=== PATIENT | female | born 1955 | race Asian ===

== ENCOUNTER 2016-11-03 22:23 | Emergency (ER) | payer MEDICARE, OTHER ==
[~2016-11-03] VITALS: Ht 152.4 cm; Wt 68.0 kg
[~2016-11-03 22:23] MED LIST: ALLOPURINOL300 MG PO; ATIVAN1 MG PO; BENADRYL25 MG PO; CEPHALEXIN500 MG PO; CLINDAMYCIN HC300 MG PO; CLONAZEPAM1 MG PO; COZAAR50 MG PO; DEPAKOTE ER500 MG PO; DICYCLOMINE HCL20 MG PO; DIVALPROEX SOD250 M1 PO; DIVALPROEX SOD500 M1 PO; INVEGA SUS234 MG/1.5 IM; LATUDA40 MG PO; LEVAQUIN500 MG PO; LEVOTHROID137 MCG PO; MELATONIN3 M1 PO; MELOXICAM15 MG PO; METFORMIN HCL500 M1 PO; METFORMIN HCL500 MG PO; NAPROSYN500 MG PO; NAPROXEN SODIU550 MG PO; NAPROXEN500 MG PO; NEURONTIN300 MG PO; PHENERGAN25 MG/1 M1 PO; PRILOSEC20 MG PO; SAPHRIS10 MG SL; TEGRETOL200 MG PO; TORSEMIDE20 MG PO; VENTOLIN HFA18 GM INH; VITAMIN C500 M2 PO; VITAMIN D350000 UNIT PO; ZOFRAN ODT4 MG SL; ZOFRAN ODT8 MG PO; ZOFRAN ODT8 MG SL
[2016-11-03] MEDS ORDERED: AMBIEN5 MG PO (22:38)
[2016-11-03] MEDS ORDERED: SEROQUEL50 MG PO (22:39)
[2016-11-03] MEDS ORDERED: ASPIR 8181 MG PO (22:43)
--- NOTE | 2016-11-04 20:57 | EKG ---
[facility] [address] [facility] [place] [address] Signed Normal sinus rhythm Normal ECG No previous ECGs available Confirmed by DARLEEN REED MD ([id number]) on 11/04/2016 8:57:03 PM Electronically Signed By: DARLEEN REED MD 11/04/167 PATIENT NAME: SHAMEKA POSEY Electrocardiogram DATE OF : 55 PHYSICIAN: DARLEEN REED MD REPORT #: [id number] REPORT IS CONFIDENTIAL AND NOT TO BE RELEASED WITHOUT AUTHORIZATION
[2016-12-21] MEDS ORDERED: ZOLOFT50 MG PO (18:54)
[2016-12-21] MEDS ORDERED: PERCOCET 5-3251 EACH PO (21:02)
[2017-01-04] MEDS ORDERED: AMBIEN5 MG PO (20:55)
== END 2016-11-04 00:25 | disposition home or self-care (01) ==
LOC: ED 22:23
DX: R07.89 Other chest pain (principal); E11.9 Type 2 diabetes mellitus without complications; Q24.9 Congenital malformation of heart, unspecified; F31.9 Bipolar disorder, unspecified; E03.9 Hypothyroidism, unspecified; G40.909 Epilepsy, unspecified, not intractable, without status epilepticus; Z90.710 Acquired absence of both cervix and uterus; Z88.0 Allergy status to penicillin; Z88.1 Allergy status to other antibiotic agents; Z88.5 Allergy status to narcotic agent; Z88.6 Allergy status to analgesic agent; Z88.8 Allergy status to other drugs, medicaments and biological substances; Z79.82 Long term (current) use of aspirin; Z79.84 Long term (current) use of oral hypoglycemic drugs
CPT/HCPCS: 71020; 80053; 84484; 85025; 93005; 93010; 96374; 99284; J1885

== ENCOUNTER 2016-12-13 01:58 | Emergency (ER) | payer MEDICARE, OTHER ==
[~2016-12-13] VITALS: Ht 152.4 cm; Wt 74.8 kg
[~2016-12-13 01:58] MED LIST changes: +AMBIEN5 MG PO; +ASPIR 8181 MG PO; +SEROQUEL50 MG PO
[2016-12-13] MEDS ORDERED: CEPHALEXIN500 MG PO (02:33)
[2016-12-13] MEDS ORDERED: MELOXICAM15 MG PO (02:33)
[2016-12-21] MEDS ORDERED: ZOLOFT50 MG PO (18:54)
[2016-12-21] MEDS ORDERED: PERCOCET 5-3251 EACH PO (21:02)
[2017-01-04] MEDS ORDERED: AMBIEN5 MG PO (20:55)
== END 2016-12-13 02:51 | disposition home or self-care (01) ==
LOC: ED 01:58
DX: M17.11 Unilateral primary osteoarthritis, right knee (principal); H66.91 Otitis media, unspecified, right ear; E11.9 Type 2 diabetes mellitus without complications; F31.9 Bipolar disorder, unspecified; E03.9 Hypothyroidism, unspecified; K21.9 Gastro-esophageal reflux disease without esophagitis; F90.9 Attention-deficit hyperactivity disorder, unspecified type; Q24.9 Congenital malformation of heart, unspecified; Z90.710 Acquired absence of both cervix and uterus; Z88.1 Allergy status to other antibiotic agents; Z88.5 Allergy status to narcotic agent; Z88.0 Allergy status to penicillin; Z88.8 Allergy status to other drugs, medicaments and biological substances; Z79.82 Long term (current) use of aspirin; Z79.899 Other long term (current) drug therapy
CPT/HCPCS: 99283

== ENCOUNTER 2016-12-16 23:32 | Emergency (ER) | payer MEDICARE, OTHER ==
[~2016-12-16] VITALS: Ht 152.4 cm; Wt 74.8 kg
[2016-12-21] MEDS ORDERED: ZOLOFT50 MG PO (18:54)
[2016-12-21] MEDS ORDERED: PERCOCET 5-3251 EACH PO (21:02)
[2017-01-04] MEDS ORDERED: AMBIEN5 MG PO (20:55)
== END 2016-12-17 00:14 | disposition home or self-care (01) ==
LOC: ED 23:32
DX: S60.021A Contusion of right index finger without damage to nail, initial encounter (principal); E11.9 Type 2 diabetes mellitus without complications; F31.9 Bipolar disorder, unspecified; E03.9 Hypothyroidism, unspecified; G40.909 Epilepsy, unspecified, not intractable, without status epilepticus; Z98.890 Other specified postprocedural states; Z88.1 Allergy status to other antibiotic agents; Z90.710 Acquired absence of both cervix and uterus; Z88.0 Allergy status to penicillin; Z88.5 Allergy status to narcotic agent; Z88.6 Allergy status to analgesic agent; Z79.899 Other long term (current) drug therapy; Z79.84 Long term (current) use of oral hypoglycemic drugs; Z79.82 Long term (current) use of aspirin; W23.1XXA Caught, crushed, jammed, or pinched between stationary objects, initial encounter
CPT/HCPCS: 99282

== ENCOUNTER → 2016-12-21 | Emergency (ER) | payer MEDICARE, OTHER ==
[~2016-12-21] VITALS: Ht 152.4 cm; Wt 75.8 kg
[~2016-12-21] MED LIST changes: +LEVOTHYROXINE88 MCG PO; +PERCOCET 5-3251 EACH PO; +ZOLOFT50 MG PO
--- NOTE | 2016-12-22 13:05 | EKG ---
[facility] [address] [facility] [place], [place] [address] Signed Normal sinus rhythm Normal ECG Confirmed by DARLEEN REED MD ([id number]) on 12/22/2016 1:05:22 PM Electronically Signed By: DARLEEN REED MD 12/22/16 1305 PATIENT NAME: SHAMEKA POSEY Electrocardiogram DATE OF : 55 PHYSICIAN: DARLEEN REED MD REPORT #: [id number] REPORT IS CONFIDENTIAL AND NOT TO BE RELEASED WITHOUT AUTHORIZATION
== END ==
LOC: ED 18:38
DX: M94.0 Chondrocostal junction syndrome [Tietze] (principal); E11.9 Type 2 diabetes mellitus without complications; F31.9 Bipolar disorder, unspecified; E03.9 Hypothyroidism, unspecified; K21.9 Gastro-esophageal reflux disease without esophagitis; F90.9 Attention-deficit hyperactivity disorder, unspecified type; G40.909 Epilepsy, unspecified, not intractable, without status epilepticus; Z90.710 Acquired absence of both cervix and uterus; Z88.5 Allergy status to narcotic agent; Z88.8 Allergy status to other drugs, medicaments and biological substances; Z88.0 Allergy status to penicillin; Z88.1 Allergy status to other antibiotic agents; Z79.899 Other long term (current) drug therapy
CPT/HCPCS: 71020; 80053; 84484; 85025; 93005; 93010; 99284

== ENCOUNTER 2016-12-23 20:21 | Emergency (ER) | payer MEDICARE, OTHER ==
[~2016-12-23] VITALS: Ht 152.4 cm; Wt 75.8 kg
[~2016-12-23 20:21] MED LIST changes: -LEVOTHYROXINE88 MCG PO
--- NOTE | 2016-12-24 17:03 | EKG ---
[facility] [address] [facility] [place], [place] [address] Signed Normal sinus rhythm Low voltage QRS Borderline ECG No previous ECGs available Confirmed by DARLEEN REED MD ([id number]) on 12/24/2016 5:02:58 PM Electronically Signed By: DARLEEN REED MD 12/24/16 1703 PATIENT NAME: SHAMEKA POSEY Electrocardiogram DATE OF : 55 PHYSICIAN: DARLEEN REED MD REPORT #: [id number] REPORT IS CONFIDENTIAL AND NOT TO BE RELEASED WITHOUT AUTHORIZATION
[2017-01-04] MEDS ORDERED: AMBIEN5 MG PO (20:55)
== END 2016-12-24 00:57 | disposition home or self-care (01) ==
LOC: ED 20:21
DX: M25.512 Pain in left shoulder (principal); E11.9 Type 2 diabetes mellitus without complications; F31.9 Bipolar disorder, unspecified; E03.9 Hypothyroidism, unspecified; G40.909 Epilepsy, unspecified, not intractable, without status epilepticus; K21.9 Gastro-esophageal reflux disease without esophagitis; F90.9 Attention-deficit hyperactivity disorder, unspecified type; Z90.89 Acquired absence of other organs; Z90.710 Acquired absence of both cervix and uterus; Z88.1 Allergy status to other antibiotic agents; Z88.0 Allergy status to penicillin; Z88.5 Allergy status to narcotic agent; Z88.8 Allergy status to other drugs, medicaments and biological substances; Z79.899 Other long term (current) drug therapy; Z79.82 Long term (current) use of aspirin
CPT/HCPCS: 71010; 80053; 84484; 85025; 99284

== ENCOUNTER 2016-12-26 18:59 | Emergency (ER) | payer MEDICARE, OTHER ==
[~2016-12-26] VITALS: Ht 152.4 cm; Wt 75.8 kg
--- NOTE | 2016-12-27 15:05 | EKG ---
[facility] [address] [facility] [place] [address] Signed Sinus rhythm with occasional premature ventricular complexes Otherwise normal ECG When compared with ECG of 23-DEC-2016 22:15, premature ventricular complexes are now present Confirmed by RENATA TOBAR MD ([id number]) on 12/27/2016 3:05:06 PM Electronically Signed By: RENATA TOBAR MD 12/27/16 1505 PATIENT NAME: SHAMEKA POSEY KEITH Electrocardiogram DATE OF : 55 PHYSICIAN: RENATA TOBAR MD REPORT #: [id number] REPORT IS CONFIDENTIAL AND NOT TO BE RELEASED WITHOUT AUTHORIZATION
[2017-01-04] MEDS ORDERED: AMBIEN5 MG PO (20:55)
== END 2016-12-26 20:58 | disposition home or self-care (01) ==
LOC: ED 18:59
DX: R07.89 Other chest pain (principal); E11.9 Type 2 diabetes mellitus without complications; F31.9 Bipolar disorder, unspecified; E03.9 Hypothyroidism, unspecified; F90.9 Attention-deficit hyperactivity disorder, unspecified type; G40.909 Epilepsy, unspecified, not intractable, without status epilepticus; K21.9 Gastro-esophageal reflux disease without esophagitis; Z90.710 Acquired absence of both cervix and uterus; Z88.5 Allergy status to narcotic agent; Z88.1 Allergy status to other antibiotic agents; Z88.0 Allergy status to penicillin; Z88.8 Allergy status to other drugs, medicaments and biological substances; Z79.891 Long term (current) use of opiate analgesic; Z79.899 Other long term (current) drug therapy
CPT/HCPCS: 71010; 80053; 84484; 85025; 93005; 93010; 99284

== ENCOUNTER → 2017-01-04 | Emergency (ER) | payer MEDICARE, OTHER ==
[~2017-01-04] VITALS: Ht 152.4 cm; Wt 75.8 kg
[~2017-01-04] MED LIST changes: +LEVOTHYROXINE88 MCG PO
--- NOTE | 2017-01-05 21:01 | EKG ---
[facility] [address] [facility] [place], [place] [address] Signed Normal sinus rhythm Normal ECG No previous ECGs available Confirmed by DARLEEN REED MD ([id number]) on 01/05/2017 9:01:03 PM Electronically Signed By: DARLEEN REED MD 01/05/172100 PATIENT NAME: SHAMEKA POSEY Electrocardiogram DATE OF : 55 PHYSICIAN: DARLEEN REED MD REPORT #: [id number] REPORT IS CONFIDENTIAL AND NOT TO BE RELEASED WITHOUT AUTHORIZATION
== END ==
LOC: ED 20:23
DX: T67.5XXA Heat exhaustion, unspecified, initial encounter (principal); E11.9 Type 2 diabetes mellitus without complications; F31.9 Bipolar disorder, unspecified; E03.9 Hypothyroidism, unspecified; K21.9 Gastro-esophageal reflux disease without esophagitis; G40.909 Epilepsy, unspecified, not intractable, without status epilepticus; F90.9 Attention-deficit hyperactivity disorder, unspecified type; Z90.710 Acquired absence of both cervix and uterus; Z90.89 Acquired absence of other organs; Z88.1 Allergy status to other antibiotic agents; Z88.5 Allergy status to narcotic agent; Z88.0 Allergy status to penicillin; Z88.8 Allergy status to other drugs, medicaments and biological substances; Z79.899 Other long term (current) drug therapy; X30.XXXA Exposure to excessive natural heat, initial encounter
CPT/HCPCS: 71020; 80053; 84484; 85025; 93005; 93010; 96361; 96374; 96375; 99284; J1885; J2550; J7030

== ENCOUNTER 2017-01-09 18:55 | Emergency (ER) | payer MEDICARE, OTHER ==
[~2017-01-09] VITALS: Ht 152.4 cm; Wt 77.1 kg
[~2017-01-09 18:55] MED LIST changes: -LEVOTHYROXINE88 MCG PO
== END 2017-01-09 19:58 | disposition home or self-care (01) ==
LOC: ED 18:55
DX: S50.02XA Contusion of left elbow, initial encounter (principal); E11.9 Type 2 diabetes mellitus without complications; F31.9 Bipolar disorder, unspecified; E03.9 Hypothyroidism, unspecified; F90.9 Attention-deficit hyperactivity disorder, unspecified type; W18.09XA Striking against other object with subsequent fall, initial encounter; Z90.710 Acquired absence of both cervix and uterus; Z88.5 Allergy status to narcotic agent; Z88.8 Allergy status to other drugs, medicaments and biological substances; Z88.0 Allergy status to penicillin; Z79.891 Long term (current) use of opiate analgesic; Z79.899 Other long term (current) drug therapy; Z79.82 Long term (current) use of aspirin
CPT/HCPCS: 73080; 99283

== ENCOUNTER 2017-03-26 10:35 | Emergency (ER) | payer MEDICARE, OTHER ==
[~2017-03-26] VITALS: Ht 152.4 cm; Wt 77.1 kg
[2017-03-26] MEDS ORDERED: LEVOTHYROXINE88 MCG PO (11:00)
== END 2017-03-26 11:29 | disposition home or self-care (01) ==
LOC: ED 10:35
DX: Z76.0 Encounter for issue of repeat prescription (principal)

== ENCOUNTER 2017-05-26 21:16 | Emergency (ER) | payer MEDICARE, OTHER ==
[~2017-05-26] VITALS: Ht 152.4 cm; Wt 77.1 kg
[~2017-05-26 21:16] MED LIST changes: +LEVOTHYROXINE88 MCG PO
[2017-05-26] MEDS ORDERED: TESSALON PERLE100 MG PO (22:10)
[2017-05-26] MEDS ORDERED: DOXYCYCLINE HY100 MG PO (22:10)
--- NOTE | 2017-05-28 15:28 | EKG ---
[facility] [address] [facility] [place] [address] Signed Normal sinus rhythm Low voltage QRS Borderline ECG When compared with ECG of 04-JAN-2017 20:36, No significant change was found Confirmed by DARLEEN REED MD ([id number]) on 05/28/2017 3:27:57 PM Electronically Signed By: DARLEEN REED MD 05/28/17 1528 PATIENT NAME: SHAMEKA POSEY Electrocardiogram DATE OF : 55 PHYSICIAN: DARLEEN REED MD REPORT #: [id number] REPORT IS CONFIDENTIAL AND NOT TO BE RELEASED WITHOUT AUTHORIZATION
== END 2017-05-26 22:23 | disposition home or self-care (01) ==
LOC: ED 21:16
DX: J40 Bronchitis, not specified as acute or chronic (principal); E11.9 Type 2 diabetes mellitus without complications; F31.9 Bipolar disorder, unspecified; E03.9 Hypothyroidism, unspecified; K21.9 Gastro-esophageal reflux disease without esophagitis; G40.909 Epilepsy, unspecified, not intractable, without status epilepticus; F90.9 Attention-deficit hyperactivity disorder, unspecified type; Z90.710 Acquired absence of both cervix and uterus; Z98.890 Other specified postprocedural states; Z88.1 Allergy status to other antibiotic agents; Z88.5 Allergy status to narcotic agent; Z88.0 Allergy status to penicillin; Z88.8 Allergy status to other drugs, medicaments and biological substances; Z79.82 Long term (current) use of aspirin; Z79.899 Other long term (current) drug therapy
CPT/HCPCS: 71045; 93005; 93010; 99284

== ENCOUNTER 2017-05-28 23:58 | Emergency (ER) | payer MEDICARE, OTHER ==
[~2017-05-28] VITALS: Ht 147.3 cm; Wt 80.3 kg
[~2017-05-28 23:58] MED LIST changes: +DOXYCYCLINE HY100 MG PO; +TESSALON PERLE100 MG PO
[2017-05-29] MEDS ORDERED: DICLOFENAC SODI75 MG PO (01:39)
== END 2017-05-29 02:02 | disposition home or self-care (01) ==
LOC: ED 23:58
DX: M25.561 Pain in right knee (principal); E11.9 Type 2 diabetes mellitus without complications; E03.9 Hypothyroidism, unspecified; K21.9 Gastro-esophageal reflux disease without esophagitis; Z90.89 Acquired absence of other organs; Z98.890 Other specified postprocedural states; Z90.710 Acquired absence of both cervix and uterus; Z88.1 Allergy status to other antibiotic agents; Z88.5 Allergy status to narcotic agent; Z88.8 Allergy status to other drugs, medicaments and biological substances; Z79.899 Other long term (current) drug therapy
CPT/HCPCS: 99283

== ENCOUNTER 2017-06-13 21:55 | Emergency (ER) | payer MEDICARE, OTHER ==
[~2017-06-13] VITALS: Ht 147.3 cm; Wt 80.3 kg
[~2017-06-13 21:55] MED LIST changes: +DICLOFENAC SODI75 MG PO
--- NOTE | 2017-06-14 17:58 | EKG ---
[facility] [address] [facility] [place], [place] [address] Signed Normal sinus rhythm Normal ECG When compared with ECG of 26-MAY-2017 21:21, No significant change was found Confirmed by DARLEEN REED MD ([id number]) on 06/14/2017 5:58:14 PM Electronically Signed By: DARLEEN REED MD 06/14/17 1758 PATIENT NAME: SHAMEKA POSEY Electrocardiogram DATE OF : 55 PHYSICIAN: DARLEEN REED MD REPORT #: [id number] REPORT IS CONFIDENTIAL AND NOT TO BE RELEASED WITHOUT AUTHORIZATION
== END 2017-06-13 23:57 | disposition home or self-care (01) ==
LOC: ED 21:55
DX: R07.89 Other chest pain (principal); E11.9 Type 2 diabetes mellitus without complications; E03.9 Hypothyroidism, unspecified; F31.9 Bipolar disorder, unspecified; K21.9 Gastro-esophageal reflux disease without esophagitis; Z88.1 Allergy status to other antibiotic agents; Z88.5 Allergy status to narcotic agent; Z88.0 Allergy status to penicillin; Z88.8 Allergy status to other drugs, medicaments and biological substances; Z79.899 Other long term (current) drug therapy
CPT/HCPCS: 71046; 80053; 84484; 85025; 93005; 93010; 99284

== ENCOUNTER 2017-06-27 18:32 | Emergency (ER) | payer MEDICARE, OTHER ==
[~2017-06-27] VITALS: Ht 147.3 cm; Wt 80.3 kg
--- NOTE | 2017-06-29 14:05 | EKG ---
[facility] [address] [facility] [place] [address] Signed Sinus rhythm with premature atrial complexes Otherwise normal ECG When compared with ECG of 13-JUN-2017 22:03, premature atrial complexes are now present Confirmed by DARLEEN REED MD ([id number]) on 06/29/2017 2:05:00 PM Electronically Signed By: DARLEEN REED MD 06/29/17 1405 PATIENT NAME: SHAMEKA POSEY Electrocardiogram DATE OF : 55 PHYSICIAN: DARLEEN REED MD REPORT #: [id number] REPORT IS CONFIDENTIAL AND NOT TO BE RELEASED WITHOUT AUTHORIZATION
== END 2017-06-27 21:20 | disposition home or self-care (01) ==
LOC: ED 18:32
DX: J06.9 Acute upper respiratory infection, unspecified (principal); E11.9 Type 2 diabetes mellitus without complications; F31.9 Bipolar disorder, unspecified; E03.9 Hypothyroidism, unspecified; Z88.1 Allergy status to other antibiotic agents; Z88.5 Allergy status to narcotic agent; Z88.0 Allergy status to penicillin; Z88.8 Allergy status to other drugs, medicaments and biological substances; Z79.84 Long term (current) use of oral hypoglycemic drugs; Z79.82 Long term (current) use of aspirin; Z79.899 Other long term (current) drug therapy
CPT/HCPCS: 71046; 93005; 93010; 99284

== ENCOUNTER 2017-07-01 10:16 | Emergency (ER) | payer MEDICARE, OTHER ==
[~2017-07-01] VITALS: Ht 147.3 cm; Wt 77.6 kg
[2017-07-01] MEDS ORDERED: CIPRO250 MG PO (11:51)
== END 2017-07-01 12:05 | disposition home or self-care (01) ==
LOC: ED 10:16
DX: N39.0 Urinary tract infection, site not specified (principal); F31.9 Bipolar disorder, unspecified; E03.9 Hypothyroidism, unspecified; E11.9 Type 2 diabetes mellitus without complications; Z88.1 Allergy status to other antibiotic agents; Z88.5 Allergy status to narcotic agent; Z88.0 Allergy status to penicillin; Z88.8 Allergy status to other drugs, medicaments and biological substances; Z79.899 Other long term (current) drug therapy; Z79.84 Long term (current) use of oral hypoglycemic drugs; Z79.82 Long term (current) use of aspirin
CPT/HCPCS: 80048; 81001; 85025; 99283

== ENCOUNTER 2017-08-03 22:32 | Emergency (ER) | payer MEDICARE, OTHER ==
[~2017-08-03] VITALS: Ht 147.3 cm; Wt 77.6 kg
[~2017-08-03 22:32] MED LIST changes: +CIPRO250 MG PO
== END 2017-08-04 02:25 | disposition home or self-care (01) ==
LOC: ED 22:32
DX: S46.912A Strain of unspecified muscle, fascia and tendon at shoulder and upper arm level, left arm, initial encounter (principal); W01.0XXA Fall on same level from slipping, tripping and stumbling without subsequent striking against object, initial encounter; E11.9 Type 2 diabetes mellitus without complications; F31.9 Bipolar disorder, unspecified; E03.9 Hypothyroidism, unspecified; G40.909 Epilepsy, unspecified, not intractable, without status epilepticus; F90.9 Attention-deficit hyperactivity disorder, unspecified type; Z88.8 Allergy status to other drugs, medicaments and biological substances; Z88.5 Allergy status to narcotic agent; Z88.0 Allergy status to penicillin; Z88.1 Allergy status to other antibiotic agents; Z79.2 Long term (current) use of antibiotics; Z79.899 Other long term (current) drug therapy; Z79.84 Long term (current) use of oral hypoglycemic drugs; Z79.82 Long term (current) use of aspirin
CPT/HCPCS: 73030; 73080; 99283

== ENCOUNTER 2017-08-08 20:34 | Emergency (ER) | payer MEDICARE, OTHER ==
[~2017-08-08] VITALS: Ht 147.3 cm; Wt 77.6 kg
[2017-08-08] MEDS ORDERED: ATIVAN0.5 MG PO (20:44)
--- NOTE | 2017-08-09 11:39 | EKG ---
[facility] [address] [facility] [place] [address] Signed Normal sinus rhythm Normal ECG When compared with ECG of 27-JUN-2017 18:40, premature atrial complexes are no longer present Confirmed by DARLEEN REED MD ([id number]) on 08/09/2017 11:39:03 AM Electronically Signed By: DARLEEN REED MD 08/09/17 1139 PATIENT NAME: SHAMEKA POSEY Electrocardiogram DATE OF : 55 PHYSICIAN: DARLEEN REED MD REPORT #: [id number] REPORT IS CONFIDENTIAL AND NOT TO BE RELEASED WITHOUT AUTHORIZATION
== END 2017-08-08 23:24 | disposition home or self-care (01) ==
LOC: ED 20:34
DX: R07.9 Chest pain, unspecified (principal); E11.9 Type 2 diabetes mellitus without complications; F31.9 Bipolar disorder, unspecified; E03.9 Hypothyroidism, unspecified; I50.9 Heart failure, unspecified; K21.9 Gastro-esophageal reflux disease without esophagitis; G40.909 Epilepsy, unspecified, not intractable, without status epilepticus; Z88.1 Allergy status to other antibiotic agents; Z88.5 Allergy status to narcotic agent; Z88.0 Allergy status to penicillin; Z88.8 Allergy status to other drugs, medicaments and biological substances; Z91.09 Other allergy status, other than to drugs and biological substances; Z79.899 Other long term (current) drug therapy; Z79.82 Long term (current) use of aspirin; Z79.84 Long term (current) use of oral hypoglycemic drugs
CPT/HCPCS: 71045; 80053; 84484; 85025; 93005; 93010; 99283

== ENCOUNTER 2018-01-16 18:25 | Emergency (ER) | payer MEDICARE, OTHER ==
[~2018-01-16] VITALS: Ht 147.3 cm; Wt 73.0 kg
[~2018-01-16 18:25] MED LIST changes: +ATIVAN0.5 MG PO
--- OUTSIDE RECORDS SUMMARY | 2018-01-16 18:28 | XMS ---
PreManage Notification: SHAMEKA POSEY Security Time Study Statistician Events No recent Security Events currently on file CRITERIA MET - Group Notification - [facility] CARE PROVIDERS Omar Vasquez Mental Health Provider Current PHONE: [phone] DR JOSE LO Primary Care Current PHONE: [phone] JANKI SANCHES DO Primary Care Current PHONE: [phone] Tawanda Craft Primary Care Current PHONE: Unknown DR MELISSA SIMENTAL Primary Care 01/22/2017-01/22/2017 PHONE: [phone] YOAN MCFARLAND Case or Lamp Mechanic 12/27/2016-Current PHONE: [phone] [facility] Other Current Orthopedic Surgery \T\ Fracture Clinic PHONE: Unknown Other Current PHONE: Unknown Guidelines Source: [facility] Guidelines Date: 10/29/2017 Care Recommendation: Currently Enrolled in Assertive Community Treatment with [employer], chris Johnson [phone]. \T\nbsp;History of reporting injuries based off delusions.\T\nbsp; Asking for details, reality based questions to see if this is a current concern.\T\nbsp;Prescription medications go through [employer] [phone]. Care History Medical/Surgical 09/08/2017 [facility] - Patient is currently receiving services through [employer] and is apart of the ACT team now. Which means patient is more involved with [employer] services and frequent visits from [employer]. 08/04/2017 [facility] Care Recommendation: This patient has had 5 or more Emergency Department visits in the last 12 months. Patient requires education on the scope and purpose of the ED as an acute care provider not a Primary Care Provider and should not be utilized for chronic conditions. If patient returns to ED please contact Community Health WorkerChar at [phone]. These are guidelines and the provider should exercise clinical judgment when providing care. E.D. VISIT COUNT (12 MO.) 9 [facility]. TOTAL 9 NOTE: Visits indicate total known visits. 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 DRUGS - Chest pain, unspecified - skilled nursing (current) use of oral hypoglycemic drugs - Allergy status to other antibiotic agents status - Other allergy status, other than to drugs and biological substances - Other fci (current) drug therapy - skilled nursing (current) use of aspirin - Type 2 diabetes mellitus without complications 08/03/2017 22:32 [facility] TYPE: Emergency COMPLAINT: - FALL DIAGNOSES: - Attention-deficit hyperactivity disorder, unspecified type - Hypothyroidism, unspecified - Allergy status to narcotic agent status - Other fci (current) drug therapy - Allergy status to other drugs, medicaments and biological substances status - Strain of unspecified muscle, fascia and tendon at shoulder and upper arm level, left arm, initial encounter - Allergy status to penicillin - Allergy status to other antibiotic agents status - intermediate project manager (current) use of oral hypoglycemic drugs - Bipolar disorder, unspecified - Epilepsy, unspecified, not intractable, without status epilepticus - Fall on same level from slipping, tripping and stumbling without subsequent striking against object, initial encounter - Type 2 diabetes mellitus without complications - skilled nursing (current) use of antibiotics - skilled nursing (current) use of aspirin - 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 (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 07/01/2017 10:17 [facility] TYPE: Emergency COMPLAINT: - RECTAL BLEEDING DIAGNOSES: - skilled nursing (current) use of oral hypoglycemic drugs - Hypothyroidism, unspecified - Urinary tract infection, site not specified - Allergy status to other drugs, medicaments and biological substances status - Other fci (current) drug therapy - Allergy status to penicillin - intermediate project manager (current) use of aspirin - Allergy status to other antibiotic agents status - Bipolar disorder, unspecified - Allergy status to narcotic agent status - Type 2 diabetes mellitus without complications - 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 (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 DRUGS - Hemorrhage of anus and rectum 06/27/2017 18:32 [facility] TYPE: Emergency COMPLAINT: - CHEST PAIN DIAGNOSES: - Allergy status to penicillin - Other buttermaker helper (current) drug therapy - Allergy status to other antibiotic agents status - Acute upper respiratory infection, unspecified - Hypothyroidism, unspecified - Chest pain, unspecified - skilled nursing (current) use of oral hypoglycemic drugs - Allergy status to narcotic agent status - Allergy status to other drugs, medicaments and biological substances status - Bipolar disorder, unspecified - intermediate project manager (current) use of aspirin - 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 (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 DRUGS - Type 2 diabetes mellitus without complications 06/13/2017 21:55 [facility] TYPE: Emergency COMPLAINT: - CHEST PAIN DIAGNOSES: - Gastro-esophageal reflux disease without esophagitis - Other buttermaker helper (current) drug therapy - Other chest pain - Allergy status to penicillin - Bipolar disorder, unspecified - Allergy status to other antibiotic agents status - Allergy status to other drugs, medicaments and biological substances status - Type 2 diabetes mellitus without complications - Hypothyroidism, unspecified - Allergy status to narcotic agent status 05/28/2017 23:58 [facility] TYPE: Emergency COMPLAINT: - RT LEG PAIN,NON INJURY DIAGNOSES: - Acquired absence of both cervix and uterus - Allergy status to other antibiotic agents status - Hypothyroidism, unspecified - Other specified postprocedural states - Other fci (current) drug therapy - Pain in right leg - Acquired absence of other organs - Allergy status to other drugs, medicaments and biological substances status - OTHER SPECIFIED POSTPROCEDURAL STATES - Gastro-esophageal reflux disease without esophagitis - Pain in right knee - Type 2 diabetes mellitus without complications - Allergy status to narcotic agent status 05/26/2017 21:16 [facility] TYPE: Emergency COMPLAINT: - CHEST PAIN DIAGNOSES: - Hypothyroidism, unspecified - skilled nursing (current) use of aspirin - Epilepsy, unspecified, not intractable, without status epilepticus - Allergy status to narcotic agent status - Other fci (current) drug therapy - Allergy status to other antibiotic agents status - Cough - Attention-deficit hyperactivity disorder, unspecified type - OTHER SPECIFIED POSTPROCEDURAL STATES - Bronchitis, not specified as acute or chronic - Allergy status to other drugs, medicaments and biological substances status - Gastro-esophageal reflux disease without esophagitis - Acquired absence of both cervix and uterus - Other specified postprocedural states - Bipolar disorder, unspecified - Allergy status to penicillin - Type 2 diabetes mellitus without complications 03/26/2017 10:36 [facility] TYPE: Emergency COMPLAINT: - MEDICINE REFILL/MSE DIAGNOSES: - Encounter for issue of repeat prescription - Encounter for other general examination INPATIENT VISIT TRACKING (12 MO.) No inpatient visits to display in this time frame [email or web address]
== END 2018-01-16 20:09 | disposition home or self-care (01) ==
LOC: ED 18:25
DX: S60.221A Contusion of right hand, initial encounter (principal); E11.9 Type 2 diabetes mellitus without complications; E03.9 Hypothyroidism, unspecified; F31.9 Bipolar disorder, unspecified; Z88.1 Allergy status to other antibiotic agents; Z88.5 Allergy status to narcotic agent; Z88.8 Allergy status to other drugs, medicaments and biological substances; Z88.0 Allergy status to penicillin; Z88.6 Allergy status to analgesic agent; Z79.899 Other long term (current) drug therapy; Z79.84 Long term (current) use of oral hypoglycemic drugs; Z79.82 Long term (current) use of aspirin; W23.0XXA Caught, crushed, jammed, or pinched between moving objects, initial encounter
CPT/HCPCS: 73130; 99283

== ENCOUNTER 2018-06-26 19:11 | Emergency (ER) | payer MEDICARE, OTHER ==
[~2018-06-26] VITALS: Ht 147.3 cm; Wt 71.2 kg
[~2018-06-26 19:11] MED LIST changes: +ZOFRAN4 MG PO
--- OUTSIDE RECORDS SUMMARY | 2018-06-26 19:14 | XMS ---
PreManage Notification: SHAMEKA POSEY Security Business Applications Developer Events No recent Security Events currently on file CRITERIA MET - Group Notification - [facility] Guidelines - [facility] CARE PROVIDERS MELISSA SIMENTAL Hospitalist 01/20/2018-Current PHONE: Unknown Omar Vasquez Mental Health Provider Current PHONE: [phone] DR JOSE LO Primary Care Current PHONE: [phone] JANKI SANCHES DO Primary Care Current PHONE: [phone] Tawanda Craft Primary Care Current PHONE: Unknown DR MELISSA SIMENTAL Primary Care 01/22/2017-01/22/2017 PHONE: [phone] YOAN MCFARLAND Case or Physical Science Technician 12/27/2016-Current PHONE: [phone] [facility] [place] [facility] Current Orthopedic Surgery \T\ Fracture Clinic PHONE: Unknown Other Current PHONE: Unknown Guidelines [facility] Guidelines Date: 02/05/2018 Care Recommendation: Currently Enrolled in Assertive Community Treatment with [employer], contact Jennifer Monroy [phone]. \T\nbsp;History of reporting injuries based off delusions. \T\nbsp; Asking for details, reality based questions to see if this is a current concern.\T\nbsp;Prescription medications go through [employer] [phone]. Care History Medical/Surgical 01/20/2018 [facility] - Patient is currently established with [facility]. If patient is seen in the ED during business hours. Please contact [facility] at [facility]. Care Recommendation: This patient has had 5 or more Emergency Department visits in the last 12 months.\T\nbsp; Patient requires education on the scope and purpose of the ED as an acute care provider not a Primary Care Provider and should not be utilized for chronic conditions.\T\nbsp; These are guidelines and the provider should exercise clinical judgment when providing care. 09/08/2017 [facility] - Patient is currently receiving services through [employer] and is apart of the ACT team now. Which means patient is more involved with [employer] services and frequent visits from [employer]. 08/04/2017 [facility] Care Recommendation: This patient has had 5 or more Emergency Department visits in the last 12 months. Patient requires education on the scope and purpose of the ED as an acute care provider not a Primary Care Provider and should not be utilized for chronic conditions. If patient returns to ED please contact Community Health WorkerChar at [phone]. These are guidelines and the provider should exercise clinical judgment when providing care. E.D. VISIT COUNT (12 MO.) [address] [facility] TOTAL 9 NOTE: Visits indicate total known visits. ED/UCC VISIT TRACKING (12 MO.) 06/26/2018 19:12 [facility] TYPE: Emergency COMPLAINT: - CONSTIPATION,RECTAL BLEEDING 04/18/2018 18:25 [facility] TYPE: Emergency COMPLAINT: - VOMITING DIAGNOSES: - Dizziness and giddiness - longterm (current) use of oral hypoglycemic drugs - Noninfective gastroenteritis and colitis, unspecified - Allergy status to narcotic agent status - Hypothyroidism, unspecified - Type 2 diabetes mellitus without complications - Other chcf (current) drug therapy - Allergy status to penicillin - longterm (current) use of aspirin - Epilepsy, unspecified, not intractable, without status epilepticus - Attention-deficit hyperactivity disorder, unspecified type - Major depressive disorder, single episode, unspecified - Allergy status to other antibiotic agents status 04/18/2018 03:32 [facility] TYPE: Emergency COMPLAINT: - FALL DIAGNOSES: - Attention-deficit hyperactivity disorder, unspecified type - Chest pain, unspecified - Epilepsy, unspecified, not intractable, without status epilepticus - Bipolar disorder, unspecified - Hypothyroidism, unspecified - keno terminal operator (current) use of aspirin - Other chcf (current) drug therapy - Allergy status to penicillin - longterm (current) use of oral hypoglycemic drugs - Allergy status to narcotic agent status - Dizziness and giddiness - Type 2 diabetes mellitus without complications - Gastro-esophageal reflux disease without esophagitis - Allergy status to other drugs, medicaments and biological substances status 03/13/2018 12:01 [facility] TYPE: Emergency COMPLAINT: - LEFT LEG PAIN NON INJURY 01/16/2018 18:25 [facility] TYPE: Emergency COMPLAINT: - R HAND INJURY DIAGNOSES: - Allergy status to other antibiotic agents status - Allergy status to other drugs, medicaments and biological substances status - Allergy status to analgesic agent status - Other roasterman (current) drug therapy - Bipolar disorder, unspecified - Hypothyroidism, unspecified - longterm (current) use of aspirin - Unspecified injury of right wrist, hand and finger(s), initial encounter - Allergy status to narcotic agent status - Allergy status to penicillin - longterm (current) use of oral hypoglycemic drugs - Caught, crushed, jammed, or pinched between moving objects, initial encounter - Type 2 diabetes mellitus without complications - Contusion of right hand, initial encounter 08/08/2017 20:35 [facility] TYPE: Emergency COMPLAINT: - CHEST PAIN DIAGNOSES: - Allergy status to other drugs, medicaments and biological substances status - Allergy status to narcotic agent status - Allergy status to penicillin - Gastro-esophageal reflux disease without esophagitis - Epilepsy, unspecified, not intractable, without status epilepticus - Hypothyroidism, unspecified - Bipolar disorder, unspecified - Heart failure, unspecified - SENIOR CARE (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 DRUGS - Chest pain, unspecified - longterm (current) use of oral hypoglycemic drugs - Allergy status to other antibiotic agents status - Other allergy status, other than to drugs and biological substances - Other chcf (current) drug therapy - keno terminal operator (current) use of aspirin - Type 2 diabetes mellitus without complications 08/03/2017 22:32 [facility] TYPE: Emergency COMPLAINT: - FALL DIAGNOSES: - Attention-deficit hyperactivity disorder, unspecified type - Hypothyroidism, unspecified - Allergy status to narcotic agent status - Other roasterman (current) drug therapy - Allergy status to other drugs, medicaments and biological substances status - Strain of unspecified muscle, fascia and tendon at shoulder and upper arm level, left arm, initial encounter - Allergy status to penicillin - Allergy status to other antibiotic agents status - longterm (current) use of oral hypoglycemic drugs - Bipolar disorder, unspecified - Epilepsy, unspecified, not intractable, without status epilepticus - Fall on same level from slipping, tripping and stumbling without subsequent striking against object, initial encounter - Type 2 diabetes mellitus without complications - keno terminal operator (current) use of antibiotics - keno terminal operator (current) use of aspirin - ADVISORY INTERN (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 DRUGS 07/01/2017 10:17 [facility] TYPE: Emergency COMPLAINT: - RECTAL BLEEDING DIAGNOSES: - keno terminal operator (current) use of oral hypoglycemic drugs - Hypothyroidism, unspecified - Urinary tract infection, site not specified - Allergy status to other drugs, medicaments and biological substances status - Other chcf (current) drug therapy - Allergy status to penicillin - longterm (current) use of aspirin - Allergy status to other antibiotic agents status - Bipolar disorder, unspecified - Allergy status to narcotic agent status - Type 2 diabetes mellitus without complications - ADVISORY INTERN (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 DRUGS - Hemorrhage of anus and rectum 06/27/2017 18:32 [facility] TYPE: Emergency COMPLAINT: - CHEST PAIN DIAGNOSES: - Allergy status to penicillin - Other chcf (current) drug therapy - Allergy status to other antibiotic agents status - Acute upper respiratory infection, unspecified - Hypothyroidism, unspecified - Chest pain, unspecified - longterm (current) use of oral hypoglycemic drugs - Allergy status to narcotic agent status - Allergy status to other drugs, medicaments and biological substances status - Bipolar disorder, unspecified - keno terminal operator (current) use of aspirin - ADVISORY INTERN (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 DRUGS - Type 2 diabetes mellitus without complications INPATIENT VISIT TRACKING (12 MO.) 03/13/2018 12:02 [facility] TYPE: Medical Surgical COMPLAINT: - L KNEE ARTHRITIS INABILITY TO WALK DIAGNOSES: - Hypothyroidism, unspecified - Epilepsy, unspecified, not intractable, without status epilepticus - Angina pectoris, unspecified - Effusion, left knee - Pain in left lower leg - Difficulty in walking, not elsewhere classified - Type 2 diabetes mellitus without complications - Attention-deficit hyperactivity disorder, unspecified type - Bipolar disorder, unspecified - Pain in left knee - Allergy status to narcotic agent status - Allergy status to penicillin - longterm (current) use of aspirin - Chronic pain syndrome - Gout, unspecified - Allergy status to other drugs, medicaments and biological substances status - longterm (current) use of antibiotics - longterm (current) use of non-steroidal anti-inflammatories (NSAID) - Essential (primary) hypertension - Allergy status to analgesic agent status - keno terminal operator (current) use of oral hypoglycemic drugs - Unilateral primary osteoarthritis, left knee - Gastro-esophageal reflux disease without esophagitis - Congenital malformation of heart, unspecified - Other chcf (current) drug therapy - Patient's other noncompliance with medication regimen - History of falling - Allergy status to other anti-infective agents status - Dorsalgia, unspecified [email or web address]
[2018-06-26] MEDS ORDERED: FAMOTIDINE40 MG PO (19:47)
== END 2018-06-26 20:10 | disposition home or self-care (01) ==
LOC: ED 19:11
DX: K58.1 Irritable bowel syndrome with constipation (principal); E11.9 Type 2 diabetes mellitus without complications; F31.9 Bipolar disorder, unspecified; E03.9 Hypothyroidism, unspecified; K21.9 Gastro-esophageal reflux disease without esophagitis; G40.909 Epilepsy, unspecified, not intractable, without status epilepticus; F90.9 Attention-deficit hyperactivity disorder, unspecified type; Z90.710 Acquired absence of both cervix and uterus; Z88.1 Allergy status to other antibiotic agents; Z88.5 Allergy status to narcotic agent; Z88.0 Allergy status to penicillin; Z88.8 Allergy status to other drugs, medicaments and biological substances; Z88.6 Allergy status to analgesic agent; Z79.899 Other long term (current) drug therapy; Z79.82 Long term (current) use of aspirin; Z79.84 Long term (current) use of oral hypoglycemic drugs
CPT/HCPCS: 99283

== ENCOUNTER 2018-06-29 18:52 | Emergency (ER) | payer MEDICARE, OTHER ==
[~2018-06-29] VITALS: Ht 147.3 cm; Wt 71.2 kg
[~2018-06-29 18:52] MED LIST changes: +FAMOTIDINE40 MG PO
--- OUTSIDE RECORDS SUMMARY | 2018-06-29 18:56 | XMS ---
PreManage Notification: SHAMEKA POSEY Security Digital Marketer Events No recent Security Events currently on file CRITERIA MET - Group Notification - 6 ED Visits in 6 Months - [facility] - Has Care Guidelines - PDMP - [facility] - 2 Visits in 30 Days CARE PROVIDERS MELISSA SIMENTAL 01/20/2018-Current PHONE: Unknown Omar Vasquez Mental Health Provider Current PHONE: [phone] DR JOSE LO Primary Care Current PHONE: [phone] JANKI SANCHES DO Primary Care Current PHONE: [phone] Tawanda Craft Primary Care Current PHONE: Unknown DR MELISSA SIMENTAL Primary Care 01/22/2017-01/22/2017 PHONE: [phone] YOAN Garcia or Rough Rice Grader 12/27/2016-Current PHONE: [phone] Lin Maine Kit Current Orthopedic Surgery \T\ Fracture Clinic PHONE: Unknown Other Current PHONE: Unknown Guidelines Source: [employer] [facility] [place] Guidelines Date: 02/05/2018 Care Recommendation: Currently Enrolled in Assertive Community Treatment with [employer], contact Jennifer Monroy [phone]. \T\nbsp;History of reporting injuries based off delusions. \T\nbsp; Asking for details, reality based questions to see if this is a current concern.\T\nbsp;Prescription medications go through [employer] [phone]. Care History Medical/Surgical 01/20/2018 [facility] - Patient is currently established with [facility]. If patient is seen in the ED during business hours. Please contact CHWs at [facility]. Care Recommendation: This patient has had 5 or more Emergency Department visits in the last 12 months.\T\nbsp; Patient requires education on the scope and purpose of the ED as an acute care provider not a Primary Care Provider and should not be utilized for chronic conditions.\T\nbsp; These are guidelines and the provider should exercise clinical judgment when providing care. 09/08/2017 [facility] - Patient is currently receiving services through [employer] and is apart of the ACT team now. Which means patient is more involved with [employer] services and frequent visits from [facility]. 08/04/2017 [facility] Care Recommendation: This patient has had 5 or more Emergency Department visits in the last 12 months. Patient requires education on the scope and purpose of the ED as an acute care provider not a Primary Care Provider and should not be utilized for chronic conditions. If patient returns to ED please contact Community Health WorkerChar at [phone]. These are guidelines and the provider should exercise clinical judgment when providing care. E.D. VISIT COUNT (12 MO.) [address] [facility] TOTAL 9 NOTE: Visits indicate total known visits. ED/UCC VISIT TRACKING (12 MO.) 06/29/2018 18:53 [facility] [place] TYPE: Emergency COMPLAINT: - L WRIST PAIN/INJURY 06/26/2018 19:12 [facility] [place] TYPE: Emergency COMPLAINT: - CONSTIPATION,RECTAL BLEEDING 04/18/2018 18:25 [facility] [place] TYPE: Emergency COMPLAINT: - VOMITING DIAGNOSES: - Dizziness and giddiness - tank terminal gauger (current) use of oral hypoglycemic drugs - Noninfective gastroenteritis and colitis, unspecified - Allergy status to narcotic agent status - Hypothyroidism, unspecified - Type 2 diabetes mellitus without complications - Other senior living (current) drug therapy - Allergy status to penicillin - halfway (current) use of aspirin - Epilepsy, unspecified, [...] Bipolar disorder, unspecified - Hypothyroidism, unspecified - halfway (current) use of aspirin - Other senior living (current) drug therapy - Allergy status to penicillin - halfway (current) use of oral hypoglycemic drugs - [...] status to analgesic agent status - Other computer terminal operator (current) drug therapy - Bipolar disorder, unspecified - Hypothyroidism, unspecified - tank terminal gauger (current) use of aspirin - Unspecified injury of right wrist, hand and finger(s), initial encounter - Allergy status to narcotic agent status - Allergy status to penicillin - tank terminal gauger (current) use of oral hypoglycemic drugs - [...] disorder, unspecified - Heart failure, unspecified - [facility] (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 DRUGS - Chest pain, unspecified - tank terminal gauger (current) use of oral hypoglycemic drugs - Allergy status to other antibiotic agents status - Other allergy status, other than to drugs and biological substances - Other senior living (current) drug therapy - halfway (current) use of aspirin - Type 2 diabetes mellitus without complications 08/03/2017 22:32 [facility] [place] TYPE: Emergency COMPLAINT: - FALL DIAGNOSES: - Attention-deficit hyperactivity disorder, unspecified type - Hypothyroidism, unspecified - Allergy status to narcotic agent status - Other computer terminal operator (current) drug therapy - Allergy status to other drugs, medicaments and biological substances status - Strain of unspecified muscle, fascia and tendon at shoulder and upper arm level, left arm, initial encounter - Allergy status to penicillin - Allergy status to other antibiotic agents status - halfway (current) use of oral hypoglycemic drugs - Bipolar disorder, unspecified - Epilepsy, unspecified, not intractable, without status epilepticus - Fall on same level from slipping, tripping and stumbling without subsequent striking against object, initial encounter - Type 2 diabetes mellitus without complications - tank terminal gauger (current) use of antibiotics - tank terminal gauger (current) use of aspirin - [facility] (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 DRUGS 07/01/2017 10:17 [facility] [place] TYPE: Emergency COMPLAINT: - RECTAL BLEEDING DIAGNOSES: - halfway (current) use of oral hypoglycemic drugs - Hypothyroidism, unspecified - Urinary tract infection, site not specified - Allergy status to other drugs, medicaments and biological substances status - Other computer terminal operator (current) drug therapy - Allergy status to penicillin - tank terminal gauger (current) use of aspirin - Allergy status to other antibiotic agents status - Bipolar disorder, unspecified - Allergy status to narcotic agent status - Type 2 diabetes mellitus without complications - [facility] (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 DRUGS - Hemorrhage of anus and rectum INPATIENT VISIT TRACKING (12 MO.) 03/13/2018 12:02 [...] status - Allergy status to penicillin - halfway (current) use of aspirin - Chronic pain syndrome - Gout, unspecified - Allergy status to other drugs, medicaments and biological substances status - tank terminal gauger (current) use of antibiotics - tank terminal gauger (current) use of non-steroidal anti-inflammatories (NSAID) - Essential (primary) hypertension - Allergy status to analgesic agent status - tank terminal gauger (current) use of oral hypoglycemic drugs - Unilateral primary osteoarthritis, left knee - Gastro-esophageal reflux disease without esophagitis - Congenital malformation of heart, unspecified - Other computer terminal operator (current) drug therapy - Patient's other noncompliance with medication regimen - History of falling - Allergy status to other anti-infective agents status - Dorsalgia, unspecified [email or web address]
== END 2018-06-29 20:39 | disposition home or self-care (01) ==
LOC: ED 18:52
PROC: 2W3DX1Z Immobilization of Left Lower Arm using Splint (ICD-10-PCS; principal; 2018-06-29)
DX: S63.502A Unspecified sprain of left wrist, initial encounter (principal); S80.01XA Contusion of right knee, initial encounter; W10.9XXA Fall (on) (from) unspecified stairs and steps, initial encounter; E11.9 Type 2 diabetes mellitus without complications; E03.9 Hypothyroidism, unspecified; F31.9 Bipolar disorder, unspecified; K21.9 Gastro-esophageal reflux disease without esophagitis; G40.909 Epilepsy, unspecified, not intractable, without status epilepticus; Z88.5 Allergy status to narcotic agent; Z88.1 Allergy status to other antibiotic agents; Z88.8 Allergy status to other drugs, medicaments and biological substances; Z79.899 Other long term (current) drug therapy; Z79.84 Long term (current) use of oral hypoglycemic drugs; Z79.82 Long term (current) use of aspirin
CPT/HCPCS: 29125; 73110; 73560; 99284-25

== ENCOUNTER 2018-08-18 23:57 | Emergency (ER) | payer MEDICARE, OTHER ==
[~2018-08-18] VITALS: Ht 147.3 cm; Wt 71.0 kg
--- OUTSIDE RECORDS SUMMARY | ~2018-08-18 | XMS | Clinical Summary ---
Demographics + + + | Address | [address] | | | [place] [address] | + + + | Home Phone | | + + + | Preferred Language | Unknown | + + + | Marital Status | | + + + | Orthodoxy Affiliation | Unknown | + + + | Race | | + + + | Ethnic Group | Not or | + + + Author + + + | Author | [facility] | + + + | Organization | [facility] | + + + | Address | Unknown | + + + | Phone | Unavailable | + + + Support +------+ +---------+ + | Name | Relationship | Address | Phone | +------+ +---------+ + | NONE | ECON | Unknown | Unavailable | +------+ +---------+ + Care Team Providers + +------+ + | Care Corporate Travel Consultant Name | Role | Phone | + +------+ + | Josiah Soliz MD | PP | | + +------+ + Source Comments SHIRA is fully live on both [facility] Ambulatory and [facility] InPatient.[facility] Allergies Not on File Current Medications Not [...] 2019 | Visit | | MD Krissy [address] | | | | | | [place], [place] | | | | | | [address] | | | | | | [phone] | | | | | | | [...] | re | [address] | [place] [address] | | | B | | | | | + +--------+ +--------+ + + | CONFERENCE SERVICES DIRECTOR MEDICAID | CONFERENCE SERVICES DIRECTOR | xxxxxxxx | Medica | | | [...] | [place] | | | 1848 | [phone] | + +--------+ +--------+ + +"
--- OUTSIDE RECORDS SUMMARY | ~2018-08-18 | XMS | Encounter Summary ---
Demographics + + + | Address | [address] | | | [place] [address] | + + + | Home Phone | | + + + | Preferred Language | Unknown | + + + | Marital Status | | + + + | Orthodox Affiliation | Unknown | + + + | Race | | + + + | Ethnic Group | Not or | + + + Author + + + | Author | [facility] | + + + | Organization | [facility] | + + + | Address | Unknown | + + + | Phone | Unavailable | + + + Support +------+ +---------+ + | Name | Relationship | Address | Phone | +------+ +---------+ + | NONE | ECON | Unknown | Unavailable | +------+ +---------+ + Care Team Providers + +------+ + | Care Cotton Weigher Name | Role | Phone | + [...] Referral (bilat | | 2019 | | [facility] [address] | Clinic | knees ) | | | | April Mailcode: CH12A | | | | | | [facility] | | | | | | and , | | | | | | Floor [place], [place] | | | | | | [address] | | | | | | [phone] | | | +--------+ + + + [...] L&I as they do not pay at [place] rates. Other out of state claims will only be accepted if they agree to pay at [place] rates docume nted in writing from adjustor. Can you confirm the insurance we will be billing for this visit? Medicare A & B Note: If OHP, please note which type. E.g. [place], [place], Trilliu m, etc.) Reminder: Please create referrals for pts with: HMO, OHP, [place], Self-Pay, W/C, TPL an d ED Post- [...] | | | | | | [place] | | | | | | [address] | | | | | | [phone] | | | | | | | | +--------+---------+ + + + as of this encounter Visit Diagnoses Not on filein this encounter"
--- OUTSIDE RECORDS SUMMARY | ~2018-08-18 | XMS | Encounter Summary ---
Demographics + + + | Address | [address] | | | [place] [address] | + + + | Home Phone | | + + + | Preferred Language | Unknown | + + + | Marital Status | | + + + | Nondenominational Affiliation | Unknown | + + + | Race | | + + + | Ethnic Group | Not or | + + + Author + + + | Author | [facility] | + + + | Organization | [facility] | + + + | Address | Unknown | + + + | Phone | Unavailable | + + + Support +------+ +---------+ + | Name | Relationship | Address | Phone | +------+ +---------+ + | NONE | ECON | Unknown | Unavailable | +------+ +---------+ + Care Team Providers + +------+ + | Care Coin Dealer Name | Role | Phone | + [...] Referral (bilat | | 2019 | | [facility] [address] | Clinic | knees ) | | | | April Mailcode: CH12A | | | | | | [facility] | | | | | | and , | | | | | | Floor [place], [place] | | | | | | [address] | | | | | | [phone] | | | +--------+ + + + [...] L&I as they do not pay at [place] rates. Other out of state claims will only be accepted if they agree to pay at [place] rates docume nted in writing from adjustor. Can you confirm the insurance we will be billing for this visit? Medicare A & B Note: If OHP, please note which type. E.g. [place], [place], [place] m, etc.) Reminder: Please create referrals for pts with: HMO, OHP, [place], Self-Pay, W/C, TPL an d ED Post- [...] | | | | | | April [place] | | | | | | [address] | | | | | | [phone] | | | | | | | | +--------+---------+ + + + as of this encounter Visit Diagnoses Not on filein this encounter"
--- OUTSIDE RECORDS SUMMARY | ~2018-08-18 | XMS | Encounter Summary ---
Demographics + + + | Address | [address] | | | [place] [address] | + + + | Home Phone | | + + + | Preferred Language | Unknown | + + + | Marital Status | | + + + | Catholic Affiliation | Unknown | + + + | Race | | + + + | Ethnic Group | Not or | + + + Author + + + | Author | [facility] | + + + | Organization | [facility] | + + + | Address | Unknown | + + + | Phone | Unavailable | + + + Support +------+ +---------+ + | Name | Relationship | Address | Phone | +------+ +---------+ + | NONE | ECON | Unknown | Unavailable | +------+ +---------+ + Care Team Providers + +------+ + | Care Senior Engineering Manager Name | Role | Phone | [...] [address] | | | | | | [place], [place] | | | | | | [address] | | | +--------+ + + + [...] 2018 | Visit | | MD Krissy [address] | | | | | | April [facility] [place] | | | | | | [address] | | | | | | [phone] | | | | | | | | +--------+---------+ + + + as of this encounter Visit Diagnoses Not on filein this encounter"
--- OUTSIDE RECORDS SUMMARY | ~2018-08-18 | XMS | Encounter Summary ---
Demographics + + + | Address | [address] | | | [place] [address] | + + + | Home Phone | | + + + | Preferred Language | Unknown | + + + | Marital Status | | + + + | Restoration Affiliation | Unknown | + + + | Race | | + + + | Ethnic Group | Not or | + + + Author + + + | Author | [facility] | + + + | Organization | [facility] | + + + | Address | Unknown | + + + | Phone | Unavailable | + + + Support +------+ +---------+ + | Name | Relationship | Address | Phone | +------+ +---------+ + | NONE | ECON | Unknown | Unavailable | +------+ +---------+ + Care Team Providers + +------+ + | Care Psychiatric Nursing Assistant Name | Role | Phone | [...] [address] | | | | | | [place], [place] | | | | | | [address] | | | +--------+ + + + [...] 2018 | Visit | | MD Krissy [address] | | | | | | April [facility] [place] | | | | | | [address] | | | | | | [phone] | | | | | | | | +--------+---------+ + + + as of this encounter Visit Diagnoses Not on filein this encounter"
--- OUTSIDE RECORDS SUMMARY | ~2018-08-18 | XMS | Clinical Summary ---
Demographics + + + | Address | [address] | | | [place] [address] | + + + | Home Phone | | + + + | Preferred Language | Unknown | + + + | Marital Status | | + + + | Restorationist Affiliation | Unknown | + + + | Race | | + + + | Ethnic Group | Not or | + + + Author + + + | Author | [facility] | + + + | Organization | [facility] | + + + | Address | Unknown | + + + | Phone | Unavailable | + + + Support +------+ +---------+ + | Name | Relationship | Address | Phone | +------+ +---------+ + | NONE | ECON | Unknown | Unavailable | +------+ +---------+ + Care Team Providers + +------+ + | Care Payroll And Benefits Analyst Name | Role | Phone | + +------+ + | Josiah Soliz MD | PP | | + +------+ + Source Comments SHIRA is fully live on both [facility] Ambulatory and [facility] InPatient.[facility] Allergies Not on File Current Medications [...] 2019 | Visit | | MD Krissy [address] | | | | | | [place], [place] | | | | | | [address] | | | | | | [phone] | | | | | | | [...] | re | [address] | [place] [address] | | | B | | | | | + +--------+ +--------+ + + | INDUSTRIAL SERVICER MEDICAID | INDUSTRIAL SERVICER | xxxxxxxx | Medica | | | [...] | [place] | | | [phone] | [phone] | + +--------+ +--------+ + +"
--- OUTSIDE RECORDS SUMMARY | 2018-08-19 | XMS ---
PreManage Notification: SHAMEKA POSEY Security Bowling Teacher Events No recent Security Events currently on file CRITERIA MET - Group Notification - 6 ED Visits in 6 Months - [facility] Guidelines - PDMP CARE PROVIDERS MELISSA SIMENTAL Hospitalist 01/20/2018-Current PHONE: Unknown Omar Vasquez Mental Health Provider Current PHONE: [phone] DR JOSE LO Primary Care Current PHONE: [phone] JANKI SANCHES DO Primary Care Current PHONE: [phone] Tawanda Craft Primary Care Current PHONE: Unknown DR MELISSA SIMENTAL Primary Care 01/22/2017-01/22/2017 PHONE: [phone] YOAN MCFARLAND Case or Radio Maintainer 12/27/2016-Current PHONE: [phone] Lin Pantoja Current Orthopedic Surgery \T\ Fracture Clinic PHONE: Unknown Other Current PHONE: Unknown Guidelines Source: [employer] [facility] [place] Guidelines Date: 02/05/2018 Care Recommendation: Currently Enrolled in Assertive Community Treatment with [email or web address], contact Jennifer Monroy [phone]. \T\nbsp;History of reporting injuries based off delusions. \T\nbsp; Asking for details, reality based questions to see if this is a current concern.\T\nbsp;Prescription medications go through [employer] [phone]. Care History Medical/Surgical 01/20/2018 [facility] - Patient is currently established with [facility]. If patient is seen in the ED during business hours. Please contact CHWs at [facility]. Care Recommendation: This patient has had 5 or more Emergency Department visits in the last 12 months.\T\nbsp; Patient requires education on the scope and purpose of the ED as an acute care provider not a Primary Care Provider and should not be utilized for chronic conditions.\T\nbsp; These are guidelines and the provider should exercise clinical judgment when providing care. 09/08/2017 [facility] - Patient is currently receiving services through [email or web address] and is apart of the ACT team now. Which means patient is more involved with [email or web address] services and frequent visits from [email or web address]. 08/04/2017 [facility] Care Recommendation: This patient has had 5 or more Emergency Department visits in the last 12 months. Patient requires education on the scope and purpose of the ED as an acute care provider not a Primary Care Provider and should not be utilized for chronic conditions. If patient returns to ED please contact Community Health WorkerChar at [phone]. These are guidelines and the provider should exercise clinical judgment when providing care. E.D. VISIT COUNT (12 MO.) [address] [facility] TOTAL 7 NOTE: Visits indicate total known visits. ED/UCC VISIT TRACKING (12 MO.) 08/18/2018 23:57 [facility] [place] TYPE: Emergency COMPLAINT: - R WRIST PAIN/INJURY 06/29/2018 18:53 [facility] [place] TYPE: Emergency COMPLAINT: - L WRIST PAIN/INJURY DIAGNOSES: - Pain in left wrist - Unspecified sprain of left wrist, initial encounter - Hypothyroidism, unspecified - Gastro-esophageal reflux disease without esophagitis - half-way (current) use of aspirin - Other prison (current) drug therapy - Bipolar disorder, unspecified - Type 2 diabetes mellitus without complications - Contusion of right knee, initial encounter - ferry terminal supervisor (current) use of oral hypoglycemic drugs - Allergy status to other drugs, medicaments and biological substances status - Allergy status to other antibiotic agents status - Allergy status to narcotic agent status - Epilepsy, unspecified, not intractable, without status epilepticus - Fall (on) (from) unspecified stairs and steps, initial encounter 06/26/2018 19:12 [facility] [place] TYPE: Emergency COMPLAINT: - CONSTIPATION,RECTAL BLEEDING DIAGNOSES: - Allergy status to narcotic agent status - Type 2 diabetes mellitus without complications - Allergy status to penicillin - Acquired absence of both cervix and uterus - Hypothyroidism, unspecified - half-way (current) use of oral hypoglycemic drugs - Irritable bowel syndrome with constipation - half-way (current) use of aspirin - Constipation, unspecified - Allergy status to other drugs, medicaments and biological substances status - Attention-deficit hyperactivity disorder, unspecified type - Epilepsy, unspecified, not intractable, without status epilepticus - Gastro-esophageal reflux disease without esophagitis - Allergy status to other antibiotic agents status - Allergy status to analgesic agent status - Bipolar disorder, unspecified - Other prison (current) drug therapy 04/18/2018 18:25 [facility] [place] TYPE: Emergency COMPLAINT: - VOMITING DIAGNOSES: - Dizziness and giddiness - ferry terminal supervisor (current) use of oral hypoglycemic drugs - Noninfective gastroenteritis and colitis, unspecified - Allergy status to narcotic agent status - Hypothyroidism, unspecified - Type 2 diabetes mellitus without complications - Other ferry terminal supervisor (current) drug therapy - Allergy status to penicillin - ferry terminal supervisor (current) use of aspirin - Epilepsy, unspecified, [...] Bipolar disorder, unspecified - Hypothyroidism, unspecified - ferry terminal supervisor (current) use of aspirin - Other ferry terminal supervisor (current) drug therapy - Allergy status to penicillin - ferry terminal supervisor (current) use of oral hypoglycemic drugs - [...] status to analgesic agent status - Other ferry terminal supervisor (current) drug therapy - Bipolar disorder, unspecified - Hypothyroidism, unspecified - half-way (current) use of aspirin - Unspecified injury of right wrist, hand and finger(s), initial encounter - Allergy status to narcotic agent status - Allergy status to penicillin - ferry terminal supervisor (current) use of oral hypoglycemic drugs - Caught, crushed, jammed, or pinched between moving objects, initial encounter - Type 2 diabetes mellitus without complications - Contusion of right hand, initial encounter INPATIENT VISIT TRACKING (12 MO.) 03/13/2018 12:02 [facility] [place] TYPE: Observation COMPLAINT: - L KNEE ARTHRITIS INABILITY TO [...] status - Allergy status to penicillin - half-way (current) use of aspirin - Chronic pain syndrome - Gout, unspecified - Allergy status to other drugs, medicaments and biological substances status - Encounter for other specified special examinations - half-way (current) use of antibiotics - half-way (current) use of non-steroidal anti-inflammatories (NSAID) - Essential (primary) hypertension - Allergy status to analgesic agent status - ferry terminal supervisor (current) use of oral hypoglycemic drugs - Unilateral primary osteoarthritis, left knee - Gastro-esophageal reflux disease without esophagitis - Congenital malformation of heart, unspecified - Other prison (current) drug therapy - Patient's other noncompliance with medication regimen - History of falling - Allergy status to other anti-infective agents status - Dorsalgia, unspecified [email or web address]
== END 2018-08-19 00:52 | disposition home or self-care (01) ==
LOC: ED 23:57
DX: S60.211A Contusion of right wrist, initial encounter (principal); W22.8XXA Striking against or struck by other objects, initial encounter; E11.9 Type 2 diabetes mellitus without complications; F31.9 Bipolar disorder, unspecified; E03.9 Hypothyroidism, unspecified; F90.9 Attention-deficit hyperactivity disorder, unspecified type; G40.909 Epilepsy, unspecified, not intractable, without status epilepticus; K21.9 Gastro-esophageal reflux disease without esophagitis; Z88.5 Allergy status to narcotic agent; Z88.8 Allergy status to other drugs, medicaments and biological substances; Z88.1 Allergy status to other antibiotic agents; Z79.899 Other long term (current) drug therapy; Z79.84 Long term (current) use of oral hypoglycemic drugs; Z79.82 Long term (current) use of aspirin
CPT/HCPCS: 73110; 99283-25

== ENCOUNTER 2018-09-05 07:22 | Emergency (ER) | payer MEDICARE, OTHER ==
[~2018-09-05] VITALS: Ht 147.3 cm; Wt 71.0 kg
--- OUTSIDE RECORDS SUMMARY | ~2018-09-05 | XMS | Encounter Summary ---
Demographics + + + | Address | [address] | | | [place] [address] | + + + | Home Phone | | + + + | Preferred Language | Unknown | + + + | Marital Status | | + + + | Congregational Affiliation | Unknown | + + + | Race | | + + + | Ethnic Group | Not or | + + + Author + + + | Author | [facility] | + + + | Organization | [facility] | + + + | Address | Unknown | + + + | Phone | Unavailable | + + + Support +------+ +---------+ + | Name | Relationship | Address | Phone | +------+ +---------+ + | NONE | ECON | Unknown | Unavailable | +------+ +---------+ + Care Team Providers + +------+ + | Care Coater Slate Name | Role | Phone | + +------+ + | Josiah Soliz MD | PCP | | + +------+ + Reason for Visit + + + | Reason | Comments | + + + | Referral | bilat knees | + + + Encounter Details +--------+ + + + + | Date | Type | Department | Care Team | Description | +--------+ + + + + | 08/12/ | Abstract | Orthopaedics at | Note, Orthopedics | Referral (bilat | | 2019 | | [facility] [address] | Clinic | knees ) | | | | [place] Mailcode: CH12A | | | | | | [facility] | | | | | | and , | | | | | | Floor [place], [place] | | | | | | [address] | | | | | | [phone] | | | +--------+ + + + + Social History + +-------+ +--------+------+ | Tobacco Use | Types | Packs/Day | Years | Date | | | | | Used | | + +-------+ +--------+------+ | Never Assessed | | | | | + +-------+ +--------+------+ + + + | Sex Assigned at | Date Recorded | | | | + + + | Not on file | | + + + as of this encounter Progress Notes Chey Avilez - 08/12/2018 8:36 AM PDTFormatting of this note may be different from the original. Orthopaedics New Patient Record Check List Please ask the following questions: Comments Date requested Records/Imaging received? If so, what format? Where? What would you like to be seen for (body part and laterality)? Bilat knees Rt > Lt DOI, if applicable? N/a Prior Surgery (for this body part)? No Have you seen anyone for this yet? Yes, when: 08/04/18 ; where: [facility] Uploaded Do you have a referring provider? yes who: [facility] X-Ray Yes, but pt unsure of details / location MRI No Other Imaging (CT, Ultrasound, etc.) No Is this a W/C injury? no If YES, create referral and complete: .ORTWCNEWPATIENT inside referral Note: We do not accept WC under [place] L&I as they do not pay at [place] rates. Other out of state claims will only be accepted if they agree to pay at [place] rates docume nted in writing from adjustor. Can you confirm the insurance we will be billing for this visit? Medicare A & B Note: If OHP, please note which type. E.g. [place], [place], [place]illi[place] m, etc.) Reminder: Please create referrals for pts with: HMO, OHP, [place], Self-Pay, W/C, TPL an d ED Post- Ops Can you verify your Primary Care Provider? yes who: Josiah Soliz Note: Please update Primary Care Provider in Epic. Are you a current smoker or tobacco user? no If YES, please let patient know that they must be 4 weeks smoke/tobacco-free, tested and do cumented by PCP before having a surgical consult. Height & Weight, if unable to locate in notes or chart. Last recorded patient height: No data found for Ht No data found for this vital: BMI Patient reported height: n/a Patient reported weight: n/a Note: If over provider BMI preference, for REVIEW. Are you diabetic? yes No results found for: A1C Patient reported A1C: 6.0, it was a year ago. She will have a new reading done at PCP offic e on 08/17. Note: If over provider A1C preference, for REVIEW. Medical Review needed? No If yes, create referral Reminders: ? Ask patient if they d like to sign up for MyChart ? Don t forget to pull in CareEveryWhere Additional Comments: in this encounter Plan of Treatment +--------+---------+ + + + | Date | Type | Specialty | Care Team | Description | +--------+---------+ + + + | 10/01/ | Office | Orthopedics | Char Khanna | | | 2019 | Visit | | MD Krissy [address] | | | | | | [place] | | | | | | [address] | | | | | | [phone] | | | | | | | | +--------+---------+ + + + as of this encounter Visit Diagnoses Not on filein this encounter"
--- OUTSIDE RECORDS SUMMARY | ~2018-09-05 | XMS | Clinical Summary ---
Demographics + + + | Address | [address] | | | [place] [address] | + + + | Home Phone | | + + + | Preferred Language | Unknown | + + + | Marital Status | | + + + | Yarsanism Affiliation | Unknown | + + + | Race | | + + + | Ethnic Group | Not or | + + + Author + + + | Author | [facility] | + + + | Organization | [facility] | + + + | Address | Unknown | + + + | Phone | Unavailable | + + + Support +------+ +---------+ + | Name | Relationship | Address | Phone | +------+ +---------+ + | NONE | ECON | Unknown | Unavailable | +------+ +---------+ + Care Team Providers + +------+ + | Care Solutions Development Analyst Name | Role | Phone | + +------+ + | Josiah Soliz MD | PP | | + +------+ + Source Comments SHIRA is fully live on both [facility] and [facility] Allergies Not on File Current Medications Not on file Active Problems Not on file Encounters +--------+ + + + + | Date | Type | Specialty | Care Team | Description | +--------+ + + + + | 08/12/ | Hospital | | | | | 2018 | Encounter | | | | +--------+ + + + + | 08/12/ | Abstract | | Note, Orthopedics | Referral (bilat | | 2018 | | | Clinic | knees ) | +--------+ + + + + from Last 3 Months Social History + +-------+ +--------+------+ | Tobacco [...] on file | | + + + Plan of Treatment +--------+---------+ + + + | Date | Type | Specialty | Care Team | Description | +--------+---------+ + + + | 10/01/ | Office | | Char Khanna | | | 2019 | Visit | | MD Krissy [address] | | | | | | [place], [place] | | | | | | [address] | | | | | | [phone] | | | | | | | | +--------+---------+ + + + + + + + + | Health Maintenance | Due Date | Last Done | Comments | + + + + + | Influenza (Flu) | | | | | vaccination (#1) | 8 | | | + + + + + Results Not on filefrom Last 3 Months Insurance + +--------+ +--------+ + + | Payer | Benefi | Subscriber | Type | Phone | Address | | | t Plan | ID | | | | | | / | | | | | | | Group | | | | | + +--------+ +--------+ + + | MEDICARE | MEDICA | xxxxxxxxxxx | Medica | [phone] [address] | | | RE A & | | re | [phone] | [place] [address] | | | B | | | | | + +--------+ +--------+ + + | EMERGENCY MEDICAL DISPATCHER MEDICAID | EMERGENCY MEDICAL DISPATCHER | xxxxxxxx | Medica | | | | | [place] | | id | | | | | [place] | | | | | + +--------+ +--------+ + + + +--------+ +--------+ + + | Guarantor Name | Accoun | Relation to | Date | Phone | Billing Address | | | t Type | Patient | of | | | | | | | | | | + +--------+ +--------+ + + | CELESTE POSEY | Person | Self [birth year] | Home: | [address] | | | al/[place] | | [phone] [address] [place] | | | [place] | | | [phone] | [phone] | + +--------+ +--------+ + +"
--- OUTSIDE RECORDS SUMMARY | ~2018-09-05 | XMS | Encounter Summary ---
Demographics + + + | Address | [address] | | | [place] [address] | + + + | Home Phone | | + + + | Preferred Language | Unknown | + + + | Marital Status | | + + + | Methodist Affiliation | Unknown | + + + | Race | | + + + | Ethnic Group | Not or | + + + Author + + + | Author | [facility] | + + + | Organization | [facility] | + + + | Address | Unknown | + + + | Phone | Unavailable | + + + Support +------+ +---------+ + | Name | Relationship | Address | Phone | +------+ +---------+ + | NONE | ECON | Unknown | Unavailable | +------+ +---------+ + Care Team Providers + +------+ + | Care Acute Care Assistant Name | Role | Phone | + +------+ + | Josiah Soliz MD | PCP | | + +------+ + Encounter Details +--------+ + + + + | Date | Type | Department | Care Team | Description | +--------+ + + + + | 08/12/ | Hospital | Registration [facility] | | | | 2019 | Encounter | [address] | | | | | | [place] | | | | | | [place], [place] | | | | | | [address] | | | +--------+ + + + [...] + + + as of this encounter Plan of Treatment +--------+---------+ + + + | Date | Type | Specialty | Care Team | Description | +--------+---------+ + + + | 10/01/ | Office | Orthopedics | Char Khanna | | | 2018 | Visit | | MD Krissy [address] | | | | | | [place] [facility] [place] | | | | | | [address] | | | | | | [phone] | | | | | | | | +--------+---------+ + + + as of this encounter Visit Diagnoses Not on filein this encounter"
--- OUTSIDE RECORDS SUMMARY | ~2018-09-05 | XMS | Encounter Summary ---
Demographics + + + | Address | [address] | | | [place] [address] | + + + | Home Phone | | + + + | Preferred Language | Unknown | + + + | Marital Status | | + + + | Nondenominational Affiliation | Unknown | + + + | Race | | + + + | Ethnic Group | Not or | + + + Author + + + | Author | [facility] | + + + | Organization | [facility] | + + + | Address | Unknown | + + + | Phone | Unavailable | + + + Support +------+ +---------+ + | Name | Relationship | Address | Phone | +------+ +---------+ + | NONE | ECON | Unknown | Unavailable | +------+ +---------+ + Care Team Providers + +------+ + | Care Owner Name | Role | Phone | + [...] Referral (bilat | | 2019 | | [facility] [address] | Clinic | knees ) | | | | [place] Mailcode: CH12A | | | | | | [facility] | | | | | | and , | | | | | | Floor [place], [place] | | | | | | [address] | | | | | | [phone] | | | +--------+ + + + [...] L&I as they do not pay at [place] rates. Other out of state claims will only be accepted if they agree to pay at [place] rates docume nted in writing from adjustor. Can you confirm the insurance we will be billing for this visit? Medicare A & B Note: If OHP, please note which type. E.g. [place], [place], Trilli[place] m, etc.) Reminder: Please create referrals for pts with: HMO, OHP, [place], Self-Pay, W/C, TPL an d ED Post- [...] | | | | | | [place] | | | | | | [address] | | | | | | [phone] | | | | | | | | +--------+---------+ + + + as of this encounter Visit Diagnoses Not on filein this encounter"
--- OUTSIDE RECORDS SUMMARY | ~2018-09-05 | XMS | Clinical Summary ---
Demographics + + + | Address | [address] | | | [place] [address] | + + + | Home Phone | | + + + | Preferred Language | Unknown | + + + | Marital Status | | + + + | Evangelical Affiliation | Unknown | + + + | Race | | + + + | Ethnic Group | Not or | + + + Author + + + | Author | [facility] | + + + | Organization | [facility] | + + + | Address | Unknown | + + + | Phone | Unavailable | + + + Support +------+ +---------+ + | Name | Relationship | Address | Phone | +------+ +---------+ + | NONE | ECON | Unknown | Unavailable | +------+ +---------+ + Care Team Providers + +------+ + | Care Blue Line Trimmer Name | Role | Phone | + +------+ + | Josiah Soilz MD | PP | | + +------+ + Source Comments SHIRA is fully live on both [facility] and [facility] In[facility] Allergies Not on File Current Medications Not [...] 2019 | Visit | | MD Krissy [address] | | | | | | [place], [place] | | | | | | [address] | | | | | | [phone] | | | | | | | [...] | re | [address] | [place] [address] | | | B | | | | | + +--------+ +--------+ + + | WATER RESTORATION TECHNICIAN MEDICAID | WATER RESTORATION TECHNICIAN | xxxxxxxx | Medica | | | [...] | [place] | | | 1848 | [address] | + +--------+ +--------+ + +"
--- OUTSIDE RECORDS SUMMARY | ~2018-09-05 | XMS | Encounter Summary ---
Demographics + + + | Address | [address] | | | [place] [address] | + + + | Home Phone | | + + + | Preferred Language | Unknown | + + + | Marital Status | | + + + | Rastafari Affiliation | Unknown | + + + | Race | | + + + | Ethnic Group | Not or | + + + Author + + + | Author | [facility] | + + + | Organization | [facility] | + + + | Address | Unknown | + + + | Phone | Unavailable | + + + Support +------+ +---------+ + | Name | Relationship | Address | Phone | +------+ +---------+ + | NONE | ECON | Unknown | Unavailable | +------+ +---------+ + Care Team Providers + +------+ + | Care Braille Coder Name | Role | Phone | + [...] [address] | | | | | | [place], [place] | | | | | | [address] | | | +--------+ + + + [...] 2018 | Visit | | MD Krissy [address] | | | | | | [place] [facility] [place] | | | | | | [address] | | | | | | [phone] | | | | | | | | +--------+---------+ + + + as of this encounter Visit Diagnoses Not on filein this encounter"
--- OUTSIDE RECORDS SUMMARY | 2018-09-05 07:26 | XMS ---
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 Events No recent Security Events currently on file CRITERIA MET - Group Notification - 6 ED Visits in 6 Months - [facility] - Has Care Guidelines - PDMP - [facility] - 2 Visits in 30 Days CARE PROVIDERS MELISSA SIMENTAL 01/20/2018-Current PHONE: Unknown Omar Vasquez Mental Health Provider Current PHONE: [phone] DR JOSE LO Primary Care Current PHONE: [phone] JANKI SANCHES DO Primary Care Current PHONE: [phone] Tawnada Craft Primary Care Current PHONE: Unknown DR MELISSA SIMENTAL Primary Care 01/22/2017-01/22/2017 PHONE: [phone] YOAN Garcia or Cvor Nurse 12/27/2016-Current PHONE: [phone] [place] Kit Current Orthopedic Surgery \T\ Fracture Clinic PHONE: Unknown Other Current PHONE: Unknown Guidelines Source: [facility] [place] Guidelines Date: 02/05/2018 Care Recommendation: Currently Enrolled in Assertive Community Treatment with [employer], contact Jennifer Monroy [phone]. \T\nbsp;History of reporting injuries based off delusions. \T\nbsp; Asking for details, reality based questions to see if this is a current concern.\T\nbsp;Prescription medications go through [employer] [phone]. Care History Medical/Surgical 01/20/2018 [facility] - Patient is currently established with [facility]. If patient is seen in the ED during business hours. Please contact CHWs at [facility]. Care Recommendation: This patient has had 5 or more Emergency Department visits in the last 12 months.\T\nbsp; Patient requires education on the scope and purpose of the ED as an acute care provider not a Primary Care Provider and should not be utilized for chronic conditions.\T\nbsp; These are guidelines and the provider should exercise clinical judgment when providing care. 09/08/2017 [facility] - Patient is currently receiving services through [facility] and is apart of the ACT team now. Which means patient is more involved with [facility] services and frequent visits from [facility]. 08/04/2017 [facility] Care Recommendation: This patient has had 5 or more Emergency Department visits in the last 12 months. Patient requires education on the scope and purpose of the ED as an acute care provider not a Primary Care Provider and should not be utilized for chronic conditions. If patient returns to ED please contact Community Health WorkerChar at [phone]. These are guidelines and the provider should exercise clinical judgment when providing care. E.D. VISIT COUNT (12 MO.) 8 ZARINA Garzon TOTAL 8 NOTE: Visits indicate total known visits. ED/UCC VISIT TRACKING (12 MO.) 09/05/2018 07:23 [facility] [place] TYPE: Emergency COMPLAINT: - VOMITING 08/18/2018 23:57 [facility] [place] TYPE: Emergency COMPLAINT: - R WRIST PAIN/INJURY DIAGNOSES: - Gastro-esophageal reflux disease without esophagitis - Type 2 diabetes mellitus without complications - Epilepsy, unspecified, not intractable, without status epilepticus - Hypothyroidism, unspecified - Bipolar disorder, unspecified - Contusion of right wrist, initial encounter - Striking against or struck by other objects, initial encounter - terminal system operator (current) use of oral hypoglycemic drugs - Attention-deficit hyperactivity disorder, unspecified type - Allergy status to narcotic agent status - Allergy status to other antibiotic agents status - 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 - assisted (current) use of aspirin - Allergy status to other drugs, medicaments and biological substances status 06/29/2018 18:53 [facility] [place] TYPE: Emergency COMPLAINT: - L WRIST PAIN/INJURY DIAGNOSES: - Pain in left wrist - Unspecified sprain of left wrist, initial encounter - Hypothyroidism, unspecified - Gastro-esophageal reflux disease without esophagitis - terminal system operator (current) use of aspirin - Other correction (current) drug therapy - Bipolar disorder, unspecified - Type 2 diabetes mellitus without complications - Contusion of right knee, initial encounter - terminal system operator (current) use of oral hypoglycemic drugs [...] cervix and uterus - Hypothyroidism, unspecified - assisted (current) use of oral hypoglycemic drugs - Irritable bowel syndrome with constipation - terminal system operator (current) use of aspirin - Constipation, unspecified - Allergy status to other drugs, medicaments and biological substances status - Attention-deficit hyperactivity disorder, unspecified type - Epilepsy, unspecified, not intractable, without status epilepticus - Gastro-esophageal reflux disease without esophagitis - Allergy status to other antibiotic agents status - Allergy status to analgesic agent status - Bipolar disorder, unspecified - Other correction (current) drug therapy 04/18/2018 18:25 [facility] [place] TYPE: Emergency COMPLAINT: - VOMITING DIAGNOSES: - Dizziness and giddiness - assisted (current) use of oral hypoglycemic drugs - Noninfective gastroenteritis and colitis, unspecified - Allergy status to narcotic agent status - Hypothyroidism, unspecified - Type 2 diabetes mellitus without complications - Other correction (current) drug therapy - Allergy status to penicillin - assisted (current) use of aspirin - Epilepsy, unspecified, [...] Bipolar disorder, unspecified - Hypothyroidism, unspecified - terminal system operator (current) use of aspirin - 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 - Allergy status to penicillin - terminal system operator (current) use of oral hypoglycemic drugs [...] status to analgesic agent status - 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 - Bipolar disorder, unspecified - Hypothyroidism, unspecified - assisted (current) use of aspirin - Unspecified injury of right wrist, hand and finger(s), initial encounter - Allergy status to narcotic agent status - Allergy status to penicillin - assisted (current) use of oral hypoglycemic drugs - [...] status - Allergy status to penicillin - terminal system operator (current) use of aspirin - Chronic pain syndrome - Gout, unspecified - Allergy status to other drugs, medicaments and biological substances status - Encounter for other specified special examinations - assisted (current) use of antibiotics - assisted (current) use of non-steroidal anti-inflammatories (NSAID) - Essential (primary) hypertension - Allergy status to analgesic agent status - assisted (current) use of oral hypoglycemic drugs - Unilateral primary osteoarthritis, left knee - Gastro-esophageal reflux disease without esophagitis - Congenital malformation of heart, unspecified - 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
[2018-09-05] MEDS ORDERED: ZOFRAN4 MG PO (07:49)
== END 2018-09-05 10:20 | disposition home or self-care (01) ==
LOC: ED 07:22
DX: R11.2 Nausea with vomiting, unspecified (principal); R10.9 Unspecified abdominal pain; E11.9 Type 2 diabetes mellitus without complications; F31.9 Bipolar disorder, unspecified; E03.9 Hypothyroidism, unspecified; K21.9 Gastro-esophageal reflux disease without esophagitis; G40.909 Epilepsy, unspecified, not intractable, without status epilepticus; F90.9 Attention-deficit hyperactivity disorder, unspecified type; Z90.710 Acquired absence of both cervix and uterus; Z88.1 Allergy status to other antibiotic agents; Z88.5 Allergy status to narcotic agent; Z88.0 Allergy status to penicillin; Z91.048 Other nonmedicinal substance allergy status; Z88.6 Allergy status to analgesic agent; Z79.84 Long term (current) use of oral hypoglycemic drugs; Z79.82 Long term (current) use of aspirin; Z79.899 Other long term (current) drug therapy
CPT/HCPCS: 80053; 81001; 83690; 85025; 96361; 96374; 96375; 99284-25; C9113; J2405; J7030

== ENCOUNTER 2019-02-16 16:49 | Emergency (ER) | payer OTHER, MEDICARE ==
[~2019-02-16] VITALS: Ht 147.3 cm; Wt 69.6 kg
--- OUTSIDE RECORDS SUMMARY | ~2019-02-16 | XMS | Encounter Summary ---
Demographics + + + | Address | [address] | | | [place] [address] | + + + | Home Phone | | + + + | Preferred Language | Unknown | + + + | Marital Status | | + + + | Buddhism Affiliation | Unknown | + + + | Race | | + + + | Ethnic Group | Not or | + + + Author + + + | Author | [facility] | + + + | Organization | [facility] | + + + | Address | Unknown | + + + | Phone | Unavailable | + + + Support +------+ +---------+ + | Name | Relationship | Address | Phone | +------+ +---------+ + | None | ECON | Unknown | Unavailable | +------+ +---------+ + Care Team Providers + +------+ + | Care Mobility Specialist Name | Role | Phone | + [...] | | | | artery | [address] | | | | | | disease | [address] | | | | | | involving | [place], | | | | | | [place] | [place] | | | | | | coronary | [address] | | | | | | artery of | Phone: | | | | | | [place] heart | [phone] | | | | | | without | Fax: | | | | | | angina | [phone] | | | | | | pectoris [...] | | | | | | [address] | | | | | | [address] | | | | | | Mailcode: [id number] [address] | | | | | | [address] | | | | | | [place], | | | | | | [place] [address] | | | | | | [phone] | | | +--------+ + + + [...] | +--------+ + + + + | 03/09/ | Office | Physical Therapy | Shiv Day, | | | 2018 | Visit | | PT [address] | | | | | | [address] | | | | | | [place], [place] | | | | | | [address] | | +--------+ + + + + | 03/09/ | Office | Orthopedics | Naeem Briones, | | | 2018 | Visit | | MD [address] | | | | | | [address] | | | | | | [place], [place] | | | | | | [address] | | | | | | [phone] | | | | | | | | +--------+ + + + + | 03/09/ | Clinical | Orthopedics | Addi Danielle RN | | | 2019 | Support | | [address] | | | | Staff | | [place], | | | | | | [place] [address] | | | | | | [phone] | | +--------+ + + + + | 03/09/ | Office | Pre-operative | Rayna Bernard Md [address] | | | 2019 | Visit | Medicine | [address] | | | | | | [place] [address] | | +--------+ + + + + | 03/19/ | Procedure | Surgery | | | | 2019 | Pass | | | | +--------+ + + + + | 03/19/ | Hospital | Adult Acute Care | Naeem Briones, | | | 2019 | Encounter | | [address] | | | | | | [address] | | | | | | [place], [place] | | | | | | [address] | | | | | | [phone] | | | | | | | | +--------+ + + + + | 03/19/ | Surgery | Surgery | Naeem Briones, | RIGHT TOTAL KNEE | | 2018 | | | [address] | ARTHROPLASTY | | | | | [address] | | | | | | [place], [place] | | | | | | [address] | | | | | | [phone] | | | | | | | | +--------+ + + + + | 03/19/ | Erroneous | Orthopedics | Naeem Briones, | | | 2018 | Enc-IP | | [address] | | | | | | [address] | | | | | | [place], [place] | | | | | | [address] | | | | | | [phone] | | | | | | | | +--------+ + + + + | 03/30/ | Office | Orthopedics | Naeem Briones, | | | 2018 | Visit | | [address] | | | | | | [address] | | | | | | [facility] [place] | | | | | | [address] | | | | | | [phone] | | | | | | | | +--------+ + + + + | 05/06/ | Office | Orthopedics | Naeem Briones, | | | 2019 | Visit | | [address] | | | | | | [address] | | | | | | [place], [place] | | | | | | [address] | | | | | | [phone] | | | | | | | [...] | | ADULT | | PDT | [place] coronary | results section. | | | | | artery of [place] | | | | | | heart [...] Performed At | + + + | [facility] | [facility] | | [facility] Adult Echocardiography [facility] [address] CARDIOLOGY | | [address] [place], [place] [address] Ph: | | | Pt Name: CELESTE POSEY | | | Study Date/Time 01/22/2019 / 4:07:13 PMMRN: [id number] | | | Most recent prior: -Acc #: [id number] | | | No. previous echos: 0DOB: 1955 63 years Heart Rate: | | | 86 bpmHeight: 58.0 in Blood Pressure: | | | 128/74 mm/HgWeight: 165.0 lb Gender: | | | FBSA: 1.68 m | | | Order ID: [id number] Study | | | Location: OPSonographer: Stephany Constantino BS, RDCSSonographer 2: Dylan | | | Sharon:Referring Provider: Anita Velasquez | | | Performed: [...] Report electronically signed by: | | | [id number] Rk Martinez MD (01/22/2019, 5:26:52 PM) Final [...] | | | |Report electronically signed by: [id number] Rk Martinez MD (01/22/2019, 5:26:52 | | |PM) | | | | | | | | | | | | Final | | + + + + + | Procedure Note | + + | Interface, Cardiology Results - 01/22/2019 5:26 PM [facility] | | [facility] Echocardiography Laboratory [address] [place] [address] | | [place], [place] [address] Pt Name: CELESTE Yeboah | | SEEN Study Date/Time 01/22/2019 / 4:07:13 PMMRN: [id number] Most | | recent prior: -Acc #: [id number] No. previous echos: 0DOB: 1955 63 | | years Heart Rate: 86 bpmHeight: 58.0 in Blood Pressure: 128/74 | | mm/HgWeight: 165.0 lb Gender: FBSA: 1.68 m | | Order ID: [id number] Study Location: OPSonographer: Stephany Constantino | | OTILIO, RDCSSonographer 2: Dylan Herrera:Referring Provider: Anita Keen [...] and indexed values Report electronically signed by: [id number] Rk | | Michelle JAMA (01/22/2019, 5:26:52 [...] | | | |Report electronically signed by: [id number] Rk Martinez MD (01/22/2019, 5:26:52 | |PM) | | | | | | | | Final | + + + + + + + | Performing | Address | City/State/Zipcode | Phone Number | | Organization | | | | + + + + + | [facility] | [address] | [place], [place] | | | CARDIOLOGY | [address] | [address] | | + + + + + documented in this encounter Visit Diagnoses + + | Diagnosis | + + | Coronary artery disease involving [place] coronary artery of [place] heart without | | angina pectoris | + + documented in this encounter
--- OUTSIDE RECORDS SUMMARY | ~2019-02-16 | XMS | Encounter Summary ---
Demographics + + + | Address | [address] | | | [place] [address] | + + + | Home Phone | | + + + | Preferred Language | Unknown | + + + | Marital Status | | + + + | Bahai Affiliation | Unknown | + + + | Race | | + + + | Ethnic Group | Not or | + + + Author + + + | Author | [facility] | + + + | Organization | [facility] | + + + | Address | Unknown | + + + | Phone | Unavailable | + + + Support +------+ +---------+ + | Name | Relationship | Address | Phone | +------+ +---------+ + | None | ECON | Unknown | Unavailable | +------+ +---------+ + Care Team Providers + +------+ + | Care Inside Horticultural Specialty Grower Name | Role | Phone | + +------+ + | Josiah Soliz MD | PCP | | + +------+ + Encounter Details +--------+ + + + + | Date | Type | Department | Care Team | Description | +--------+ + + + + | 12/17/ | Hospital | Radiology at | Naeem Briones, | | | 2019 | Encounter | [address] | [address] [facility] | | | | | [facility] [address] | [facility] | | | | | [place], [place] | [place], [place] | | | | | [address] | [address] | | | | | [phone] | [phone] | | | | | | | [...] + + documented as of this encounter Plan of Treatment +--------+ + [...] Rd | | | | | | [place] | | | | | | [address] | | +--------+ + + + + | 03/09/ | Office | Orthopedics | Naeem Briones, | | | 2018 | Visit | | MD [address] | | | | | | [address] | | | | | | [place] | | | | | | [address] | | | | | | [phone] | | | | | | | | +--------+ + + + + | 03/09/ | Clinical | Orthopedics | Addi Danielle RN | | | 2019 | Support | | [address] | | | | Staff | | [place], | | | | | | [place] [address] | | | | | | [phone] | | +--------+ + + + + | 03/09/ | Office | Pre-operative | [facility] [facility] | | | 2019 | Visit | Medicine | [address] | | | | | | [place] [address] | | +--------+ + + + + | 03/19/ | Procedure | Surgery | | | | 2018 | Pass | | | | +--------+ + + + + | 03/19/ | Hospital | Adult Acute Care | Naeem Briones, | | | 2018 | Encounter | | [address] | | | | | | [address] | | | | | | [place], [place] | | | | | | [address] | | | | | | [phone] | | | | | | | | +--------+ + + + + | 03/19/ | Surgery | Surgery | Naeem Briones, | RIGHT TOTAL KNEE | | 2018 | | | [address] | ARTHROPLASTY | | | | | [address] | | | | | | [place], [place] | | | | | | [address] | | | | | | [phone] | | | | | | | | +--------+ + + + + | 03/19/ | Erroneous | Orthopedics | Naeem Briones, | | | 2018 | Enc-IP | | [address] | | | | | | [address] | | | | | | [place], [place] | | | | | | [address] | | | | | | [phone] | | | | | | | | +--------+ + + + + | 03/30/ | Office | Orthopedics | Naeem Briones, | | | 2018 | Visit | | [address] | | | | | | [address] | | | | | | [place], [place] | | | | | | [address] | | | | | | [phone] | | | | | | | | +--------+ + + + + | 05/06/ | Office | Orthopedics | Naeem Briones P, | | | 2020 | Visit | | [address] [facility] | | | | | | [address] | | | | | | [place], [place] | | | | | | [address] | | | | | | [phone] | | | | | | | | +--------+ + + + + documented as of this encounter Procedures + +--------+ + + + | Procedure Name | Priori | Date/Time | Associated Diagnosis | Comments | | | ty | | | | + +--------+ + + + | X-RAY KNEE 4 VIEWS | Routin | 12/17/2018 | Pain in both | Results for this | | BILATERAL | e | 11:08 AM | knees, unspecified | procedure are in the | | | | PDT | chronicity | results section. | + +--------+ + + + documented in this encounter Results X-RAY KNEE 4 VIEWS BILATERAL (12/17/2018 11:08 AM PDT) + + | Specimen | + + | | + + + + + | Narrative | Performed At | + + + | EXAM: RAD BONE LENGTH SERIES JOINT SURVEY/LEG LENGTH 1VW-HIP TO | [facility] | | ANKLE, KNEE 4 VIEWS BILATERAL HISTORY: eval COMPARISON: None | RADIOLOGY VOICE | | available at the time of dictation. FINDINGS: Leg lengths as | RECOGNITION 2 | | measured from the tops of the femoral heads to the tibial plafonds are | | | 76.5 cm on the right and 77.2 cm on the left. The mechanical axes | | | of the lower extremities pass medial to the intercondylar notch on | | | the right and medial to the intercondylar notch on the left. There | | | is no fracture or osseous destruction. There is severe right knee | | | medial and patellofemoral compartment joint space narrowing with | | | tricompartmental hypertrophic spurring. There is severe left knee | | | patellofemoral compartment narrowing and tricompartmental spurring. | | | There is heterotopic ossification and intra-articular bodies in both | | | knees. The soft tissues are unremarkable. IMPRESSION: | | | Bilateral knee tricompartment osteoarthrosis. Leg length | | | measurements, as described. I have personally reviewed the images | | | and, if necessary, edited the report. I agree with the report as now | | | presented. Final signature: Rogerio Bettencourt MD 12/17/2018 11:42 | | | AM Preliminary: Donald Luque MD Dictation initiated: Donald Johnson | Elizabeth Luque MD 12/17/2018 11:17 AM | | + + + + + | Procedure Note | + + | Service Account, Radiant Res In Interface - 12/17/2018 11:43 AM PDT EXAM: RAD BONE | | LENGTH SERIES JOINT SURVEY/LEG LENGTH 1VW-HIP TO ANKLE, KNEE 4 VIEWS BILATERAL HISTORY: | | eval COMPARISON: None available at the time of dictation. FINDINGS: Leg lengths as | | measured from the tops of the femoral heads to the tibial plafonds are 76.5 cm on the | | right and 77.2 cm on the left. The mechanical axes of the lower extremities pass medial | | to the intercondylar notch on the right and medial to the intercondylar notch on the | | left. There is no fracture or osseous destruction. There is severe right knee medial and | | patellofemoral compartment joint space narrowing with tricompartmental hypertrophic | | spurring. There is severe left knee patellofemoral compartment narrowing and | | tricompartmental spurring. There is heterotopic ossification and intra-articular bodies | | in both knees. The soft tissues are unremarkable. IMPRESSION: Bilateral knee | | tricompartment osteoarthrosis. Leg length measurements, as described. I have personally | | reviewed the images and, if necessary, edited the report. I agree with the report as | | now presented. Final signature: Rogerio Bettencourt MD 12/17/2018 11:42 AM Preliminary: Donald | | MD Ene Dictation initiated: Donald Luque MD 12/17/2018 11:17 AM | |IMPRESSION: | | | |Bilateral knee tricompartment osteoarthrosis. | | | |Leg length measurements, as described. | | | |I have personally reviewed the images and, if necessary, edited the report. I agree with th e report as now presented. | | | |Final signature: Rogerio Bettencourt MD 12/17/2018 11:42 AM | |Preliminary: Donald Luque MD | |Dictation initiated: Donald Luque MD 12/17/2018 11:17 AM | + + + +---------+ + + | Performing | Address | City/State/Zipcode | Phone Number | | Organization | | | | + +---------+ + + | [facility] | | | | | VOICE RECOGNITION 2 | | | | + +---------+ + + documented in this encounter Visit Diagnoses + + | Diagnosis | + + | Pain in both knees, unspecified chronicity | + + documented in this encounter"
--- OUTSIDE RECORDS SUMMARY | ~2019-02-16 | XMS | Encounter Summary ---
Demographics + + + | Address | [address] | | | [place] [address] | + + + | Home Phone | | + + + | Preferred Language | Unknown | + + + | Marital Status | | + + + | Orthodox Affiliation | Unknown | + + + | Race | | + + + | Ethnic Group | Not or | + + + Author + + + | Author | [facility] | + + + | Organization | [facility] | + + + | Address | Unknown | + + + | Phone | Unavailable | + + + Support +------+ +---------+ + | Name | Relationship | Address | Phone | +------+ +---------+ + | None | ECON | Unknown | Unavailable | +------+ +---------+ + Care Team Providers + +------+ + | Care Internal Control Consultant Name | Role | Phone | + +------+ + | Josiah Soliz MD | PCP | | + +------+ + Reason for Visit + + + | Reason | Comments | + + + | Medical Records | | | Review | | + + + Encounter Details +--------+ + + + + | Date | Type | Department | Care Team | Description | +--------+ + + + + | 01/25/ | Telephone | Cardiology General | Anita Cota | Medical Records | | 2018 | | at [facility] [address] | [address]REY Keen [address] | Review | | | | Keaton Chen Mailcode: | Keaton Chen [place], | | | | | [address] | [place] [address] | | | | | Health and He[facility], | [phone] | | | | | [facility] | | | | | | Floor [place], [place] | | | | | | [address] | | | | | | [phone] | | | +--------+ + + + [...] Rd | | | | | | [place] | | | | | | [address] | | +--------+ + + + + | 03/09/ | Office | Orthopedics | Naeem Briones, | | | 2018 | Visit | | MD [address] | | | | | | [address] | | | | | | [facility] [place] | | | | | | [address] | | | | | | [phone] | | | | | | | | +--------+ + + + + | 03/09/ | Clinical | Orthopedics | Addi Danielle RN | | | 2019 | Support | | [address] | | | | Staff | | [place], | | | | | | [place] [address] | | | | | | [phone] | | +--------+ + + + + | 03/09/ | Office | Pre-operative | 2, [facility] [place] [place] [address] | | | 2019 | Visit | Medicine | [address] | | | | | | [place] [address] | | +--------+ + + + + | 03/19/ | Procedure | Surgery | | | | 2019 | Pass | | | | +--------+ + + + + | 03/19/ | Hospital | Adult Acute Care | Naeem Briones, | | | 2019 | Encounter | | [address] | | | | | | [address] | | | | | | [place], [place] | | | | | | [address] | | | | | | [phone] | | | | | | | | +--------+ + + + + | 03/19/ | Surgery | Surgery | Naeem Briones, | RIGHT TOTAL KNEE | | 2018 | | | [address] | ARTHROPLASTY | | | | | [address] | | | | | | [place] | | | | | | [address] | | | | | | [phone] | | | | | | | | +--------+ + + + + | 03/19/ | Erroneous | Orthopedics | Naeem Briones, | | | 2018 | Enc-IP | | [address] | | | | | | [address] | | | | | | [place] | | | | | | [address] | | | | | | [phone] | | | | | | | | +--------+ + + + + | 03/30/ | Office | Orthopedics | Naeem Briones, | | | 2018 | Visit | | [address] | | | | | | [address] | | | | | | [place], [place] | | | | | | [address] | | | | | | [phone] | | | | | | | | +--------+ + + + + | 05/06/ | Office | Orthopedics | Naeem Briones, | | | 2020 | Visit | | [address] | | | | | | [address] | | | | | | [place], [place] | | | | | | [address] | | | | | | [phone] | | | | | | | | +--------+ + + + + documented as of this encounter Visit Diagnoses Not on filedocumented in this encounter"
--- OUTSIDE RECORDS SUMMARY | ~2019-02-16 | XMS | Clinical Summary ---
Demographics + + + | Address | [address] | | | [place] [address] | + + + | Home Phone | | + + + | Preferred Language | Unknown | + + + | Marital Status | | + + + | Moravian Affiliation | Unknown | + + + | Race | | + + + | Ethnic Group | Not or | + + + Author + + + | Author | [facility] | + + + | Organization | [facility] | + + + | Address | Unknown | + + + | Phone | Unavailable | + + + Support +------+ +---------+ + | Name | Relationship | Address | Phone | +------+ +---------+ + | None | ECON | Unknown | Unavailable | +------+ +---------+ + Care Team Providers + +------+ + | Care Builder Beam Name | Role | Phone | + +------+ + | Josiah Soliz MD | PCP | | + +------+ + Source Comments SHIRA is fully live on both [facility] Ambulatory and [facility] InPatient.[facility] Allergies + + + + + + | Active Allergy | Reactions | Severity | Noted | Comments | | | | | Date | | + + + + + + | Acetaminophen | Unknown | | 12/15/19 | | | | | | 15 | | + + + + + + | Bacitracin | Unknown | | 12/15/19 | | | | | | 15 | | + + + + + + | Codeine | Unknown | | 08//20 | | | | | | 19 | | + + + + + + | Hydrocodone | Nausea | | //20 | | | | | | 19 | | + + + + + + | Iodine | Rash | | 08/12/20 | | | | | | 15 | | + + + + + + | Lamotrigine | Mental Status Change | | //20 | | | | | | 19 | | + + + + + + | Neomycin | Unknown | | 08/12/20 | | | | | | 15 | | + + + + + + | Paroxetine | Unknown | | 08/12/20 | | | | | | 15 | | + + + + + + | Penicillins | Rash | | 08/15/20 | | | | | | 19 | | + + + + + + | Polymyxin B | Unknown | | 08/12/20 | | | | | | 15 | | + + + + + + | Tramadol | Nausea | | 08/15/20 | | | | | | 19 | | + + + + + + | Hydrocodone-Acetamin | Dyspnea | | 01/23/20 | Hyperventilate | | ophen | | | 19 | | + + + + + + Medications + + + +---------+------+------+-------+ | Medication | Sig | Dispensed | Refills | Star | End | Statu | | | | | | t | Date | s | | | | | | Date | | | + + + +---------+------+------+-------+ | lurasidone | 80mg once daily | | 0 | | | Activ | | (LATUDA) 120 mg oral | | | | | | e | | tablet | | | | | | | + + + +---------+------+------+-------+ | LORazepam 0.5 mg | lorazepam 0.5 mg | | 0 | | | Activ | | oral tablet | tablet at bedtime | | | | | e | + + + +---------+------+------+-------+ | sertraline 50 mg | sertraline 50 mg | | 0 | | | Activ | | oral tablet | tablet once daily | | | | | e | + + + +---------+------+------+-------+ | metFORMIN 500 mg | 1000 mg once daily | | 0 | | | Activ | | oral tablet | | | | | | e | + + + +---------+------+------+-------+ | allopurinol 300 mg | allopurinol 300 mg | | 0 | | | Activ | | oral tablet | tablet once daily | | | | | e | + + + +---------+------+------+-------+ | torsemide 20 mg | torsemide 20 mg | | 0 | | | Activ | | oral tablet | tablet once daily | | | | | e | + + + +---------+------+------+-------+ | gabapentin 300 mg | 900mg at bedtime | | 0 | | | Activ | | oral capsule | | | | | | e | + + + +---------+------+------+-------+ | ergocalciferol | Vitamin D2 50,000 | | 0 | | | Activ | | 50,000 unit oral | unit capsule TAKE | | | | | e | | capsule | ONE CAPSULE BY MOUTH | | | | | | | | ONCE A WEEK | | | | | | + + + +---------+------+------+-------+ | ondansetron ODT 4 | ondansetron 4 mg | | 0 | | | Activ | | mg oral | disintegrating | | | | | e | | tablet,disintegratin | tablet | | | | | | | g | | | | | | | + + + +---------+------+------+-------+ | albuterol | 18 g. | | 0 | | | Activ | | (VENTOLIN HFA) 90 | | | | | | e | | mcg/actuation | | | | | | | | inhalation HFA | | | | | | | | aerosol inhaler | | | | | | | + + + +---------+------+------+-------+ | famotidine 20 mg | Take 20 mg by mouth | | 0 | | | Activ | | oral tablet | once daily. | | | | | e | + + + +---------+------+------+-------+ | psyllium husk | Take by mouth. | | 0 | | | Activ | | (METAMUCIL ORAL) | | | | | | e | + + + +---------+------+------+-------+ | aspirin EC 81 mg | Take 81 mg by mouth | | 0 | | | Activ | | oral tablet,delayed | once daily. | | | | | e | | release (DR/EC) | | | | | | | + + + +---------+------+------+-------+ | levothyroxine 100 | Take 100 mcg by | | 1 | 07/2 | | Activ | | mcg oral tablet | mouth once daily. | | | 07/22 | | e | | | | | | 19 | | | + + + +---------+------+------+-------+ | promethazine 25 mg | Take 25 mg by mouth | | 0 | | | Activ | | oral tablet | as needed for | | | | | e | | | nausea/vomiting. | | | | | | + + + +---------+------+------+-------+ Active Problems Not on file Encounters +--------+ + + + + | Date | Type | Specialty | Care Team | Description | +--------+ + + + + | 01/25/ | Abstract | Cardiology | Anita Cota | | | 2018 | | | [address] | | +--------+ + + + + | 01/25/ | Documentati | Orthopedics | Addi Danielle RN | | | 2018 | on | | | | +--------+ + + + + | 01/25/ | PreAdmit | Orthopedics | Naeem Briones, | Pre-Admission | | 2018 | Orders | | MD | | +--------+ + + + + | 01/25/ | Telephone | Cardiology | Anita Cota | Lab findings, | | 2018 | | | [address]en | teaching, guidance, | | | | | | and counseling | +--------+ + + + + | 01/25/ | Telephone | Cardiology | Anita Cota | Medical Records | | 2018 | | | [address] | Review | +--------+ + + + + | 01/22/ | Hospital | Cardiology | | | | 2018 | Encounter | | | | +--------+ + + + + | 01/22/ | Office | Cardiology | Anita Cota | Coronary artery | | 2018 | Visit | | [place] Keen | disease involving | | | | | | stockbridge coronary | | | | | | artery of stockbridge | | | | | | heart without angina | | | | | | pectoris (Primary | | | | | | Dx); Obesity (BMI | | | | | | 30.0-34.9); | | | | | | Essential | | | | | | hypertension; | | | | | | Pre-operative | | | | | | cardiovascular | | | | | | examination | +--------+ + + + + | 01/22/ | Abstract | Cardiology | Anita Cota | | | 2018 | | | [address] | | +--------+ + + + + | 01/22/ | Travel | | | | | 2018 | | | | | +--------+ + + + + | 01/22/ | Object Oriented Developer | Cardiology | Anita Cota | Palpitations | | 2018 | | | [place] Keen | (Primary Dx) | +--------+ + + + + | 01/05/ | Abstract | Cardiology | Unknown | Medical Records | | 2018 | | | | Review (General | | | | | | Record Review) | +--------+ + + + + | 12/17/ | Office | Orthopedics | Naeem Briones, | Pain in both knees, | | 2018 | Visit | | MD | unspecified | | | | | | chronicity (Primary | | | | | | Dx) | +--------+ + + + + | 12/17/ | Hospital | Radiology | Naeem Briones, | | | 2018 | Encounter | | MD | | +--------+ + + + + | 12/17/ | Hospital | Radiology | Naeem Briones, | | | 2018 | Encounter | | MD | | +--------+ + + + + | 12/17/ | Travel | | | | | 2018 | | | | | +--------+ + + + + from Last 3 Months Family History + + +------+ + | Medical History | Relation | Name | Comments | + + +------+ + | Diabetes type II | Sister | | | + + +------+ + + +------+ + + | Relation | Name | Status | Comments | + +------+ + + | Father | | | | + +------+ + + | Mother | | | | + +------+ + + | Sister | | Alive | | + +------+ + + Social History + +-------+ +--------+------+ [...] recent travel history available. | + + Last Filed Vital Signs + + + + + | Vital Sign | Reading | Time Taken | Comments | + + + + + | Blood Pressure | 146/73 | 01/22/2019 11:12 AM | | | | | PDT | | + + + + + | Pulse | 95 | 01/22/2019 11:12 AM | | | | | PDT | | + + + + + | Temperature | 36.8 C (98.3 F) | 01/22/2019 11:12 AM | | | | | PDT | | + + + + + | Respiratory Rate | - | - | | + + + + + | Oxygen Saturation | 99% | 01/22/2019 11:12 AM | | | | | PDT | | + + + + + | Inhaled Oxygen | - | - | | | Concentration | | | | + + + + + | Weight | 75.1 kg (165 lb 9.6 | 01/22/2019 11:12 AM | | | | oz) | PDT | | + + + + + | Height | 147.3 cm (4' 10") | 01/22/2019 11:12 AM | | | | | PDT | | + + + + + | Body Mass Index | 34.61 | 01/22/2019 11:12 AM | | | | | PDT | | + + + + + Plan of Treatment +--------+ + + + + | Date | Type | Specialty | Care Team | Description | +--------+ + + + + | 03/09/ | Office | Physical Therapy | Shiv Day, | | | 2018 | Visit | | PT [address] [facility] | | | | | | [address] | | | | | | [place], [place] | | | | | | [address] | | +--------+ + + + + | 03/09/ | Office | Orthopedics | Naeem Briones, | | | 2018 | Visit | | MD [address] | | | | | | [address] | | | | | | [place], [place] | | | | | | [address] | | | | | | [phone] | | | | | | | | +--------+ + + + + | 03/09/ | Clinical | Orthopedics | Addi Danielle RN | | | 2018 | Support | | [address] | | | | Staff | | [place], | | | | | | [place] [address] | | | | | | [phone] | | +--------+ + + + + | 03/09/ | Office | Pre-operative | 2, [facility] [address] | | | 2018 | Visit | Medicine | [address] | | | | | | [place] [address] | | +--------+ + + + + [...] Rd | | | | | | [place] | | | | | | [address] | | | | | | [phone] | | | | | | | | +--------+ + + + + | 03/19/ | Surgery | Surgery | Naeem Briones, | RIGHT TOTAL KNEE | | 2018 | | | [address] | ARTHROPLASTY | | | | | [address] | | | | | | [place] | | | | | | [address] | | | | | | [phone] | | | | | | | | +--------+ + + + + | 03/19/ | Erroneous | Orthopedics | Naeem Briones, | | | 2018 | Enc-IP | | MD [address] | | | | | | [address] | | | | | | [place], [place] | | | | | | [address] | | | | | | [phone] | | | | | | | | +--------+ + + + + | 03/30/ | Office | Orthopedics | Naeem Briones, | | | 2018 | Visit | | [address] | | | | | | [address] | | | | | | [facility] [place] | | | | | | [address] | | | | | | [phone] | | | | | | | | +--------+ + + + + | 05/06/ | Office | Orthopedics | aNeem Briones, | | | 2019 | Visit | | MD [address] | | | | | | [address] | | | | | | [place], [place] | | | | | | [address] | | | | | | [phone] | | | | | | | | +--------+ + + + + + + + + + | Health Maintenance | Due Date | Last Done | Comments | + + + + + | Influenza (Flu) | | 01/22/2018, 12/21/2015, | | | vaccination (#1) | 9 | 02/16/2015, Additional history | | | | | exists | | + + + + + | Pneumococcal | Completed | 05/18/2018, 10/31/2015, | | | vaccination | | 01/18/2011 | | + + + + + Procedures + +--------+ + + + | [...] | | ADULT | | PDT | stockbridge coronary | results section. | | | | | artery of stockbridge | | | | | | heart without angina | | | | | | pectoris | | + +--------+ + + + | 12 LEAD ECG | Routin | 01/22/2019 | Palpitations | Results for this | | | e | 11:28 AM | | procedure are in the | | | | PDT | | results section. | + +--------+ + + + | X-RAY KNEE 4 VIEWS | Routin | 12/17/2018 | Pain in both | Results for this | | BILATERAL | e | 11:08 AM | knees, unspecified | procedure are in the | | | | PDT | chronicity | results section. | + +--------+ + + + | X-RAY BONE LENGTH | Routin | 12/17/2018 | Pain in both | Results for this | | SERIES (JOINT | e | 11:08 AM | knees, unspecified | procedure are in the | | SURVEY/LEG LENGTH 1 | | PDT | chronicity | results section. | | VW) | | | | | + +--------+ + + + from Last 3 Months Results TRANSTHORACIC ECHOCARDIOGRAM, ADULT (01/22/2019 4:07 PM [...] Performed At | + + + | [facility] | [facility] | | [facility] Adult Echocardiography [facility] [address] | CARDIOLOGY | | [place], [place] [address] Ph: | | | Pt Name: CELESTE Yeboah SEEN | | | Study Date/Time 01/22/2019 / 4:07:13 PMMRN: [id number] | | | Most recent prior: -[facility] #: [id number] | | | No. previous echos: 0DOB: 1955 63 years Heart Rate: | | | 86 bpmHeight: 58.0 in Blood Pressure: | | | 128/74 mm/HgWeight: 165.0 lb Gender: | | | FBSA: 1.68 m | | | Order ID: [id number] Study | | | Location: OPSonographer: Stephany YAÑEZ, RDCSSonographer 2: Dylan | | | Sharon:Referring [...] Report electronically signed by: | | | [id number] Rk Martinez MD (01/22/2019, 5:26:52 PM) Final [...] | | | |Report electronically signed by: [id number] Rk Martinez MD (01/22/2019, 5:26:52 | | |PM) | | | | | | | | | | | | Final | | + + + + + | Procedure Note | + + | Interface, Cardiology Results - 01/22/2019 5:26 PM [facility] | | [facility] Echocardiography Laboratory [address] [place] [address] | | [place], [place] [address] Pt Name: CELESTE Yeboah | | SEEN Study Date/Time 01/22/2019 / 4:07:13 PMMRN: [id number] Most | | recent prior: -Acc #: [id number] No. previous echos: 0DOB: 1955 63 | | years Heart Rate: 86 bpmHeight: 58.0 in Blood Pressure: 128/74 | | mm/HgWeight: 165.0 lb Gender: FBSA: 1.68 m | | Order ID: [id number] Study Location: OPSonographer: Stephany Constantino | | , RDCSSonographer 2: Dylan EvansTerryow:Referring Provider: Anita Keen | | BischofModalities Performed: [...] and indexed values Report electronically signed by: [id number] Rk | | Michelle JAMA (01/22/2019, 5:26:52 [...] | | | |Report electronically signed by: [id number] Rk Martinez MD (01/22/2019, 5:26:52 | |PM) | | | | | | | | Final | + + + + + + + | Performing | Address | City/State/Zipcode | Phone Number | | Organization | | | | + + + + + | [facility] | [address] | [place], [place] | | | CARDIOLOGY | [address] | [address] | | + + + + + 12 LEAD ECG (01/22/2019 11:28 AM PDT) + + + + + + | Component | Value | Ref Range | Performed | Pathologist | | | | | At | Signature | + + + + + + | VENTRICULAR | 92 | bpm | [facility] | | | RATE | | | OF | | | | | | CARDIOLOGY | | + + + + + + | ATRIAL RATE | 92 | ms | [facility] | | | | | | OF | | | | | | CARDIOLOGY | | + + + + + + | P-R | 141 | ms | [facility] | | | INTERVAL | | | OF | | | | | | CARDIOLOGY | | + + + + + + | P AXIS | 74 | deg | [facility] | | | | | | OF | | | | | | CARDIOLOGY | | + + + + + + | QRS | 75 | ms | [facility] | | | DURATION | | | OF | | | | | | CARDIOLOGY | | + + + + + + | QT | 362 | ms | [facility] | | | | | | OF | | | | | | CARDIOLOGY | | + + + + + + | QTCB | 447 | ms | [facility] | | | | | | OF | | | | | | CARDIOLOGY | | + + + + + + | R AXIS | -18 | deg | [facility] | | | | | | OF | | | | | | CARDIOLOGY | | + + + + + + | T AXIS | 29 | deg | [facility] | | | | | | OF | | | | | | CARDIOLOGY | | + + + + + + | ECG | Sinus rhythm | | [facility] | | | IMPRESSION | | | OF | | | | | | CARDIOLOGY | | + + + + + + | ECG | Atrial premature complex | | [facility] | | | IMPRESSION | | | OF | | | | | | CARDIOLOGY | | + + + + + + | ECG | Probable left atrial | | [facility] | | | IMPRESSION | enlargement- BORDERLINE | | OF | | | | ECG - | | CARDIOLOGY | | + + + + + + | ECG | Electronically signed | | [facility] | | | IMPRESSION | by: ELIZABETH SY | | OF | | | | 01-22-2019 13:09:48 | | CARDIOLOGY | | + + + + + + + + | Specimen | + + | | + + + + + | Narrative | Performed At | + + + | | | + + + + + + + + | Performing | Address | City/State/Zipcode | Phone Number | | Organization | | | | + + + + + | [facility] | [address] | [place], [place] | | | CARDIOLOGY | [address] | [address] | | + + + + + X-RAY KNEE 4 VIEWS BILATERAL (12/17/2018 11:08 [...] Preliminary: Donald Luque MD Dictation initiated: Donald | | | MD Ene 12/17/2018 11:17 AM | | + + [...] necessary, edited the report. I agree with e report as now presented. | | [...] | | | + +---------+ + + X-RAY BONE LENGTH SERIES (JOINT SURVEY/LEG LENGTH 1 VW) (12/17/2018 11:08 AM PDT) + + | [...] Preliminary: Donald Luque MD Dictation initiated: Donald | | | MD Ene 12/17/2018 11:17 AM | | + + [...] | | | + +---------+ + + from Last 3 Months Insurance + +--------+ +--------+ + +--------+ | Payer | Benefi | Subscriber | Effect | Phone | Address | Type | | | t Plan | ID | lala | | | | | | / | | Dates | | | | | | Group | | | | | | + +--------+ +--------+ + +--------+ | MEDICARE | MEDICA | xxxxxxxxxxx | 10/03/18 | [phone] | [address] | Medica | | | RE A & | | [address] | [address] | [address] | | | [address] | | sent | | [place] | | | | | | | | [address] | | + +--------+ +--------+ + +--------+ | [employer]TER MEDICAID | [employer]TER | xxxxxxxx | | | | Medica | | | EASTER | | 018-Pr | | | id | | | [place] | | esent | | | | + +--------+ +--------+ + +--------+ + +--------+ +--------+ + + | Guarantor Name | Accoun | Relation to | Date | Phone | Billing Address | | | t Type | Patient | of | | | | | | | | | | + +--------+ +--------+ + + | Celeste Hyde | Person | Self | [birth year] | [address] | | | al/Fam | | [phone] | [phone] | [address] [place] | | | [place] | | | [address] (Home) | [address] | + +--------+ +--------+ + +
--- OUTSIDE RECORDS SUMMARY | ~2019-02-16 | XMS | Encounter Summary ---
Demographics + + + | Address | [address] | | | [place] [address] | + + + | Home Phone | | + + + | Preferred Language | Unknown | + + + | Marital Status | | + + + | Buddhism Affiliation | Unknown | + + + | Race | | + + + | Ethnic Group | Not or | + + + Author + + + | Author | [facility] | + + + | Organization | [facility] | + + + | Address | Unknown | + + + | Phone | Unavailable | + + + Support +------+ +---------+ + | Name | Relationship | Address | Phone | +------+ +---------+ + | None | ECON | Unknown | Unavailable | +------+ +---------+ + Care Team Providers + +------+ + | Care Desktop Support Engineer Name | Role | Phone | + +------+ + | Josiah Soliz MD | PCP | | + +------+ + Encounter Details +--------+ + + + + | Date | Type | Department | Care Team | Description | +--------+ + + + + | 01/22/ | Abstract | Cardiology General | Anita Cota | | | 2019 | | at [facility] [address] | [address]RE[address] Keen [address] | | | | | Keaton Chen Mailcode: | Keaton Chen [place], | | | | | [facility] | [place] [address] | | | | | [facility], | [phone] | | | | | | | | | | | [place], [place] | | | | | | [address] | | | | | | [phone] | | | +--------+ + + + [...] Rd | | | | | | [place], [place] | | | | | | [address] | | +--------+ + + + + | 03/09/ | Office | Orthopedics | Naeem Briones, | | | 2018 | Visit | | MD [address] | | | | | | [address] | | | | | | [place], [place] | | | | | | [address] | | | | | | [phone] | | | | | | | | +--------+ + + + + | 03/09/ | Clinical | Orthopedics | Addi Danielle RN | | | 2019 | Support | | [address] | | | | Staff | | [place], | | | | | | [place] [address] | | | | | | [phone] | | +--------+ + + + + | 03/09/ | Office | Pre-operative | [facility], [facility] [address] | | | 2019 | Visit | Medicine | [address] | | | | | | [place] [address] | | +--------+ + + + + | 03/19/ | Procedure | Surgery | | | | 2018 | Pass | | | | +--------+ + + + + | 03/19/ | Hospital | Adult Acute Care | Naeem Briones, | | | 2018 | Encounter | | [address] | | | | | | [address] | | | | | | [place], [place] | | | | | | [address] | | | | | | [phone] | | | | | | | | +--------+ + + + + | 03/19/ | Surgery | Surgery | Naeem Briones, | RIGHT TOTAL KNEE | | 2019 | | | MD [address] | ARTHROPLASTY | | | | | [address] | | | | | | [place], [place] | | | | | | [address] | | | | | | [phone] | | | | | | | | +--------+ + + + + | 03/19/ | Erroneous | Orthopedics | Naeem Briones, | | | 2018 | Enc-IP | | MD [address] | | | | | | [address] | | | | | | [place], [place] | | | | | | [address] | | | | | | [phone] | | | | | | | | +--------+ + + + + | 03/30/ | Office | Orthopedics | Naeem Briones, | | | 2019 | Visit | | MD [address] | | | | | | [address] | | | | | | [place], [place] | | | | | | [address] | | | | | | [phone] | | | | | | | | +--------+ + + + + | 05/06/ | Office | Orthopedics | Naeem Briones, | | | 2019 | Visit | | [address] | | | | | | [address] | | | | | | [place] | | | | | | [address] | | | | | | [phone] | | | | | | | | +--------+ + + + + documented as of this encounter Visit Diagnoses Not on filedocumented in this encounter"
--- OUTSIDE RECORDS SUMMARY | ~2019-02-16 | XMS | Encounter Summary ---
Demographics + + + | Address | [address] | | | [place] [address] | + + + | Home Phone | | + + + | Preferred Language | Unknown | + + + | Marital Status | | + + + | Episcopalian Affiliation | Unknown | + + + | Race | | + + + | Ethnic Group | Not or | + + + Author + + + | Author | [facility] | + + + | Organization | [facility] | + + + | Address | Unknown | + + + | Phone | Unavailable | + + + Support +------+ +---------+ + | Name | Relationship | Address | Phone | +------+ +---------+ + | None | ECON | Unknown | Unavailable | +------+ +---------+ + Care Team Providers + +------+ + | Care Composite Worker Name | Role | Phone | + [...] Referral (bilat | | 2019 | | [facility] [address] | Clinic | knees ) | | | | [place] Mailcode: CH12A | | | | | | [facility] | | | | | | and Healing, | | | | | | | | | | | | Floor [place], [place] | | | | | | [address] | | | | | | [phone] | | | +--------+ + + + [...] + documented as of this encounter Progress Notes Chey Avilez - 08/12/2018 8:36 AM PDTFormatting of this note might be different from rowdy grimm. Orthopaedics New Patient Record Check List Please [...] L&I as they do not pay at [place] rates. Other out of state claims will only be accepted if they agree to pay at [place] rates khushboo nted in writing from adjustor. Can you confirm the insurance we will be billing for this visit? Medicare A & B Note: If OHP, please note which type. E.g. [place], [place], Trilli[place] m, etc.) Reminder: Please create referrals for pts with: HMO, OHP, [place], Self-Pay, W/C, TPL an d ED Post- Ops Can you verify your Primary Care Provider? yes who: Josiha Soliz Note: Please update Primary Care Provider in [employer]. Are you a current smoker or tobacco [...] they d like to sign up for iSironahart ? Don t forget to pull in CareEveryWhere Additional Comments: documented in this encoun ter Plan of Treatment +--------+ + + + + | Date | Type | Specialty | Care Team | Description | +--------+ + + + + | 03/09/ | Office | Physical Therapy | Shiv Day, | | | 2018 | Visit | | PT [address] | | | | | | [address] | | | | | | [place], [place] | | | | | | [address] | | +--------+ + + + + | 03/09/ | Office | Orthopedics | Naeem Briones, | | | 2018 | Visit | | MD [address] | | | | | | [address] | | | | | | [place], [place] | | | | | | [address] | | | | | | [phone] | | | | | | | | +--------+ + + + + | 03/09/ | Clinical | Orthopedics | Addi Danielle RN | | | 2019 | Support | | [address] | | | | Staff | | [address] [place], | | | | | | [place] [address] | | | | | | [phone] | | +--------+ + + + + | 03/09/ | Office | Pre-operative | 2, [facility] [address] | | | 2019 | Visit | Medicine | [address] | | | | | | [place] [address] | | +--------+ + + + + [...] Rd | | | | | | [place], [place] | | | | | | [address] | | | | | | [phone] | | | | | | | | +--------+ + + + + | 03/19/ | Surgery | Surgery | Naeem Briones, | RIGHT TOTAL KNEE | | 2018 | | | [address] | ARTHROPLASTY | | | | | [address] | | | | | | [place], [place] | | | | | | [address] | | | | | | [phone] | | | | | | | | +--------+ + + + + | 03/19/ | Erroneous | Orthopedics | Naeem Briones, | | | 2018 | Enc-IP | | [address] | | | | | | [address] | | | | | | [place], [place] | | | | | | [address] | | | | | | [phone] | | | | | | | | +--------+ + + + + | 03/30/ | Office | Orthopedics | Naeem Briones, | | | 2018 | Visit | | [address] | | | | | | [address] | | | | | | [place], [place] | | | | | | [address] | | | | | | [phone] | | | | | | | | +--------+ + + + + | 05/06/ | Office | Orthopedics | Naeem Briones, | | | 2019 | Visit | | [address] | | | | | | [address] | | | | | | [place], [place] | | | | | | [address] | | | | | | [phone] | | | | | | | | +--------+ + + + + documented as of this encounter Visit Diagnoses Not on filedocumented in this encounter"
--- OUTSIDE RECORDS SUMMARY | ~2019-02-16 | XMS | Encounter Summary ---
Demographics + + + | Address | [address] | | | [place] [address] | + + + | Home Phone | | + + + | Preferred Language | Unknown | + + + | Marital Status | | + + + | Temple Affiliation | Unknown | + + + | Race | | + + + | Ethnic Group | Not or | + + + Author + + + | Author | [facility] | + + + | Organization | [facility] | + + + | Address | Unknown | + + + | Phone | Unavailable | + + + Support +------+ +---------+ + | Name | Relationship | Address | Phone | +------+ +---------+ + | None | ECON | Unknown | Unavailable | +------+ +---------+ + Care Team Providers + +------+ + | Care Epic Radiant Analyst Name | Role | Phone | [...] Records | | 2019 | | at [facility] [address] | | Review (General | | | | Keaton Chen Mailcode: | | Record Review) | | | | [address] | | | | | | Health and Healing, | | | | | | Building | | | | | | Floor [place], [place] | | | | | | [address] | | | | | | [phone] | | | +--------+ + + + [...] documented as of this encounter Progress Notes Oksana Guzmán - 01/05/2019 1:05 PM PDTFormatting of this note might be different from the o riginal. General Cardiology New Patient Record Check List Procedure Where/Date Date requested Report received? Y/N, Where? Imaging received? CD/ IMPAX/Not Available Comments Referring Provider notes N/A Referral Last EKG (REPORT ONLY) Note: Tracings needed if being seen for abnormal ECG Years ago ? [facility] n N/A Last Echo images and report December [facility] Last Stress Test images and report no Last Cardiac Catheterization images and report no Last Holter or Event monitor report only no N/A Labs (BMP, Lipids, TSH, Hemoglobin A1C in last 6 months) [facility] in [facility] N/A Last Device Check (schedule device check if due) n N/A Last Cardiac MRI report and images if available n Cardiac CTA report and images if available ? [facility] Patient Preferred Lab ? N/A N/A N/A Additional Comments: document ed in this encounter Plan of Treatment +--------+ + + + + | Date | Type | Specialty | Care Team | Description | +--------+ + + + + | 03/09/ | Office | Physical Therapy | Shiv Day, | | | 2019 | Visit | | PT [address] [facility] | | | | | | [address] | | | | | | [place], [place] | | | | | | [address] | | +--------+ + + + + | 03/09/ | Office | Orthopedics | Naeem Briones, | | | 2018 | Visit | | [address] | | | | | | [address] | | | | | | [place], [place] | | | | | | [address] | | | | | | [phone] | | | | | | | | +--------+ + + + + | 03/09/ | Clinical | Orthopedics | Addi Danielle RN | | | 2018 | Support | | [address] | | | | Staff | | [place], | | | | | | [place] [address] | | | | | | [phone] | | +--------+ + + + + | 03/09/ | Office | Pre-operative | 2, [facility] [address] | | | 2018 | Visit | Medicine | [address] | | | | | | [place] [address] | | +--------+ + + + + [...] [place] | | | | | | [address] | | | | | | [phone] | | | | | | | | +--------+ + + + + | 03/19/ | Surgery | Surgery | Naeem Briones, | RIGHT TOTAL KNEE | | 2018 | | | MD [address] | ARTHROPLASTY | | | | | [address] | | | | | | [place] | | | | | | [address] | | | | | | [phone] | | | | | | | | +--------+ + + + + | 03/19/ | Erroneous | Orthopedics | Naeem Briones, | | | 2018 | Enc-IP | | [address] | | | | | | [address] | | | | | | [place], [place] | | | | | | [address] | | | | | | [phone] | | | | | | | | +--------+ + + + + | 03/30/ | Office | Orthopedics | Naeem Briones, | | | 2018 | Visit | | [address] | | | | | | [address] | | | | | | [place], [place] | | | | | | [address] | | | | | | [phone] | | | | | | | | +--------+ + + + + | 05/06/ | Office | Orthopedics | Naeem Briones, | | | 2019 | Visit | | MD [address] | | | | | | [address] | | | | | | [place], [place] | | | | | | [address] | | | | | | [phone] | | | | | | | | +--------+ + + + + documented as of this encounter Visit Diagnoses Not on filedocumented in this encounter"
--- OUTSIDE RECORDS SUMMARY | ~2019-02-16 | XMS | Encounter Summary ---
Demographics + + + | Address | [address] | | | [place] [address] | + + + | Home Phone | | + + + | Preferred Language | Unknown | + + + | Marital Status | | + + + | Buddhist Affiliation | Unknown | + + + [...] Team Providers + +------+ + | Care Pillowcase Folder Name | Role | Phone | + [...] | both knees, | [address] | [address] | | | | | unspecified | [address] | [address] | | | | | chronicity | [address] | [place], [place] | | | | | Procedures | [facility] [place] | [address] | | | | | CONSULT TO | [address] | Phone: | | | | | CARDIOLOGY | Phone: | [phone] | | | | | | [phone] | Fax: | | | | | | Fax: | [phone] | | | | | | [phone] | | + +--------+ + + + + Reason for Visit + + + | Reason | Comments | + + + | New patient | | | consultation | | + + + Encounter Details +--------+---------+ + + + | Date | Type | Department | Care Team | Description | +--------+---------+ + + + | 12/17/ | Office | [facility] | Naeem Briones, | Pain in both knees, | | 2019 | Visit | & Rehabilitation | [address] | unspecified | | | | [address] | [address] | chronicity (Primary | | | | [address] [place], [place] | [place], [place] | Dx) | | | | [address] | [address] | | | | | [phone] | | | | | | | [...] might be different fro m the original. [facility] DEPARTMENT OF ORTHOPAEDICS & REHABILITATION Adult Reconstruction / Joint Replacement Surgery New Patient History & Physical Exam Chief Complaint, Reason for Consultation: Bilateral knee eval Referring Provider: Josiah Soliz MD [facility] [address] [facility] [place] [address] History of Present Illness: Ms. Hyde is [...] injection was about a week ago in [place]) ? Braces, orthotics and/or assistive devices: Symptoms are progressing in spite of ORTHODEV ICE: cane use Additional details include: - Gait aids used: Cane - Walking Distance Without Pain: <1 blocks (one block is 200 meters/yards) - Support available at home for post-op care: No, likely she will require a fpc facility placement Other details: She has been followed by Dr. Tawanda Craft in [place] and he told her due to her complex medical history that she needed to come to [facility] for total knee arthroplasty. Due to knee [...] file Gets together: Not on file Attends tenriism service: Not on file Active member of [...] / CAD - She doesn't have a mds coordinator and is unsure what cardiac work up she has had. Plan: We had a long discussion of non-surgical and surgical options. I think that she would manohar lly benefit from a total knee arthroplasty but before we proceed with this procedure I am ju st really worried about her cardiac status, she says she doesn't have a mds coordinator and isn 't sure what cardiac work [...] [place] | | | | | | [address] | | +--------+ + + + + | 03/09/ | Office | Orthopedics | Naeem Briones, | | | 2018 | Visit | | MD [address] | | | | | | [address] | | | | | | [place], [place] | | | | | | [address] | | | | | | [phone] | | | | | | | | +--------+ + + + + | 03/09/ | Clinical | Orthopedics | Addi Danielle RN | | | 2019 | Support | | [address] | | | | Staff | | [place], | | | | | | [place] [address] | | | | | | [phone] | | +--------+ + + + + | 03/09/ | Office | Pre-operative | 2, [facility] [address] | | | 2019 | Visit | Medicine | [address] | | | | | | [place] [address] | | +--------+ + + + + [...] Rd | | | | | | [place], [place] | | | | | | [address] | | | | | | [phone] | | | | | | | | +--------+ + + + + | 03/19/ | Surgery | Surgery | Naeem Briones, | RIGHT TOTAL KNEE | | 2018 | | | MD [address] | ARTHROPLASTY | | | | | [address] | | | | | | [facility], [place] | | | | | | [address] | | | | | | [phone] | | | | | | | | +--------+ + + + + | 03/19/ | Erroneous | Orthopedics | Naeem Briones, | | | 2018 | Enc-IP | | [address] | | | | | | [address] | | | | | | [place], [place] | | | | | | [address] | | | | | | [phone] | | | | | | | | +--------+ + + + + | 03/30/ | Office | Orthopedics | Naeem Briones, | | | 2018 | Visit | | [address] | | | | | | [address] | | | | | | [place], [place] | | | | | | [address] | | | | | | [phone] | | | | | | | | +--------+ + + + + | 05/06/ | Office | Orthopedics | Anselmo Naeem Mortensen, | | | 2019 | Visit | | [address] | | | | | | [address] | | | | | | [place], [place] | | | | | | [address] | | | | | | [phone] | | | | | | | [...]
--- OUTSIDE RECORDS SUMMARY | ~2019-02-16 | XMS | Encounter Summary ---
Demographics + + + | Address | [address] | | | [place] [address] | + + + | Home Phone | | + + + | Preferred Language | Unknown | + + + | Marital Status | | + + + | Cheondoism Affiliation | Unknown | + + + | Race | | + + + | Ethnic Group | Not or | + + + Author + + + | Author | [facility] | + + + | Organization | [facility] | + + + | Address | Unknown | + + + | Phone | Unavailable | + + + Support +------+ +---------+ + | Name | Relationship | Address | Phone | +------+ +---------+ + | None | ECON | Unknown | Unavailable | +------+ +---------+ + Care Team Providers + +------+ + | Care Tax Technician Name | Role | Phone | + +------+ + | Josiah Soliz MD | PCP | | + +------+ + Encounter Details +--------+ + + + + | Date | Type | Department | Care Team | Description | +--------+ + + + + | 12/17/ | Hospital | Radiology at | Naeem Briones, | | | 2019 | Encounter | [address] | [address] [facility] | | | | | [facility] [address] | [facility] | | | | | [place], [place] | [place], [place] | | | | | [address] | [address] | | | | | [phone] | [phone] | | | | | | | [...] [place] | | | | | | [address] | | +--------+ + + + + | 03/09/ | Office | Orthopedics | Naeem Briones, | | | 2018 | Visit | | MD [address] | | | | | | [address] | | | | | | [place] | | | | | | [address] | | | | | | [phone] | | | | | | | | +--------+ + + + + | 03/09/ | Clinical | Orthopedics | Addi Danielle RN | | | 2019 | Support | | [address] | | | | Staff | | [place], | | | | | | [place] [address] | | | | | | [phone] | | +--------+ + + + + | 03/09/ | Office | Pre-operative | [facility], [facility] | | | 2019 | Visit | Medicine | [address] | | | | | | [place] [address] | | +--------+ + + + + [...] Rd | | | | | | [place], [place] | | | | | | [address] | | | | | | [phone] | | | | | | | | +--------+ + + + + | 03/19/ | Surgery | Surgery | Naeem Briones, | RIGHT TOTAL KNEE | | 2018 | | | [address] | ARTHROPLASTY | | | | | [address] | | | | | | [place], [place] | | | | | | [address] | | | | | | [phone] | | | | | | | | +--------+ + + + + | 03/19/ | Erroneous | Orthopedics | Naeem Briones, | | | 2018 | Enc-IP | | [address] | | | | | | [address] | | | | | | [place], [place] | | | | | | [address] | | | | | | [phone] | | | | | | | | +--------+ + + + + | 03/30/ | Office | Orthopedics | Naeem Briones, | | | 2018 | Visit | | [address] | | | | | | [address] | | | | | | [place], [place] | | | | | | [address] | | | | | | [phone] | | | | | | | | +--------+ + + + + | 05/06/ | Office | Orthopedics | Naeem Briones P, | | | 2020 | Visit | | [address] [facility] | | | | | | [address] | | | | | | [place], [place] | | | | | | [address] | | | | | | [phone] | | | | | | | [...]
--- OUTSIDE RECORDS SUMMARY | ~2019-02-16 | XMS | Encounter Summary ---
Demographics + + + | Address | [address] | | | [place] [address] | + + + | Home Phone | | + + + | Preferred Language | Unknown | + + + | Marital Status | | + + + | Methodist Affiliation | Unknown | + + + | Race | | + + + | Ethnic Group | Not or | + + + Author + + + | Author | [facility] | + + + | Organization | [facility] | + + + | Address | Unknown | + + + | Phone | Unavailable | + + + Support +------+ +---------+ + | Name | Relationship | Address | Phone | +------+ +---------+ + | None | ECON | Unknown | Unavailable | +------+ +---------+ + Care Team Providers + +------+ + | Care Director Advertising Name | Role | Phone | + +------+ + | Josiah Soliz MD | PCP | | + +------+ + Encounter Details +--------+ + + + + | Date | Type | Department | Care Team | Description | +--------+ + + + + | 01/25/ | Documentati | Orthopaedics at | Addi Danielle RN | | | 2019 | on | [facility] [address] | [address] | | | | | April Mailcode: CH12A | [facility] | | | | | [facility] | [place] [address] | | | | | and Healing, | [phone] | | | | | [facility] | | | | | | [place], [place] | | | | | | [address] | | | | | | [phone] | | | +--------+ + + + [...] [place] | | | | | | [address] | | +--------+ + + + + | 03/09/ | Office | Orthopedics | Naeem Briones, | | | 2018 | Visit | | MD [address] | | | | | | [address] | | | | | | [place], [place] | | | | | | [address] | | | | | | [phone] | | | | | | | | +--------+ + + + + | 03/09/ | Clinical | Orthopedics | Addi Danielle RN | | | 2019 | Support | | [address] | | | | Staff | | [place], | | | | | | [place] [address] | | | | | | [phone] | | +--------+ + + + + | 03/09/ | Office | Pre-operative | [address], [facility] [address] | | | 2018 | Visit | Medicine | [address] | | | | | | [place] [address] | | +--------+ + + + + [...] Rd | | | | | | [place], [place] | | | | | | [address] | | | | | | [phone] | | | | | | | | +--------+ + + + + | 03/19/ | Surgery | Surgery | Naeem Briones, | RIGHT TOTAL KNEE | | 2019 | | | MD [address] | ARTHROPLASTY | | | | | [address] | | | | | | [place], [place] | | | | | | [address] | | | | | | [phone] | | | | | | | | +--------+ + + + + | 03/19/ | Erroneous | Orthopedics | Naeem Briones, | | | 2018 | Enc-IP | | MD [address] | | | | | | [address] | | | | | | [place], [place] | | | | | | [address] | | | | | | [phone] | | | | | | | | +--------+ + + + + | 03/30/ | Office | Orthopedics | Naeem Briones, | | | 2019 | Visit | | MD [address] | | | | | | [address] | | | | | | [place], [place] | | | | | | [address] | | | | | | [phone] | | | | | | | | +--------+ + + + + | 05/06/ | Office | Orthopedics | Naeem Briones, | | | 2019 | Visit | | [address] | | | | | | [address] | | | | | | [place] | | | | | | [address] | | | | | | [phone] | | | | | | | | +--------+ + + + + documented as of this encounter Visit Diagnoses Not on filedocumented in this encounter"
--- OUTSIDE RECORDS SUMMARY | ~2019-02-16 | XMS | Encounter Summary ---
Demographics + + + | Address | [address] | | | [place] [address] | + + + | Home Phone | | + + + | Preferred Language | Unknown | + + + | Marital Status | | + + + | Gnosticist Affiliation | Unknown | + + + [...] Team Providers + +------+ + | Care Paramedic Name | Role | Phone | + +------+ + | Josiah Soliz MD | PCP | | + +------+ + Encounter Details +--------+--------+ + + + | Date | Type | Department | Care Team | Description | +--------+--------+ + + + | 01/22/ | Travel [...] Rd | | | | | | [facility] [place] | | | | | | [address] | | +--------+ + + + + | 03/09/ | Office | Orthopedics | Naeem Briones, | | | 2018 | Visit | | MD [address] | | | | | | [address] | | | | | | [place], [place] | | | | | | [address] | | | | | | [phone] | | | | | | | | +--------+ + + + + | 03/09/ | Clinical | Orthopedics | Addi Danielle RN | | | 2019 | Support | | [address] | | | | Staff | | [address] [place], | | | | | | [place] [address] | | | | | | [phone] | | +--------+ + + + + | 03/09/ | Office | Pre-operative | 2, [facility] [address] | | | 2019 | Visit | Medicine | [address] | | | | | | [place] [address] | | +--------+ + + + + | 03/19/ | Procedure | Surgery | | | | 2019 | Pass | | | | +--------+ + + + + | 03/19/ | Hospital | Adult Acute Care | Naeem Briones, | | | 2019 | Encounter | | MD [address] | | | | | | [address] | | | | | | [facility], [place] | | | | | | [address] | | | | | | [phone] | | | | | | | | +--------+ + + + + | 03/19/ | Surgery | Surgery | Naeem Briones, | RIGHT TOTAL KNEE | | 2018 | | | MD [address] | ARTHROPLASTY | | | | | [address] | | | | | | [facility], [place] | | | | | | [address] | | | | | | [phone] | | | | | | | | +--------+ + + + + | 03/19/ | Erroneous | Orthopedics | Naeem Briones, | | | 2018 | Enc-IP | | MD [address] | | | | | | [address] | | | | | | [place], [place] | | | | | | [address] | | | | | | [phone] | | | | | | | | +--------+ + + + + | 03/30/ | Office | Orthopedics | Naeem Briones, | | | 2018 | Visit | | [address] | | | | | | [address] | | | | | | [place], [place] | | | | | | [address] | | | | | | [phone] | | | | | | | | +--------+ + + + + | 05/06/ | Office | Orthopedics | Naeem Briones, | | | 2019 | Visit | | [address] | | | | | | [address] | | | | | | [facility] [place] | | | | | | [address] | | | | | | [phone] | | | | | | | | +--------+ + + + + documented as of this encounter Visit Diagnoses Not on filedocumented in this encounter"
--- OUTSIDE RECORDS SUMMARY | ~2019-02-16 | XMS | Encounter Summary ---
Demographics + + + | Address | [address] | | | [place] [address] | + + + | Home Phone [...] Team Providers + +------+ + | Care Bag Machine Tender Name | Role | Phone | + +------+ + | Josiah Soliz MD | PCP | | + +------+ + Encounter Details +--------+--------+ + + + | Date | Type | Department | Care Team | Description | +--------+--------+ + + + | 12/17/ | Travel [...] [place] | | | | | | [address] | | | | | | [facility] [place] | | | | | | [address] | | +--------+ + + + + | 03/09/ | Office | Orthopedics | Naeem Briones, | | | 2018 | Visit | | MD [address] | | | | | | [address] | | | | | | [place], [place] | | | | | | [address] | | | | | | [phone] | | | | | | | | +--------+ + + + + | 03/09/ | Clinical | Orthopedics | Addi Danielle RN | | | 2019 | Support | | [address] | | | | Staff | | [place], | | | | | | [place] [address] | | | | | | [phone] | | +--------+ + + + + | 03/09/ | Office | Pre-operative | 2, [facility] | | | 2019 | Visit | Medicine | [address] | | | | | | [place] [address] | | +--------+ + + + + [...] Rd | | | | | | [facility] [place] | | | | | | [address] | | | | | | [phone] | | | | | | | | +--------+ + + + + | 03/19/ | Surgery | Surgery | Naeem Briones, | RIGHT TOTAL KNEE | | 2018 | | | MD [address] | ARTHROPLASTY | | | | | [address] | | | | | | [facility] [place] | | | | | | [address] | | | | | | [phone] | | | | | | | | +--------+ + + + + | 03/19/ | Erroneous | Orthopedics | Naeem Briones, | | | 2018 | Enc-IP | | MD [address] | | | | | | [address] | | | | | | [place], [place] | | | | | | [address] | | | | | | [phone] | | | | | | | | +--------+ + + + + | 03/30/ | Office | Orthopedics | Naeem Briones, | | | 2018 | Visit | | MD [address] [place] | | | | | | [address] | | | | | | [place], [place] | | | | | | [address] | | | | | | [phone] | | | | | | | | +--------+ + + + + | 05/06/ | Office | Orthopedics | Naeem Briones, | | | 2019 | Visit | | MD [address] [place] | | | | | | [address] | | | | | | [facility] [place] | | | | | | [address] | | | | | | [phone] | | | | | | | | +--------+ + + + + documented as of this encounter Visit Diagnoses Not on filedocumented in this encounter"
--- OUTSIDE RECORDS SUMMARY | ~2019-02-16 | XMS | Encounter Summary ---
Demographics + + + | Address | [address] | | | [place] [address] | + + + | Home Phone | | + + + | Preferred Language | Unknown | + + + | Marital Status | | + + + | Sabianist Affiliation | Unknown | + + + | Race | | + + + | Ethnic Group | Not or | + + + Author + + + | Author | [facility] | + + + | Organization | [facility] | + + + | Address | Unknown | + + + | Phone | Unavailable | + + + Support +------+ +---------+ + | Name | Relationship | Address | Phone | +------+ +---------+ + | None | ECON | Unknown | Unavailable | +------+ +---------+ + Care Team Providers + +------+ + | Care Ios Developer Name | Role | Phone | + +------+ + | Josiah Soliz MD | PCP | | + +------+ + Encounter Details +--------+ + + + + | Date | Type | Department | Care Team | Description | +--------+ + + + + | 08/12/ | Hospital | Registration HOV | | | | 2019 | Encounter | [address] | | | | | | [place], | | | | | | [place] [address] | | | +--------+ + + + [...] Rd | | | | | | [facility] [place] | | | | | | [address] | | +--------+ + + + + | 03/09/ | Office | Orthopedics | Naeem Briones, | | | 2018 | Visit | | MD [address] | | | | | | [address] | | | | | | [place], [place] | | | | | | [address] | | | | | | [phone] | | | | | | | | +--------+ + + + + | 03/09/ | Clinical | Orthopedics | Addi Danielle RN | | | 2019 | Support | | [address] | | | | Staff | | [place], | | | | | | [place] [address] | | | | | | [phone] | | +--------+ + + + + | 03/09/ | Office | Pre-operative | 2, [facility] | | | 2019 | Visit | Medicine | [address] | | | | | | [place] [address] | | +--------+ + + + + | 03/19/ | Procedure | Surgery | | | | 2019 | Pass | | | | +--------+ + + + + | 03/19/ | Hospital | Adult Acute Care | Naeem Briones P, | | | 2019 | Encounter | | MD [place] | | | | | | [address] | | | | | | [place], [place] | | | | | | [address] | | | | | | [phone] | | | | | | | | +--------+ + + + + | 03/19/ | Surgery | Surgery | Naeem Briones, | RIGHT TOTAL KNEE | | 2018 | | | [address] | ARTHROPLASTY | | | | | [address] | | | | | | [place], [place] | | | | | | [address] | | | | | | [phone] | | | | | | | | +--------+ + + + + | 03/19/ | Erroneous | Orthopedics | Naeem Briones, | | | 2018 | Enc-IP | | [address] | | | | | | [address] | | | | | | [place], [place] | | | | | | [address] | | | | | | [phone] | | | | | | | | +--------+ + + + + | 03/30/ | Office | Orthopedics | Naeem Briones, | | | 2018 | Visit | | [address] | | | | | | [address] | | | | | | [place] | | | | | | [address] | | | | | | [phone] | | | | | | | | +--------+ + + + + | 05/06/ | Office | Orthopedics | Naeem Briones, | | | 2019 | Visit | | [address] | | | | | | [address] | | | | | | [place] | | | | | | [address] | | | | | | [phone] | | | | | | | | +--------+ + + + + documented as of this encounter Visit Diagnoses Not on filedocumented in this encounter"
--- OUTSIDE RECORDS SUMMARY | ~2019-02-16 | XMS | Encounter Summary ---
Demographics + + + | Address | [address] | | | [place] [address] | + + + | Home Phone | | + + + | Preferred Language | Unknown | + + + | Marital Status | | + + + | Taoist Affiliation | Unknown | + + + | Race | | + + + | Ethnic Group | Not or | + + + Author + + + | Author | [facility] | + + + | Organization | [facility] | + + + | Address | Unknown | + + + | Phone | Unavailable | + + + Support +------+ +---------+ + | Name | Relationship | Address | Phone | +------+ +---------+ + | None | ECON | Unknown | Unavailable | +------+ +---------+ + Care Team Providers + +------+ + | Care Kettle Loader Name | Role | Phone | + [...] | | | | artery | [address] | | | | | | disease | [address] | | | | | | involving | [place], | | | | | | [place] | [place] | | | | | | coronary | [address] | | | | | | artery of | Phone: | | | | | | cocopah heart | [phone] | | | | | | without | Fax: | | | | | | angina | [phone] | | | | | | pectoris [...] | | | | | | [place], | | | | | | [place] [address] | | | | | | [phone] | | | +--------+ + + + [...] Rd | | | | | | [place], [place] | | | | | | [address] | | +--------+ + + + + | 03/09/ | Office | Orthopedics | Naeem Briones, | | | 2018 | Visit | | MD [address] | | | | | | [address] | | | | | | [place], [place] | | | | | | [address] | | | | | | [phone] | | | | | | | | +--------+ + + + + | 03/09/ | Clinical | Orthopedics | Addi Danielle RN | | | 2019 | Support | | [address] | | | | Staff | | [place], | | | | | | [place] [address] | | | | | | [phone] | | +--------+ + + + + | 03/09/ | Office | Pre-operative | Rayna Bernard Md [address] | | | 2019 | Visit | Medicine | [address] | | | | | | [place] [address] | | +--------+ + + + + [...] Rd | | | | | | [place], [place] | | | | | | [address] | | | | | | [phone] | | | | | | | | +--------+ + + + + | 03/19/ | Surgery | Surgery | Naeem Briones, | RIGHT TOTAL KNEE | | 2018 | | | [address] | ARTHROPLASTY | | | | | [address] | | | | | | [place], [place] | | | | | | [address] | | | | | | [phone] | | | | | | | | +--------+ + + + + | 03/19/ | Erroneous | Orthopedics | Naeem Briones, | | | 2018 | Enc-IP | | [address] | | | | | | [address] | | | | | | [place], [place] | | | | | | [address] | | | | | | [phone] | | | | | | | | +--------+ + + + + | 03/30/ | Office | Orthopedics | Naeem Briones, | | | 2018 | Visit | | [address] | | | | | | [address] | | | | | | [facility] [place] | | | | | | [address] | | | | | | [phone] | | | | | | | | +--------+ + + + + | 05/06/ | Office | Orthopedics | Naeem Briones, | | | 2019 | Visit | | [address] | | | | | [address] | | | | | | [place], [place] | | | | | | [address] | | | | | | [phone] | | | | | | | [...] | | ADULT | | PDT | cocopah coronary | results section. | | | | | artery of cocopah | | | | | | heart [...] Performed At | + + + | [facility] | [facility] DEPT OF | | [facility]3] Adult Echocardiography Laboratory [address] CARDIOLOGY | [address] [place], [place] [address] Ph: | | | Pt Name: CELESTE POSEY | | | Study Date/Time 01/22/2019 / 4:07:13 PMMRN: [id number] | | | Most recent prior: -Acc #: [id number] | | | No. previous echos: 0DOB: 1955 63 years Heart Rate: | | | 86 bpmHeight: 58.0 in Blood Pressure: | | | 128/74 mm/HgWeight: 165.0 lb Gender: | | | FBSA: 1.68 m | | | Order ID: [id number] Study | | | Location: OPSonographer: Stephany [...] Report electronically signed by: | | | [id number] Rk Martinez MD (01/22/2019, 5:26:52 PM) Final [...] | | | |Report electronically signed by: [id number] Rk Martinez MD (01/22/2019, 5:26:52 | | |PM) | | | | | | | | | | | | Final | | + + + + + | Procedure Note | + + | Interface, Cardiology Results - 01/22/2019 5:[address] [facility] | | [facility] Echocardiography Laboratory [address] [place] [address] | | [place], [place] [address] Pt Name: CELESTE Yeboah | | SEEN Study Date/Time 01/22/2019 / 4:07:13 PMMRN: [id number] Most | | recent prior: -Acc #: [id number] No. previous echos: 0DOB: 1955 63 | | years Heart Rate: 86 bpmHeight: 58.0 in Blood Pressure: 128/74 | | mm/HgWeight: 165.0 lb Gender: FBSA: 1.68 m | | Order ID: [id number] Study Location: OPSonographer: Stephany Constantino | | [...] and indexed values Report electronically signed by: [id number] Rk | | Michelle JAMA (01/22/2019, 5:26:52 [...] | | | |Report electronically signed by: [id number] Rk Martinez MD (01/22/2019, 5:26:52 | |PM) | | | | | | | | Final | + + + + + + + | Performing | Address | City/State/Zipcode | Phone Number | | Organization | | | | + + + + + | [facility] | [address] | [place], [place] | | | CARDIOLOGY | [address] | [address] | | + + + + + documented in this encounter Visit Diagnoses + + | Diagnosis | + + | Coronary artery disease involving cocopah coronary artery of cocopah heart without | | angina pectoris | + + documented in this encounter
--- OUTSIDE RECORDS SUMMARY | ~2019-02-16 | XMS | Encounter Summary ---
Demographics + + + | Address | [address] | | | [place] [address] | + + + | Home Phone | | + + + | Preferred Language | Unknown | + + + | Marital Status | | + + + | Druze Affiliation | Unknown | + + + | Race | | + + + | Ethnic Group | Not or | + + + Author + + + | Author | [facility] | + + + | Organization | [facility] | + + + | Address | Unknown | + + + | Phone | Unavailable | + + + Support +------+ +---------+ + | Name | Relationship | Address | Phone | +------+ +---------+ + | None | ECON | Unknown | Unavailable | +------+ +---------+ + Care Team Providers + +------+ + | Care Restoration Technician Name | Role | Phone | + +------+ + | Josiah Soliz MD | PCP | | + +------+ + Reason for Visit + + + | Reason | Comments | + + + | Lab findings, | | | teaching, guidance, | | | and counseling | | + + + Encounter Details +--------+ + + + + | Date | Type | Department | Care Team | Description | +--------+ + + + + | 01/25/ | Telephone | Cardiology General | Anita Cota | Lab findings, | | 2019 | | at [facility] [address] | [address] | teaching, guidance, | | | | [address] Mailcode: | [address] [place], | and counseling | | | | [facility] | [place] [address] | | | | | Health and Healing, | [phone] | | | | | [facility] | | | | | | Floor [place], [place] | | | | | | [address] | | | | | | [phone] | | | +--------+ + + + [...] Rd | | | | | | [place], [place] | | | | | | [address] | | +--------+ + + + + | 03/09/ | Office | Orthopedics | Naeem Briones, | | | 2018 | Visit | | MD [address] | | | | | | [address] | | | | | | [place], [place] | | | | | | [address] | | | | | | [phone] | | | | | | | | +--------+ + + + + | 03/09/ | Clinical | Orthopedics | Addi Danielle RN | | | 2019 | Support | | [address] | | | | Staff | | [place], | | | | | | [place] [address] | | | | | | [phone] | | +--------+ + + + + | 03/09/ | Office | Pre-operative | Rayna Bernard Md [address] | | | 2019 | Visit | Medicine | [address] | | | | | | [place] [address] | | +--------+ + + + + [...] Rd | | | | | | [place], [place] | | | | | | [address] | | | | | | [phone] | | | | | | | | +--------+ + + + + | 03/19/ | Surgery | Surgery | Naeem Briones, | RIGHT TOTAL KNEE | | 2018 | | | [address] | ARTHROPLASTY | | | | | [address] | | | | | | [place], [place] | | | | | | [address] | | | | | | [phone] | | | | | | | | +--------+ + + + + | 03/19/ | Erroneous | Orthopedics | Naeem Briones, | | | 2019 | Enc-IP | | [address] | | | | | | [address] | | | | | | [place], [place] | | | | | | [address] | | | | | | [phone] | | | | | | | | +--------+ + + + + | 03/30/ | Office | Orthopedics | Naeem Briones, | | | 2018 | Visit | | [address] | | | | | | [address] | | | | | | [facility] [place] | | | | | | [address] | | | | | | [phone] | | | | | | | | +--------+ + + + + | 05/06/ | Office | Orthopedics | Naeem Briones, | | | 2019 | Visit | | [address] | | | | | | [address] | | | | | | [facility] [place] | | | | | | [address] | | | | | | [phone] | | | | | | | | +--------+ + + + + documented as of this encounter Visit Diagnoses Not on filedocumented in this encounter"
--- OUTSIDE RECORDS SUMMARY | ~2019-02-16 | XMS | Encounter Summary ---
Demographics + + + | Address | [address] | | | [place] [address] | + + + | Home Phone | | + + + | Preferred Language | Unknown | + + + | Marital Status | | + + + | Cheondoism Affiliation | Unknown | + + + | Race | | + + + | Ethnic Group | Not or | + + + Author + + + | Author | [facility] | + + + | Organization | [facility] | + + + | Address | Unknown | + + + | Phone | Unavailable | + + + Support +------+ +---------+ + | Name | Relationship | Address | Phone | +------+ +---------+ + | None | ECON | Unknown | Unavailable | +------+ +---------+ + Care Team Providers + +------+ + | Care Powder Room Attendant Name | Role | Phone | + [...] | | chronicity | [address] | [place], [place] | | | | | Procedures | [facility] [place] | [address] | | | | | CONSULT TO | [address] | Phone: | | | | | CARDIOLOGY | Phone: | [phone] | | | | | | [phone] | Fax: | | | | | | Fax: | [phone] | | | | | | [phone] | | + +--------+ + + + + Reason for Visit + + + | Reason | Comments | + + + | New patient | | | consultation | | + + + Encounter Details +--------+---------+ + + + | Date | Type | Department | Care Team | Description | +--------+---------+ + + + | 12/17/ | Office | [facility] Orthopaedics | Naeem Briones, | Pain in both knees, | | 2019 | Visit | & Rehabilitation | [address] | unspecified | | | | [address] | [address] | chronicity (Primary | | | | [address] [place], [place] | [place], [place] | Dx) | | | | [address] | [address] | | | | | [phone] | [phone] | | | | | | | [...] might be different fro m the original. [facility] DEPARTMENT OF ORTHOPAEDICS & REHABILITATION Adult Reconstruction / Joint Replacement Surgery New Patient History & Physical Exam Chief Complaint, Reason for Consultation: Bilateral knee eval Referring Provider: Josiah Soliz MD [facility] [address] [place] [address] History of Present Illness: Ms. Hyde is [...] injection was about a week ago in [place]) ? Braces, orthotics and/or assistive devices: Symptoms are progressing in spite of ORTHODEV ICE: cane use Additional details include: - Gait aids used: Cane - Walking Distance Without Pain: <1 blocks (one block is 200 meters/yards) - Support available at home for post-op care: No, likely she will require a assisted facility placement Other details: She has been followed by Dr. Tawanda Craft in [place] and he told her due to her complex medical history that she needed to come to [facility] for total knee arthroplasty. Due to knee [...] file Gets together: Not on file Attends pentecostal service: Not on file Active member of [...] / CAD - She doesn't have a communication spec and is unsure what cardiac work up she has had. Plan: We had a long discussion of non-surgical and surgical options. I think that she would manohar lly benefit from a total knee arthroplasty but before we proceed with this procedure I am ju st really worried about her cardiac status, she says she doesn't have a communication spec and isn 't sure what cardiac work [...] [place] | | | | | | [address] | | +--------+ + + + + | 03/09/ | Office | Orthopedics | Naeem Briones, | | | 2018 | Visit | | MD [address] | | | | | | [address] | | | | | | [place], [place] | | | | | | [address] | | | | | | [phone] | | | | | | | | +--------+ + + + + | 03/09/ | Clinical | Orthopedics | Addi Danielle RN | | | 2019 | Support | | [address] | | | | Staff | | [place], | | | | | | [place] [address] | | | | | | [phone] | | +--------+ + + + + | 03/09/ | Office | Pre-operative | 2, [facility] [address] | | | 2019 | Visit | Medicine | [address] | | | | | | [place] [address] | | +--------+ + + + + [...] Rd | | | | | | [place], [place] | | | | | | [address] | | | | | | [phone] | | | | | | | | +--------+ + + + + | 03/19/ | Surgery | Surgery | Naeem Briones, | RIGHT TOTAL KNEE | | 2018 | | | MD [address] | ARTHROPLASTY | | | | | [address] | | | | | | [facility], [place] | | | | | | [address] | | | | | | [phone] | | | | | | | | +--------+ + + + + | 03/19/ | Erroneous | Orthopedics | Naeem Briones, | | | 2018 | Enc-IP | | [address] | | | | | | [address] | | | | | | [place], [place] | | | | | | [address] | | | | | | [phone] | | | | | | | | +--------+ + + + + | 03/30/ | Office | Orthopedics | Naeem Briones, | | | 2018 | Visit | | [address] | | | | | | [address] | | | | | | [place], [place] | | | | | | [address] | | | | | | [phone] | | | | | | | | +--------+ + + + + | 05/06/ | Office | Orthopedics | Anselmo Naeem Mortensen, | | | 2019 | Visit | | [address] | | | | | | [address] | | | | | | [place], [place] | | | | | | [address] | | | | | | [phone] | | | | | | | [...]
--- OUTSIDE RECORDS SUMMARY | ~2019-02-16 | XMS | Encounter Summary ---
Demographics + + + | Address | [address] | | | [place] [address] | + + + | Home Phone | | + + + | Preferred Language | Unknown | + + + | Marital Status | | + + + | Caodaism Affiliation | Unknown | + + + | Race | | + + + | Ethnic Group | Not or | + + + Author + + + | Author | [facility] | + + + | Organization | [facility] | + + + | Address | Unknown | + + + | Phone | Unavailable | + + + Support +------+ +---------+ + | Name | Relationship | Address | Phone | +------+ +---------+ + | None | ECON | Unknown | Unavailable | +------+ +---------+ + Care Team Providers + +------+ + | Care Highway Administrative Engineer Name | Role | Phone | [...] | | | | artery | [address] | | | | | | disease | [address] | | | | | | involving | [place], | | | | | | [place] | [place] | | | | | | coronary | [address] | | | | | | artery of | Phone: | | | | | | [place] heart | [phone] | | | | | | without | Fax: | | | | | | angina | [phone] | | | | | | pectoris [...] both knees, | [address] | PA-C [address] | | | | | unspecified | [address] | [address] | | | | | chronicity | [place] | [place], [place] | | | | | Procedures | [place] | [address] | | | | | CONSULT TO | [address] | Phone: | | | | | CARDIOLOGY | Phone: | [phone] | | | | | | [phone] | Fax: | | | | | | Fax: | [phone] | | | | | | [phone] | | + +--------+ + + + + Encounter Details +--------+---------+ + + + | Date | Type | Department | Care Team | Description | +--------+---------+ + + + | 01/22/ | Office | Cardiology General | Anita Lincoln | Coronary artery | | 2019 | Visit | at [facility] [address] | [address] | disease involving | | | | [address] Mailcode: | [address] [place], | [place] coronary | | | | [address] | [place] [address] | artery of [place] | | | | Health and Healing, | [phone] | heart without angina | | | | | | pectoris (Primary | | | | Floor [place], [place] | | Dx); Obesity (BMI | | | | [address] | | 30.0-34.9); | | | | [phone] | | Essential | | | | [...] - 01/22/2019 11:10 AM PDTADDENDUM 01/25/19: Ms. Hyde had an echo cardiogram on Friday which was normal with normal LV size and function and normal cardiac va lves. Her last clinical note from her primary care provider was received and there is no ev idence of coronary artery disease, IVC filter placement or removal. Ms. Hyde is a confabula tory historian due to her mental health issues. She can proceed with elective surgery withou t further cardiac testing indicated. ANITA LINCOLN PA-C CARDIOLOGY GENERAL AT [facility] [address] [facility] April Mailcode: [address] [address] ischLinda patel PA-C - 01/22/2019 11:10 AM PDTFormatting of this note might be different from the or iginal. CARDIOLOGY ENCOUNTER NOTE Reason for Visit: This is a scheduled visit for cardiac evaluation and risk assessment. She is alone today an d is a fair historian. History: Per chart review: Celeste M Seen is a 63 y.o. / female with history of D IABETES MELLITUS, CAD, IVC filter, COPD, eplilepsy, hypothyroidism, chronic anemia, bipolar disorder who is referred by Josiah Soliz MD for cardiac evaluation and risk assessment for total knee arthroplasty with Naeem Briones MD, TBA. Today, patient reports history of coronary artery disease; reports history of myocardial in [facility] in [place]. Patient reports history of congestive heart failure. denies history of DVT /PE Patient reports bypass surgery in 1988 in [place] but has no midline sternal incision scar. [...] 9.6 oz) | SpO2 99% | B FL 34.61 kg/m | BSA 1.75 m Body [...] care - yes Assessment/Plan:: Preoperative Evaluation: Celeste Hyde is a 63 y.o. / female with [...] Briones MD. CARDIOLOGY - PREVENTIVE [address] [place] Mailcode: [facility] [place] [address] [phone] signed by Anita Lincoln PA-C at 01/22/2019 3:00 PM PDTdo cumented in this encounter Plan of Treatment +--------+ + + + + | Date | Type | Specialty | Care Team | Description | +--------+ + + + + | 03/09/ | Office | Physical Therapy | Shiv Day, | | | 2018 | Visit | | PT [address] [facility] | | | | | | [address] | | | | | | [place], [place] | | | | | | [address] | | +--------+ + + + + | 03/09/ | Office | Orthopedics | Naeem Briones P, | | | 2018 | Visit | | MD [address] | | | | | | [address] | | | | | | [place], [place] | | | | | | [address] | | | | | | [phone] | | | | | | | | +--------+ + + + + | 03/09/ | Clinical | Orthopedics | Addi Danielle RN | | | 2018 | Support | | [address] | | | | Staff | | [place], | | | | | | [place] [address] | | | | | | [phone] | | +--------+ + + + + | 03/09/ | Office | Pre-operative | 2, [facility] | | | 2018 | Visit | Medicine | [address] | | | | | | [place] [address] | | +--------+ + + + + [...] Rd | | | | | | [place], [place] | | | | | | [address] | | | | | | [phone] | | | | | | | | +--------+ + + + + | 03/19/ | Surgery | Surgery | Naeem Briones, | RIGHT TOTAL KNEE | | 2018 | | | [address] | ARTHROPLASTY | | | | | [address] | | | | | | [facility] [place] | | | | | | [address] | | | | | | [phone] | | | | | | | | +--------+ + + + + | 03/19/ | Erroneous | Orthopedics | Naeem Briones, | | | 2018 | Enc-IP | | [address] | | | | | | [address] | | | | | | [place], [place] | | | | | | [address] | | | | | | [phone] | | | | | | | | +--------+ + + + + | 03/30/ | Office | Orthopedics | Naeem Briones, | | | 2018 | Visit | | [address] | | | | | | [address] | | | | | | [place], [place] | | | | | | [address] | | | | | | [phone] | | | | | | | | +--------+ + + + + | 05/06/ | Office | Orthopedics | Naeem Briones, | | | 2019 | Visit | | [address] | | | | | | [address] | | | | | | [place], [place] | | | | | | [address] | | | | | | [phone] | | | | | | | [...] | | ADULT | | PDT | [place] coronary | results section. | | | | | artery of [place] | | | | | | heart [...] Performed At | + + + | [facility] | [facility] | | [facility] [place] [facility]ch[facility] [address] | CARDIOLOGY | | [place], [place] [address] Ph: | | | Pt Name: CELESTE Yeboah SEEN | | | Study Date/Time 01/22/2019 / 4:07:13 PMMRN: [id number] | | | Most recent prior: -Acc #: [id number] | | | No. previous echos: 0DOB: 1955 63 years Heart Rate: | | | 86 bpmHeight: 58.0 in Blood Pressure: | | | 128/74 mm/HgWeight: 165.0 lb Gender: | | | FBSA: 1.68 m | | | Order ID: [id number] Study | | | Location: OPSonographer: Stephany [...] Report electronically signed by: | | | [id number] Rk Martinez MD (01/22/2019, 5:26:52 PM) Final [...] | | | |Report electronically signed by: [id number] Rk Martinez MD (01/22/2019, 5:26:52 | | |PM) | | | | | | | | | | | | Final | | + + + + + | Procedure Note | + + | Interface, Cardiology Results - 01/22/2019 5:26 PM [facility] [employer] [facility] | | [facility] | | [place], [place] [address] Pt Name: CELESTE HYDE Study Date/Time 01/22/2019 / 4:07:13 PMN: [id number] Most | | recent prior: -[facility] #: [id number] No. previous echos: 0DOB: 1955 63 | | years Heart Rate: 86 bpmHeight: 58.0 in Blood Pressure: 128/74 | | mm/HgWeight: 165.0 lb Gender: FBSA: 1.68 m | | Order ID: [id number] Study Location: OPSonographer: Stephany Constantino | | [...] and indexed values Report electronically signed by: [id number] Rk | | Michelle JAMA (01/22/2019, 5:26:52 [...] | | | |Report electronically signed by: [id number] Rk Martinez MD (01/22/2019, 5:26:52 | |PM) | | | | | | | | Final | + + + + + + + | Performing | Address | City/State/Zipcode | Phone Number | | Organization | | | | + + + + + | [facility] | [address] | [place], [place] | | | CARDIOLOGY | [address] | [address] | | + + + + + documented in this encounter Visit Diagnoses + + | Diagnosis | + + | Coronary artery disease involving [place] artery of [place] heart without | | angina pectoris - Primary | + + | Obesity (BMI 30.0-34.9) Obesity, unspecified | + + | Essential hypertension | + + | Pre-operative cardiovascular examination | + + documented in this encounter
--- OUTSIDE RECORDS SUMMARY | ~2019-02-16 | XMS | Encounter Summary ---
Demographics + + + | Address | [address] | | | [place] [address] | + + + | Home Phone | | + + + | Preferred Language | Unknown | + + + | Marital Status | | + + + | Baptist Affiliation | Unknown | + + + | Race | | + + + | Ethnic Group | Not or | + + + Author + + + | Author | [facility] | + + + | Organization | [facility] | + + + | Address | Unknown | + + + | Phone | Unavailable | + + + Support +------+ +---------+ + | Name | Relationship | Address | Phone | +------+ +---------+ + | None | ECON | Unknown | Unavailable | +------+ +---------+ + Care Team Providers + +------+ + | Care Primary Health Organisation Manager Name | Role | Phone | + +------+ + | Josiah Soliz MD | PCP | | + +------+ + Encounter Details +--------+ + + + + | Date | Type | Department | Care Team | Description | +--------+ + + + + | 01/22/ | Bonbon Dipper | Cardiology General | Anita Cota | Palpitations | | 2019 | | at [facility] [address] | [address] | (Primary Dx) | | | | [address] Mailcode: | [address] [place], | | | | | [facility] | [place] [address] | | | | | Health and Healing, | [phone] | | | | | | | | | | | Floor [place], [place] | | | | | | [address] | | | | | | [phone] | | | +--------+ + + + [...] [address] | | | | | | [place] | | | | | | [address] | | +--------+ + + + + | 03/09/ | Office | Orthopedics | Naeem Briones, | | | 2018 | Visit | | MD [address] | | | | | | [address] | | | | | | [place] | | | | | | [address] | | | | | | [phone] | | | | | | | | +--------+ + + + + | 03/09/ | Clinical | Orthopedics | Addi Danielle RN | | | 2019 | Support | | [address] | | | | Staff | | [place], | | | | | | [place] [address] | | | | | | [phone] | | +--------+ + + + + | 03/09/ | Office | Pre-operative | 2, [facility] | | | 2018 | Visit | Medicine | [address] | | | | | | [place] [address] | | +--------+ + + + + [...] Rd | | | | | | [place], [place] | | | | | | [address] | | | | | | [phone] | | | | | | | | +--------+ + + + + | 03/19/ | Surgery | Surgery | Naeem Briones, | RIGHT TOTAL KNEE | | 2018 | | | [address] | ARTHROPLASTY | | | | | [address] | | | | | | [place], [place] | | | | | | [address] | | | | | | [phone] | | | | | | | | +--------+ + + + + | 03/19/ | Erroneous | Orthopedics | Naeem Briones, | | | 2018 | Enc-IP | | [address] | | | | | | [address] | | | | | | [place], [place] | | | | | | [address] | | | | | | [phone] | | | | | | | | +--------+ + + + + | 03/30/ | Office | Orthopedics | Naeem Briones, | | | 2018 | Visit | | [address] | | | | | | [address] | | | | | | [place], [place] | | | | | | [address] | | | | | | [phone] | | | | | | | | +--------+ + + + + | 05/06/ | Office | Orthopedics | Naeem Briones, | | | 2019 | Visit | | [address] | | | | | | [address] | | | | | | [place], [place] | | | | | | [address] | | | | | | [phone] | | | | | | | [...] + + + + + | SHIRA [facility]ANT[facility] OF | [address] | [place], [place] | | | CARDIOLOGY | [address] | [address] | | + + + + + documented in this encounter Visit Diagnoses + + | Diagnosis | + + | Palpitations - Primary | + + documented in this encounter"
--- OUTSIDE RECORDS SUMMARY | ~2019-02-16 | XMS | Encounter Summary ---
Demographics + + + | Address | [address] | | | [place] [address] | + + + | Home Phone | | + + + | Preferred Language | Unknown | + + + | Marital Status | | + + + | Zoroastrian Affiliation | Unknown | + + + [...] Team Providers + +------+ + | Care Waste Water Worker Name | Role | Phone | [...] [address] | | | | | | [facility] [place] | | | | | | [address] | | +--------+ + + + + | 03/09/ | Office | Orthopedics | Naeem Briones, | | | 2018 | Visit | | MD [address] | | | | | | [address] | | | | | | [place], [place] | | | | | | [address] | | | | | | [phone] | | | | | | | | +--------+ + + + + | 03/09/ | Clinical | Orthopedics | Addi Danielle RN | | | 2019 | Support | | [address] | | | | Staff | | [place], | | | | | | [place] [address] | | | | | | [phone] | | +--------+ + + + + | 03/09/ | Office | Pre-operative | 2, [facility] [address] | | | 2019 | Visit | Medicine | [address] | | | | | | [place] [address] | | +--------+ + + + + [...] Rd | | | | | | [facility] [place] [place] | | | | | | [address] | | | | | | [phone] | | | | | | | | +--------+ + + + + | 03/19/ | Surgery | Surgery | Neaem Briones, | RIGHT TOTAL KNEE | | 2018 | | | MD [address] | ARTHROPLASTY | | | | | [address] | | | | | | [facility] [place] [place] | | | | | | [address] | | | | | | [phone] | | | | | | | | +--------+ + + + + | 03/19/ | Erroneous | Orthopedics | Naeem Briones, | | | 2018 | Enc-IP | | MD [address] | | | | | | [address] | | | | | | [place], [place] | | | | | | [address] | | | | | | [phone] | | | | | | | | +--------+ + + + + | 03/30/ | Office | Orthopedics | Naeem Briones, | | | 2018 | Visit | | [address] | | | | | | [address] | | | | | | [place], [place] | | | | | | [address] | | | | | | [phone] | | | | | | | | +--------+ + + + + | 05/06/ | Office | Orthopedics | Naeem Briones, | | | 2019 | Visit | | MD [address] | | | | | | [address] | | | | | | [facility] [place] | | | | | | [address] | | | | | | [phone] | | | | | | | | +--------+ + + + + documented as of this encounter Visit Diagnoses Not on filedocumented in this encounter"
--- OUTSIDE RECORDS SUMMARY | ~2019-02-16 | XMS | Encounter Summary ---
Demographics + + + | Address | [address] | | | [place] [address] | + + + | Home Phone | | + + + | Preferred Language | Unknown | + + + | Marital Status | | + + + | Tenriism Affiliation | Unknown | + + + | Race | | + + + | Ethnic Group | Not or | + + + Author + + + | Author | [facility] | + + + | Organization | [facility] | + + + | Address | Unknown | + + + | Phone | Unavailable | + + + Support +------+ +---------+ + | Name | Relationship | Address | Phone | +------+ +---------+ + | None | ECON | Unknown | Unavailable | +------+ +---------+ + Care Team Providers + +------+ + | Care Drum Reel Cutter Name | Role | Phone | + +------+ + | Josiah Soliz MD | PCP | | + +------+ + Encounter Details +--------+ + + + + | Date | Type | Department | Care Team | Description | +--------+ + + + + | 01/22/ | Supervisor [employer] | Cardiology General | Anita Cota | Palpitations | | 2019 | | at [facility] [address] | [address] | (Primary Dx) | | | | [address] Mailcode: | Keaton Chen [place], | | | | | [facility] | [place] [address] | | | | | Health and Healing, | [phone] | | | | | | | | | | | Floor [place], [place] | | | | | | [address] | | | | | | [phone] | | | +--------+ + + + [...] Rd | | | | | | [place] | | | | | | [address] | | +--------+ + + + + | 03/09/ | Office | Orthopedics | Naeem Briones, | | | 2018 | Visit | | MD [address] | | | | | | [address] | | | | | | [place] | | | | | | [address] | | | | | | [phone] | | | | | | | | +--------+ + + + + | 03/09/ | Clinical | Orthopedics | Addi Danielle RN | | | 2019 | Support | | [address] | | | | Staff | | [place], | | | | | | [place] [address] | | | | | | [phone] | | +--------+ + + + + | 03/09/ | Office | Pre-operative | 2, [facility] | | | 2018 | Visit | Medicine | [address] | | | | | | [place] [address] | | +--------+ + + + + [...] Rd | | | | | | [place], [place] | | | | | | [address] | | | | | | [phone] | | | | | | | | +--------+ + + + + | 03/19/ | Surgery | Surgery | Naeem Briones, | RIGHT TOTAL KNEE | | 2018 | | | [address] | ARTHROPLASTY | | | | | [address] | | | | | | [place], [place] | | | | | | [address] | | | | | | [phone] | | | | | | | | +--------+ + + + + | 03/19/ | Erroneous | Orthopedics | Naeem Briones, | | | 2018 | Enc-IP | | [address] | | | | | | [address] | | | | | | [place], [place] | | | | | | [address] | | | | | | [phone] | | | | | | | | +--------+ + + + + | 03/30/ | Office | Orthopedics | Naeem Briones, | | | 2018 | Visit | | [address] | | | | | | [address] | | | | | | [place], [place] | | | | | | [address] | | | | | | [phone] | | | | | | | | +--------+ + + + + | 05/06/ | Office | Orthopedics | Naeem Briones, | | | 2019 | Visit | | [address] | | | | | | [address] | | | | | | [place], [place] | | | | | | [address] | | | | | | [phone] | | | | | | | [...] SANTIAGO OF | [address] | [place], [place] | | | CARDIOLOGY | [address] | [address] | | + + + + + documented in this encounter Visit Diagnoses + + | Diagnosis | + + | Palpitations - Primary | + + documented in this encounter"
--- OUTSIDE RECORDS SUMMARY | ~2019-02-16 | XMS | Encounter Summary ---
Demographics + + + | Address | [address] | | | [place] [address] | + + + | Home Phone | | + + + | Preferred Language | Unknown | + + + | Marital Status | | + + + | Confucianism Affiliation | Unknown | + + + [...] Team Providers + +------+ + | Care Sandwich Board Carrier Name | Role | Phone | + +------+ + | Josiah Soliz MD | PCP | | + +------+ + Encounter Details +--------+ + + + + | Date | Type | Department | Care Team | Description | +--------+ + + + + | 01/22/ | Abstract | Cardiology General | Anita Cota | | | 2019 | | at [facility] [address] | [address] | | | | | [address] Mailcode: | [address] [place], | | | | | [facility] | [place] [address] | | | | | Health and Healing, | [phone] | | | | | | | | | | | [place], [place] | | | | | | [address] | | | | | | [phone] | | | +--------+ + + + [...] Rd | | | | | | [place], [place] | | | | | | [address] | | +--------+ + + + + | 03/09/ | Office | Orthopedics | Naeem Briones, | | | 2018 | Visit | | MD [address] | | | | | | [address] | | | | | | [place], [place] | | | | | | [address] | | | | | | [phone] | | | | | | | | +--------+ + + + + | 03/09/ | Clinical | Orthopedics | Addi Danielle RN | | | 2019 | Support | | [address] | | | | Staff | | [place], | | | | | | [place] [address] | | | | | | [phone] | | +--------+ + + + + | 03/09/ | Office | Pre-operative | 2, [facility] [address] | | | 2019 | Visit | Medicine | [address] | | | | | | [place] [address] | | +--------+ + + + + [...] Rd | | | | | | [place], [place] | | | | | | [address] | | | | | | [phone] | | | | | | | | +--------+ + + + + | 03/19/ | Surgery | Surgery | Naeem Briones, | RIGHT TOTAL KNEE | | 2019 | | | MD [address] | ARTHROPLASTY | | | | | [address] | | | | | | [place], [place] | | | | | | [address] | | | | | | [phone] | | | | | | | | +--------+ + + + + | 03/19/ | Erroneous | Orthopedics | Naeem Briones, | | | 2018 | Enc-IP | | MD [address] | | | | | | [address] | | | | | | [place], [place] | | | | | | [address] | | | | | | [phone] | | | | | | | | +--------+ + + + + | 03/30/ | Office | Orthopedics | Naeem Briones, | | | 2019 | Visit | | MD [address] | | | | | | [address] | | | | | | [place], [place] | | | | | | [address] | | | | | | [phone] | | | | | | | | +--------+ + + + + | 05/06/ | Office | Orthopedics | Naeem Briones, | | | 2019 | Visit | | [address] | | | | | | [address] | | | | | | [place] | | | | | | [address] | | | | | | [phone] | | | | | | | | +--------+ + + + + documented as of this encounter Visit Diagnoses Not on filedocumented in this encounter"
--- OUTSIDE RECORDS SUMMARY | ~2019-02-16 | XMS | Encounter Summary ---
Demographics + + + | Address | [address] | | | [place] [address] | + + + | Home Phone | | + + + | Preferred Language | Unknown | + + + | Marital Status | | + + + | Jain Affiliation | Unknown | + + + [...] Team Providers + +------+ + | Care Hearing Specialist Name | Role | Phone | + +------+ + | Josiah Soliz MD | PCP | | + +------+ + Reason for Referral PROC - Inpatient Surgery (Routine) + +--------+ + + + + | Status | Reason | Specialty | Diagnoses / | Referred By | Referred To | | | | | Procedures | Contact | Contact | + +--------+ + + + + | Pending | | Orthopedics | Diagnoses | Anselmo, | Anselmo, | | Review | | | Primary | Naeem Mortensen MD | Naeem Mortensen MD | | | | | osteoarthrit | [address] | [address] | | | | | is of right | [address] | [address] | | | | | knee | [place] | [place], | | | | | Procedures | [place], [place] | [place] | | | | | REQUEST TO | [address] | [address] | | | | | SURGERY | Phone: | Phone: | | | | | AIRCRAFT ENGINE MECHANIC | [phone] | [phone] | | | | | ND TOTAL | Fax: | Fax: | | | | | KNEE | [phone] | [phone] | | | | | ARTHROPLASTY | | | + +--------+ + + + + Reason for Visit + + + | Reason | Comments | + + + | Pre-Admission | | + + + Encounter Details +--------+ + + + + | Date | Type | Department | Care Team | Description | +--------+ + + + + | 01/25/ | PreAdmit | Orthopaedics at | Naeem Briones, | Pre-Admission | | 2019 | Orders | [facility] [address] | [address] | | | | | April Mailcode: CH12A | [address] | | | | | [place] [facility] | [facility] [place] | | | | | and Healing, | [address] | | | | | | [phone] | | | | | Floor [place], [place] | | | | | | [address] | | | | | | [phone] | | | +--------+ + + + [...] [place] | | | | | | [address] | | +--------+ + + + + | 03/09/ | Office | Orthopedics | Naeem Briones, | | | 2018 | Visit | | MD [address] | | | | | | [address] | | | | | | [place] | | | | | | [address] | | | | | | [phone] | | | | | | | | +--------+ + + + + | 03/09/ | Clinical | Orthopedics | Addi Danielle RN | | | 2019 | Support | | [address] | | | | Staff | | [place], | | | | | | [place] [address] | | | | | | [phone] | | +--------+ + + + + | 03/09/ | Office | Pre-operative | 2, Rayna Camarena [address] | | | 2018 | Visit | Medicine | [address] | | | | | | [place] [address] | | +--------+ + + + + | 03/19/ | Procedure | Surgery | | | | 2018 | Pass | | | | +--------+ + + + + | 03/19/ | Hospital | Adult Acute Care | Naeem Briones, | | | 2018 | Encounter | | [address] | | | | | | [address] | | | | | | [place], [place] | | | | | | [address] | | | | | | [phone] | | | | | | | | +--------+ + + + + | 03/19/ | Surgery | Surgery | Naeem Briones, | RIGHT TOTAL KNEE | | 2018 | | | [address] | ARTHROPLASTY | | | | | [address] | | | | | | [place], [place] | | | | | | [address] | | | | | | [phone] | | | | | | | | +--------+ + + + + | 03/19/ | Erroneous | Orthopedics | Naeem Briones, | | | 2018 | Enc-IP | | [address] | | | | | | [address] | | | | | | [place], [place] | | | | | | [address] | | | | | | [phone] | | | | | | | | +--------+ + + + + | 03/30/ | Office | Orthopedics | Naeem Briones, | | | 2019 | Visit | | MD [address] | | | | | | [address] | | | | | | [place], [place] | | | | | | [address] | | | | | | [phone] | | | | | | | | +--------+ + + + + | 05/06/ | Office | Orthopedics | Naeem Briones, | | | 2019 | Visit | | [address] [facility] | | | | | | [address] | | | | | | [place], [place] | | | | | | [address] | | | | | | [phone] | | | | | | | | +--------+ + + + + documented as of this encounter Visit Diagnoses + + | Diagnosis | + + | Primary osteoarthritis of right knee - Primary Primary localized osteoarthrosis, | | lower leg | + + documented in this encounter"
--- OUTSIDE RECORDS SUMMARY | ~2019-02-16 | XMS | Encounter Summary ---
Demographics + + + | Address | [address] | | | [place] [address] | + + + | Home Phone | | + + + | Preferred Language | Unknown | + + + | Marital Status | | + + + | Catholic Affiliation | Unknown | + + + | Race | | + + + | Ethnic Group | Not or | + + + Author + + + | Author | [facility] | + + + | Organization | [facility] | + + + | Address | Unknown | + + + | Phone | Unavailable | + + + Support +------+ +---------+ + | Name | Relationship | Address | Phone | +------+ +---------+ + | None | ECON | Unknown | Unavailable | +------+ +---------+ + Care Team Providers + +------+ + | Care Wine Sales Representative Name | Role | Phone | + +------+ + | Josiah Soliz MD | PCP | | + +------+ + Encounter Details +--------+ + + + + | Date | Type | Department | Care Team | Description | +--------+ + + + + | 12/17/ | Hospital | Radiology at | Naeem Briones, | | | 2019 | Encounter | [address] | [address] [facility] | | | | | [facility] [address] | [facility] | | | | | [place], [place] | [place], [place] | | | | | [address] | [address] | | | | | [phone] | [phone] | | | | | | | [...] [place] | | | | | | [address] | | +--------+ + + + + | 03/09/ | Office | Orthopedics | Naeem Briones, | | | 2018 | Visit | | MD [address] | | | | | | [address] | | | | | | [place] | | | | | | [address] | | | | | | [phone] | | | | | | | | +--------+ + + + + | 03/09/ | Clinical | Orthopedics | Addi Danielle RN | | | 2019 | Support | | [address] | | | | Staff | | [place], | | | | | | [place] [address] | | | | | | [phone] | | +--------+ + + + + | 03/09/ | Office | Pre-operative | 2, [facility] | | | 2019 | Visit | Medicine | [address] | | | | | | [place] [address] | | +--------+ + + + + [...] Rd | | | | | | [place], [place] | | | | | | [address] | | | | | | [phone] | | | | | | | | +--------+ + + + + | 03/19/ | Surgery | Surgery | Naeem Briones, | RIGHT TOTAL KNEE | | 2018 | | | [address] | ARTHROPLASTY | | | | | [address] | | | | | | [place], [place] | | | | | | [address] | | | | | | [phone] | | | | | | | | +--------+ + + + + | 03/19/ | Erroneous | Orthopedics | Naeem Briones, | | | 2018 | Enc-IP | | [address] | | | | | | [address] | | | | | | [place], [place] | | | | | | [address] | | | | | | [phone] | | | | | | | | +--------+ + + + + | 03/30/ | Office | Orthopedics | Naeem Briones, | | | 2018 | Visit | | [address] | | | | | | [address] | | | | | | [place], [place] | | | | | | [address] | | | | | | [phone] | | | | | | | | +--------+ + + + + | 05/06/ | Office | Orthopedics | Naeem Briones P, | | | 2020 | Visit | | [address] | | | | | | [address] | | | | | | [place], [place] | | | | | | [address] | | | | | | [phone] | | | | | | | [...]
--- OUTSIDE RECORDS SUMMARY | ~2019-02-16 | XMS | Encounter Summary ---
Demographics + + + | Address | [address] | | | [place] [address] | + + + | Home Phone | | + + + | Preferred Language | Unknown | + + + | Marital Status | | + + + | Restoration Affiliation | Unknown | + + + | Race | | + + + | Ethnic Group | Not or | + + + Author + + + | Author | [facility] | + + + | Organization | [facility] | + + + | Address | Unknown | + + + | Phone | Unavailable | + + + Support +------+ +---------+ + | Name | Relationship | Address | Phone | +------+ +---------+ + | None | ECON | Unknown | Unavailable | +------+ +---------+ + Care Team Providers + +------+ + | Care Military Police Officer Name | Role | Phone | + [...] | | | | | [place], | | | | | | [place] [address] | | | +--------+ + + + [...] | | | | | | [facility] [place] | | | | | | [address] | | +--------+ + + + + | 03/09/ | Office | Orthopedics | Naeem Briones, | | | 2018 | Visit | | MD [address] | | | | | | [address] | | | | | | [place], [place] | | | | | | [address] | | | | | | [phone] | | | | | | | | +--------+ + + + + | 03/09/ | Clinical | Orthopedics | Addi Danielle RN | | | 2019 | Support | | [address] | | | | Staff | | [place], | | | | | | [place] [address] | | | | | | [phone] | | +--------+ + + + + | 03/09/ | Office | Pre-operative | 2, [facility] | | | 2019 | Visit | Medicine | [address] | | | | | | [place] [address] | | +--------+ + + + + [...] Rd | | | | | | [place], [place] | | | | | | [address] | | | | | | [phone] | | | | | | | | +--------+ + + + + | 03/19/ | Surgery | Surgery | Naeem Briones, | RIGHT TOTAL KNEE | | 2018 | | | [address] | ARTHROPLASTY | | | | | [address] | | | | | | [place], [place] | | | | | | [address] | | | | | | [phone] | | | | | | | | +--------+ + + + + | 03/19/ | Erroneous | Orthopedics | Naeem Briones, | | | 2018 | Enc-IP | | [address] | | | | | | [address] | | | | | | [place], [place] | | | | | | [address] | | | | | | [phone] | | | | | | | | +--------+ + + + + | 03/30/ | Office | Orthopedics | Naeem Briones, | | | 2018 | Visit | | [address] | | | | | | [address] | | | | | | [place] | | | | | | [address] | | | | | | [phone] | | | | | | | | +--------+ + + + + | 05/06/ | Office | Orthopedics | Naeem Briones, | | | 2019 | Visit | | [address] | | | | | | [address] | | | | | | [place] | | | | | | [address] | | | | | | [phone] | | | | | | | | +--------+ + + + + documented as of this encounter Visit Diagnoses Not on filedocumented in this encounter"
--- OUTSIDE RECORDS SUMMARY | ~2019-02-16 | XMS | Encounter Summary ---
Demographics + + + | Address | [address] | | | [place] [address] | + + + | Home Phone [...] Team Providers + +------+ + | Care Miller Wood Flour Name | Role | Phone | + +------+ + | Josiah Soliz MD | PCP | | + +------+ + Encounter Details +--------+ + + + + | Date | Type | Department | Care Team | Description | +--------+ + + + + | 12/17/ | Hospital | Radiology at | Naeem Briones, | | | 2019 | Encounter | [address] | [address] [facility] | | | | | [facility] [address] | [facility] | | | | | [place], [place] | [place], [place] | | | | | [address] | [address] | | | | | [phone] | [phone] | | | | | | | [...] [place] | | | | | | [address] | | +--------+ + + + + | 03/09/ | Office | Orthopedics | Naeem Briones, | | | 2018 | Visit | | MD [address] | | | | | | [address] | | | | | | [place] | | | | | | [address] | | | | | | [phone] | | | | | | | | +--------+ + + + + | 03/09/ | Clinical | Orthopedics | Addi Danielle RN | | | 2019 | Support | | [address] | | | | Staff | | [place], | | | | | | [place] [address] | | | | | | [phone] | | +--------+ + + + + | 03/09/ | Office | Pre-operative | 2, [facility] | | | 2019 | Visit | Medicine | [address] | | | | | | [place] [address] | | +--------+ + + + + [...] Rd | | | | | | [place], [place] | | | | | | [address] | | | | | | [phone] | | | | | | | | +--------+ + + + + | 03/19/ | Surgery | Surgery | Naeem Briones, | RIGHT TOTAL KNEE | | 2018 | | | [address] | ARTHROPLASTY | | | | | [address] | | | | | | [place], [place] | | | | | | [address] | | | | | | [phone] | | | | | | | | +--------+ + + + + | 03/19/ | Erroneous | Orthopedics | Naeem Briones, | | | 2018 | Enc-IP | | [address] | | | | | | [address] | | | | | | [place], [place] | | | | | | [address] | | | | | | [phone] | | | | | | | | +--------+ + + + + | 03/30/ | Office | Orthopedics | Naeem Briones, | | | 2018 | Visit | | [address] | | | | | | [address] | | | | | | [place], [place] | | | | | | [address] | | | | | | [phone] | | | | | | | | +--------+ + + + + | 05/06/ | Office | Orthopedics | Naeem Briones P, | | | 2020 | Visit | | [address] | | | | | | [address] | | | | | | [place], [place] | | | | | | [address] | | | | | | [phone] | | | | | | | [...]
--- OUTSIDE RECORDS SUMMARY | ~2019-02-16 | XMS | Encounter Summary ---
Demographics + + + | Address | [address] | | | [place] [address] | + + + | Home Phone [...] Team Providers + +------+ + | Care Customer Services Manager Name | Role | Phone | [...] Records | | 2019 | | at [facility] [address] | | Review (General | | | | [address] Mailcode: | | Record Review) | | | | [address] | | | | | | Health and Healing, | | | | | | Building | | | | | | Floor [place], [place] | | | | | | [address] | | | | | | [phone] | | | +--------+ + + + [...] for abnormal ECG Years ago ? [facility] n N/A Last Echo images and report December [facility] Last Stress Test images and report no Last Cardiac Catheterization images and report no Last Holter or Event monitor report only no N/A Labs (BMP, Lipids, TSH, Hemoglobin A1C in last 6 months) [facility] N/A Last Device Check (schedule device check if due) n N/A Last Cardiac MRI report and images if available n Cardiac CTA report and images if available ? [facility] Patient Preferred Lab ? N/A N/A N/A Additional Comments: document ed in this encounter Plan of Treatment +--------+ + + + + | Date | Type | Specialty | Care Team | Description | +--------+ + + + + | 03/09/ | Office | Physical Therapy | Shiv Day, | | | 2019 | Visit | | PT [address] [facility] | | | | | | [address] | | | | | | [place], [place] | | | | | | [address] | | +--------+ + + + + | 03/09/ | Office | Orthopedics | Naeem Briones, | | | 2018 | Visit | | [address] | | | | | | [address] | | | | | | [place], [place] | | | | | | [address] | | | | | | [phone] | | | | | | | | +--------+ + + + + | 03/09/ | Clinical | Orthopedics | Addi Danielle RN | | | 2018 | Support | | [address] | | | | Staff | | [place], | | | | | | [place] [address] | | | | | | [phone] | | +--------+ + + + + | 03/09/ | Office | Pre-operative | 2, [facility] [address] | | | 2018 | Visit | Medicine | [address] | | | | | | [place] [address] | | +--------+ + + + + [...] [place] | | | | | | [address] | | | | | | [phone] | | | | | | | | +--------+ + + + + | 03/19/ | Surgery | Surgery | Naeem Briones, | RIGHT TOTAL KNEE | | 2018 | | | MD [address] | ARTHROPLASTY | | | | | [address] | | | | | | [place] | | | | | | [address] | | | | | | [phone] | | | | | | | | +--------+ + + + + | 03/19/ | Erroneous | Orthopedics | Naeem Briones, | | | 2018 | Enc-IP | | [address] | | | | | | [address] | | | | | | [place], [place] | | | | | | [address] | | | | | | [phone] | | | | | | | | +--------+ + + + + | 03/30/ | Office | Orthopedics | Naeem Briones, | | | 2018 | Visit | | [address] | | | | | | [address] | | | | | | [place], [place] | | | | | | [address] | | | | | | [phone] | | | | | | | | +--------+ + + + + | 05/06/ | Office | Orthopedics | Naeem Briones, | | | 2019 | Visit | | MD [address] | | | | | | [address] | | | | | | [place], [place] | | | | | | [address] | | | | | | [phone] | | | | | | | | +--------+ + + + + documented as of this encounter Visit Diagnoses Not on filedocumented in this encounter"
--- OUTSIDE RECORDS SUMMARY | ~2019-02-16 | XMS | Encounter Summary ---
Demographics + + + | Address | [address] | | | [place] [address] | + + + | Home Phone | | + + + | Preferred Language | Unknown | + + + | Marital Status | | + + + | Gnosticism Affiliation | Unknown | + + + | Race | | + + + | Ethnic Group | Not or | + + + Author + + + | Author | [facility] | + + + | Organization | [facility] | + + + | Address | Unknown | + + + | Phone | Unavailable | + + + Support +------+ +---------+ + | Name | Relationship | Address | Phone | +------+ +---------+ + | None | ECON | Unknown | Unavailable | +------+ +---------+ + Care Team Providers + +------+ + | Care Aromatherapist Name | Role | Phone | + +------+ + | Josiah Soliz MD | PCP | | + +------+ + Encounter Details +--------+ + + + + | Date | Type | Department | Care Team | Description | +--------+ + + + + | 01/25/ | Abstract | Cardiology General | Anita Cota | | | 2019 | | at [facility] [address] | [address] | | | | | Keaton Chen Mailcode: | [address] [place], | | | | | [facility] | [place] [address] | | | | | Health and Healing, | [phone] | | | | | | | | | | | [place], [place] | | | | | | [address] | | | | | | [phone] | | | +--------+ + + + [...] Rd | | | | | | [place], [place] | | | | | | [address] | | +--------+ + + + + | 03/09/ | Office | Orthopedics | Naeem Briones, | | | 2018 | Visit | | MD [address] | | | | | | [address] | | | | | | [place], [place] | | | | | | [address] | | | | | | [phone] | | | | | | | | +--------+ + + + + | 03/09/ | Clinical | Orthopedics | Addi Danielle RN | | | 2019 | Support | | [address] | | | | Staff | | [place], | | | | | | [place] [address] | | | | | | [phone] | | +--------+ + + + + | 03/09/ | Office | Pre-operative | 2, [facility] [address] | | | 2019 | Visit | Medicine | [address] | | | | | | [place] [address] | | +--------+ + + + + [...] Rd | | | | | | [place], [place] | | | | | | [address] | | | | | | [phone] | | | | | | | | +--------+ + + + + | 03/19/ | Surgery | Surgery | Naeem Briones, | RIGHT TOTAL KNEE | | 2019 | | | MD [address] | ARTHROPLASTY | | | | | [address] | | | | | | [place], [place] | | | | | | [address] | | | | | | [phone] | | | | | | | | +--------+ + + + + | 03/19/ | Erroneous | Orthopedics | Naeem Briones, | | | 2018 | Enc-IP | | MD [address] | | | | | | [address] | | | | | | [place], [place] | | | | | | [address] | | | | | | [phone] | | | | | | | | +--------+ + + + + | 03/30/ | Office | Orthopedics | Naeem Briones, | | | 2019 | Visit | | MD [address] | | | | | | [address] | | | | | | [place], [place] | | | | | | [address] | | | | | | [phone] | | | | | | | | +--------+ + + + + | 05/06/ | Office | Orthopedics | Naeem Briones, | | | 2019 | Visit | | [address] | | | | | | [address] | | | | | | [place] | | | | | | [address] | | | | | | [phone] | | | | | | | | +--------+ + + + + documented as of this encounter Visit Diagnoses Not on filedocumented in this encounter"
--- OUTSIDE RECORDS SUMMARY | ~2019-02-16 | XMS | Encounter Summary ---
Demographics + + + | Address | [address] | | | [place] [address] | + + + | Home Phone | | + + + | Preferred Language | Unknown | + + + | Marital Status | | + + + | Pentecostal Affiliation | Unknown | + + + | Race | | + + + | Ethnic Group | Not or | + + + Author + + + | Author | [facility] | + + + | Organization | [facility] | + + + | Address | Unknown | + + + | Phone | Unavailable | + + + Support +------+ +---------+ + | Name | Relationship | Address | Phone | +------+ +---------+ + | None | ECON | Unknown | Unavailable | +------+ +---------+ + Care Team Providers + +------+ + | Care Take Away Man Name | Role | Phone | [...] Records | | 2018 | | at [facility] [address] | [address] | Review | | | | Keaton Chen Mailcode: | Keaton Chen [place], | | | | | [address] | [place] [address] | | | | | Health and Healing, | [phone] | | | | | [facility] | | | | | | Floor [place], [place] | | | | | | [address] | | | | | | [phone] | | | +--------+ + + + [...] | | | | | | [place] | | | | | | [address] | | +--------+ + + + + | 03/09/ | Office | Orthopedics | Naeem Briones, | | | 2018 | Visit | | MD [address] | | | | | | [address] | | | | | | [facility] | | | | | | [address] | | | | | | [phone] | | | | | | | | +--------+ + + + + | 03/09/ | Clinical | Orthopedics | Addi Danielle RN | | | 2019 | Support | | [address] | | | | Staff | | [place], | | | | | | [place] [address] | | | | | | [phone] | | +--------+ + + + + | 03/09/ | Office | Pre-operative | 2, [facility] [address] | | | 2019 | Visit | Medicine | [address] | | | | | | [place] [address] | | +--------+ + + + + [...] | | | | | | [place], [place] | | | | | | [address] | | | | | | [phone] | | | | | | | | +--------+ + + + + | 03/19/ | Surgery | Surgery | Naeem Briones, | RIGHT TOTAL KNEE | | 2018 | | | [address] | ARTHROPLASTY | | | | | [address] | | | | | | [place] | | | | | | [address] | | | | | | [phone] | | | | | | | | +--------+ + + + + | 03/19/ | Erroneous | Orthopedics | Naeem Briones, | | | 2018 | Enc-IP | | [address] | | | | | | [address] | | | | | | [place] | | | | | | [address] | | | | | | [phone] | | | | | | | | +--------+ + + + + | 03/30/ | Office | Orthopedics | Naeem Briones, | | | 2018 | Visit | | [address] | | | | | | [address] | | | | | | [place], [place] | | | | | | [address] | | | | | | [phone] | | | | | | | | +--------+ + + + + | 05/06/ | Office | Orthopedics | Naeem Briones, | | | 2020 | Visit | | [address] | | | | | | [address] | | | | | | [place], [place] | | | | | | [address] | | | | | | [phone] | | | | | | | | +--------+ + + + + documented as of this encounter Visit Diagnoses Not on filedocumented in this encounter"
--- OUTSIDE RECORDS SUMMARY | ~2019-02-16 | XMS | Encounter Summary ---
Demographics + + + | Address | [address] | | | [place] [address] | + + + | Home Phone [...] Team Providers + +------+ + | Care Directional Bore Operator Name | Role | Phone | [...] Referral (bilat | | 2019 | | [facility] [address] | Clinic | knees ) | | | | [place] Mailcode: CH12A | | | | | | [facility] | | | | | | and Healing, | | | | | | | | | | | | Floor [place], [place] | | | | | | [address] | | | | | | [phone] | | | +--------+ + + + [...] L&I as they do not pay at [place] rates. Other out of state claims will only be accepted if they agree to pay at [place] rates khushboo nted in writing from adjustor. Can you confirm the insurance we will be billing for this visit? Medicare A & B Note: If OHP, please note which type. E.g. [place], [place], Trilli[place] m, etc.) Reminder: Please create referrals for pts with: HMO, OHP, [place], Self-Pay, W/C, TPL an d ED Post- Ops Can you verify your Primary Care Provider? yes who: Josiah Soliz Note: Please update Primary Care Provider in [employer]. Are you a current smoker or tobacco [...] they d like to sign up for [email or web address] ? Don t forget to pull in [...] Rd | | | | | | [place], [place] | | | | | | [address] | | +--------+ + + + + | 03/09/ | Office | Orthopedics | Naeem Briones, | | | 2018 | Visit | | MD [address] | | | | | | [address] | | | | | | [place], [place] | | | | | | [address] | | | | | | [phone] | | | | | | | | +--------+ + + + + | 03/09/ | Clinical | Orthopedics | Addi Danielle RN | | | 2019 | Support | | [address] | | | | Staff | | [place], | | | | | | [place] [address] | | | | | | [phone] | | +--------+ + + + + | 03/09/ | Office | Pre-operative | 2, [facility] [address] | | | 2019 | Visit | Medicine | [address] | | | | | | [place] [address] | | +--------+ + + + + [...] Rd | | | | | | [place], [place] | | | | | | [address] | | | | | | [phone] | | | | | | | | +--------+ + + + + | 03/19/ | Surgery | Surgery | Naeem Briones, | RIGHT TOTAL KNEE | | 2018 | | | [address] | ARTHROPLASTY | | | | | [address] | | | | | | [place], [place] | | | | | | [address] | | | | | | [phone] | | | | | | | | +--------+ + + + + | 03/19/ | Erroneous | Orthopedics | Naeem Briones, | | | 2018 | Enc-IP | | [address] | | | | | | [address] | | | | | | [place], [place] | | | | | | [address] | | | | | | [phone] | | | | | | | | +--------+ + + + + | 03/30/ | Office | Orthopedics | Naeem Briones, | | | 2018 | Visit | | [address] | | | | | | [address] | | | | | | [place], [place] | | | | | | [address] | | | | | | [phone] | | | | | | | | +--------+ + + + + | 05/06/ | Office | Orthopedics | Naeem Briones, | | | 2019 | Visit | | [address] | | | | | | [address] | | | | | | [place], [place] | | | | | | [address] | | | | | | [phone] | | | | | | | | +--------+ + + + + documented as of this encounter Visit Diagnoses Not on filedocumented in this encounter"
--- OUTSIDE RECORDS SUMMARY | ~2019-02-16 | XMS | Encounter Summary ---
Demographics + + + | Address | [address] | | | [place] [address] | + + + | Home Phone | | + + + | Preferred Language | Unknown | + + + | Marital Status | | + + + | Rastafarian Affiliation | Unknown | + + + | Race | | + + + | Ethnic Group | Not or | + + + Author + + + | Author | [facility] | + + + | Organization | [facility] | + + + | Address | Unknown | + + + | Phone | Unavailable | + + + Support +------+ +---------+ + | Name | Relationship | Address | Phone | +------+ +---------+ + | None | ECON | Unknown | Unavailable | +------+ +---------+ + Care Team Providers + +------+ + | Care Sales Development Coordinator Name | Role | Phone | + [...] | | | | artery | [address] | | | | | | disease | [address] | | | | | | involving | [place], | | | | | | [place] | [place] | | | | | | coronary | [address] | | | | | | artery of | Phone: | | | | | | [place] heart | [phone] | | | | | | without | Fax: | | | | | | angina | [phone] | | | | | | pectoris [...] both knees, | [address] | PA-C [address] | | | | | unspecified | [address] | [address] | | | | | chronicity | [place] | [place], [place] | | | | | Procedures | [place], [place] | [address] | | | | | CONSULT TO | [address] | Phone: | | | | | CARDIOLOGY | Phone: | [phone] | | | | | | [phone] | Fax: | | | | | | Fax: | [phone] | | | | | | [phone] | | + +--------+ + + + + Encounter Details +--------+---------+ + + + | Date | Type | Department | Care Team | Description | +--------+---------+ + + + | 01/22/ | Office | Cardiology General | Anita Lincoln | Coronary artery | | 2019 | Visit | at [facility] [address] | [address] | disease involving | | | | [address] Mailcode: | [address] [place], | [place] coronary | | | | [address] | [place] [address] | artery of [place] | | | | Health and Healing, | [phone] | heart without angina | | | | | | pectoris (Primary | | | | Floor [place], [place] | | Dx); Obesity (BMI | | | | [address] | | 30.0-34.9); | | | | [phone] | | Essential | | | | [...] indicated. ANITA LINCOLN PA-C CARDIOLOGY GENERAL AT [facility] [address] [facility] April Mailcode: [address] [address] ischLinda patel PA-C - 01/22/2019 [...] artery disease; reports history of myocardial in [facility] in 1988. Patient reports history of congestive heart failure. denies history of DVT /PE Patient reports bypass surgery in 1988 in [place] but has no midline sternal incision scar. [...] 9.6 oz) | SpO2 99% | B W[place] 34.61 kg/m | BSA 1.75 m Body [...] [address] [place] Mailcode: [facility] [place] [address] [phone] signed by Anita Lincoln PA-C at 01/22/2019 3:00 PM PDTdo cumented in this encounter Plan of Treatment +--------+ + + + + | Date | Type | Specialty | Care Team | Description | +--------+ + + + + | 03/09/ | Office | Physical Therapy | Shiv Day, | | | 2018 | Visit | | PT [address] [facility] | | | | | | [address] | | | | | | [place], [place] | | | | | | [address] | | +--------+ + + + + | 03/09/ | Office | Orthopedics | Naeem Briones P, | | | 2018 | Visit | | [address] | | | | | | [address] | | | | | | [place], [place] | | | | | | [address] | | | | | | [phone] | | | | | | | | +--------+ + + + + | 03/09/ | Clinical | Orthopedics | Addi Danielle RN | | | 2018 | Support | | [address] | | | | Staff | | [place], | | | | | | [place] [address] | | | | | | [phone] | | +--------+ + + + + | 03/09/ | Office | Pre-operative | 2, [facility] [address] | | | 2018 | Visit | Medicine | [address] | | | | | | [place] [address] | | +--------+ + + + + [...] Rd | | | | | | [place], [place] | | | | | | [address] | | | | | | [phone] | | | | | | | | +--------+ + + + + | 03/19/ | Surgery | Surgery | Naeem Briones, | RIGHT TOTAL KNEE | | 2018 | | | [address] | ARTHROPLASTY | | | | | [address] | | | | | | [facility] [place] | | | | | | [address] | | | | | | [phone] | | | | | | | | +--------+ + + + + | 03/19/ | Erroneous | Orthopedics | Naeem Briones, | | | 2018 | Enc-IP | | [address] | | | | | | [address] | | | | | | [place], [place] | | | | | | [address] | | | | | | [phone] | | | | | | | | +--------+ + + + + | 03/30/ | Office | Orthopedics | Naeem rBiones, | | | 2018 | Visit | | [address] | | | | | | [address] | | | | | | [place], [place] | | | | | | [address] | | | | | | [phone] | | | | | | | | +--------+ + + + + | 05/06/ | Office | Orthopedics | Naeem Briones, | | | 2019 | Visit | | [address] | | | | | | [address] | | | | | | [place], [place] | | | | | | [address] | | | | | | [phone] | | | | | | | [...] | | ADULT | | PDT | [place] coronary | results section. | | | | | artery of [place] | | | | | | heart [...] | + + + | [facility] | [facility] | | [facility] Adult Echocardiography Laboratory [address] | CARDIOLOGY | | [place], [place] [address] Ph: | | | Pt Name: CELESTE Yeboah SEEN | | | Study Date/Time 01/22/2019 / 4:07:13 PMMRN: [id number] | | | Most recent prior: -Acc #: [id number] | | | No. previous echos: 0DOB: 1955 63 years Heart Rate: | | | 86 bpmHeight: 58.0 in Blood Pressure: | | | 128/74 mm/HgWeight: 165.0 lb Gender: | | | FBSA: 1.68 m | | | Order ID: [id number] Study | | | Location: OPSonographer: Stephany [...] Report electronically signed by: | | | [id number] Rk Martinez MD (01/22/2019, 5:26:52 PM) Final [...] | | | |Report electronically signed by: [id number] Rk Martinez MD (01/22/2019, 5:26:52 | | |PM) | | | | | | | | | | | | Final | | + + + + + | Procedure Note | + + | Interface, Cardiology Results - 01/22/2019 5:26 PM [facility] | | [facility] Echocardiography Laboratory [facility] | | [place], [place] [address] Pt Name: CELESTE HYDE Study Date/Time 01/22/2019 / 4:07:13 PMN: [id number] Most | | recent prior: -[facility] #: [id number] No. previous echos: 0DOB: 1955 63 | | years Heart Rate: 86 bpmHeight: 58.0 in Blood Pressure: 128/74 | | mm/HgWeight: 165.0 lb Gender: FBSA: 1.68 m | | Order ID: [id number] Study Location: OPSonographer: Stephany Constantino | | [...] and indexed values Report electronically signed by: [id number] Rk | | Michelle JAMA (01/22/2019, 5:26:52 [...] | | | |Report electronically signed by: [id number] Rk Martinez MD (01/22/2019, 5:26:52 | |PM) | | | | | | | | Final | + + + + + + + | Performing | Address | City/State/Zipcode | Phone Number | | Organization | | | | + + + + + | [facility] | [address] | [place], [place] | | | CARDIOLOGY | [address] | [address] | | + + + + + documented in this encounter Visit Diagnoses + + | Diagnosis | + + | Coronary artery disease involving [place] coronary artery of [place] heart without | | angina pectoris - Primary | + + | Obesity (BMI 30.0-34.9) Obesity, unspecified | + + | Essential hypertension | + + | Pre-operative cardiovascular examination | + + documented in this encounter
--- OUTSIDE RECORDS SUMMARY | ~2019-02-16 | XMS | Encounter Summary ---
Demographics + + + | Address | [address] | | | [place] [address] | + + + | Home Phone [...] Team Providers + +------+ + | Care Cilnical Scientist Name | Role | Phone | + [...] findings, | | 2019 | | at [facility] [address] | [address] | teaching, guidance, | | | | [address] Mailcode: | [address] [place], | and counseling | | | | [facility] | [place] [address] | | | | | Health and Healing, | [phone] | | | | | [facility] | | | | | | Floor [place], [place] | | | | | | [address] | | | | | | [phone] | | | +--------+ + + + [...] Rd | | | | | | [place], [place] | | | | | | [address] | | +--------+ + + + + | 03/09/ | Office | Orthopedics | Naeem Briones, | | | 2018 | Visit | | MD [address] | | | | | | [address] | | | | | | [place], [place] | | | | | | [address] | | | | | | [phone] | | | | | | | | +--------+ + + + + | 03/09/ | Clinical | Orthopedics | Addi Danielle RN | | | 2019 | Support | | [address] | | | | Staff | | [place], | | | | | | [place] [address] | | | | | | [phone] | | +--------+ + + + + | 03/09/ | Office | Pre-operative | Rayna Bernard Md [address] | | | 2019 | Visit | Medicine | [address] | | | | | | [place] [address] | | +--------+ + + + + [...] Rd | | | | | | [place], [place] | | | | | | [address] | | | | | | [phone] | | | | | | | | +--------+ + + + + | 03/19/ | Surgery | Surgery | Naeem Briones, | RIGHT TOTAL KNEE | | 2018 | | | [address] | ARTHROPLASTY | | | | | [address] | | | | | | [place], [place] | | | | | | [address] | | | | | | [phone] | | | | | | | | +--------+ + + + + | 03/19/ | Erroneous | Orthopedics | Naeem Briones, | | | 2019 | Enc-IP | | [address] | | | | | | [address] | | | | | | [place], [place] | | | | | | [address] | | | | | | [phone] | | | | | | | | +--------+ + + + + | 03/30/ | Office | Orthopedics | Naeem Briones, | | | 2018 | Visit | | [address] | | | | | | [address] | | | | | | [place], [place] | | | | | | [address] | | | | | | [phone] | | | | | | | | +--------+ + + + + | 05/06/ | Office | Orthopedics | Naeem Briones, | | | 2019 | Visit | | [address] | | | | | | [address] | | | | | | [place] | | | | | | [address] | | | | | | [phone] | | | | | | | | +--------+ + + + + documented as of this encounter Visit Diagnoses Not on filedocumented in this encounter"
--- OUTSIDE RECORDS SUMMARY | ~2019-02-16 | XMS | Encounter Summary ---
Demographics + + + | Address | [address] | | | [place] [address] | + + + | Home Phone [...] Team Providers + +------+ + | Care Regional Manager Name | Role | Phone | [...] | | | | | | [facility] [place] | | | | | | [address] | | +--------+ + + + + | 03/09/ | Office | Orthopedics | Naeem Briones, | | | 2018 | Visit | | MD [address] | | | | | | [address] | | | | | | [place], [place] | | | | | | [address] | | | | | | [phone] | | | | | | | | +--------+ + + + + | 03/09/ | Clinical | Orthopedics | Addi Danielle RN | | | 2019 | Support | | [address] | | | | Staff | | [place], | | | | | | [place] [address] | | | | | | [phone] | | +--------+ + + + + | 03/09/ | Office | Pre-operative | 2, [facility] [address] | | | 2019 | Visit | Medicine | [address] | | | | | | [place] [address] | | +--------+ + + + + [...] | | | | | | [facility] [place] | | | | | | [address] | | | | | | [phone] | | | | | | | | +--------+ + + + + | 03/19/ | Surgery | Surgery | Naeem Briones, | RIGHT TOTAL KNEE | | 2018 | | | MD [address] | ARTHROPLASTY | | | | | [address] | | | | | | [facility] [place] | | | | | | [address] | | | | | | [phone] | | | | | | | | +--------+ + + + + | 03/19/ | Erroneous | Orthopedics | Naeem Briones, | | | 2018 | Enc-IP | | MD [address] | | | | | | [address] | | | | | | [place], [place] | | | | | | [address] | | | | | | [phone] | | | | | | | | +--------+ + + + + | 03/30/ | Office | Orthopedics | Naeem Briones, | | | 2018 | Visit | | [address] | | | | | | [address] | | | | | | [place], [place] | | | | | | [address] | | | | | | [phone] | | | | | | | | +--------+ + + + + | 05/06/ | Office | Orthopedics | Naeem Briones, | | | 2019 | Visit | | [address] | | | | | | [address] | | | | | | [facility] [place] | | | | | | [address] | | | | | | [phone] | | | | | | | | +--------+ + + + + documented as of this encounter Visit Diagnoses Not on filedocumented in this encounter"
--- OUTSIDE RECORDS SUMMARY | ~2019-02-16 | XMS | Encounter Summary ---
Demographics + + + | Address | [address] | | | [place] [address] | + + + | Home Phone | | + + + | Preferred Language | Unknown | + + + | Marital Status | | + + + | Oriental Orthodox Affiliation | Unknown | + + [...] Team Providers + +------+ + | Care Aerial Gunner Name | Role | Phone | + +------+ + | Josiah Soliz MD | PCP | | + +------+ + Encounter Details +--------+ + + + + | Date | Type | Department | Care Team | Description | +--------+ + + + + | 01/25/ | Documentati | Orthopaedics at | Addi Danielle RN | | | 2019 | on | [facility] [address] | [address] | | | | | April Mailcode: CH12A | [facility] | | | | | [facility] | [place] [address] | | | | | and Healing, | [phone] | | | | | [facility] | | | | | | [place], [place] | | | | | | [address] | | | | | | [phone] | | | +--------+ + + + [...] [place] | | | | | | [address] | | +--------+ + + + + | 03/09/ | Office | Orthopedics | Naeem Briones, | | | 2018 | Visit | | MD [address] | | | | | | [address] | | | | | | [place], [place] | | | | | | [address] | | | | | | [phone] | | | | | | | | +--------+ + + + + | 03/09/ | Clinical | Orthopedics | Addi Danielle RN | | | 2019 | Support | | [address] | | | | Staff | | [place], | | | | | | [place] [address] | | | | | | [phone] | | +--------+ + + + + | 03/09/ | Office | Pre-operative | 2, [facility] [address] | | | 2018 | Visit | Medicine | [address] | | | | | | [place] [address] | | +--------+ + + + + [...] Rd | | | | | | [place], [place] | | | | | | [address] | | | | | | [phone] | | | | | | | | +--------+ + + + + | 03/19/ | Surgery | Surgery | Naeem Briones, | RIGHT TOTAL KNEE | | 2019 | | | MD [address] | ARTHROPLASTY | | | | | [address] | | | | | | [place], [place] | | | | | | [address] | | | | | | [phone] | | | | | | | | +--------+ + + + + | 03/19/ | Erroneous | Orthopedics | Naeem Briones, | | | 2018 | Enc-IP | | MD [address] | | | | | | [address] | | | | | | [place], [place] | | | | | | [address] | | | | | | [phone] | | | | | | | | +--------+ + + + + | 03/30/ | Office | Orthopedics | Naeem Briones, | | | 2019 | Visit | | MD [address] | | | | | | [address] | | | | | | [place], [place] | | | | | | [address] | | | | | | [phone] | | | | | | | | +--------+ + + + + | 05/06/ | Office | Orthopedics | Naeem Briones, | | | 2019 | Visit | | [address] | | | | | | [address] | | | | | | [place] | | | | | | [address] | | | | | | [phone] | | | | | | | | +--------+ + + + + documented as of this encounter Visit Diagnoses Not on filedocumented in this encounter"
--- OUTSIDE RECORDS SUMMARY | ~2019-02-16 | XMS | Encounter Summary ---
Demographics + + + | Address | [address] | | | [place] [address] | + + + | Home Phone [...] Providers + +------+ + | Care Internal Audit Manager Name | Role | Phone | [...] | knee | [place] | [place], | | | | | Procedures | [place], [place] | [place] | | | | | REQUEST TO | [address] | [address] | | | | | SURGERY | Phone: | Phone: | | | | | DENTAL SURGERY DOCTOR | [phone] | [phone] | | | | | [place] TOTAL | Fax: | Fax: | | | | | KNEE | [phone] | [phone] | | | | | ARTHROPLASTY | [...] Pre-Admission | | 2019 | Orders | [facility] [address] | [address] | | | | | April Mailcode: CH12A | [address] | | | | | [place] [facility] | [facility] [place] | | | | | and Healing, | [address] | | | | | | [phone] | | | | | Floor [place], [place] | | | | | | [address] | | | | | | [phone] | | | +--------+ + + + [...] [place] | | | | | | [address] | | +--------+ + + + + | 03/09/ | Office | Orthopedics | Naeem Briones, | | | 2018 | Visit | | MD [address] | | | | | | [address] | | | | | | [place] | | | | | | [address] | | | | | | [phone] | | | | | | | | +--------+ + + + + | 03/09/ | Clinical | Orthopedics | Addi Danielle RN | | | 2019 | Support | | [address] | | | | Staff | | [place], | | | | | | [place] [address] | | | | | | [phone] | | +--------+ + + + + | 03/09/ | Office | Pre-operative | 2, Rayna Camarena [address] | | | 2018 | Visit | Medicine | [address] | | | | | | [place] [address] | | +--------+ + + + + [...] [place] | | | | | | [address] | | | | | | [phone] | | | | | | | | +--------+ + + + + | 03/19/ | Surgery | Surgery | Naeem Briones, | RIGHT TOTAL KNEE | | 2018 | | | [address] | ARTHROPLASTY | | | | | [address] | | | | | | [place], [place] | | | | | | [address] | | | | | | [phone] | | | | | | | | +--------+ + + + + | 03/19/ | Erroneous | Orthopedics | Naeem Briones, | | | 2018 | Enc-IP | | [address] | | | | | | [address] | | | | | | [place], [place] | | | | | | [address] | | | | | | [phone] | | | | | | | | +--------+ + + + + | 03/30/ | Office | Orthopedics | Naeem Briones, | | | 2019 | Visit | | MD [address] | | | | | | [address] | | | | | | [place], [place] | | | | | | [address] | | | | | | [phone] | | | | | | | | +--------+ + + + + | 05/06/ | Office | Orthopedics | Naeem Briones, | | | 2019 | Visit | | [address] [facility] | | | | | | [address] | | | | | | [place], [place] | | | | | | [address] | | | | | | [phone] | | | | | | | | +--------+ + + + + documented as of this encounter Visit Diagnoses + + | Diagnosis | + + | Primary osteoarthritis of right knee - Primary Primary localized osteoarthrosis, | | lower leg | + + documented in this encounter"
--- OUTSIDE RECORDS SUMMARY | ~2019-02-16 | XMS | Clinical Summary ---
Demographics + + + | Address | [address] | | | [place] [address] | + + + | Home Phone [...] | + + + | Organization | [facility] | + + + | Address | Unknown | + + + | Phone | Unavailable | + + + Support +------+ +---------+ + | Name | Relationship | Address | Phone | +------+ +---------+ + | None | ECON | Unknown | Unavailable | +------+ +---------+ + Care Team Providers + +------+ + | Care Retail Warehouse Supervisor Name | Role | Phone | + +------+ + | Josiah Soliz MD | PCP | | + +------+ + Source Comments SHIRA is fully live on both [facility] and [facility] Allergies + + + + + [...] involving | | | | | | mary's igloo coronary | | | | | | artery of mary's igloo | | | | | | heart [...] + + + + | 01/22/ | Storage Manager | Cardiology | Anita Cota | Palpitations [...] 2018 | Visit | | PT [address] [facility] | | | | | | [address] | | | | | | [place], [place] | | | | | | [address] | | +--------+ + + + + | 03/09/ | Office | Orthopedics | Naeem Briones, | | | 2018 | Visit | | MD [address] | | | | | | [address] | | | | | | [place], [place] | | | | | | [address] | | | | | | [phone] | | | | | | | | +--------+ + + + + | 03/09/ | Clinical | Orthopedics | Addi Danielle RN | | | 2018 | Support | | [address] | | | | Staff | | [place], | | | | | | [place] [address] | | | | | | [phone] | | +--------+ + + + + | 03/09/ | Office | Pre-operative | 2, [facility] [address] | | | 2018 | Visit | Medicine | [address] | | | | | | [place] [address] | | +--------+ + + + + [...] Rd | | | | | | [place] | | | | | | [address] | | | | | | [phone] | | | | | | | | +--------+ + + + + | 03/19/ | Surgery | Surgery | Naeem Briones, | RIGHT TOTAL KNEE | | 2018 | | | [address] | ARTHROPLASTY | | | | | [address] | | | | | | [place] | | | | | | [address] | | | | | | [phone] | | | | | | | | +--------+ + + + + | 03/19/ | Erroneous | Orthopedics | Naeem Briones, | | | 2018 | Enc-IP | | MD [address] | | | | | | [address] | | | | | | [place], [place] | | | | | | [address] | | | | | | [phone] | | | | | | | | +--------+ + + + + | 03/30/ | Office | Orthopedics | Naeem Briones, | | | 2018 | Visit | | [address] | | | | | | [address] | | | | | | [place] [place] [place], [place] | | | | | | [address] | | | | | | [phone] | | | | | | | | +--------+ + + + + | 05/06/ | Office | Orthopedics | Naeem Briones, | | | 2019 | Visit | | MD [address] | | | | | | [address] | | | | | | [place], [place] | | | | | | [address] | | | | | | [phone] | | | | | | | [...] | | ADULT | | PDT | mary's igloo coronary | results section. | | | | | artery of mary's igloo | | | | | | heart [...] + + | [facility] | [facility] | | [facility] [address] | CARDIOLOGY | | [place], [place] [address] Ph: | | | Pt Name: CELESTE Yeboah SEEN | | | Study Date/Time 01/22/2019 / 4:07:13 PMMRN: [id number] | | | Most recent prior: -[facility] #: [id number] | | | No. previous echos: 0DOB: 1955 63 years Heart Rate: | | | 86 bpmHeight: 58.0 in Blood Pressure: | | | 128/74 mm/HgWeight: 165.0 lb Gender: | | | FBSA: 1.68 m | | | Order ID: [id number] Study | | | Location: OPSonographer: Stephany [...] Report electronically signed by: | | | [id number] Rk Martinez MD (01/22/2019, 5:26:52 PM) Final [...] | | | |Report electronically signed by: [id number] Rk Martinez MD (01/22/2019, 5:26:52 | | |PM) | | | | | | | | | | | | Final | | + + + + + | Procedure Note | + + | Interface, Cardiology Results - 01/22/2019 5:26 PM [facility] | | [facility] Echocardiography Laboratory [address] [place] [address] | | [place], [place] [address] Pt Name: CELESTE Yeboah | | SEEN Study Date/Time 01/22/2019 / 4:07:13 PMMRN: [id number] Most | | recent prior: -Acc #: [id number] No. previous echos: 0DOB: 1955 63 | | years Heart Rate: 86 bpmHeight: 58.0 in Blood Pressure: 128/74 | | mm/HgWeight: 165.0 lb Gender: FBSA: 1.68 m | | Order ID: [id number] Study Location: OPSonographer: Stephany Constantino | | [...] and indexed values Report electronically signed by: [id number] Rk | | Michelle JAMA (01/22/2019, 5:26:52 [...] | | | |Report electronically signed by: [id number] Rk Martinez MD (01/22/2019, 5:26:52 | |PM) | | | | | | | | Final | + + + + + + + | Performing | Address | City/State/Zipcode | Phone Number | | Organization | | | | + + + + + | [facility] | [address] | [place], [place] | | | CARDIOLOGY | [address] | [address] | | + + + + + [...] DEPT OF | [address] | [place], [place] | | | CARDIOLOGY | [address] | [address] | | + + + + + [...] | MEDICA | xxxxxxxxxxx | 10/03/18 | [phone] | [address] | Medica | | | RE A & | | [address] | [address] | [address] | | | [address] | | sent | | [place] | | | | | | | | [address] | | + +--------+ +--------+ + +--------+ | F[employer]ER C[employer] 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
--- OUTSIDE RECORDS SUMMARY | ~2019-02-16 | XMS | Encounter Summary ---
Demographics + + + | Address | [address] | | | [place] [address] | + + + | Home Phone [...] Team Providers + +------+ + | Care Freight Caller Name | Role | Phone | + +------+ + | Josiah Soliz MD | PCP | | + +------+ + Encounter Details +--------+ + + + + | Date | Type | Department | Care Team | Description | +--------+ + + + + | 01/25/ | Abstract | Cardiology General | Anita Cota | | | 2019 | | at [facility] [address] | [address] | | | | | [address] Mailcode: | [address] [place], | | | | | [facility] | [place] [address] | | | | | Health [facility] He[facility], | [phone] | | | | | | | | | | | [place], [place] | | | | | | [address] | | | | | | [phone] | | | +--------+ + + + [...] Rd | | | | | | [place], [place] | | | | | | [address] | | +--------+ + + + + | 03/09/ | Office | Orthopedics | Naeem Briones, | | | 2018 | Visit | | MD [address] | | | | | | [address] | | | | | | [place], [place] | | | | | | [address] | | | | | | [phone] | | | | | | | | +--------+ + + + + | 03/09/ | Clinical | Orthopedics | Addi Danielle RN | | | 2019 | Support | | [address] | | | | Staff | | [place], | | | | | | [place] [address] | | | | | | [phone] | | +--------+ + + + + | 03/09/ | Office | Pre-operative | 2, [facility] [address] | | | 2019 | Visit | Medicine | [address] | | | | | | [place] [address] | | +--------+ + + + + [...] Rd | | | | | | [place], [place] | | | | | | [address] | | | | | | [phone] | | | | | | | | +--------+ + + + + | 03/19/ | Surgery | Surgery | Naeem Briones, | RIGHT TOTAL KNEE | | 2019 | | | MD [address] | ARTHROPLASTY | | | | | [address] | | | | | | [place], [place] | | | | | | [address] | | | | | | [phone] | | | | | | | | +--------+ + + + + | 03/19/ | Erroneous | Orthopedics | Naeem Briones, | | | 2018 | Enc-IP | | MD [address] | | | | | | [address] | | | | | | [place], [place] | | | | | | [address] | | | | | | [phone] | | | | | | | | +--------+ + + + + | 03/30/ | Office | Orthopedics | Naeem Briones, | | | 2019 | Visit | | MD [address] | | | | | | [address] | | | | | | [place], [place] | | | | | | [address] | | | | | | [phone] | | | | | | | | +--------+ + + + + | 05/06/ | Office | Orthopedics | Naeem Briones, | | | 2019 | Visit | | [address] | | | | | | [address] | | | | | | [place] | | | | | | [address] | | | | | | [phone] | | | | | | | | +--------+ + + + + documented as of this encounter Visit Diagnoses Not on filedocumented in this encounter"
[~2019-02-16 16:49] MED LIST changes: +PROMETHAZINE HC25 M1 PO
--- OUTSIDE RECORDS SUMMARY | 2019-02-16 16:52 | XMS ---
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 No recent Security Events currently on file CRITERIA MET - Group Notification - [facility] Guidelines - [facility] CARE PROVIDERS MELISSA SIMENTAL Internal Medicine 01/20/2018-Current PHONE: Unknown Omar Vasquez Mental Health Provider Current PHONE: [phone] DR JOSE LO Primary Care Current PHONE: [phone] JANKI SANCHES DO Primary Care Current PHONE: [phone] Tawanda Craft Primary Care Current PHONE: Unknown DR MELISSA SIMENTAL Primary Care 01/22/2017-01/22/2017 PHONE: [phone] YOAN MCFARLAND Case or Leadership Recruiter 12/27/2016-Current PHONE: [phone] [place] [facility] Current Orthopedic Surgery \T\ Fracture [facility] PHONE: Unknown Other Current PHONE: Unknown Guidelines Source: [facility] - [facility] Guidelines Date: 11/18/2018 Care Recommendation: Currently Enrolled in Assertive Community Treatment (ACT) with [employer], contact [phone] for mental health concerns. \T\nbsp;History of reporting injuries based off delusions.\T\nbsp; Asking for details, reality based questions to see if this is a current concern.\T\nbsp;Prescription medications go through [employer] [phone]. Care History Medical/Surgical 01/20/2018 [facility] - Patient is currently established with [facility]. If patient is seen in the ED during business hours. Please contact CHWs at [facility]. Care Recommendation: This patient has had 5 or more Emergency Department visits in the last 12 months.\T\nbsp; Patient requires education on the scope and purpose of the ED as an acute care provider not a Primary Care Provider and should not be utilized for chronic conditions.\T\nbsp; These are guidelines and the provider should exercise clinical judgment when providing care. 09/08/2017 [facility] - Patient is currently receiving services through [employer] and is apart of the ACT team now. Which means patient is more involved with [employer] services and frequent visits from [facility]. 08/04/2017 [facility] Care Recommendation: This patient has had 5 or more Emergency Department visits in the last 12 months. Patient requires education on the scope and purpose of the ED as an acute care provider not a Primary Care Provider and should not be utilized for chronic conditions. If patient returns to ED please contact Community Health WorkerChar at [phone]. These are guidelines and the provider should exercise clinical judgment when providing care. E.D. VISIT COUNT (12 MO.) [address] [facility] TOTAL 9 NOTE: Visits indicate total known visits. ED/UCC VISIT TRACKING (12 MO.) 02/16/2019 16:49 [facility] [place] TYPE: Emergency COMPLAINT: - KNEE PAIN, INJ 11/17/2018 18:21 [facility] [place] TYPE: Emergency COMPLAINT: - FEVER DIAGNOSES: - Allergy status to oth drug/meds/biol subst status - Allergy status to analgesic agent status - Acquired absence of both cervix and uterus - 1 Type 2 diabetes mellitus without complications - Nausea with vomiting, unspecified - Attention-deficit hyperactivity disorder, unspecified type - Bipolar disorder, unspecified - Allergy status to other antibiotic agents status - 1 Type 2 diabetes mellitus with diabetic cataract - parts counterman (current) use of aspirin - Allergy status to penicillin - Allergy status to narcotic agent status - Other fci (current) drug therapy 09/05/2018 07:23 [facility] [place] TYPE: Emergency COMPLAINT: - VOMITING DIAGNOSES: - Epilepsy, unsp, not intractable, without status epilepticus - Other termite control representative (current) drug therapy - Allergy status to other antibiotic agents status - Allergy status to analgesic agent status - 1 Type 2 diabetes mellitus without complications - Attention-deficit hyperactivity disorder, unspecified type - Unspecified abdominal pain - parts counterman (current) use of aspirin - detention (current) use of oral hypoglycemic drugs - Acquired absence of both cervix and uterus - Allergy status to narcotic agent status - Bipolar disorder, unspecified - Gastro-esophageal reflux disease without esophagitis - Nausea with vomiting, unspecified - Other nonmedicinal substance allergy status - Hypothyroidism, unspecified - Allergy status to penicillin 08/18/2018 23:57 [facility] [place] TYPE: Emergency COMPLAINT: - R WRIST PAIN/INJURY DIAGNOSES: - Gastro-esophageal reflux disease without esophagitis - 1 Type 2 diabetes mellitus without complications - Epilepsy, unsp, not intractable, without status epilepticus - Hypothyroidism, unspecified - Bipolar disorder, unspecified - Contusion of right wrist, initial encounter - Striking against or struck by other objects, init encntr - detention (current) use of oral hypoglycemic drugs - Attention-deficit hyperactivity disorder, unspecified type - Allergy status to narcotic agent status - Allergy status to other antibiotic agents status - Other fci (current) drug therapy - detention (current) use of aspirin - Allergy status to oth drug/meds/biol subst status 06/29/2018 18:53 [facility] [place] TYPE: Emergency COMPLAINT: - L WRIST PAIN/INJURY DIAGNOSES: - Pain in left wrist - Unspecified sprain of left wrist, initial encounter - Hypothyroidism, unspecified - Gastro-esophageal reflux disease without esophagitis - detention (current) use of aspirin - Other termite control representative (current) drug therapy - Bipolar disorder, unspecified - 1 Type 2 diabetes mellitus without complications - Contusion of right knee, initial encounter - parts counterman (current) use of oral hypoglycemic drugs - Allergy status to oth drug/meds/biol subst status - Allergy status to other antibiotic agents status - Allergy status to narcotic agent status - Epilepsy, unsp, not intractable, without status epilepticus - Fall (on) (from) unspecified stairs and steps, init encntr 06/26/2018 19:12 [facility] [place] TYPE: Emergency COMPLAINT: - CONSTIPATION,RECTAL BLEEDING DIAGNOSES: - Allergy status to narcotic agent status - 1 Type 2 diabetes mellitus without complications - Allergy status to penicillin - Acquired absence of both cervix and uterus - Hypothyroidism, unspecified - parts counterman (current) use of oral hypoglycemic drugs - Irritable bowel syndrome with constipation - parts counterman (current) use of aspirin - Constipation, unspecified - Allergy status to oth drug/meds/biol subst status - Attention-deficit hyperactivity disorder, unspecified type - Epilepsy, unsp, not intractable, without status epilepticus - Gastro-esophageal reflux disease without esophagitis - Allergy status to other antibiotic agents status - Allergy status to analgesic agent status - Bipolar disorder, unspecified - Other fci (current) drug therapy 04/18/2018 18:25 [facility] [place] TYPE: Emergency COMPLAINT: - VOMITING DIAGNOSES: - Dizziness and giddiness - detention (current) use of oral hypoglycemic drugs - Noninfective gastroenteritis and colitis, unspecified - Allergy status to narcotic agent status - Hypothyroidism, unspecified - 1 Type 2 diabetes mellitus without complications - Other fci (current) drug therapy - Allergy status to penicillin - parts counterman (current) use of aspirin - Epilepsy, unsp, not intractable, without status epilepticus - Attention-deficit hyperactivity disorder, unspecified type - Major depressive disorder, single episode, unspecified - Allergy status to other antibiotic agents status 04/18/2018 03:32 [facility] [place] TYPE: Emergency COMPLAINT: - FALL DIAGNOSES: - Attention-deficit hyperactivity disorder, unspecified type - Chest pain, unspecified - Epilepsy, unsp, not intractable, without status epilepticus - Bipolar disorder, unspecified - Hypothyroidism, unspecified - detention (current) use of aspirin - Other fci (current) drug therapy - Allergy status to penicillin - detention (current) use of oral hypoglycemic drugs - Allergy status to narcotic agent status - Dizziness and giddiness - 1 Type 2 diabetes mellitus without complications - Gastro-esophageal reflux disease without esophagitis - Allergy status to oth drug/meds/biol subst status 03/13/2018 12:01 [facility] [place] TYPE: Emergency COMPLAINT: - LEFT LEG PAIN NON INJURY INPATIENT VISIT TRACKING (12 MO.) 03/13/2018 12:02 [facility] [place] TYPE: Observation COMPLAINT: - L KNEE ARTHRITIS INABILITY TO WALK DIAGNOSES: - Hypothyroidism, unspecified - Epilepsy, unsp, not intractable, without status epilepticus - Angina pectoris, unspecified - Effusion, left knee - Pain in left lower leg - Difficulty in walking, not elsewhere classified - 1 Type 2 diabetes mellitus without complications - Attention-deficit hyperactivity disorder, unspecified type - Bipolar disorder, unspecified - Pain in left knee - Allergy status to narcotic agent status - Allergy status to penicillin - parts counterman (current) use of aspirin - Chronic pain syndrome - Gout, unspecified - Allergy status to oth drug/meds/biol subst status - Encounter for other specified special examinations - parts counterman (current) use of antibiotics - parts counterman (current) use of non-steroidal non-inflam (NSAID) - Essential (primary) hypertension - Allergy status to analgesic agent status - detention (current) use of oral hypoglycemic drugs - Unilateral primary osteoarthritis, left knee - Gastro-esophageal reflux disease without esophagitis - Congenital malformation of heart, unspecified - Other termite control representative (current) drug therapy - Patient's other noncompliance with medication regimen - History of falling - Allergy status to other anti-infective agents status - Dorsalgia, unspecified [email or web address]
== END 2019-02-16 19:10 | disposition home or self-care (01) ==
LOC: ED 16:49
DX: S83.91XA Sprain of unspecified site of right knee, initial encounter (principal); E03.9 Hypothyroidism, unspecified; F90.9 Attention-deficit hyperactivity disorder, unspecified type; F31.9 Bipolar disorder, unspecified; E11.36 Type 2 diabetes mellitus with diabetic cataract; H26.9 Unspecified cataract; Z88.5 Allergy status to narcotic agent; Z88.1 Allergy status to other antibiotic agents; Z88.0 Allergy status to penicillin; Z88.8 Allergy status to other drugs, medicaments and biological substances; Z91.048 Other nonmedicinal substance allergy status; Z88.6 Allergy status to analgesic agent; Z79.82 Long term (current) use of aspirin; Z79.899 Other long term (current) drug therapy; W22.8XXA Striking against or struck by other objects, initial encounter
CPT/HCPCS: 73560; 99283-25

== ENCOUNTER 2019-03-27 18:04 | Emergency (ER) | payer MEDICARE, OTHER ==
[~2019-03-27] VITALS: Ht 147.3 cm; Wt 76.0 kg
--- OUTSIDE RECORDS SUMMARY | ~2019-03-27 | XMS | Encounter Summary ---
Demographics + + + | Address | [address] | | | [place] [address] | + + + | Home Phone | | + + + | Preferred Language | Unknown | + + + | Marital Status | | + + + | Pentecostalism Affiliation | Unknown | + + + | Race | | + + + | Ethnic Group | Not or | + + + Author + + + | Author | [facility] | + + + | Organization | [facility] | + + + | Address | Unknown | + + + | Phone | Unavailable | + + + Support + + +---------+ + | Name | Relationship | Address | Phone | + + +---------+ + | Shun Savage | ECON | Unknown | | + + +---------+ + Care Team Providers + +------+ + | Care Cash Management Clerk Name | Role | Phone | + +------+ + | Josiah Soliz MD | PCP | | + +------+ + Reason for Visit Diagnostic Testing (Routine) + +--------+ + + + + | Status | Reason | Specialty | Diagnoses / | Referred By | Referred To | | | | | Procedures | Contact | Contact | + +--------+ + + + + | New Request | | Cardiology | Diagnoses | Bisrosalinof, | | | | | | Coronary | Anita Keen, | | | | | | artery | [address] | | | | | | disease | [address] | | | | | | involving | [place], | | | | | | [place] | [place] | | | | | | coronary | [address] | | | | | | artery of | Phone: | | | | | | [place] heart | [phone] | | | | | | without | Fax: | | | | | | angina | [phone] | | | | | | pectoris | | | | | | | Procedures | | | | | | | TRANSTHORACI | | | | | | | C | | | | | | | ECHOCARDIOGR | | | | | | | AM, ADULT | | | + +--------+ + + + + Encounter Details +--------+ + + + + | Date | Type | Department | Care Team | Description | +--------+ + + + + | 01/22/ | Hospital | Cardiac | | | | 2019 | Encounter | Non-Invasive Testing | | | | | | at [facility] | | | | | | [address] | | | | | | [address] | | | | | | Mailcode: [id number] | | | | | | [address] | | | | | | [facility], | | | | | | [place] [address] | | | | | | [phone] | | | +--------+ + + + + Social History + +-------+ +--------+------+ | Tobacco Use | Types | Packs/Day | Years | Date | | | | | Used | | + +-------+ +--------+------+ | Never Smoker | | | | | + +-------+ +--------+------+ + +---+---+---+ | Smokeless Tobacco: | | | | | Never Used | | | | + +---+---+---+ + + +---------+ + | Alcohol Use | Drinks/Week | oz/Week | Comments | + + +---------+ + | Not Currently | | | | + + +---------+ + + + + + | Alcohol Habits | Answer | Date Recorded | + + + + | How often do you have a drink containing | Never | 12/17/2018 | | alcohol? | | | + + + + | How many drinks containing alcohol do you | Not asked | | | have on a typical day when you are | | | | drinking? | | | + + + + | How often do you have six or more drinks on | Not asked | | | one occasion? | | | + + + + + + + | Sex Assigned at | Date Recorded | | | | + + + | Not on file | | + + + + + + + | Job Start Date | Occupation | Industry | + + + + | Not on file | Not on file | Not on file | + + + + + + + + | Travel History | Travel Start | Travel End | + + + + + + | No recent travel history available. | + + documented as of this encounter Medications at Time of Discharge + + + +---------+ + + | Medication | Sig | Dispensed | Refills | Start | End Date | | | | | | Date | | + + + +---------+ + + | albuterol | 18 g. | | 0 | | | | (VENTOLIN HFA) 90 | | | | | | | mcg/actuation | | | | | | | inhalation HFA | | | | | | | aerosol inhaler | | | | | | + + + +---------+ + + | allopurinol 300 mg | allopurinol 300 mg | | 0 | | | | oral tablet | tablet once daily | | | | | + + + +---------+ + + | aspirin EC 81 mg | Take 81 mg by mouth | | 0 | | | | oral tablet,delayed | once daily. | | | | | | release (DR/EC) | | | | | | + + + +---------+ + + | ergocalciferol | Vitamin D2 50,000 | | 0 | | | | 50,000 unit oral | unit capsule TAKE | | | | | | capsule | ONE CAPSULE BY MOUTH | | | | | | | ONCE A WEEK | | | | | + + + +---------+ + + | famotidine 20 mg | Take 20 mg by mouth | | 0 | | | | oral tablet | once daily. | | | | | + + + +---------+ + + | gabapentin 300 mg | 900mg at bedtime | | 0 | | | | oral capsule | | | | | | + + + +---------+ + + | levothyroxine 100 | Take 100 mcg by | | 1 | 11/25/19 | | | mcg oral tablet | mouth once daily. | | | 19 | | + + + +---------+ + + | LORazepam 0.5 mg | lorazepam 0.5 mg | | 0 | | | | oral tablet | tablet at bedtime | | | | | + + + +---------+ + + | lurasidone | 80mg once daily | | 0 | | | | (LATUDA) 120 mg oral | | | | | | | tablet | | | | | | + + + +---------+ + + | metFORMIN 500 mg | 1000 mg once daily | | 0 | | | | oral tablet | | | | | | + + + +---------+ + + | ondansetron ODT 4 | ondansetron 4 mg | | 0 | | | | mg oral | disintegrating | | | | | | tablet,disintegratin | tablet | | | | | | g | | | | | | + + + +---------+ + + | promethazine 25 mg | Take 25 mg by mouth | | 0 | | | | oral tablet | as needed for | | | | | | | nausea/vomiting. | | | | | + + + +---------+ + + | psyllium husk | Take by mouth. | | 0 | | | | (METAMUCIL ORAL) | | | | | | + + + +---------+ + + | sertraline 50 mg | sertraline 50 mg | | 0 | | | | oral tablet | tablet once daily | | | | | + + + +---------+ + + | torsemide 20 mg | torsemide 20 mg | | 0 | | | | oral tablet | tablet once daily | | | | | + + + +---------+ + + documented as of this encounter Progress Stephany Paulson - 01/22/2019 5:04 PM PDTTransthoracic echocardiogram completed. Final report to follow. documented in this encounter Plan of Treatment +--------+ + + + + | Date | Type | Specialty | Care Team | Description | +--------+ + + + + | 03/19/ | Hospital | Adult Acute Care | Naeem Briones P, | | | 2020 | Encounter | | [address] | | | | | | [address] | | | | | | [place], [place] | | | | | | [address] | | | | | | [phone] | | | | | | | | +--------+ + + + + | 03/19/ | Procedure | Surgery | | | 2020 | Pass | | | | +--------+ + + + + documented as of this encounter Procedures + +--------+ + + + | Procedure Name | Priori | Date/Time | Associated Diagnosis | Comments | | | ty | | | | + +--------+ + + + | TRANSTHORACIC | Routin | 01/22/2019 | Coronary artery | Results for this | | ECHOCARDIOGRAM, | e | 4:07 PM | disease involving | procedure are in the | | ADULT | | PDT | [place] coronary | results section. | | | | | artery of [place] | | | | | | heart without angina | | | | | | pectoris | | + +--------+ + + + documented in this encounter Results TRANSTHORACIC ECHOCARDIOGRAM, ADULT (01/22/2019 4:07 PM PDT) + + + + + + | Component | Value | Ref Range | Performed | Pathologist | | | | | At | Signature | + + + + + + | AOV VMN | 4.3 | | [facility] | | | (AORTIC | | | OF | | | VALVE) | | | CARDIOLOGY | | + + + + + + | BIPLANE, EF | 74 | | [facility] | | | | | | OF | | | | | | CARDIOLOGY | | + + + + + + | EJECTION | 60 to 65 | | [facility] | | | FRACTION | | | OF | | | | | | CARDIOLOGY | | + + + + + + | LA | 3.8 | | [facility] | | | DIMENSION | | | OF | | | | | | CARDIOLOGY | | + + + + + + | LVIDD | 4.1 | | [facility] | | | | | | OF | | | | | | CARDIOLOGY | | + + + + + + | MV A VMAX | 1.0 | | [facility] | | | | | | OF | | | | | | CARDIOLOGY | | + + + + + + | MV E? | 0.1 | | [facility] | | | | | | OF | | | | | | CARDIOLOGY | | + + + + + + | MV E VMAX | 1.0 | | [facility] | | | | | | OF | | | | | | CARDIOLOGY | | + + + + + + | MV E/E' | 7.8 | | [facility] | | | (MITRAL | | | OF | | | VALVE) | | | CARDIOLOGY | | + + + + + + | MITRAL | 14.5 | | [facility] | | | ANNULUS | | | OF | | | MEDIAL E/E" | | | CARDIOLOGY | | | (TISSUE | | | | | | DOPPLER) | | | | | + + + + + + | RV TAPSE | 2.5 | | [facility] | | | | | | OF | | | | | | CARDIOLOGY | | + + + + + + | RV TDI S? | 12.0 | | [facility] | | | | | | OF | | | | | | CARDIOLOGY | | + + + + + + | EJECTION | 62.5 | % | [facility] | | | FRACTION | | | OF | | | RANGE MEAN | | | CARDIOLOGY | | | VALUE | | | | | + + + + + + + + | Specimen | + + | | + + + + + | Narrative | Performed At | + + + | [facility] | [facility] | | [facility] Adult Echocardi[facility] [address] CARDIOLOGY | | [place], [place] [address] Ph: | | | Pt Name: CELESTE POSEY | | | Study Date/Time 01/22/2019 / 4:07:13 PMMRN: [id number] | | | Most recent prior: -Acc #: [id number] | | | No. previous echos: 0DOB: 1955 63 years Heart Rate: | | | 86 bpmHeight: 58.0 in Blood Pressure: | | | 128/74 mm/HgWeight: 165.0 lb Gender: | | | FBSA: 1.68 m | | | Order ID: [id number] Study | | | Location: OPSonographer: Stephany YAÑEZ, RDCSSonographer 2: Dylan | | | [facility]:Referring Provider: Anita Velasquez | | | Performed: 2D, Color flow, Spectral Doppler.Study Quality: Good.Exam | | | Indication: DyspneaHistory: DM; CAD; IVC filter; COPD; hypothyroidism; | | | chronic anemia; who is referred by Josiah Soliz MD for cardiac | | | evaluation and risk assessment for total knee arthroplasty Patient | | | history has been obtained from the EHR Transthoracic Echocardiographic | | | Report | | | + + Final | | | Impressions: | | | | | | | | | 1. The left | | | ventricular size is normal. 2. The | | | LV function is normal. | | | 3. Right ventricular size, thickness and function are | | | normal. | | | 4. There are no prior exams available for | | | comparison. | | | | | | + + | | | Description of Findings: Cardiac Rhythm: Normal sinus rhythm.Left | | | Ventricle: The left ventricular size is normal. Visually estimated | | | left ventricular ejection fraction is 60 - 65%. There is no left | | | ventricular hypertrophy. The LV diastolic filling pattern is normal. | | | The ejection fraction is 74.0 % as measured by Flynn's biplane | | | method. The LV function is normal.Left Ventricular Wall Motion: Left | | | ventricular systolic thickening is normal in all segments.Atria: Left | | | atrial size is normal. Normal right atrium.Right Ventricle: Right | | | ventricular size, thickness and function are normal. TAPSE measures | | | 2.5cm. The RV TDI s' velocity is 12cm/sec. Unable to calculate RVSP | | | due to the nature of the TR Jet.Aortic Valve: The aortic valve is | | | trileaflet. No indication of aortic valve regurgitation. The peak & | | | mean transvalvular gradients are 8.7 mmHg and 4.3 mmHg respectively. | | | The DVI is 0.83. The calculated CY is 2.57 cm | | | using an LVOT diameter of 1.98 cm (continuity equation). The | | | indexed stroke volume is 45.2 ml/m | | | .Mitral Valve: The mitral valve is structurally normal. No evidence | | | of mitral valve stenosis. Trace mitral valve regurgitation.Tricuspid | | | Valve: The tricuspid valve is structurally normal. Trace tricuspid | | | regurgitation.Pulmonic Valve: The pulmonic valve is structurally | | | normal. Trace pulmonary valve regurgitation.Aorta: Visualized portions | | | of the ascending aorta and aortic root appear normal.Venous: Inferior | | | vena cava is normal with normal inspiratory collapse.Pericardium: No | | | pericardial effusion is seen. Additional Findings: There are no prior | | | exams.2D Measurements Doppler Measurements | | | 2D NL Values Aortic MitralLVID(d) | | | 4.09 (3.5-5.7cm) Max Milton 1.48 Peak E 1.01 | | | cm m/s | | | m/sLVID(s) 2.34 Mean grad 4.3 Peak A | | | 1.00 cm | | | mmHg m/sIVS(d) 0.98 (0.6-1.1cm) LVOT Milton | | | 1.13 E/A Ratio 1.02 cm | | | m/sLVPW(d) 0.97 (0.6-1.1cm) LVOT VTI 0.246 | | | TDI (E/e') 7.8 cm | | | mLA A/Ps 2D 3.84 (2.7-3.9cm) LVOT Diam 1.98 MV mn gd | | | cm cmLA vol A/L 31.5 | | | (16-34) LVOT SV 45.2 MR EROindex ml/m | | | indexed ml/m | | | LVEDV 32.41 Tricuspid | | | Pulmonicindex ml/m | | | RA Press 5 RVOT VTIBiplane EF 74.0 % | | | mmHg | | | Aorta: Index: | | | Ao Sinus 2.72 (2.1-3.5cm) | | | cm | | | Asc Ao 2.96 | | | (prox) cmEvaluation of chamber size and | | | geometry is accomplished through the incorporation of linear, | | | volumetric, and indexed values Report electronically signed by: | | | [id number] Rk Martinez MD (01/22/2019, 5:26:52 PM) Final | | | | | | cm cm | | |LA vol A/L 31.5 (16-34) LVOT SV 45.2 MR ERO | | |index ml/m indexed ml/m | | |LVEDV 32.41 Tricuspid Pulmonic | | |index ml/m RA Press 5 RVOT VTI | | |Biplane EF 74.0 % mmHg | | | | | | Aorta: Index: | | | Ao Sinus 2.72 (2.1-3.5cm) | | | cm | | | Asc Ao 2.96 | | | (prox) cm | | |Evaluation of chamber size and geometry is accomplished through the incorporation of | | |linear, volumetric, and indexed values | | | | | |Report electronically signed by: [id number] Rk Martinez MD (01/22/2019, 5:26:52 | | |PM) | | | | | | | | | | | | Final | | + + + + + | Procedure Note | + + | Interface, Cardiology Results - 01/22/2019 5:[address] [facility] [employer] | | [facility] Echocardiography Laboratory [address] [place] [address] | | [place], [place] [address] Pt Name: CELESTE Yeboah | | SEEN Study Date/Time 01/22/2019 / 4:07:13 PMMRN: [id number] Most | | recent prior: -Acc #: [id number] No. previous echos: 0DOB: 1955 63 | | years Heart Rate: 86 bpmHeight: 58.0 in Blood Pressure: 128/74 | | mm/HgWeight: 165.0 lb Gender: FBSA: 1.68 m | | Order ID: [id number] Study Location: OPSonographer: Stephany Constantino | | BS, RDCSSonographer 2: Dylan Herrera:Referring Provider: Anita Keen | | BischofModalities Performed: 2D, Color flow, Spectral Doppler.Study Quality: Good.Exam | | Indication: DyspneaHistory: DM; CAD; IVC filter; COPD; hypothyroidism; chronic anemia; | | who is referred by Josiah Soliz MD for cardiac evaluation and risk assessment for | | total knee arthroplasty Patient history has been obtained from the EHR Transthoracic | | Echocardiographic Report+ + | | Final Impressions: | | | | 1. The left ventricular size is normal. 2. The LV | | function is normal. 3. Right ventricular size, | | thickness and function are normal. | | 4. There are no prior exams available for comparison. | | | | + + Description of Findings: | | Cardiac Rhythm: Normal sinus rhythm.Left Ventricle: The left ventricular size is | | normal. Visually estimated left ventricular ejection fraction is 60 - 65%. There is no | | left ventricular hypertrophy. The LV diastolic filling pattern is normal. The ejection | | fraction is 74.0 % as measured by Flynn's biplane method. The LV function is | | normal.Left Ventricular Wall Motion: Left ventricular systolic thickening is normal in | | all segments.Atria: Left atrial size is normal. Normal right atrium.Right Ventricle: | | Right ventricular size, thickness and function are normal. TAPSE measures 2.5cm. The RV | | TDI s' velocity is 12cm/sec. Unable to calculate RVSP due to the nature of the TR | | Jet.Aortic Valve: The aortic valve is trileaflet. No indication of aortic valve | | regurgitation. The peak & mean transvalvular gradients are 8.7 mmHg and 4.3 mmHg | | respectively. The DVI is 0.83. The calculated CY is 2.57 cm | | using an LVOT diameter of 1.98 cm (continuity equation). The indexed stroke volume is | | 45.2 ml/m | | .Mitral Valve: The mitral valve is structurally normal. No evidence of mitral valve | | stenosis. Trace mitral valve regurgitation.Tricuspid Valve: The tricuspid valve is | | structurally normal. Trace tricuspid regurgitation.Pulmonic Valve: The pulmonic valve is | | structurally normal. Trace pulmonary valve regurgitation.Aorta: Visualized portions of | | the ascending aorta and aortic root appear normal.Venous: Inferior vena cava is normal | | with normal inspiratory collapse.Pericardium: No pericardial effusion is seen. | | Additional Findings: There are no prior exams.2D Measurements Doppler | | Measurements 2D NL Values Aortic MitralLVID(d) 4.09 | | (3.5-5.7cm) Max Milton 1.48 Peak E 1.01 cm m/s | | m/sLVID(s) 2.34 Mean grad 4.3 Peak A 1.00 | | cm mmHg m/sIVS(d) 0.98 (0.6-1.1cm) LVOT | | Milton 1.13 E/A Ratio 1.02 cm m/sLVPW(d) 0.97 | | (0.6-1.1cm) LVOT VTI 0.246 TDI (E/e') 7.8 cm mLA | | A/Ps 2D 3.84 (2.7-3.9cm) LVOT Diam 1.98 MV mn gd cm | | cmLA vol A/L 31.5 (16-34) LVOT SV 45.2 MR EROindex ml/m | | indexed ml/m | | LVEDV 32.41 Tricuspid Pulmonicindex ml/m | | RA Press 5 RVOT VTIBiplane EF 74.0 % mmHg | | Aorta: Index: | | Ao Sinus 2.72 (2.1-3.5cm) cm | | Asc Ao 2.96 (prox) cmEvaluation of | | chamber size and geometry is accomplished through the incorporation of linear, | | volumetric, and indexed values Report electronically signed by: [id number] Rk | | Michelle JAMA (01/22/2019, 5:26:52 PM) Final | | of 1.98 cm (continuity equation). The indexed stroke volume is 45.2 ml/m . | |Mitral Valve: The mitral valve is structurally normal. No evidence of mitral valve | |stenosis. Trace mitral valve regurgitation. | |Tricuspid Valve: The tricuspid valve is structurally normal. Trace tricuspid | |regurgitation. | |Pulmonic Valve: The pulmonic valve is structurally normal. Trace pulmonary valve | |regurgitation. | |Aorta: Visualized portions of the ascending aorta and aortic root appear normal. | |Venous: Inferior vena cava is normal with normal inspiratory collapse. | |Pericardium: No pericardial effusion is seen. | | | |Additional Findings: There are no prior exams. | |2D Measurements Doppler Measurements | | | | 2D NL Values Aortic Mitral | |LVID(d) 4.09 (3.5-5.7cm) Max Milton 1.48 Peak E 1.01 | | cm m/s m/s | |LVID(s) 2.34 Mean grad 4.3 Peak A 1.00 | | cm mmHg m/s | |IVS(d) 0.98 (0.6-1.1cm) LVOT Milton 1.13 E/A Ratio 1.02 | | cm m/s | |LVPW(d) 0.97 (0.6-1.1cm) LVOT VTI 0.246 TDI (E/e') 7.8 | | cm m | |LA A/Ps 2D 3.84 (2.7-3.9cm) LVOT Diam 1.98 MV mn gd | | cm cm | |LA vol A/L 31.5 (16-34) LVOT SV 45.2 MR ERO | |index ml/m indexed ml/m | |LVEDV 32.41 Tricuspid Pulmonic | |index ml/m RA Press 5 RVOT VTI | |Biplane EF 74.0 % mmHg | | | | Aorta: Index: | | Ao Sinus 2.72 (2.1-3.5cm) | | cm | | Asc Ao 2.96 | | (prox) cm | |Evaluation of chamber size and geometry is accomplished through the incorporation of | |linear, volumetric, and indexed values | | | |Report electronically signed by: [id number] Rk Martinez MD (01/22/2019, 5:26:52 | |PM) | | | | | | | | Final | + + + + + + + | Performing | Address | City/State/Zipcode | Phone Number | | Organization | | | | + + + + + | [facility] | [address] | [place], [place] | | | CARDIOLOGY | [address] | [address] | | + + + + + documented in this encounter Visit Diagnoses + + | Diagnosis | + + | Coronary artery disease involving [place] coronary artery of [place] heart without | | angina pectoris | + + documented in this encounter
--- OUTSIDE RECORDS SUMMARY | ~2019-03-27 | XMS | Encounter Summary ---
Demographics + + + | Address | [address] | | | [place] [address] | + + + | Home Phone | | + + + | Preferred Language | Unknown | + + + | Marital Status | | + + + | Christian Affiliation | Unknown | + + + | Race | | + + + | Ethnic Group | Not or | + + + Author + + + | Author | [facility] | + + + | Organization | [facility] | + + + | Address | Unknown | + + + | Phone | Unavailable | + + + Support + + +---------+ + | Name | Relationship | Address | Phone | + + +---------+ + | Shun Savage | ECON | Unknown | | + + +---------+ + Care Team Providers + +------+ + | Care Dictaphone Mechanic Name | Role | Phone | + +------+ + | Josiah Soliz MD | PCP | | + +------+ + Reason for Visit + + + | Reason | Comments | + + + | Medical Records | General Record Review | | Review | | + + + Encounter Details +--------+ + + + + | Date | Type | Department | Care Team | Description | +--------+ + + + + | 01/05/ | Abstract | Cardiology General | Unknown . | Medical Records | | 2019 | | at [facility] [address] | | Review (General | | | | [address] Mailcode: | | Record Review) | | | | [address] | | | | | | [facility], | | | | | | [facility] | | | | | | floor [place], [place] | | | | | | [address] | | | | | | [phone] | | | +--------+ + + + [...] + documented as of this encounter Progress Oksana Donohue - 01/05/2019 1:05 PM PDTFormatting of this note might be different from the o riginal. General Cardiology New Patient Record Check List Procedure Where/Date Date requested Report received? Y/N, Where? Imaging received? CD/ IMPAX/Not Available Comments Referring Provider notes N/A Referral Last EKG (REPORT ONLY) Note: Tracings needed if being seen for abnormal ECG Years ago ? [facility] n N/A Last Echo images and report December [facility] Last Stress Test images and report no Last Cardiac Catheterization images and report no Last Holter or Event monitor report only no N/A Labs (BMP, Lipids, TSH, Hemoglobin A1C in last 6 months) [facility] in [facility] N/A Last Device Check (schedule device check if due) n N/A Last Cardiac MRI report and images if available n Cardiac CTA report and images if available ? [facility] Patient Preferred Lab ? N/A N/A N/A Additional Comments: document ed in this encounter Plan of Treatment +--------+ + + + + | Date | Type | Specialty | Care Team | Description | +--------+ + + + + | 03/19/ | Hospital | Adult Acute Care | Naeem Briones, | | | 2020 | Encounter | | [address] | | | | | | [address] | | | | | | [place] | | | | | | [address] | | | | | | [phone] | | | | | | | | +--------+ + + + + | 03/19/ | Procedure | Surgery | | | | 2020 | Pass | | | | +--------+ + + + + documented as of this encounter Visit Diagnoses Not on filedocumented in this encounter"
--- OUTSIDE RECORDS SUMMARY | ~2019-03-27 | XMS | Encounter Summary ---
Demographics + + + | Address | [address] | | | [place] [address] | + + + | Home Phone | | + + + | Preferred Language | Unknown | + + + | Marital Status | | + + + | Hinduism Affiliation | Unknown | + + + | Race | | + + + | Ethnic Group | Not or | + + + Author + + + | Author | [facility] | + + + | Organization | [facility] | + + + | Address | Unknown | + + + | Phone | Unavailable | + + + Support + + +---------+ + | Name | Relationship | Address | Phone | + + +---------+ + | Shun Savage | ECON | Unknown | | + + +---------+ + Care Team Providers + +------+ + | Care Pheresis Specialist Name | Role | Phone | + +------+ + | Latrell Ortega MD | PCP | | + +------+ + Reason for Visit + + + | Reason | Comments | + + + | Pre-op evaluation | | + + + Encounter Details +--------+---------+ + + + | Date | Type | Department | Care Team | Description | +--------+---------+ + + + | 03/09/ | Office | Orthopaedics at | Anselmo, Naeem P, | Bilateral primary | | 2019 | Visit | [facility] [address] | MD [address] | osteoarthritis of | | | | Ave Mailcode: CH[address] | [address] | knee (Primary Dx) | | | | [place] [facility] | [place], [place] | | | | | and Healing, | [address] | | | | | Building | [phone] | | | | | Floor [place], [place] | | | | | | [address] | | | | | | [phone] | | | +--------+---------+ + + + Social History + +-------+ [...] + + documented as of this encounter Last Filed Vital Signs + + + + + | Vital Sign | Reading | Time Taken | Comments | + + + + + | Blood Pressure | - | - | | + + + + + | Pulse | - | - | | + + + + + | Temperature | - | - | | + + + + + | Respiratory Rate | - | - | | + + + + + | Oxygen Saturation | - | - | | + + + + + | Inhaled Oxygen | - | - | | | Concentration | | | | + + + + + | Weight | 75.3 kg (166 lb) | 03/09/2019 1:32 PM | | | | | PST | | + + + + + | Height | 147.3 cm (4' 10") | 03/09/2019 1:32 PM | | | | | PST | | + + + + + | Body Mass Index | 34.69 | 03/09/2019 1:32 PM | | | | | PST | | + + + + + documented in this encounter Progress Notes Naeem Briones MD - 03/09/2019 1:40 PM PSTFormatting of this note might be different fro m the original. [facility] DEPARTMENT OF ORTHOPAEDICS & REHABILITATION Adult Reconstruction / Joint Replacement Surgery Follow Up Exam ID: Celeste Yeboah Seen is here for pre op and follow up. Subjective: She reports that she was evicted from her last living situation and her synagogue has helped her secure a hotel as a temporary living situation. Review of systems: Patient denies fevers, chills, chest pain, shortness of breath, chest pain, leg swelling o r recent infection PE: Ht 1.473 m (4' 10") | Wt 75.3 kg (166 lb) | BMI 34.69 kg/m | BSA 1.76 m Well-appearing, no acute distress Lower extremity exam: Right leg: Alignment: varus Inspection: No surgical wounds, no erythema or other skin lesions Effusion: Moderate effusion Palpation: severe tenderness at the medial and patellofemoral joint line. + pain with patellar grind + pain and + crepitation w/ flexion and extension ROM: 0 degrees of extension to 125 degrees of flexion. LIGAMENTS Extension Mid-Flexion 90 Degrees Varus <5 mm <5 mm <5 mm Valgus 5-10 mm 5-10 mm 5-10 mm Anterior/Posterior <5 mm <5 mm <5 mm Examination of the remainder of the right leg reveals full pain-free range of moriton witho ut tenderness, swelling, or crepitus at the hip and ankle. Left leg: Alignment: normal Inspection: No surgical wounds, no erythema or other skin lesions Effusion: No discernable effusion Palpation: severe tenderness at the patellofemoral joint line. + pain with patellar grind + pain and + crepitation w/ flexion and extension ROM: 0 degrees of extension to 125 degrees of flexion. LIGAMENTS Extension Mid-Flexion 90 Degrees Varus <5 mm <5 mm <5 mm Valgus <5 mm <5 mm <5 mm Anterior/Posterior <5 mm <5 mm <5 mm Examination of the remainder of the left leg reveals full pain-free range of moriton withou t tenderness, swelling, or crepitus at the hip and ankle. Neurologic: Motor: R L Hip flexion 5 5 Quadriceps 5 5 Ankle dorsiflexion 5 5 Ankle plantarflexion 5 5 Extensor hallucis longus 5 5 Sensory: Sensation intact BUT DIMINISHED to light touch distal to the mid-tiba Vascular: Capillary refill <4-5 sec. 1+ pedal edema. + venous varicosities XR: No imaging obtained at visit AP: We can't proceed with total knee arthroplasty at this time due to her living situation . See Addi's note from today. She needs to establish a safe stable living situation prior to us proceeding with a major elective procedure. She will work with her [employer] to find a better living situation and call us to schedule follow up after she has somewhere stable and permanent to live. Naeem Briones MD documented in this en counter Plan of Treatment +--------+ + + + + | Date | Type | Specialty | Care Team | Description | +--------+ + + + + | 03/19/ | Hospital | Adult Acute Care | Naeem Briones, | | | 2020 | Encounter | | [address] | | | | | | [address] | | | | | | [place] | | | | | | [address] | | | | | | [phone] | | | | | | | | +--------+ + + + + | 03/19/ | Procedure | Surgery | | | | 1 | Pass | | | | +--------+ + + + + documented as of this encounter Visit Diagnoses + + | Diagnosis | + + | Bilateral primary osteoarthritis of knee - Primary | + + documented in this encounter
--- OUTSIDE RECORDS SUMMARY | ~2019-03-27 | XMS | Encounter Summary ---
Demographics + + + | Address | [address] | | | [place] [address] | + + + | Home Phone | | + + + | Preferred Language | Unknown | + + + | Marital Status | | + + + | Jewish Affiliation | Unknown | + + + | Race | | + + + | Ethnic Group | Not or | + + + Author + + + | Organization | Unknown | + + + | Address | Unknown | + + + | Phone | Unavailable | + + + Support + + +---------+ + | Name | Relationship | Address | Phone | + + +---------+ + | Shun Savage | ECON | Unknown | | + + +---------+ + Care Team Providers + +------+ + | Care Design Specialist Name | Role | Phone | + +------+ + | Latrell Ortega MD | PCP | | + +------+ + Encounter Details +--------+--------+ + + + | Date | Type | Department | Care Team | Description | +--------+--------+ + + + | 03/09/ | Travel | | | | | 2019 | | | | | +--------+--------+ + + + Social History + +-------+ [...] [address] | | | | | | [place], [place] | | | | | | [address] | | | | | | [phone] | | | | | | | | +--------+ + + + + | 03/19/ | Procedure | Surgery | | | | 2020 | Pass | | | | +--------+ + + + + documented as of this encounter Visit Diagnoses Not on filedocumented in this encounter"
--- OUTSIDE RECORDS SUMMARY | ~2019-03-27 | XMS | Encounter Summary ---
Demographics + + + | Address | [address] | | | [place] [address] | + + + | Home Phone | | + + + | Preferred Language | Unknown | + + + | Marital Status | | + + + | Religion Affiliation | Unknown | + + + | Race | | + + + | Ethnic Group | Not or | + + + Author + + + | Author | [facility] | + + + | Organization | [facility] | + + + | Address | Unknown | + + + | Phone | Unavailable | + + + Support + + +---------+ + | Name | Relationship | Address | Phone | + + +---------+ + | Shun Savage | ECON | Unknown | | + + +---------+ + Care Team Providers + +------+ + | Care Architectural Administrative Assistant Name | Role | Phone | + +------+ + | Latrell Ortega MD | PCP | | + +------+ + Encounter Details +--------+ + + + + | Date | Type | Department | Care Team | Description | +--------+ + + + + | 03/19/ | Patient | [facility] Physical | Addi Danielle, RN | | | 2019 | Outreach | Therapy Services at | [address] [place] | | | | | [facility] | [facility], | | | | | [address] | [place] [address] | | | | | Mailcode: CH3P | [phone] | | | | | [facility] | | | | | | and Healing, | | | | | | [address] | | | | | | [place], [place] | | | | | | [address] | | | | | | [phone] | | | +--------+ + + + [...] [address] | | | | | | [place] | | | | | | [address] | | | | | | [phone] | | | | | | | | +--------+ + + + + | 03/19/ | Procedure | Surgery | | | | 2020 | Pass | | | | +--------+ + + + + documented as of this encounter Visit Diagnoses Not on filedocumented in this encounter"
--- OUTSIDE RECORDS SUMMARY | ~2019-03-27 | XMS | Clinical Summary ---
Demographics + + + | Address | [address] | | | [place] [address] | + + + | Home Phone | | + + + | Preferred Language | Unknown | + + + | Marital Status | | + + + | Presybeterian Affiliation | Unknown | + + + | Race | | + + + | Ethnic Group | Not or | + + + Author + + + | Author | [facility] | + + + | Organization | [facility] | + + + | Address | Unknown | + + + | Phone | Unavailable | + + + Support + + +---------+ + | Name | Relationship | Address | Phone | + + +---------+ + | Shun Savage | ECON | Unknown | | + + +---------+ + Care Team Providers + +------+ + | Care Telephone Order Clerk Room Service Name | Role | Phone | + +------+ + | Latrell Ortega MD | PCP | | + +------+ + Source Comments SHIRA is fully live on both [facility] Ambulatory and [facility] InPatient.[facility] Allergies + + + + + + [...] + | Codeine | Unknown | | 12/18/19 | | | | | | 19 | | + + + + + + | Hydrocodone | Nausea | | 12/18/19 | | | | | | 19 | | + + + + + + | Iodine | Rash | | 12/15/19 | | | | | | 15 | | + + + + + + | Lamotrigine | Mental Status Change | | 01/23/20 | | | | | | 19 [...] + | Hydrocodone-Acetamin | Dyspnea | | 01/22/ | Hyperventilate | | ophen | | [...] | mouth once daily. | | | 3/20 | | e | | | | [...] | + + + +---------+------+------+-------+ Active Problems + + + | Problem | Noted Date | + + + | Type 2 diabetes mellitus without complication | 12/25/2010 | + + + Encounters +--------+ + + + + | Date | Type | Specialty | Care Team | Description | +--------+ + + + + | 03/19/ | Patient | Physical Therapy | Addi Danielle RN | | | 2018 | Outreach | | | | +--------+ + + + + | 03/09/ | Clinical | Orthopedics | Addi Danielle RN | Osteoarthritis | | 2018 | Support | | | | | | Staff | | | | +--------+ + + + + | 03/09/ | Office | Orthopedics | Naeem Briones, | Bilateral primary | | 2018 | Visit | | MD | osteoarthritis of | | | | | | knee (Primary Dx) | +--------+ + + + + | 03/09/ | Office | Physical Therapy | Shiv Day, | Osteoarthritis of | 2018 | Visit | | PT | right knee, | | | | | | unspecified | | | | | | osteoarthritis type | | | | | | (Primary Dx); | | | | | | Arthralgia of right | | | | | | knee | +--------+ + + + + | 03/09/ | Travel | | | | | 2018 | | | | | +--------+ + + + + | 02/26/ | Telephone | Orthopedics | Naeem Briones, | Other | | 2018 | | | MD | | +--------+ + [...] | Naeem Briones, | Pre-Admission | | 2019 | Orders | | MD | | +--------+ + + + + | 01/25/ | Telephone | Cardiology | Anita Cota | Lab findings, | | 2018 | | | AUBREY eKen | teaching, guidance, | | | | [...] involving | | | | | | iqugmiut coronary | | | | | | artery of iqugmiut | | | | | | heart [...] + + + + | 01/22/ | College President | Cardiology | Anita Cota | Palpitations | | 2018 | | | AUBREY Keen | (Primary Dx) | +--------+ + + + + | 01/05/ | Abstract | Cardiology | Unknown | Medical Records | | 2018 | | | | Review (General | | | | | | Record Review) | +--------+ + + + + from [...] | Hospital | Adult Acute Care | AnselmoNaeem morales, | | | 2020 | Encounter | | [address] | | | | | | [address] | | | | | | [place], [place] | | | | | | [address] | | | | | | [phone] | | | | | | | | +--------+ + + + + | 03/19/ | Procedure | Surgery | | | | 2020 | Pass | | | | +--------+ + + + + + + + + + | Health Maintenance | Due Date | Last Done | Comments | + + + + + | Influenza (Flu) | 10/01/201 | 01/22/2018, 12/21/2015, | | | vaccination [...] | | ADULT | | PDT | iqugmiut coronary | results section. | | | | | artery of iqugmiut | | | | | | heart [...] section. | + +--------+ + + + from [...] Performed At | + + + | Community Health | [facility] DEPT OF | | [facility] Adult Echocardiography [facility] [address] CARDIOLOGY | | [place], [place] [address] Ph: | | | Pt Name: CELESTE Yeboah SEEN | | | Study Date/Time 01/22/2019 / 4:07:13 PMMRN: [id number] | | | Most recent prior: -[facility] #: [id number] | | | No. previous echos: 0DOB: 1955 63 years Heart Rate: | | | 86 bpmHeight: 58.0 in Blood Pressure: | | | 128/74 mm/HgWeight: 165.0 lb Gender: | | | FBSA: 1.68 m | | | Order ID: [id number] Study | | | Location: OPSonographer: Stephany YAÑEZ, RDCSSonographer 2: Dylan | | | [facility] Desert Medical Centerllow:Referring Provider: Anita Velasquez | | | Performed: [...] Report electronically signed by: | | | [id number] Rk Martinez MD (01/22/2019, 5:26:52 PM) Final [...] | | | |Report electronically signed by: [id number] Rk Martinez MD (01/22/2019, 5:26:52 | | |PM) | | | | | | | | | | | | Final | | + + + + + | Procedure Note | + + | Interface, Cardiology Results - 01/22/2019 5:26 PM [facility] iNeed | | [facility] | | [place], [place] [address] Pt Name: CELESTE Yeboah | | SEEN Study Date/Time 01/22/2019 / 4:07:13 PMMRN: [id number] Most | | recent prior: -Acc #: [id number] No. previous echos: 0DOB: 1955 63 | | years Heart Rate: 86 bpmHeight: 58.0 in Blood Pressure: 128/74 | | mm/HgWeight: 165.0 lb Gender: FBSA: 1.68 m | | Order ID: [id number] Study Location: OPSonographer: Stephany Constantino | | [...] and indexed values Report electronically signed by: [id number] Rk | | Michelle JAMA (01/22/2019, 5:26:52 [...] | | | |Report electronically signed by: [id number] Rk Martinez MD (01/22/2019, 5:26:52 | |PM) | | | | | | | | Final | + + + + + + + | Performing | Address | City/State/Zipcode | Phone Number | | Organization | | | | + + + + + | [facility] DEPT OF | [address] | [place], [place] | | | CARDIOLOGY | [address] | [address] | | + + + + + [...] | + + + + + | [facility] DEPT OF | [address] | [place], [place] | | | CARDIOLOGY | [address] | [address] | | + + + + + from Last 3 Months Insurance [...] | MEDICA | xxxxxxxxxxx | 10/03/18 | [phone] | [address] | Medica | | | RE A & | | [address] | 1 | [phone] | [address] | | | [address] | | sent | | [place] | | | | | | | | [address] | | + +--------+ +--------+ + +--------+ | 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
--- OUTSIDE RECORDS SUMMARY | ~2019-03-27 | XMS | Encounter Summary ---
Demographics + + + | Address | [address] | | | [place] [address] | + + + | Home Phone | | + + + | Preferred Language | Unknown | + + + | Marital Status | | + + + | Temple Affiliation | Unknown | + + + | Race | | + + + | Ethnic Group | Not or | + + + Author + + + | Author | [facility] | + + + | Organization | [facility] | + + + | Address | Unknown | + + + | Phone | Unavailable | + + + Support + + +---------+ + | Name | Relationship | Address | Phone | + + +---------+ + | Shun Savage | ECON | Unknown | | + + +---------+ + Care Team Providers + +------+ + | Care Dye Machine Tender Name | Role | Phone | + +------+ + | Latrell Ortega MD | PCP | | + +------+ + Reason for Visit +--------+ + | Reason | Comments | +--------+ + | Other | | +--------+ + Encounter Details +--------+ + + + + | Date | Type | Department | Care Team | Description | +--------+ + + + + | 02/26/ | Telephone | Orthopaedics at | Naeem Briones, | Other | | 2019 | | [facility] [address] | [address] | | | | | [place] Mailcode: CH[address]A | [address] | | | | | [facility] | [place], [place] | | | | | and Healing, | [address] | | | | | [facility] | [phone] | | | | | Floor [place], [place] | | | | | | [address] | | | | | | [phone] | | | +--------+ + + + [...] Rd | | | | | | [place], [place] | | | | | | [address] | | | | | | [phone] | | | | | | | | +--------+ + + + + | 03/19/ | Procedure | Surgery | | | 2020 | Pass | | | | +--------+ + + + + documented as of this encounter Visit Diagnoses Not on filedocumented in this encounter"
--- OUTSIDE RECORDS SUMMARY | ~2019-03-27 | XMS | Encounter Summary ---
Demographics + + + | Address | [address] | | | [place] [address] | + + + | Home Phone | | + + + | Preferred Language | Unknown | + + + | Marital Status | | + + + | Worship Affiliation | Unknown | + + + [...] Team Providers + +------+ + | Care Professor Of Practice Name | Role | Phone | + +------+ + | Josiah Soliz MD | PCP | | + +------+ + Reason for Referral Consultation (Urgent) + +--------+ + + + + | Status | Reason | Specialty | Diagnoses / | Referred By | Referred To | | | | | Procedures | Contact | Contact | + +--------+ + + + + | Authorized | | Cardiology | Diagnoses | Anselmo, | [place], | | | | | Pain in | Naeem Mortensen MD | Anita Keen, | | | | | both knees, | [address] | PA-C [address] | | | | | unspecified | [address] | [address] | | | | | chronicity | [facility] | [place], [place] | | | | | Procedures | [place] | [address] | | | | | CONSULT TO | [address] | Phone: | | | | | CARDIOLOGY | Phone: | [phone] | | | | | | [phone] | Fax: | | | | | | Fax: | [phone] | | | | | | [phone] | | + +--------+ + + + + Reason for Visit + + + | Reason | Comments | + + + | New patient | | | consultation | | + + + Encounter Details +--------+---------+ + + + | Date | Type | Department | Care Team | Description | +--------+---------+ + + + | 12/17/ | Office | [facility] Orthopaedics | Naeem Briones, | Pain in both knees, | | 2018 | Visit | & Rehabilitation | [address] [place] | unspecified | | | | [address] | [address] | chronicity (Primary | | | | [address] [place] | [place], [place] | Dx) | | | | [address] | [address] | | | | | [phone] | [phone] | | | | | | | | +--------+---------+ + + + [...] + + + + | Weight | 71.2 kg (157 lb) | 12/17/2018 11:44 AM | | | | | PDT | | + + + + + | Height | 148.6 cm (4' 10.5") | 12/17/2018 11:44 AM | | | | | PDT | | + + + + + | Body Mass Index | 32.25 | 12/17/2018 11:44 AM | | | | | PDT | | + + + + + documented in this encounter Progress Notes Naeem Briones MD - 12/17/2018 11:25 AM PDTFormatting of this note might be different fro m the original. [facility] [place] DEPARTMENT OF ORTHOPAEDICS & REHABILITATION Adult Reconstruction / Joint Replacement Surgery New Patient History & Physical Exam Chief Complaint, Reason for Consultation: Bilateral knee eval Referring Provider: Josiah Soliz MD [facility] [address] [facility] [place] [address] History of Present Illness: Ms. Hyde is a 63 year old pleasant female who presents today complaining of bilateral knee pain x 10 years. The pain is located in the global. The patient describes the pain as aching, burning and squeezing and limits her function darline ly. Radiation of the pain is negative. The patient reports pain at night. History of prior knee surgery include None to the knees Previous treatments, efficacy or reason treatments are contraindicated: ? Medications: Patient has tried taking previous analgesic meds: ibuprofen and acetaminophe n for pain. ? Weight loss: WEIGHT LOSS: Has attempted with limited success ? Physical therapy: HISTORY OF PT: Patient has had prior physical therapy and symptoms hav e progressed in spite of good effort. ? Injections: HISTORY OF INJECTIONS: Patient has had injections in the past which did not p rovide lasting relief of symptoms. (Last injection was about a week ago in [place]) ? Braces, orthotics and/or assistive devices: Symptoms are progressing in spite of ORTHODEV ICE: cane use Additional details include: - Gait aids used: Cane - Walking Distance Without Pain: <1 blocks (one block is 200 meters/yards) - Support available at home for post-op care: No, likely she will require a long term facility placement Other details: She has been followed by Dr. Tawanda Craft in [place] and he told her due to her complex medical history that she needed to come to [facility] for total knee arthroplasty. Due to knee pain the patient endorses difficulties and limitations of the following activit ies of daily living = Mobility / Ambulation, Transfers, Walking and Stairs Safety concerns: None Past Medical History: Past Medical History: Diagnosis Date ADD (attention deficit disorder) Anemia Bipolar disorder (HCC) Cardiac angina (HCC) COPD (chronic obstructive pulmonary disease) (HCC) Diabetes mellitus (HCC) Epilepsy (HCC) Hypothyroidism Medications: albuterol (VENTOLIN HFA) 90 mcg/actuation inhalation HFA aerosol inhaler, 18 g. allopurinol 300 mg oral tablet, allopurinol 300 mg tablet aspirin EC 81 mg oral tablet,delayed release (DR/EC), Take 81 mg by mouth once daily. ergocalciferol 50,000 unit oral capsule, Vitamin D2 50,000 unit capsule TAKE ONE CAPSULE B Y MOUTH ONCE A WEEK famotidine 20 mg oral tablet, Take 20 mg by mouth two times daily. gabapentin 300 mg oral capsule, gabapentin 300 mg capsule levothyroxine 88 mcg oral tablet, levothyroxine 88 mcg tablet LORazepam 0.5 mg oral tablet, lorazepam 0.5 mg tablet lurasidone (LATUDA) 120 mg oral tablet, Latuda 120 mg tablet metFORMIN 500 mg oral tablet, metformin 500 mg tablet ondansetron ODT 4 mg oral tablet,disintegrating, ondansetron 4 mg disintegrating tablet psyllium husk (METAMUCIL ORAL), Take by mouth. sertraline 50 mg oral tablet, sertraline 50 mg tablet torsemide 20 mg oral tablet, torsemide 20 mg tablet Allergies: Allergies not on file Review of systems: ROS DENIES: anticoagulation, immunosuppressants, hormone therapy, + DM, she says she has a IVC filter but doesn't remember having any deep venous thrombosis, +CAD Constitutional symptoms such as fever, chills, and sweats is negative. History of inflammatory disease is negative. History of bleeding or clotting disorders is negative Family History: Patient denies family history of coagulopathies or problems with anesthesia. Social History: Social History Socioeconomic History Marital status: Spouse name: Not on file Number of children: Not on file Years of education: Not on file Highest education level: Not on file Occupational History Not on file Social Needs Financial resource strain: Not on file Food insecurity: Worry: Not on file Inability: Not on file Transportation needs: Medical: Not on file Non-medical: Not on file Tobacco Use Smoking status: Never Smoker Smokeless tobacco: Never Used Substance and Sexual Activity Alcohol use: Not Currently Frequency: Never Drug use: Not on file Sexual activity: Not on file Lifestyle Physical activity: Days per week: Not on file Minutes per session: Not on file Stress: Not on file Relationships Social connections: Talks on phone: Not on file Gets together: Not on file Attends sikhism service: Not on file Active member of club or organization: Not on file Attends meetings of clubs or organizations: Not on file Relationship status: Not on file Other Topics Concern Not on file Social History Narrative Not on file The patient's medical history, medications, allergies, surgical history, family history, so cial history, and a complete review of systems are also included on today's patient question naire (see Scanned Documents/Media section). EXAM: Last Vitals: Ht 1.486 m (4' 10.5") | Wt 71.2 kg (157 lb) | BMI 32.25 kg/m | BSA 1.71 m Body mass index is 32.25 kg/m. General: No acute distress, Alert &Oreiented x3. Body Habitus: Obesity: Obese Chest: Breathing non-labored, no signs of respiratory distress. Skin: Skin: Chronic skin changes consistent with vascular insufficiency from the mid tibia distally throughout Lymph: No lymphedema Gait: Antalgic Lower extremity exam: Right leg: Alignment: varus [...] sec. 1+ pedal edema. + venous varicosities Imagin views right knee, including weight-bearing PA and flexion PA views, and 1 view standing alignment show severe end-stage varus tricompartmental knee osteoarthritis with complete los s of the medial and patellofemoral compartment joint space, subchondral sclerosis and osteop hyte formation. Impression: Diagnosis(es): bilateral knee (R>L) Severe varus Tricompartmental Osteoarthritis Other pertinent medical conditions: -COPD - she is on appropriate medical treatment -Epilepsy - on appropriate medical treatment, -DM - Last HbA1c was <7 -Hypothyroid - on appropriate medical treatment -Chronic anemia - no recent H/H to review -Bipolar - managed by primary care physician -Cardiac angina / CAD - She doesn't have a salvage engineering technician and is unsure what cardiac work up she has had. Plan: We had a long discussion of non-surgical and surgical options. I think that she would manohar lly benefit from a total knee arthroplasty but before we proceed with this procedure I am ju st really worried about her cardiac status, she says she doesn't have a salvage engineering technician and isn 't sure what cardiac work up she has had recently. This along with the 1+ pitting edema in her lower extremities and chronic skin changes in her legs are really concerning that there may be CHF that is not optimized or other cardiac issues that are not optimized prior to pro ceeding with surgery she needs cardiac clearance, evaluation and optimization. Follow up after this is done. Naeem Briones MD documented in this en [...] Rd | | | | | | [place], [place] | | | | | | [address] | | | | | | [phone] | | | | | | | | +--------+ + + + + | 03/19/ | Procedure | Surgery | | | | 2020 | Pass | | | | +--------+ + + + + documented as of this encounter Results X-RAY KNEE 4 VIEWS [...] Preliminary: Donald Luque MD Dictation initiated: Donald Luque MD 12/17/2018 11:17 AM | | [...] | Pain in both knees, unspecified chronicity - Primary | + + documented in this encounter
--- OUTSIDE RECORDS SUMMARY | ~2019-03-27 | XMS | Encounter Summary ---
Demographics + + + | Address | [address] | | | [place] [address] | + + + | Home Phone | | + + + | Preferred Language | Unknown | + + + | Marital Status | | + + + | Uatsdin Affiliation | Unknown | + + + | Race | | + + + | Ethnic Group | Not or | + + + Author + + + | Author | [facility] | + + + | Organization | [facility] | + + + | Address | Unknown | + + + | Phone | Unavailable | + + + Support + + +---------+ + | Name | Relationship | Address | Phone | + + +---------+ + | Shun Savage | ECON | Unknown | | + + +---------+ + Care Team Providers + +------+ + | Care Pick Up Man Name | Role | Phone | + +------+ + | Josiah Soliz MD | PCP | | + +------+ + Encounter Details +--------+ + + + + | Date | Type | Department | Care Team | Description | +--------+ + + + + | 01/25/ | Documentati | Orthopaedics at | Addi Danielle RN | | | 2019 | on | [facility] [address] | [address] | | | | | April Mailcode: CH12A | [facility] | | | | | [facility] | [place] [address] | | | | | and Healing, | [phone] | | | | | [facility] | | | | | | Floor [place], [place] | | | | | | [address] | | | | | | [phone] | | | +--------+ + + + [...] Rd | | | | | | [place] | | | | | | [address] | | | | | | [phone] | | | | | | | | +--------+ + + + + | 03/19/ | Procedure | Surgery | | | | 2020 | Pass | | | | +--------+ + + + + documented as of this encounter Visit Diagnoses Not on filedocumented in this encounter"
--- OUTSIDE RECORDS SUMMARY | ~2019-03-27 | XMS | Encounter Summary ---
Demographics + + + | Address | [address] | | | [place] [address] | + + + | Home Phone | | + + + | Preferred Language | Unknown | + + + | Marital Status | | + + + | Shinto Affiliation | Unknown | + + + | Race | | + + + | Ethnic Group | Not or | + + + Author + + + | Author | [facility] | + + + | Organization | [facility] | + + + | Address | Unknown | + + + | Phone | Unavailable | + + + Support + + +---------+ + | Name | Relationship | Address | Phone | + + +---------+ + | Shun Savage | ECON | Unknown | | + + +---------+ + Care Team Providers + +------+ + | Care Abrasive Mixer Helper Name | Role | Phone | + [...] Records | | 2019 | | at [facility] [address] | | Review (General | | | | [address] Mailcode: | | Record Review) | | | | [address] | | | | | | Health and Healing, | | | | | | [facility] | | | | | | floor [place], [place] | | | | | | [address] | | | | | | [phone] | | | +--------+ + + + [...] seen for abnormal ECG Years ago ? [facility] n N/A Last Echo images and report December [facility] Last Stress Test images and report no Last Cardiac Catheterization images and report no Last Holter or Event monitor report only no N/A Labs (BMP, Lipids, TSH, Hemoglobin A1C in last 6 months) [facility] in [facility] N/A Last Device Check (schedule device check if due) n N/A Last Cardiac MRI report and images if available n Cardiac CTA report and images if available ? [facility] Patient Preferred Lab ? N/A N/A N/A [...] Rd | | | | | | [place] | | | | | | [address] | | | | | | [phone] | | | | | | | | +--------+ + + + + | 03/19/ | Procedure | Surgery | | | | 2020 | Pass | | | | +--------+ + + + + documented as of this encounter Visit Diagnoses Not on filedocumented in this encounter"
--- OUTSIDE RECORDS SUMMARY | ~2019-03-27 | XMS | Encounter Summary ---
Demographics + + + | Address | [address] | | | [place] [address] | + + + | Home Phone | | + + + | Preferred Language | Unknown | + + + | Marital Status | | + + + | Mandaeism Affiliation | Unknown | + + + | Race | | + + + | Ethnic Group | Not or | + + + Author + + + | Author | [facility] | + + + | Organization | [facility] | + + + | Address | Unknown | + + + | Phone | Unavailable | + + + Support + + +---------+ + | Name | Relationship | Address | Phone | + + +---------+ + | Shun Savage | ECON | Unknown | | + + +---------+ + Care Team Providers + +------+ + | Care Recreation Director Name | Role | Phone | + [...] | Other | | 2019 | | [facility] [address] | [address] | | | | | April Mailcode: CH12A | [address] | | | | | [facility] | [place], [place] | | | | | and Healing, | [address] | | | | | [facility] | [phone] | | | | | Floor [place], [place] | | | | | | [address] | | | | | | [phone] | | | +--------+ + + + [...] Rd | | | | | | [place], [place] | | | | | | [address] | | | | | | [phone] | | | | | | | | +--------+ + + + + | 03/19/ | Procedure | Surgery | | | 2020 | Pass | | | | +--------+ + + + + documented as of this encounter Visit Diagnoses Not on filedocumented in this encounter"
--- OUTSIDE RECORDS SUMMARY | ~2019-03-27 | XMS | Encounter Summary ---
Demographics + + + | Address | [address] | | | [place] [address] | + + + | Home Phone | | + + + | Preferred Language | Unknown | + + + | Marital Status | | + + + | Congregational Affiliation | Unknown | + + + | Race | | + + + | Ethnic Group | Not or | + + + Author + + + | Author | [facility] | + + + | Organization | [facility] | + + + | Address | Unknown | + + + | Phone | Unavailable | + + + Support + + +---------+ + | Name | Relationship | Address | Phone | + + +---------+ + | Shun Savage | ECON | Unknown | | + + +---------+ + Care Team Providers + +------+ + | Care Assistant Media Planner Name | Role | Phone | + [...] Anita Cota | Medical Records | | 2019 | | at [facility] [address] | [address] | Review | | | | [address] Mailcode: | [address] [place], | | | | | [address] | [place] [address] | | | | | Health and Healing, | [phone] | | | | | [facility] | | | | | | floor [place], [place] | | | | | | [address] | | | | | | [phone] | | | +--------+ + + + [...] Rd | | | | | | [place], [place] | | | | | | [address] | | | | | | [phone] | | | | | | | | +--------+ + + + + | 03/19/ | Procedure | Surgery | | | | 2020 | Pass | | | | +--------+ + + + + documented as of this encounter Visit Diagnoses Not on filedocumented in this encounter"
--- OUTSIDE RECORDS SUMMARY | ~2019-03-27 | XMS | Encounter Summary ---
Demographics + + + | Address | [address] | | | [place] [address] | + + + | Home Phone | | + + + | Preferred Language | Unknown | + + + | Marital Status | | + + + | Presybeterian Affiliation | Unknown | + + + | Race | | + + + | Ethnic Group | Not or | + + + Author + + + | Author | [facility] | + + + | Organization | [facility] | + + + | Address | Unknown | + + + | Phone | Unavailable | + + + Support + + +---------+ + | Name | Relationship | Address | Phone | + + +---------+ + | Shun Savage | ECON | Unknown | | + + +---------+ + Care Team Providers + +------+ + | Care Computer Operations Supervisor Name | Role | Phone | + +------+ + | Josiah Soliz MD | PCP | | + +------+ + Encounter Details +--------+ + + + + | Date | Type | Department | Care Team | Description | +--------+ + + + + | 12/17/ | Hospital | Radiology at | Naeem Briones, | | | 2019 | Encounter | [address] | [address] | | | | | [address] | [address] | | | | | [place], [place] | [place], [place] | | | | | [address] | [address] | | | | | [phone] | [phone] | | | | | | | [...] Rd | | | | | | [place], [place] | | | | | | [address] | | | | | | [phone] | | | | | | | [...] Note | + + | Service Account, RadiPromuc Res In Interface - 12/17/2018 11:43 AM [...] | | MD Ene Dictation initiated: Donald uLque MD 12/17/2018 11:17 AM | |IMPRESSION: | [...]
--- OUTSIDE RECORDS SUMMARY | ~2019-03-27 | XMS | Encounter Summary ---
Demographics + + + | Address | [address] | | | [place] [address] | + + + | Home Phone | | + + + | Preferred Language | Unknown | + + + | Marital Status | | + + + | Orthodoxy Affiliation | Unknown | + + + | Race | | + + + | Ethnic Group | Not or | + + + Author + + + | Author | [facility] | + + + | Organization | [facility] | + + + | Address | Unknown | + + + | Phone | Unavailable | + + + Support + + +---------+ + | Name | Relationship | Address | Phone | + + +---------+ + | Shun Savage | ECON | Unknown | | + + +---------+ + Care Team Providers + +------+ + | Care Filler Sifter Helper Name | Role | Phone | [...] [address] | | | | | [facility] | [facility], | | | | | [address] | [place] [address] | | | | | Mailcode: CH3P | [phone] | | | | | [facility] | | | | | | and Healing, | | | | | | [address] | | | | | | [place], [place] | | | | | | [address] | | | | | | [phone] | | | +--------+ + + + [...] Rd | | | | | | [place] | | | | | | [address] | | | | | | [phone] | | | | | | | | +--------+ + + + + | 03/19/ | Procedure | Surgery | | | | 2020 | Pass | | | | +--------+ + + + + documented as of this encounter Visit Diagnoses Not on filedocumented in this encounter"
--- OUTSIDE RECORDS SUMMARY | ~2019-03-27 | XMS | Encounter Summary ---
Demographics + + + | Address | [address] | | | [place] [address] | + + + | Home Phone | | + + + | Preferred Language | Unknown | + + + | Marital Status | | + + + | Yarsani Affiliation | Unknown | + + + | Race | | + + + | Ethnic Group | Not or | + + + Author + + + | Author | [facility] | + + + | Organization | [facility] | + + + | Address | Unknown | + + + | Phone | Unavailable | + + + Support + + +---------+ + | Name | Relationship | Address | Phone | + + +---------+ + | Shun Savage | ECON | Unknown | | + + +---------+ + Care Team Providers + +------+ + | Care Box Toe Buffer Name | Role | Phone | + [...] Referral (bilat | | 2019 | | [facility] [address] | Clinic | knees ) | | | | April Mailcode: CH12A | | | | | | [facility] | | | | | | and [place], | | | | | | [facility] | | | | | | [place], [place] | | | | | | [address] | | | | | | [phone] | | | +--------+ + + + [...] of this note might be different from th e original. Orthopaedics New Patient Record Check List [...] L&I as they do not pay at [place] rates. Other out of state claims will only be accepted if they agree to pay at [place] rates docume nted in writing from adjustor. Can you confirm the insurance we will be billing for this visit? Medicare A & B Note: If OHP, please note which type. E.g. [place], [place], Tr[place] m, etc.) Reminder: Please create referrals for pts with: HMO, OHP, [place], Self-Pay, W/C, TPL an d ED Post- [...] they d like to sign up for [employer] ? Don t forget to pull in [...] Rd | | | | | | [place], [place] | | | | | | [address] | | | | | | [phone] | | | | | | | | +--------+ + + + + | 03/19/ | Procedure | Surgery | | | | 2020 | Pass | | | | +--------+ + + + + documented as of this encounter Visit Diagnoses Not on filedocumented in this encounter"
--- OUTSIDE RECORDS SUMMARY | ~2019-03-27 | XMS | Encounter Summary ---
Demographics + + + | Address | [address] | | | [place] [address] | + + + | Home Phone | | + + + | Preferred Language | Unknown | + + + | Marital Status | | + + + | Worship Affiliation | Unknown | + + + | Race | | + + + | Ethnic Group | Not or | + + + Author + + + | Author | [facility] | + + + | Organization | [facility] | + + + | Address | Unknown | + + + | Phone | Unavailable | + + + Support + + +---------+ + | Name | Relationship | Address | Phone | + + +---------+ + | Shun Savage | ECON | Unknown | | + + +---------+ + Care Team Providers + +------+ + | Care Retail Merchandiser Name | Role | Phone | + +------+ + | Josiah Soliz MD | PCP | | + +------+ + Reason for Referral Diagnostic Testing (Routine) + +--------+ + + + + | Status | Reason | Specialty | Diagnoses / | Referred By | Referred To | | | | | Procedures | Contact | Contact | + +--------+ + + + + | New Request | | Cardiology | Diagnoses | Bischof, | | | | | | Coronary | Anita Keen, | | | | | | artery | [address] | | | | | | disease | [address] | | | | | | involving | [place], | | | | | | [place] | [place] | | | | | | coronary | [address] | | | | | | artery of | Phone: | | | | | | [place] heart | [phone] | | | | | | without | Fax: | | | | | | angina | [phone] | | | | | | pectoris [...] Comments | + + + | New Patient Visit | | + + + Consultation (Urgent) + +--------+ + + + [...] | | unspecified | [address] | [address] | | | | | chronicity | [address] | [place], [place] | | | | | Procedures | [place] | [address] | | | | | CONSULT TO | [address] | Phone: | | | | | CARDIOLOGY | Phone: | [phone] | | | | | | [phone] | Fax: | | | | | | Fax: | [phone] | | | | | | [phone] | | + +--------+ + + + + Encounter Details +--------+---------+ + + + | Date | Type | Department | Care Team | Description | +--------+---------+ + + + | 01/22/ | Office | Cardiology General | Anita Lincoln | Coronary artery | | 2019 | Visit | at [facility] [address] | [address] | disease involving | | | | [address] Mailcode: | [address] [facility], | [place] coronary | | | | [address] | [place] [address] | artery of [place] | | | | [facility], | [phone] | heart without angina | | | | Building | | pectoris (Primary | | | | floor [place], [place] | | Dx); Obesity (BMI | | | | [address] | | 30.0-34.9); | | | | [phone] | | Essential | | | | | | hypertension; | | | | | | Pre-operative | | | | | | cardiovascular | | | | | | examination | +--------+---------+ + + + Social History [...] + + + documented in this encounter Patient Instructions Patient Instructions Anita Lincoln PA-C - 01/22/2019 11:10 AM PDT1. Your ECG looks good today, thank you for getting the echo today 2. Your cardiovascular risk is low and if the echo is good today then I don't think you ne ed any more testing documented in this encounter Progress Notes Anita Lincoln PA-C - 01/22/2019 11:10 AM PDTADDENDUM 01/25/19: Ms. Posey had an echo cardiogram on Friday which was normal with normal LV size and function and normal cardiac va lves. Her last clinical note from her primary care provider was received and there is no ev idence of coronary artery disease, IVC filter placement or removal. Ms. Posey is a confabula tory historian due to her mental health issues. She can proceed with elective surgery withou t further cardiac testing indicated. ANITA LINCOLN PA-C CARDIOLOGY GENERAL AT [facility] [address] Mailcode: [address] [place] [address] ischLinda patel PA-C - 01/22/2019 11:10 AM PDTFormatting of this note might be different from the or iginal. CARDIOLOGY ENCOUNTER NOTE Reason for Visit: This is a scheduled visit for cardiac evaluation and risk assessment. She is alone today an d is a fair historian. History: Per chart review: Celeste Yeboah Seen is a 63 y.o. / female with history of D IABETES MELLITUS, CAD, IVC filter, COPD, eplilepsy, hypothyroidism, chronic anemia, bipolar disorder who is referred by Josiah Soliz MD for cardiac evaluation and risk assessment for total knee arthroplasty with Naeem Briones MD, TBA. Today, patient reports history of coronary artery disease; reports history of myocardial in [facility] in 1988. Patient reports history of congestive heart failure. denies history of DVT /PE Patient reports bypass surgery in 1988 in [place] but has no midline sternal incision scar. S he reports that her chest pain has resolved after her IVC filter was removed. (no records to support this). She denies palpitations, tachycardia, irregular heart beat, chest pain, exe rtional chest pain or pressure, paroxysmal nocturnal dyspnea. She was taking aspirin 81 mg daily but her PCP told her to stop it. She seems to know her medications well but reports several surgeries and problems that are not documented. History of Endocarditis or need for Endocarditis Prophylaxis? no History of Phen-Fen exposure? no Exercise History: She walks with walker MET ASSESSMENT: <4 METS Past Medical, Family & Social Histories: Medical, Family & Social histories were reviewed and updated in EMR based on conversation w ith the patient, and noteable for the following: (Please see that section of the EMR for ful l details) - all reviewed with patient today. Past Medical History: Diagnosis Date ADD (attention deficit disorder) Anemia Bipolar disorder (HCC) Cardiac angina (HCC) COPD (chronic obstructive pulmonary disease) (HCC) Diabetes mellitus (HCC) Epilepsy (HCC) Hypothyroidism Current Outpatient Medications Medication Sig albuterol (VENTOLIN HFA) 90 mcg/actuation inhalation HFA aerosol inhaler 18 g. allopurinol 300 mg oral tablet allopurinol 300 mg tablet once daily aspirin EC 81 mg oral tablet,delayed release (DR/EC) Take 81 mg by mouth once daily. ergocalciferol 50,000 unit oral capsule Vitamin D2 50,000 unit capsule TAKE ONE CAPSULE BY MOUTH ONCE A WEEK famotidine 20 mg oral tablet Take 20 mg by mouth once daily. gabapentin 300 mg oral capsule 900mg at bedtime levothyroxine 100 mcg oral tablet Take 100 mcg by mouth once daily. LORazepam 0.5 mg oral tablet lorazepam 0.5 mg tablet at bedtime lurasidone (LATUDA) 120 mg oral tablet 80mg once daily metFORMIN 500 mg oral tablet 1000 mg once daily ondansetron ODT 4 mg oral tablet,disintegrating ondansetron 4 mg disintegrating tablet promethazine 25 mg oral tablet Take 25 mg by mouth as needed for nausea/vomiting. psyllium husk (METAMUCIL ORAL) Take by mouth. sertraline 50 mg oral tablet sertraline 50 mg tablet once daily torsemide 20 mg oral tablet torsemide 20 mg tablet once daily No current facility-administered medications for this visit. Family History Problem Relation Diabetes type II Sister Social History Tobacco Use Smoking status: Never Smoker Smokeless tobacco: Never Used Substance Use Topics Alcohol use: Not Currently Frequency: Never Review of Systems: Pertinent items are noted in HPI. Physical Exam: Vitals reviewed and noted as: BP 146/73 (BP Location: Left upper arm, Patient Position: Sitting) | Pulse 95 | Temp 36.8 C (98.3 F) (Oral) | Ht 1.473 m (4' 10") | Wt 75.1 kg (165 lb 9.6 oz) | SpO2 99% | B KY 34.61 kg/m | BSA 1.75 m Body mass index is 34.61 kg/m. Vital signs reviewed. General: comfortable, alert, cooperative with pressured speech HEENT: normal conjunctivae and anicteric sclerae Neck: supple without restricted range of motion, thyroid symmetric & normal in size, trach ea midline and no carotid bruits Heart and Lung: chest is clear without rales or wheezing and respiratory effort is unlabor ed, S1, S2 normal, no S3 or S4, heart sounds notable for 1/6 systolic murmur at LSB, regular rate and rhythm and 1 + pedal edema present; Abdomen/rectal: abdomen is soft and no tenderness, rebound tenderness or guarding; Extremities: extremities normal without deformity, no clubbing or cyanosis and utilizing walker Neuro: normal gait and station and no tremor Psych: bright affect, anxious, pressured speech Laboratory/Diagnostics: Per chart review, reviewed today and summarized below: No results found for: HB, HCT, PLT, BUN, CR, GLU, A1C, CHOL, LDL, HDL, TRI, TSH, BNP ECG 01/22/2019 (My preliminary read based on review of tracing in clinic) - Sinus rhythm, pr emature atrial contractions, probable LAE No other cardiac records available Cardiac Risk Stratification (based on 2014 ACC/AHA Guideline on Perioperative Cardiovascula r Evaluation and Management of Patients Undergoing Noncardiac Surgery): 1. Need for emergency noncardiac surgery? b. No -> Proceed to next step 2. MEDICAL DECISION MAKING: Are active cardiac conditions present? No Calculate the combined surgical and patient-specific risk: RCRI risk calculator (one point for each "yes" answer) A. Elevated risk surgery?: no B. Ischemic heart disease: ? C. Compensated / prior heart failure:? D. Diabetes mellitus (treated with insulin): no E. Renal insufficiency (Cr>2): no F. Cerebrovascular disease: no Risk of MACE 0 risk factors - 0.4% 1 risk factor - 0.9% 2 risk factors - 6.6% 3 risk factors - 11% The risk of major adverse cardiac event (MACE) is: 6-7% (greater than 1%). Determine functional capacity: Functional capacity is <4 METs. she would benefit from furt her CAD risk stratification prior to proceeding with planned surgery. Surgery Specific Risk RCRI - (intraperitoneal; intrathoracic; suprainguinal vascular) 3. Good functional capacity? (>4 METS)b. No -> proceed with next step DASI Online Calculator 4. If poor (< 4 METs) or unknown functional capacity, will further testing will impact pat ient decision making or perioperative care - yes Assessment/Plan:: Preoperative Evaluation: Celeste Posey is a 63 y.o. / female with history of DIABETES MELLITUS, CAD, IVC filter, COPD, GERD, eplilepsy, hypothyroidism, chronic anemia, bipolar disorder who is referred by Josiah Soliz MD for cardiac evaluation and risk assessment for total k nee arthroplasty with Naeem Briones MD, TBA. She has 2 risk factor(s) undergoing Intermediate risk surgery, with an exercise tolerance of <4 METs with no symptoms of chest pain or shortness of breath which may be suggestive of ischemia. LVSF is normal. Nonspecific ST-T wave abnormalities shown on ECG are considered m inor predictors, and that while recognized as markers for cardiovascular disease, they have not been proven to increase perioperative risk independently. Per ACC/AHA guidelines, furthe r risk stratification is indicated prior to surgery, as results may change perioperative man agement. Per Revised Cardiac Risk Index, predicted risk of perioperative cardiac morbidity/m ortality is approximately 6-7%. Echocardiogram scheduled today to evaluate LV size and funct ion. - Recommend patient continue all blood pressure medications perioperatively, as preventing significant increases in double product or cardiac workload is ceballos in preventing perioperat lala cardiac complications. I discussed the implications of the preoperative evaluation with the patient including risk stratification.Patient verbalized understanding of plan of care and instructions as outline d. A report of this preoperative evaluation will be sent to PCP Josiah Soliz MD and refer ring provider/surgeon Naeem Briones MD. CARDIOLOGY - PREVENTIVE [address] Mailcode: [address] [facility] [address] [phone] signed by Anita Lincoln PA-C at 01/22/2019 3:00 PM PDTdo cumented in this encounter Plan of Treatment +--------+ + + + + | Date | Type | Specialty | Care Team | Description | +--------+ + + + + | 03/19/ | Hospital | Adult Acute Care | Naeem Briones P, | | | 2020 | Encounter | | [address] | | | | | | [address] | | | | | | MEDICINE [place], [place] | | | | | | [address] | | | | | | [phone] | | | | | | | [...] | | ADULT | | PDT | [place] | results section. | | | | | artery of [place] | | | | | | heart [...] Performed At | + + + | [facility] DEPT OF | | [facility] Echocardi[facility] [address] | CARDIOLOGY | | [place], [place] [address] Ph: | | | Pt Name: CELESTE POSEY | | | Study Date/Time 01/22/2019 / 4:07:13 PMMRN: [id number] | | | Most recent prior: -Acc #: [id number] | | | No. previous echos: 0DOB: 1955 63 years Heart Rate: | | | 86 bpmHeight: 58.0 in Blood Pressure: | | | 128/74 mm/HgWeight: 165.0 lb Gender: | | | FBSA: 1.68 m | | | Order ID: [id number] Study | | | Location: OPSonographer: Stephany YAÑEZ, RDCSSonographer 2: Dylan | | | ValenciaCristiana:Referring Provider: Anita Velasquez | | | Performed: [...] Report electronically signed by: | | | [id number] Rk Martinez MD (01/22/2019, 5:26:52 PM) Final [...] | | | |Report electronically signed by: [id number] Rk Martinez MD (01/22/2019, 5:26:52 | | |PM) | | | | | | | | | | | | Final | | + + + + + | Procedure Note | + + | Interface, Cardiology Results - 01/22/2019 5:26 PM [facility] | | [facility] Echocardiography Laboratory [address] [place] [address] | | [place], [place] [address] Pt Name: CELESTE Yeboah | | SEEN Study Date/Time 01/22/2019 / 4:07:13 PMMRN: [id number] Most | | recent prior: -Acc #: [id number] No. previous echos: 0DOB: 1955 63 | | years Heart Rate: 86 bpmHeight: 58.0 in Blood Pressure: 128/74 | | mm/HgWeight: 165.0 lb Gender: FBSA: 1.68 m | | Order ID: [id number] Study Location: OPSonographer: Stephany Constantino | | , RDCSSonographer 2: Dylan Herrera:Referring Provider: Anita Keen [...] respectively. The DVI is 0.83. The calculated YC is 2.57 cm | | using an [...] and indexed values Report electronically signed by: [id number] Rk | | Michelle JAMA (01/22/2019, 5:26:52 [...] | | | |Report electronically signed by: [id number] Rk Martinez MD (01/22/2019, 5:26:52 | |PM) | | | | | | | | Final | + + + + + + + | Performing | Address | City/State/Zipcode | Phone Number | | Organization | | | | + + + + + | [facility] | [address] | [place], [place] | | | CARDIOLOGY | [address] | [address] | | + + + + + documented in this encounter Visit Diagnoses + + | Diagnosis | + + | Coronary artery disease involving [place] coronary artery of [place] heart without | | angina pectoris - Primary | + + | Obesity (BMI 30.0-34.9) Obesity, unspecified | + + | Essential hypertension | + + | Pre-operative cardiovascular examination | + + documented in this encounter
--- OUTSIDE RECORDS SUMMARY | ~2019-03-27 | XMS | Encounter Summary ---
Demographics + + + | Address | [address] | | | [place] [address] | + + + | Home Phone | | + + + | Preferred Language | Unknown | + + + | Marital Status | | + + + | Christian Affiliation | Unknown | + + + | Race | | + + + | Ethnic Group | Not or | + + + Author + + + | Author | [facility] | + + + | Organization | [facility] | + + + | Address | Unknown | + + + | Phone | Unavailable | + + + Support + + +---------+ + | Name | Relationship | Address | Phone | + + +---------+ + | Shun Savage | ECON | Unknown | | + + +---------+ + Care Team Providers + +------+ + | Care Video Machines Mechanic Name | Role | Phone | + +------+ + | Josiah Soliz MD | PCP | | + +------+ + Encounter Details +--------+ + + + + | Date | Type | Department | Care Team | Description | +--------+ + + + + | 01/25/ | Abstract | Cardiology General | Anita Cota | | | 2019 | | at [facility] [address] | [address] | | | | | [address] Mailcode: | [address] [place], | | | | | [address] | [place] [address] | | | | | Health and Healing, | [phone] | | | | | [address] | | | | | | floor [place], [place] | | | | | | [address] | | | | | | [phone] | | | +--------+ + + + [...] Rd | | | | | | [place] | | | | | | [address] | | | | | | [phone] | | | | | | | | +--------+ + + + + | 03/19/ | Procedure | Surgery | | | | 2020 | Pass | | | | +--------+ + + + + documented as of this encounter Visit Diagnoses Not on filedocumented in this encounter"
--- OUTSIDE RECORDS SUMMARY | ~2019-03-27 | XMS | Encounter Summary ---
Demographics + + + | Address | [address] | | | [place] [address] | + + + | Home Phone | | + + + | Preferred Language | Unknown | + + + | Marital Status | | + + + | Voodoo Affiliation | Unknown | + + + | Race | | + + + | Ethnic Group | Not or | + + + Author + + + | Author | [facility] | + + + | Organization | [facility] | + + + | Address | Unknown | + + + | Phone | Unavailable | + + + Support + + +---------+ + | Name | Relationship | Address | Phone | + + +---------+ + | Shun Savage | ECON | Unknown | | + + +---------+ + Care Team Providers + +------+ + | Care Second Class Welder Name | Role | Phone | + +------+ + | Josiah Soliz MD | PCP | | + +------+ + Encounter Details +--------+ + + + + | Date | Type | Department | Care Team | Description | +--------+ + + + + | 12/17/ | Hospital | Radiology at | Naeem Briones, | | | 2019 | Encounter | [address] | [address] | | | | [address] | [address] | | | | | [place], [place] | [place], [place] | | | | | [address] | [address] | | | | | [phone] | [phone] | | | | | | | [...] Rd | | | | | | [place], [place] | | | | | | [address] | | | | | | [phone] | | | | | | | [...] + documented in this encounter Results X-RAY BONE LENGTH SERIES (JOINT SURVEY/LEG LENGTH [...] Note | + + | Service Account, [employer] Res In Interface - 12/17/2018 11:43 AM [...]
--- OUTSIDE RECORDS SUMMARY | ~2019-03-27 | XMS | Encounter Summary ---
Demographics + + + | Address | [address] | | | [place] [address] | + + + | Home Phone | | + + + | Preferred Language | Unknown | + + + | Marital Status | | + + + | Mandaen Affiliation | Unknown | + + + | Race | | + + + | Ethnic Group | Not or | + + + Author + + + | Author | [facility] | + + + | Organization | [facility] | + + + | Address | Unknown | + + + | Phone | Unavailable | + + + Support + + +---------+ + | Name | Relationship | Address | Phone | + + +---------+ + | Shun Savage | ECON | Unknown | | + + +---------+ + Care Team Providers + +------+ + | Care Equipment Cleaner Name | Role | Phone | + +------+ + | Josiah Soliz MD | PCP | | + +------+ + Encounter Details +--------+ + + + + | Date | Type | Department | Care Team | Description | +--------+ + + + + | 01/22/ | Senior Clinical Data Manager | Cardiology General | Anita Cota | Palpitations | | 2019 | | at [facility] [address] | [address] | (Primary Dx) | | | | [address] Mailcode: | [address] [place], | | | | | [address] [address] | | | | | Health and Healing, | [phone] | | | | | [facility] | | | | | | floor [place], [place] | | | | | | [address] | | | | | | [phone] | | | +--------+ + + + [...] 2020 | Encounter | | [address] | | | | | | [address] | | | | | | [place], [place] | | | | | | [address] | | | | | | [phone] | | | | | | | [...] + + documented in this encounter Results 12 LEAD ECG (01/22/2019 11:28 AM PDT) [...] + | [facility] | [address] | [place], [place] | | | CARDIOLOGY | [address] | [address] | | + + + + + documented in this encounter Visit Diagnoses + + | Diagnosis | + + | Palpitations - Primary | + + documented in this encounter"
--- OUTSIDE RECORDS SUMMARY | ~2019-03-27 | XMS | Encounter Summary ---
Demographics + + + | Address | [address] | | | [place] [address] | + + + | Home Phone | | + + + | Preferred Language | Unknown | + + + | Marital Status | | + + + | Muslim Affiliation | Unknown | + + + [...] Team Providers + +------+ + | Care Operations Specialists Name | Role | Phone | + [...] Rd | | | | | | [place], [place] | | | | | | [address] | | | | | | [phone] | | | | | | | | +--------+ + + + + | 03/19/ | Procedure | Surgery | | | | 2020 | Pass | | | | +--------+ + + + + documented as of this encounter Visit Diagnoses Not on filedocumented in this encounter"
--- OUTSIDE RECORDS SUMMARY | ~2019-03-27 | XMS | Encounter Summary ---
Demographics + + + | Address | [address] | | | [place] [address] | + + + | Home Phone [...] Team Providers + +------+ + | Care Natural Developer Name | Role | Phone | + +------+ + | Josiah Soliz MD | PCP | | + +------+ + Encounter Details +--------+ + + + + | Date | Type | Department | Care Team | Description | +--------+ + + + + | 01/22/ | Abstract | Cardiology General | Anita Cota | | | 2019 | | at [facility] [address] | [address] | | | | | [address] Mailcode: | [address] [place], | | | | | [address] | [place] [address] | | | | | Health and Healing, | [phone] | | | | | [address] | | | | | | floor [place], [place] | | | | | | [address] | | | | | | [phone] | | | +--------+ + + + [...] Rd | | | | | | [place] | | | | | | [address] | | | | | | [phone] | | | | | | | | +--------+ + + + + | 03/19/ | Procedure | Surgery | | | | 2020 | Pass | | | | +--------+ + + + + documented as of this encounter Visit Diagnoses Not on filedocumented in this encounter"
--- OUTSIDE RECORDS SUMMARY | ~2019-03-27 | XMS | Encounter Summary ---
Demographics + + + | Address | [address] | | | [place] [address] | + + + | Home Phone | | + + + | Preferred Language | Unknown | + + + | Marital Status | | + + + | Restorationist Affiliation | Unknown | + + + | Race | | + + + | Ethnic Group | Not or | + + + Author + + + | Author | [facility] | + + + | Organization | [facility] | + + + | Address | Unknown | + + + | Phone | Unavailable | + + + Support + + +---------+ + | Name | Relationship | Address | Phone | + + +---------+ + | Shun Savage | ECON | Unknown | | + + +---------+ + Care Team Providers + +------+ + | Care Retrieval Specialist Name | Role | Phone | [...] | | | | artery | [address] | | | | | | disease | [address] | | | | | | involving | [place], | | | | | | [place] | [place] | | | | | | coronary | [address] | | | | | | artery of | Phone: | | | | | | [place] heart | [phone] | | | | | | without | Fax: | | | | | | angina | [phone] | | | | | | pectoris [...] [address] | | | | | | [facility], | | | | | | [place] [address] | | | | | | [phone] | | | +--------+ + + + [...] Rd | | | | | | [place], [place] | | | | | | [address] | | | | | | [phone] | | | | | | | [...] | | ADULT | | PDT | [place] coronary | results section. | | | | | artery of [place] | | | | | | heart [...] Performed At | + + + | Pending Sale To [facility] | [facility] DEPT OF | | [facility] Adult Echocardiography Laboratory [address] CARDIOLOGY | | [place], [place] [address] Ph: | | | Pt Name: CELESTE POSEY | | | Study Date/Time 01/22/2019 / 4:07:13 PMMRN: [id number] | | | Most recent prior: -Acc #: [id number] | | | No. previous echos: 0DOB: 1955 63 years Heart Rate: | | | 86 bpmHeight: 58.0 in Blood Pressure: | | | 128/74 mm/HgWeight: 165.0 lb Gender: | | | FBSA: 1.68 m | | | Order ID: [id number] Study | | | Location: OPSonographer: Stephany YAÑEZ, RDCSSonographer 2: Dylan | | | [facility]:Referring Provider: Anita Velasquez | | | Performed: [...] Report electronically signed by: | | | [id number] Rk Martinez MD (01/22/2019, 5:26:52 PM) Final [...] | | | |Report electronically signed by: [id number] Rk Martinez MD (01/22/2019, 5:26:52 | | |PM) | | | | | | | | | | | | Final | | + + + + + | Procedure Note | + + | Interface, Cardiology Results - 01/22/2019 5:26 PM [facility] [employer] | | [facility] Echocardiography Laboratory [address] [place] [address] | | [place], [place] [address] Pt Name: CELESTE Yeboah | | SEEN Study Date/Time 01/22/2019 / 4:07:13 PMMRN: [id number] Most | | recent prior: -Acc #: [id number] No. previous echos: 0DOB: 1955 63 | | years Heart Rate: 86 bpmHeight: 58.0 in Blood Pressure: 128/74 | | mm/HgWeight: 165.0 lb Gender: FBSA: 1.68 m | | Order ID: [id number] Study Location: OPSonographer: Stephany Constantino | | [...] and indexed values Report electronically signed by: [id number] Rk | | Michelle JAMA (01/22/2019, 5:26:52 [...] | | | |Report electronically signed by: [id number] Rk Martinez MD (01/22/2019, 5:26:52 | |PM) | | | | | | | | Final | + + + + + + + | Performing | Address | City/State/Zipcode | Phone Number | | Organization | | | | + + + + + | [facility] DEPT OF | [address] [facility] | [place], [place] | | | CARDIOLOGY | [address] | [address] | | + + + + + documented in this encounter Visit Diagnoses + + | Diagnosis | + + | Coronary artery disease involving [place] coronary artery of [place] heart without | | angina pectoris | + + documented in this encounter
--- OUTSIDE RECORDS SUMMARY | ~2019-03-27 | XMS | Encounter Summary ---
Demographics + + + | Address | [address] | | | [place] [address] | + + + | Home Phone | | + + + | Preferred Language | Unknown | + + + | Marital Status | | + + + | Alevism Affiliation | Unknown | + + + | Race | | + + + | Ethnic Group | Not or | + + + Author + + + | Author | [facility] | + + + | Organization | [facility] | + + + | Address | Unknown | + + + | Phone | Unavailable | + + + Support + + +---------+ + | Name | Relationship | Address | Phone | + + +---------+ + | Shun Savage | ECON | Unknown | | + + +---------+ + Care Team Providers + +------+ + | Care Manager Telemetry Name | Role | Phone | + +------+ + | Josiah Soliz MD | PCP | | + +------+ + Encounter Details +--------+ + + + + | Date | Type | Department | Care Team | Description | +--------+ + + + + | 01/22/ | Delivery And Mail Sorter | Cardiology General | Anita Cota | Palpitations | | 2019 | | at [facility] [address] | [address] | (Primary Dx) | | | | [address] Mail[address]: | [address] [place], | | | | | [address] [address] | | | | | Health and Healing, | [phone] | | | | | [facility] | | | | | | floor [place], [place] | | | | | | [address] | | | | | | [phone] | | | +--------+ + + + [...] Rd | | | | | | [place], [place] | | | | | | [address] | | | | | | [phone] | | | | | | | [...] CO[facility] OF | [address] | [place], [place] | | | CARDIOLOGY | [address] | [address] | | + + + + + documented in this encounter Visit Diagnoses + + | Diagnosis | + + | Palpitations - Primary | + + documented in this encounter"
--- OUTSIDE RECORDS SUMMARY | ~2019-03-27 | XMS | Encounter Summary ---
Demographics + + + | Address | [address] | | | [place] [address] | + + + | Home Phone [...] Team Providers + +------+ + | Care Linecasting Machine Keyboard Operator Name | Role | Phone | + +------+ + | Josiah Soliz MD | PCP | | + +------+ + Encounter Details +--------+--------+ + + + | Date | Type | Department | Care Team | Description | +--------+--------+ + + + | 01/22/ | Travel | | | | | 2018 | | | | | +--------+--------+ + [...] Rd | | | | | | [place], [place] | | | | | | [address] | | | | | | [phone] | | | | | | | | +--------+ + + + + | 03/19/ | Procedure | Surgery | | | | 2020 | Pass | | | | +--------+ + + + + documented as of this encounter Visit Diagnoses Not on filedocumented in this encounter"
--- OUTSIDE RECORDS SUMMARY | ~2019-03-27 | XMS | Encounter Summary ---
Demographics + + + | Address | [address] | | | [place] [address] | + + + | Home Phone | | + + + | Preferred Language | Unknown | + + + | Marital Status | | + + + | Latter-Day Affiliation | Unknown | + + + | Race | | + + + | Ethnic Group | Not or | + + + Author + + + | Author | [facility] | + + + | Organization | [facility] | + + + | Address | Unknown | + + + | Phone | Unavailable | + + + Support + + +---------+ + | Name | Relationship | Address | Phone | + + +---------+ + | Shun Savage | ECON | Unknown | | + + +---------+ + Care Team Providers + +------+ + | Care Pipe Stem Aligner Name | Role | Phone | + +------+ + | Josiah Soliz MD | PCP | | + +------+ + Encounter Details +--------+ + + + + | Date | Type | Department | Care Team | Description | +--------+ + + + + | 01/25/ | Documentati | Orthopaedics at | Addi Danielle RN | | | 2019 | on | [facility] [address] | [address] | | | | | April Mailcode: CH12A | [facility] | | | | | [facility] | [place] [address] | | | | | and Healing, | [phone] | | | | | [facility] | | | | | | Floor [place], [place] | | | | | | [address] | | | | | | [phone] | | | +--------+ + + + [...] Rd | | | | | | [place] | | | | | | [address] | | | | | | [phone] | | | | | | | | +--------+ + + + + | 03/19/ | Procedure | Surgery | | | | 2020 | Pass | | | | +--------+ + + + + documented as of this encounter Visit Diagnoses Not on filedocumented in this encounter"
--- OUTSIDE RECORDS SUMMARY | ~2019-03-27 | XMS | Encounter Summary ---
Demographics + + + | Address | [address] | | | [place] [address] | + + + | Home Phone | | + + + | Preferred Language | Unknown | + + + | Marital Status | | + + + | Latter Day Affiliation | Unknown | + + + [...] Team Providers + +------+ + | Care Transformation Coach Name | Role | Phone | + [...] Rd | | | | | | [place], [place] | | | | | | [address] | | | | | | [phone] | | | | | | | | +--------+ + + + + | 03/19/ | Procedure | Surgery | | | | 2020 | Pass | | | | +--------+ + + + + documented as of this encounter Visit Diagnoses Not on filedocumented in this encounter"
--- OUTSIDE RECORDS SUMMARY | ~2019-03-27 | XMS | Encounter Summary ---
Demographics + + + | Address | [address] | | | [place] [address] | + + + | Home Phone | | + + + | Preferred Language | Unknown | + + + | Marital Status | | + + + | Zoroastrianism Affiliation | Unknown | + + + | Race | | + + + | Ethnic Group | Not or | + + + Author + + + | Author | [facility] | + + + | Organization | [facility] | + + + | Address | Unknown | + + + | Phone | Unavailable | + + + Support + + +---------+ + | Name | Relationship | Address | Phone | + + +---------+ + | Shun Savage | ECON | Unknown | | + + +---------+ + Care Team Providers + +------+ + | Care Coal Chute Worker Name | Role | Phone | + +------+ + | Josiah Soliz MD | PCP | | + +------+ + Encounter Details +--------+ + + + + | Date | Type | Department | Care Team | Description | +--------+ + + + + | 12/17/ | Hospital | Radiology at | Naeem Briones, | | | 2019 | Encounter | [address] | [address] | | | | | [address] | [address] | | | | | [place], [place] | [place], [place] | | | | | [address] | [address] | | | | | [phone] | [phone] | | | | | | | [...] Rd | | | | | | [place], [place] | | | | | | [address] | | | | | | [phone] | | | | | | | [...] Note | + + | Service Account, [employer] Res In Interface - 12/17/2018 11:43 AM [...]
--- OUTSIDE RECORDS SUMMARY | ~2019-03-27 | XMS | Encounter Summary ---
Demographics + + + | Address | [address] | | | [place] [address] | + + + | Home Phone | | + + + | Preferred Language | Unknown | + + + | Marital Status | | + + + | Adventism Affiliation | Unknown | + + + | Race | | + + + | Ethnic Group | Not or | + + + Author + + + | Author | [facility] | + + + | Organization | [facility] | + + + | Address | Unknown | + + + | Phone | Unavailable | + + + Support + + +---------+ + | Name | Relationship | Address | Phone | + + +---------+ + | Shun Savage | ECON | Unknown | | + + +---------+ + Care Team Providers + +------+ + | Care Carton Lettering Machine Operator Name | Role | Phone | [...] Records | | 2019 | | at [facility] [address] | [address] | Review | | | | [address] Mailcode: | [address] [place], | | | | | [address] | [place] [address] | | | | | Health and Healing, | [phone] | | | | | [facility] | | | | | | floor [place], [place] | | | | | | [address] | | | | | | [phone] | | | +--------+ + + + [...] 2020 | Encounter | | [address] | | | | | | [address] | | | | | | [place], [place] | | | | | | [address] | | | | | | [phone] | | | | | | | | +--------+ + + + + | 03/19/ | Procedure | Surgery | | | | 2020 | Pass | | | | +--------+ + + + + documented as of this encounter Visit Diagnoses Not on filedocumented in this encounter"
--- OUTSIDE RECORDS SUMMARY | ~2019-03-27 | XMS | Encounter Summary ---
Demographics + + + | Address | [address] | | | [place] [address] | + + + | Home Phone | | + + + | Preferred Language | Unknown | + + + | Marital Status | | + + + | Catholic Affiliation | Unknown | + + + [...] Team Providers + +------+ + | Care Cake Inspector Name | Role | Phone | + +------+ + | Josiah Soliz MD | PCP | | + +------+ + Encounter Details +--------+ + + + + | Date | Type | Department | Care Team | Description | +--------+ + + + + | 08/12/ | Hospital | Registration ANA MARIA | | | | 2019 | Encounter | [address] | | | | | | [facility] [place], | | | | | | [place] [address] | | | +--------+ + + + [...] Rd | | | | | | [place], [place] | | | | | | [address] | | | | | | [phone] | | | | | | | | +--------+ + + + + | 03/19/ | Procedure | Surgery | | | | 2021 | Pass | | | | +--------+ + + + + documented as of this encounter Visit Diagnoses Not on filedocumented in this encounter"
--- OUTSIDE RECORDS SUMMARY | ~2019-03-27 | XMS | Encounter Summary ---
Demographics + + + | Address | [address] | | | [place] [address] | + + + | Home Phone | | + + + | Preferred Language | Unknown | + + + | Marital Status | | + + + | Religion Affiliation | Unknown | + + + | Race | | + + + | Ethnic Group | Not or | + + + Author + + + | Author | [facility] | + + + | Organization | [facility] | + + + | Address | Unknown | + + + | Phone | Unavailable | + + + Support + + +---------+ + | Name | Relationship | Address | Phone | + + +---------+ + | Shun Savage | ECON | Unknown | | + + +---------+ + Care Team Providers + +------+ + | Care Hat Block Bench Hand Name | Role | Phone | + +------+ + | Josiah Soliz MD | PCP | | + +------+ + Encounter Details +--------+ + + + + | Date | Type | Department | Care Team | Description | +--------+ + + + + | 01/25/ | Abstract | Cardiology General | Anita Cota | | | 2019 | | at [facility] [address] | [address] | | | | | [address] Mailcode: | [address] [place], | | | | | [address] | [place] [address] | | | | | Health and Healing, | [phone] | | | | | [address] | | | | | | floor [place], [place] | | | | | | [address] | | | | | | [phone] | | | +--------+ + + + [...] Rd | | | | | | [place] | | | | | | [address] | | | | | | [phone] | | | | | | | | +--------+ + + + + | 03/19/ | Procedure | Surgery | | | | 2020 | Pass | | | | +--------+ + + + + documented as of this encounter Visit Diagnoses Not on filedocumented in this encounter"
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
--- OUTSIDE RECORDS SUMMARY | ~2019-03-27 | XMS | Encounter Summary ---
Demographics + + + | Address | [address] | | | [place] [address] | + + + | Home Phone | | + + + | Preferred Language | Unknown | + + + | Marital Status | | + + + | Religion Affiliation | Unknown | + + + | Race | | + + + | Ethnic Group | Not or | + + + Author + + + | Author | [facility] | + + + | Organization | [facility] | + + + | Address | Unknown | + + + | Phone | Unavailable | + + + Support + + +---------+ + | Name | Relationship | Address | Phone | + + +---------+ + | Shun Savage | ECON | Unknown | | + + +---------+ + Care Team Providers + +------+ + | Care Title Assistant Name | Role | Phone | [...] | | | | artery | [address] | | | | | | disease | [address] | | | | | | involving | [place], | | | | | | [place] | [place] | | | | | | coronary | [address] | | | | | | artery of | Phone: | | | | | | [place] heart | [phone] | | | | | | without | Fax: | | | | | | angina | [phone] | | | | | | pectoris [...] | | chronicity | [address] | [place], [place] | | | | | Procedures | [place], [place] | [address] | | | | | CONSULT TO | [address] | Phone: | | | | | CARDIOLOGY | Phone: | [phone] | | | | | | [phone] | Fax: | | | | | | Fax: | [phone] | | | | | | [phone] | | + +--------+ + + + + Encounter Details +--------+---------+ + + + | Date | Type | Department | Care Team | Description | +--------+---------+ + + + | 01/22/ | Office | Cardiology General | Anita Lincoln | Coronary artery | | 2019 | Visit | at [facility] [address] | [address] | disease involving | | | | [address] Mailcode: | [address] [facility], | [place] coronary | | | | [address] | [place] [address] | artery of [place] | | | | Health and Healing, | [phone] | heart without angina | | | | Building | | pectoris (Primary | | | | floor [place], [place] | | Dx); Obesity (BMI | | | | [address] | | 30.0-34.9); | | | | [phone] | | Essential | | | | [...] indicated. ANITA LINCOLN PA-C CARDIOLOGY GENERAL AT [facility] [address] Mailcode: [place] [address] ischLinda patel PA-C - 01/22/2019 [...] artery disease; reports history of myocardial in [facility] in 1988. Patient reports history of congestive heart failure. denies history of DVT /PE Patient reports bypass surgery in 1988 in [place] but has no midline sternal incision scar. [...] PREVENTIVE [address] Mailcode: [facility] [facility] [place] [address] [phone] signed by Anita Lincoln PA-C at 01/22/2019 [...] [address] | | | | | | [place], [place] | | | | | | [address] | | | | | | [phone] | | | | | | | [...] | | ADULT | | PDT | [place] coronary | results section. | | | | | artery of [place] | | | | | | heart [...] Performed At | + + + | [facility] DEPT OF | | [facility] Adult Echocardiography Laboratory [address] | CARDIOLOGY | | [place], [place] [address] Ph: | | | Pt Name: CELESTE POSEY | | | Study Date/Time 01/22/2019 / 4:07:13 PMMRN: [id number] | | | Most recent prior: -Acc #: [id number] | | | No. previous echos: 0DOB: 1955 63 years Heart Rate: | | | 86 bpmHeight: 58.0 in Blood Pressure: | | | 128/74 mm/HgWeight: 165.0 lb Gender: | | | FBSA: 1.68 m | | | Order ID: [id number] Study | | | Location: OPSonographer: Stephany [...] Report electronically signed by: | | | [id number] Rk Martinez MD (01/22/2019, 5:26:52 PM) Final [...] | | | |Report electronically signed by: [id number] Rk Martinez MD (01/22/2019, 5:26:52 | | |PM) | | | | | | | | | | | | Final | | + + + + + | Procedure Note | + + | Interface, Cardiology Results - 01/22/2019 5:26 PM [facility] [place] | | [facility] Echocardiography Laboratory [address] [place] [address] | | [place], [place] [address] Pt Name: CELESTE Yeboah | | SEEN Study Date/Time 01/22/2019 / 4:07:13 PMMRN: [id number] Most | | recent prior: -Acc #: [id number] No. previous echos: 0DOB: 1955 63 | | years Heart Rate: 86 bpmHeight: 58.0 in Blood Pressure: 128/74 | | mm/HgWeight: 165.0 lb Gender: FBSA: 1.68 m | | Order ID: [id number] Study Location: OPSonographer: Stephany Constantino | | [...] and indexed values Report electronically signed by: [id number] Rk | | Michelle JAMA (01/22/2019, 5:26:52 [...] | | | |Report electronically signed by: [id number] Rk Martinez MD (01/22/2019, 5:26:52 | |PM) | | | | | | | | Final | + + + + + + + | Performing | Address | City/State/Zipcode | Phone Number | | Organization | | | | + + + + + | [facility] | [address] | [place], [place] | | | CARDIOLOGY | [address] | [address] | | + + + + + documented in this encounter Visit Diagnoses + + | Diagnosis | + + | Coronary artery disease involving [place] coronary artery of [place] heart without | | angina pectoris - Primary | + + | Obesity (BMI 30.0-34.9) Obesity, unspecified | + + | Essential hypertension | + + | Pre-operative cardiovascular examination | + + documented in this encounter
--- OUTSIDE RECORDS SUMMARY | ~2019-03-27 | XMS | Encounter Summary ---
Demographics + + + | Address | [address] | | | [place] [address] | + + + | Home Phone | | + + + | Preferred Language | Unknown | + + + | Marital Status | | + + + | Confucianist Affiliation | Unknown | + + + | Race | | + + + | Ethnic Group | Not or | + + + Author + + + | Author | [facility] | + + + | Organization | [facility] | + + + | Address | Unknown | + + + | Phone | Unavailable | + + + Support + + +---------+ + | Name | Relationship | Address | Phone | + + +---------+ + | Shun Savage | ECON | Unknown | | + + +---------+ + Care Team Providers + +------+ + | Care Interventional Technologist Name | Role | Phone | + +------+ + | Josiah Soliz MD | PCP | | + +------+ + Encounter Details +--------+ + + + + | Date | Type | Department | Care Team | Description | +--------+ + + + + | 01/22/ | Abstract | Cardiology General | Anita Cota | | | 2019 | | at [facility] [address] | [address] | | | | | [address] Mailcode: | [address] [place], | | | | | [address] | [place] [address] | | | | | Health and Healing, | [phone] | | | | | [address] | | | | | | floor [place], [place] | | | | | | [address] | | | | | | [phone] | | | +--------+ + + + [...] Rd | | | | | | [place] | | | | | | [address] | | | | | | [phone] | | | | | | | | +--------+ + + + + | 03/19/ | Procedure | Surgery | | | | 2020 | Pass | | | | +--------+ + + + + documented as of this encounter Visit Diagnoses Not on filedocumented in this encounter"
--- OUTSIDE RECORDS SUMMARY | ~2019-03-27 | XMS | Encounter Summary ---
Demographics + + + | Address | [address] | | | [place] [address] | + + + | Home Phone | | + + + | Preferred Language | Unknown | + + + | Marital Status | | + + + | Yazidism Affiliation | Unknown | + + + [...] Team Providers + +------+ + | Care Sleeping Car Conductor Name | Role | Phone | + [...] primary | | 2019 | Visit | [facility] [address] | [place] [address] | osteoarthritis of | | | | Ave Mailcode: CH[address]A | [address] | knee (Primary Dx) | | | | [place] [facility] | [place], [place] | | | | | and Healing, | [address] | | | | | Building | [phone] | | | | | Floor [place], [place] | | | | | | [address] | | | | | | [phone] | | | +--------+---------+ + + + [...] might be different fro m the original. Counts Include [facility] Beds At [facility] DEPARTMENT OF ORTHOPAEDICS & REHABILITATION Adult Reconstruction / Joint Replacement Surgery Follow Up Exam ID: Celeste Yeboah Seen is here for pre op and follow up. Subjective: She reports that she was evicted from her last living situation and her pentecostal has helped her secure a hotel as [...] elective procedure. She will work with her Sikhism to find a better living situation and [...] | | 2020 | Encounter | | [address] | | | | | | [address] | | | | | | [place] | | | | | | [address] | | | | | | [phone] | | | | | | | [...]
--- OUTSIDE RECORDS SUMMARY | ~2019-03-27 | XMS | Encounter Summary ---
Demographics + + + | Address | [address] | | | [place] [address] | + + + | Home Phone | | + + + | Preferred Language | Unknown | + + + | Marital Status | | + + + | Advent Affiliation | Unknown | + + + | Race | | + + + | Ethnic Group | Not or | + + + Author + + + | Author | [facility] | + + + | Organization | [facility] | + + + | Address | Unknown | + + + | Phone | Unavailable | + + + Support + + +---------+ + | Name | Relationship | Address | Phone | + + +---------+ + | Shun Savage | ECON | Unknown | | + + +---------+ + Care Team Providers + +------+ + | Care Ice Scraper Name | Role | Phone | + [...] Referral (bilat | | 2019 | | [facility] [address] | Clinic | knees ) | | | | April Mailcode: CH12A | | | | | | [facility] | | | | | | and [place], | | | | | | [facility] | | | | | | [place], [place] | | | | | | [address] | | | | | | [phone] | | | +--------+ + + + [...] L&I as they do not pay at [place] rates. Other out of state claims will only be accepted if they agree to pay at [place] rates docume nted in writing from adjustor. Can you confirm the insurance we will be billing for this visit? Medicare A & B Note: If OHP, please note which type. E.g. [place], [place], Trilli[place] m, etc.) Reminder: Please create referrals for pts with: HMO, OHP, [place], Self-Pay, W/C, TPL an d ED Post- [...] they d like to sign up for [place] ? Don t forget to pull in [...] Rd | | | | | | [place], [place] | | | | | | [address] | | | | | | [phone] | | | | | | | | +--------+ + + + + | 03/19/ | Procedure | Surgery | | | | 2020 | Pass | | | | +--------+ + + + + documented as of this encounter Visit Diagnoses Not on filedocumented in this encounter"
--- OUTSIDE RECORDS SUMMARY | ~2019-03-27 | XMS | Encounter Summary ---
Demographics + + + | Address | [address] | | | [place] [address] | + + + | Home Phone | | + + + | Preferred Language | Unknown | + + + | Marital Status | | + + + | Faith Affiliation | Unknown | + + + [...] Providers + +------+ + | Care Director Of Creative Services Name | Role | Phone | + [...] Osteoarthritis | | 2019 | Support | [facility] [address] | [address] | | | | Staff | April Mailcode: CH12A | [address] [place], | | | | | [facility] | [place] [address] | | | | | and [place], | [phone] | | | | | [facility] | | | | | | [place], [place] | | | | | | [address] | | | | | | [phone] | | | +--------+ + + + [...] until patient has established stable housing. [facility] [place] -Division of Adult Reconstruction / Joint Replacement [...] Left a message for Gillian Olivarez at [employer] [phone] who is assisting her with establishing stable housing. She also reports, she has been in an [facility] residential. Field Application Engineer ed her on what next steps are. Celeste Yeboah Seen is a 63 y.o., female who is pre-op for planned Right Total Knee Arthroplasty on 03/19/19 with MD Briones. CJR Coordinator met with Celeste Yeboah Seen at [facility] to review CJR progr am, collect data, and prepare patient for participation in the CJR program and upcoming surg adama details regarding hospital stay, and discharge. Insurance/Funding: F/O Payor-Plan/Addr Policy # Cert # Phone # 1 MEDICARE - MEDICARE * [id number] [address] Sub Name: SEENCELESTE Rel to Pt: Self 2 LOADER OPERATOR MEDICAID - LOADER OPERATOR E* [id number] [phone] [address] [address] Sub Name: CELESTE POSEY Rel to Pt: Self Medicare CJR notification: Explained CJR Coordinator role. Celeste is aware she is part of [facility]. Business card provided with contact informati on. PRO Questionnaire: Declined not required age < 65 cannot submit. Instructions were given w ith all questions to be answered. [facility] Chronic Preoperative Narcotic Use morphine or derivatives of regularly in the last 90 d ays: No [facility] Ethnicity: Non- or not Address Confirmed by CJR Coordinator: [address] [place] [address] Home Phone Work Phone Procedures post joint [...] antibiotics. OBJECTIVE: Last PCP visit: Last seen [phone] by Josiah Soliz MD. [phone] Wt Readings from Last 1 Encounters: 03/09/19 [...] Has transport benefit through Medicaid. [facility] [place] Plan will likely be SNF once she has established [facility] housing. Goal, return to home after discharge: Other: Not assessed Living Arrangement: Evicted Help after surgery/Support Persons: [facility] Gillian Olivarez in [place] [phone] Social Stressors: ADD, epilepsy, Bipolar. Return to work: Disability Functional Level Prior to Admission: Evicted Assistive devices DME:Walker 4WW. Transportation Available: Medical transportation through Medicaid. This note serves as the discharge planning guide when Celeste is admitted inpatient for the above listed procedure. Assessment done by: Addi Danielle BSc, BSN, PRANAV Pending Sale To [facility] CJR/DIONTE Fleet Maintenance Foreman C: [phone] Pager: [phone] @[email or web address] Mail Code: [facility] 8L documented in this [...] Simon | | | | | | [place], [place] | | | | | | [address] | | | | | | [phone] | | | | | | | [...]
--- OUTSIDE RECORDS SUMMARY | ~2019-03-27 | XMS | Encounter Summary ---
Demographics + + + | Address | [address] | | | [place] [address] | + + + | Home Phone | | + + + | Preferred Language | Unknown | + + + | Marital Status | | + + + | Yarsanism Affiliation | Unknown | + + + | Race | | + + + | Ethnic Group | Not or | + + + Author + + + | Author | [facility] | + + + | Organization | [facility] | + + + | Address | Unknown | + + + | Phone | Unavailable | + + + Support + + +---------+ + | Name | Relationship | Address | Phone | + + +---------+ + | Shun Savage | ECON | Unknown | | + + +---------+ + Care Team Providers + +------+ + | Care Complaint Operator Name | Role | Phone | [...] findings, | | 2019 | | at [facility] [address] | [address] | teaching, guidance, | | | | [address] Mailcode: | [address] [place], | and counseling | | | | [address] [address] | | | | | Health and Healing, | [phone] | | | | | [facility] | | | | | | floor [place], [place] | | | | | | [address] | | | | | | [phone] | | | +--------+ + + + [...] Rd | | | | | | [place], [place] | | | | | | [address] | | | | | | [phone] | | | | | | | | +--------+ + + + + | 03/19/ | Procedure | Surgery | | | | 2020 | Pass | | | | +--------+ + + + + documented as of this encounter Visit Diagnoses Not on filedocumented in this encounter"
--- OUTSIDE RECORDS SUMMARY | ~2019-03-27 | XMS | Encounter Summary ---
Demographics + + + | Address | [address] | | | [place] [address] | + + + | Home Phone [...] Team Providers + +------+ + | Care Machine Cementer Name | Role | Phone | + [...] Rd | | | | | | [place], [place] | | | | | | [address] | | | | | | [phone] | | | | | | | | +--------+ + + + + | 03/19/ | Procedure | Surgery | | | | 2020 | Pass | | | | +--------+ + + + + documented as of this encounter Visit Diagnoses Not on filedocumented in this encounter"
--- OUTSIDE RECORDS SUMMARY | ~2019-03-27 | XMS | Encounter Summary ---
Demographics + + + | Address | [address] | | | [place] [address] | + + + | Home Phone | | + + + | Preferred Language | Unknown | + + + | Marital Status | | + + + | Presybeterian Affiliation | Unknown | + + + | Race | | + + + | Ethnic Group | Not or | + + + Author + + + | Author | [facility] | + + + | Organization | [facility] | + + + | Address | Unknown | + + + | Phone | Unavailable | + + + Support + + +---------+ + | Name | Relationship | Address | Phone | + + +---------+ + | Shun Savage | ECON | Unknown | | + + +---------+ + Care Team Providers + +------+ + | Care Pc Maintenance Technician Name | Role | Phone | [...] findings, | | 2019 | | at [facility] [address] | [address] | teaching, guidance, | | | | [address] Mailcode: | [address] [place], | and counseling | | | | [address] [address] | | | | | Health and Healing, | [phone] | | | | | [facility] | | | | | | floor [place], [place] | | | | | | [address] | | | | | | [phone] | | | +--------+ + + + [...] Rd | | | | | | [place], [place] | | | | | | [address] | | | | | | [phone] | | | | | | | | +--------+ + + + + | 03/19/ | Procedure | Surgery | | | | 2020 | Pass | | | | +--------+ + + + + documented as of this encounter Visit Diagnoses Not on filedocumented in this encounter"
--- OUTSIDE RECORDS SUMMARY | ~2019-03-27 | XMS | Encounter Summary ---
Demographics + + + | Address | [address] | | | [place] [address] | + + + | Home Phone | | + + + | Preferred Language | Unknown | + + + | Marital Status | | + + + | Latter-Day Affiliation | Unknown | + + + | Race | | + + + | Ethnic Group | Not or | + + + Author + + + | Author | [facility] | + + + | Organization | [facility] | + + + | Address | Unknown | + + + | Phone | Unavailable | + + + Support + + +---------+ + | Name | Relationship | Address | Phone | + + +---------+ + | Shun Savage | ECON | Unknown | | + + +---------+ + Care Team Providers + +------+ + | Care Fruit Farmworker Name | Role | Phone | + +------+ + | Josiah Soliz MD | PCP | | + +------+ + Encounter Details +--------+ + + + + | Date | Type | Department | Care Team | Description | +--------+ + + + + | 12/17/ | Hospital | Radiology at | Naeem Briones, | | | 2019 | Encounter | [address] | [address] | | | | | [address] | [address] | | | | | [place], [place] | [place], [place] | | | | | [address] | [address] | | | | | [phone] | [phone] | | | | | | | [...] Rd | | | | | | [place], [place] | | | | | | [address] | | | | | | [phone] | | | | | | | [...] Note | + + | Service Account, [facility] Res In Interface - 12/17/2018 11:43 AM [...] presented. | | | |Final signature: Rogerio eBttencourt MD 12/17/2018 11:42 AM | |Preliminary: Donald [...]
--- OUTSIDE RECORDS SUMMARY | ~2019-03-27 | XMS | Encounter Summary ---
Demographics + + + | Address | [address] | | | [place] [address] | + + + | Home Phone [...] Team Providers + +------+ + | Care Production Controller Name | Role | Phone | + [...] | | chronicity | [address] | [place], [place] | | | | | Procedures | [place], [place] | [address] | | | | | CONSULT TO | [address] | Phone: | | | | | CARDIOLOGY | Phone: | [phone] | | | | | | [phone] | Fax: | | | | | | Fax: | [phone] | | | | | | [phone] | | + +--------+ + + + + Reason for Visit + + + | Reason | Comments | + + + | New patient | | | consultation | | + + + Encounter Details +--------+---------+ + + + | Date | Type | Department | Care Team | Description | +--------+---------+ + + + | 12/17/ | Office | [facility] Orthopaedics | Naeem Briones, | Pain in both knees, | | 2018 | Visit | & Rehabilitation | [address] | unspecified | | | | [address] | [address] | chronicity (Primary | | | | [address] [place] | [place], [place] | Dx) | | | | [address] | [address] | | | | | [phone] | [phone] | | | | | | | [...] might be different fro m the original. [facility] [place] DEPARTMENT OF ORTHOPAEDICS & REHABILITATION Adult Reconstruction / Joint Replacement Surgery New Patient History & Physical Exam Chief Complaint, Reason for Consultation: Bilateral knee eval Referring Provider: Josiah Soliz MD [facility] [address] [place] [address] History of Present Illness: Ms. Hyde is [...] injection was about a week ago in [place]) ? Braces, orthotics and/or assistive devices: Symptoms are progressing in spite of ORTHODEV ICE: cane use Additional details include: - Gait aids used: Cane - Walking Distance Without Pain: <1 blocks (one block is 200 meters/yards) - Support available at home for post-op care: No, likely she will require a detention facility placement Other details: She has been followed by Dr. Tawanda Craft in [place] and he told her due to her complex medical history that she needed to come to [facility] for total knee arthroplasty. Due to knee [...] file Gets together: Not on file Attends roman catholic service: Not on file Active member of [...] / CAD - She doesn't have a stone crusher operator and is unsure what cardiac work up she has had. Plan: We had a long discussion of non-surgical and surgical options. I think that she would manohar lly benefit from a total knee arthroplasty but before we proceed with this procedure I am ju st really worried about her cardiac status, she says she doesn't have a stone crusher operator and isn 't sure what cardiac work [...] Rd | | | | | | [place], [place] | | | | | | [address] | | | | | | [phone] | | | | | | | [...] Donald Luque MD | |Dictation initiated: Donald uLque MD 12/17/2018 11:17 AM | + + [...]
--- OUTSIDE RECORDS SUMMARY | ~2019-03-27 | XMS | Encounter Summary ---
Demographics + + + | Address | [address] | | | [place] [address] | + + + | Home Phone [...] Team Providers + +------+ + | Care Insurance Verifier Name | Role | Phone | + [...] | | | | | [address] [place], | | | | | | [place] [address] | | | +--------+ + + + [...] Rd | | | | | | [place], [place] | | | | | | [address] | | | | | | [phone] | | | | | | | | +--------+ + + + + | 03/19/ | Procedure | Surgery | | | | 2021 | Pass | | | | +--------+ + + + + documented as of this encounter Visit Diagnoses Not on filedocumented in this encounter"
--- OUTSIDE RECORDS SUMMARY | ~2019-03-27 | XMS | Encounter Summary ---
Demographics + + + | Address | [address] | | | [place] [address] | + + + | Home Phone [...] Team Providers + +------+ + | Care Him Analyst Name | Role | Phone | + +------+ + | Josiah Soliz MD | PCP | | + +------+ + Reason for Referral PROC - Inpatient Surgery (Routine) +--------+--------+ + + + + | Status | Reason | Specialty | Diagnoses / | Referred By | Referred To | | | | | Procedures | Contact | Contact | +--------+--------+ + + + + | Closed | | Orthopedics | Diagnoses | Anselmo, | Anselmo, | | | | | Primary | Naeem Mortensen MD | Naeem Mortensen MD | | | | | osteoarthrit | [address] | [address] | | | | | is of right | [address] | [address] | | | | | knee | [address] | [address] [place], | | | | | Procedures | [place], [place] | [place] | | | | | REQUEST TO | [address] | [address] | | | | | SURGERY | Phone: | Phone: | | | | | RESOLUTE PROFESSIONAL | [phone] | [phone] | | | | | [place] TOTAL | Fax: | Fax: | | | | | KNEE | [phone] | [phone] | | | | | ARTHROPLASTY | | | +--------+--------+ + + + + Reason for Visit [...] Pre-Admission | | 2019 | Orders | [facility] [address] | [address] | | | | | Ave Mailcode: CH12A | [address] | | | | | [facility] | [place], [place] | | | | | and Healing, | [address] | | | | | [facility] | [phone] | | | | | Floor [place], [place] | | | | | | [address] | | | | | | [phone] | | | +--------+ + + + [...] Rd | | | | | | [place], [place] | | | | | | [address] | | | | | | [phone] | | | | | | | [...]
--- OUTSIDE RECORDS SUMMARY | ~2019-03-27 | XMS | Encounter Summary ---
Demographics + + + | Address | [address] | | | [place] [address] | + + + | Home Phone [...] Team Providers + +------+ + | Care Event Crew Technician Name | Role | Phone | [...] | | | | REQUEST TO | [address] | [address] | | | | | SURGERY | Phone: | Phone: | | | | | HIDE HANDLER | [phone] | [phone] | | | | | ME TOTAL | Fax: | Fax: | | | | | KNEE | [phone] | [phone] | | | | | ARTHROPLASTY | [...] | | 2019 | Orders | [address] | [address] | | | | | Ave Mailcode: CH[address]A | [address] | | | | | [facility] | [place], [place] | | | | | and Healing, | [address] | | | | | [facility] | [phone] | | | | | Floor [place], [place] | | | | | | [address] | | | | | | [phone] | | | +--------+ + + + [...] Rd | | | | | | [place], [place] | | | | | | [address] | | | | | | [phone] | | | | | | | [...]
--- OUTSIDE RECORDS SUMMARY | ~2019-03-27 | XMS | Encounter Summary ---
Demographics + + + | Address | [address] | | | [place] [address] | + + + | Home Phone | | + + + | Preferred Language | Unknown | + + + | Marital Status | | + + + | Holiness Affiliation | Unknown | + + + | Race | | + + + | Ethnic Group | Not or | + + + Author + + + | Author | [facility] | + + + | Organization | [facility] | + + + | Address | Unknown | + + + | Phone | Unavailable | + + + Support + + +---------+ + | Name | Relationship | Address | Phone | + + +---------+ + | Shun Savage | ECON | Unknown | | + + +---------+ + Care Team Providers + +------+ + | Care Collet Maker Name | Role | Phone | + +------+ + | Latrell Ortega MD | PCP | | + +------+ + Reason for Visit + + + | Reason | Comments | + + + | Medicare | | | Certification | | + + + | Pre-op evaluation | | + + + | Knee joint pain | | + + + Physical Therapy (Routine) + +--------+ + + + + | Status | Reason | Specialty | Diagnoses / | Referred By | Referred To | | | | | Procedures | Contact | Contact | + +--------+ + + + + | Authorized | | Physical | | Anselmo, | [facility] | | | | Therapy | | Naeem Mortensen MD | [address] | | | | | [address] | | | | | | [address] | Mailcode: | | | | | | Aurora Gregory | [address] [place] | | | | | | [place], [place] | for [facility] | | | | | | [address] | and Healing, | | | | | | Phone: | Building [address], | | | | | | [phone] | [address] | | | | | | Fax: | [place], [place] | | | | | | [phone] | [address] | | | | | | | Phone: | | | | | | | [phone] | | | | | | | Fax: | | | | | | | [phone] | + +--------+ + + + + Encounter Details +--------+---------+ + + + | Date | Type | Department | Care Team | Description | +--------+---------+ + + + | 03/09/ | Office | [facility] | Ba Bush, | Osteoarthritis of | | 2019 | Visit | Therapy Services at | PT [address] | right knee, | | | | [facility] | [address] | unspecified | | | | [address] | [facility] [place] | osteoarthritis type | | | | Mailcode: CH3P | [address] | (Primary Dx); | | | | [facility] | | Arthralgia of right | | | | and Healing, | | knee | | | | Building | | | | | | Floor [place], [place] | | | | | | [address] | | | | | | [phone] | | | +--------+---------+ + + + [...] documented as of this encounter Progress Notes Ba Bush, PT - 03/09/2019 12:30 PM PSTFormatting of this note might be different fro m the original. Insurance: Payor: MEDICARE / Plan: MEDICARE A & B / Product Type: Medicare / Medicare: A Physician/NPP co-signature on a note authorizes the therapy plan of care for t he certification period documented. [facility] PHYSICAL THERAPY EVALUATION Past Medical History: Diagnosis Date ADD (attention deficit disorder) Anemia Bipolar disorder (HCC) Cardiac angina (HCC) COPD (chronic obstructive pulmonary disease) (HCC) Diabetes mellitus (HCC) Epilepsy (HCC) Hypothyroidism Past Surgical History Procedure Laterality Date Ivc filter placement four years ago, removed three weeks Current Outpatient Medications: albuterol (VENTOLIN HFA) 90 mcg/actuation inhalation HFA ae rosol inhaler, 18 g., Disp: , Rfl: allopurinol 300 mg oral tablet, allopurinol 300 mg tablet once daily, Disp: , Rfl: aspirin EC 81 mg oral tablet,delayed release (DR/EC), Take 81 mg by mouth once daily., Disp : , Rfl: ergocalciferol 50,000 unit oral capsule, Vitamin D2 50,000 unit capsule TAKE ONE CAPSULE B Y MOUTH ONCE A WEEK, Disp: , Rfl: famotidine 20 mg oral tablet, Take 20 mg by mouth once daily. , Disp: , Rfl: gabapentin 300 mg oral capsule, 900mg at bedtime, Disp: , Rfl: levothyroxine 100 mcg oral tablet, Take 100 mcg by mouth once daily., Disp: , Rfl: 1 LORazepam 0.5 mg oral tablet, lorazepam 0.5 mg tablet at bedtime, Disp: , Rfl: lurasidone (LATUDA) 120 mg oral tablet, 80mg once daily, Disp: , Rfl: metFORMIN 500 mg oral tablet, 1000 mg once daily, Disp: , Rfl: ondansetron ODT 4 mg oral tablet,disintegrating, ondansetron 4 mg disintegrating tablet, Di sp: , Rfl: promethazine 25 mg oral tablet, Take 25 mg by mouth as needed for nausea/vomiting., Disp: , Rfl: psyllium husk (METAMUCIL ORAL), Take by mouth., Disp: , Rfl: sertraline 50 mg oral tablet, sertraline 50 mg tablet once daily, Disp: , Rfl: torsemide 20 mg oral tablet, torsemide 20 mg tablet once daily, Disp: , Rfl: Previous physical therapy treatment or alternative treatments for this condition includes: physical therapy and medications. Results of previous treatment: Somewhat effective. Concurrent medical treatment: SURGERY. History of Presenting Problem: Celeste who is pre-op for planned Right TKA on 03/19/[address] [facility] [address] Briones. Patient Goals: walking, standing, daily activities without restrictions Discharge planning Return home after surgery?: Lives in a motel room--got evicted from her apartment for bejonna g too loud Living situation: , but doesn't live with her Home set-up: single floor, no stais Help after surgery: not sure Equipment at home: 4WW Occupation: not working Return to work plan: no Rehab plan after surgery: SNF then outpatient in [facility] Current pain ratin/10, At worst 4/10 Precaution/special problems: mental health diagnosis OBJECTIVE: Posture/alignment/observation: flexed knees in standing Gait: 4WW, antalgic, bent knees in stance, decreased hip extension and push off bilateral Patella Mobility: painful R, fair L Knee ROM Right 03/09/2019 Left 03/09/2019 Comments Extension 5 15 Flexion 112 125 Seated Blank = not tested, * indicates pain, (-) hyperextension Strength: Quad set: good B Glut set: good B SLR: Good B Neuro Screen: Not tested Functional Testing Test 03/09/2019 Age matched norm values Gait speed 0.36 m/s 60-69: 1.05-1.51 m/s Single leg standing R 2.24 sec L 8.92 sec 60-69: 32 seconds (best of 3 trials) 30 second sit to stand- 18 inch chair height - 60 y/o = 15 reps Stair climb - 4 step stair case with 4 inch rise. If able to perform then 18 step stair carlos e with 7 inch rise TUG - 8.1 seconds (best of 2 trials) TREATMENT TODAY: Education of post-op precautions. Education of post-op objectives: swelling control, good quad set, full knee extension and k nee flexion. Education on WBAT with appropriate assistive device. Home exercise program 03/09/2019 Perform 10-20 reps, 5-6 times per day Ankle Pumps (elevated) Quad sets Heel slides with assist Seated knee flexion in chair Heel Prop for extension- Goal 10 minutes, work up gradually Walking Program: Week Time walked 1 5 min, 3x/day 2 10 min 3x/day 3 15 min, 3x/day 4 20 min 2x/day 5 25 min 2x/day ASSESSMENT: Celeste is pre-op for Right TKA on 03/19/2019. Celeste is receptive to pre-op education and precautions and demonstrated proper form of all exercises. Celeste is ready for surgery. Augusta santana requires services that can be safely and effectively performed only by a qualified therap ist to achieve the following goals: SHORT-TERM GOALS, discussed with patient, due upon completion of this treatment: Patient can recall post-op precautions Patient will demonstate proper crutch/assistive device use Patient will have a good understanding of post-op exercises PLAN: Pt to follow up with PT closer to home following surgery. No further PT at [facility]. See topics above to identify problem areas and goals Personal factors/Comorbidities: Musculoskeletal , Posture, ROM, Neuromuscular, Balance, Ga it/Locomotion, Cardiopulmonary and mental health Communication: Moderate or low health liter acy based on description of illness and expected healing and Mental health diagnosis, Psycho social: Atypical affect, Low socio-economic status (poor access to food or resources) and Lo w family or social support, High 3+ Body structures & functions, Activity limitations, participation restrictions: Musculoskele guevara , Posture, ROM, Neuromuscular, Balance and Gait/Locomotion Work/school, Family home life , Community, Social, Recreational sport, Self care grooming and Transportation limitations H igh - 4 or more elements Stability of condition: Pre-op status with uncertain recovery course and Decline of conditi on Moderate - Evolving Clinical decision making: Pre-op status with uncertain recovery course, Numerous co-morbidi ties and/or personal factors require more complex clinical decision making and High level of skill needed to determine plan of care and implement changes accordingly High - Unpredi ctable clinical presentation Complexity: Moderate - 28214 The patient requires services that can be safely and effectively performed only by a qualif ied therapist to address the aforementioned and highlighted problems and goals. Goals discussed and agreed upon with patient and/or family. Individual cultural and social needs addressed. Rehab Potential: Good, if Celeste carries through with home exercise program. This note is to serve as the discharge summary if the patient fails to attend further Physi kenji Therapy appointments or contact the therapist regarding any change in their status. BA BUSH, PT [facility] PHYSICAL THERAPY SERVICES AT [facility] Scheduled Appointment time: 12:30 PM The patient was seen for a total of 30 minutes of treatment time. 30 minutes was in direct contact care as described above and on completed flow sheets. Treatment Interventions duration in minutes: Procedure:Physical Therapy Evaluation Authorization information for first visit and progress reports Procedure Codes: Re-evaluation 70320, Therapeutic Exercise 26583, Manual Therapy 33323, Th erapeutic Activities 98506 and Gait Training 58742 Pt to follow up with PT closer to home following surgery. No further PT at [facility]. Frequency: pre op visit only Duration: today (must exceed or match Medicare service period request) Service period from: 03/09/2019 to: 03/10/2019 (Medicare must match duration or be no greate r than 90 days if proposed duration is greater than 3 months) Start of care: 03/09/2019 Referral information Authorizing Provider: Naeem Briones MD, Onset/Referral Date: 9 Primary/Referral Diagnosis: M17.11 Osteoarthritis of right knee, unspecified osteoarthriti s type M25.561 Arthralgia of right knee Next progress report 05/09/2019 Insurance: Payor: MEDICARE / Plan: MEDICARE A & B / Product Type: Medicare / Number visits authorized: 10 Number visits used: 1 Outcome Measure 03/09/2019 . documented in this en counter Plan of [...] Rd | | | | | | [place], [place] | | | | | | [address] | | | | | | [phone] | | | | | | | | +--------+ + + + + | 03/19/ | Procedure | Surgery | | | | 2020 | Pass | | | | +--------+ + + + + documented as of this encounter Visit Diagnoses + + | Diagnosis | + + | Osteoarthritis of right knee, unspecified osteoarthritis type - Primary | + + | Arthralgia of right knee | + + documented in this encounter"
--- OUTSIDE RECORDS SUMMARY | ~2019-03-27 | XMS | Encounter Summary ---
Demographics + + + | Address | [address] | | | [place] [address] | + + + | Home Phone [...] Team Providers + +------+ + | Care Cutter And Presser Name | Role | Phone | + [...] Rd | | | | | | [place], [place] | | | | | | [address] | | | | | | [phone] | | | | | | | | +--------+ + + + + | 03/19/ | Procedure | Surgery | | | | 2020 | Pass | | | | +--------+ + + + + documented as of this encounter Visit Diagnoses Not on filedocumented in this encounter"
--- OUTSIDE RECORDS SUMMARY | ~2019-03-27 | XMS | Encounter Summary ---
Demographics + + + | Address | [address] | | | [place] [address] | + + + | Home Phone | | + + + | Preferred Language | Unknown | + + + | Marital Status | | + + + | Rastafari Affiliation | Unknown | + + + | Race | | + + + | Ethnic Group | Not or | + + + Author + + + | Author | [facility] | + + + | Organization | [facility] | + + + | Address | Unknown | + + + | Phone | Unavailable | + + + Support + + +---------+ + | Name | Relationship | Address | Phone | + + +---------+ + | Shun Savage | ECON | Unknown | | + + +---------+ + Care Team Providers + +------+ + | Care Packing Machine Operator Name | Role | Phone [...] | | | Aurora Gregory | [address] | | | | | | [place], [place] | for [facility] | | | | | | [address] | and Healing, | | | | | | Phone: | [address], | | | | | | [phone] | [address] | | | | | | Fax: | [place], [place] | | | | | | [phone] | [address] | | | | | | | Phone: | | | | | | | [phone] | | | | | | | Fax: | | | | | | | [phone] | + +--------+ + + + + Encounter Details +--------+---------+ + + + | Date | Type | Department | Care Team | Description | +--------+---------+ + + + | 03/09/ | Office | [facility] | Ba Bush, | Osteoarthritis of | | 2019 | Visit | Therapy Services at | PT [address] | right knee, | | | | [facility] | [address] | unspecified | | | | [address] | [facility] [place] | osteoarthritis type | | | | Mailcode: CH3P | [phone] | (Primary Dx); | | | | [facility] | | Arthralgia of right | | | | and Healing, | | knee | | | | Building | | | | | | Floor [place], [place] | | | | | | [address] | | | | | | [phone] | | | +--------+---------+ + + + [...] care for t he certification period documented. [facility] PHYSICAL THERAPY EVALUATION Past Medical History: Diagnosis [...] pre-op for planned Right TKA on 03/19/[address] [facility] [address] Briones. Patient Goals: walking, standing, daily [...] plan after surgery: SNF then outpatient in [facility] Current pain ratin/10, At worst 4/10 Precaution/special [...] home following surgery. No further PT at [facility]. See topics above to identify problem areas [...] Unpredi ctable clinical presentation Complexity: Moderate - 16653 The patient requires services that can be [...] change in their status. BA BUSH, PT [facility] PHYSICAL THERAPY SERVICES AT [facility] Scheduled Appointment time: 12:30 PM The patient was seen for a total of 30 minutes of treatment time. 30 minutes was in direct contact care as described above and on completed flow sheets. Treatment Interventions duration in minutes: Procedure:Physical Therapy Evaluation Authorization information for first visit and progress reports Procedure Codes: Re-evaluation 44336, Therapeutic Exercise 16247, Manual Therapy 27114, Th erapeutic Activities 03989 and Gait Training 69594 Pt to follow up with PT closer to home following surgery. No further PT at [facility]. Frequency: pre op visit only Duration: today [...] 2020 | Encounter | | [address] | | | | | | [address] | | | | | | [place], [place] | | | | | | [address] | | | | | | [phone] | | | | | | | [...]
--- OUTSIDE RECORDS SUMMARY | ~2019-03-27 | XMS | Clinical Summary ---
Demographics + + + | Address | [address] | | | [place] [address] | + + + | Home Phone | | + + + | Preferred Language | Unknown | + + + | Marital Status | | + + + | Advent Affiliation | Unknown | + + + | Race | | + + + | Ethnic Group | Not or | + + + Author + + + | Author | [facility] | + + + | Organization | [facility] | + + + | Address | Unknown | + + + | Phone | Unavailable | + + + Support + + +---------+ + | Name | Relationship | Address | Phone | + + +---------+ + | Shun Savage | ECON | Unknown | | + + +---------+ + Care Team Providers + +------+ + | Care Flyer Builder Name | Role | Phone | + +------+ + | Latrell Ortega MD | PCP | | + +------+ + Source Comments SHIRA is fully live on both [facility] and [facility] InPatient.[facility] Allergies + + + + + [...] involving | | | | | | hoonah coronary | | | | | | artery of hoonah | | | | | | heart [...] + + + + | 01/22/ | Table Keeper | Cardiology | Anita Cota | Palpitations [...] Rd | | | | | | [place], [place] | | | | | | [address] | | | | | | [phone] | | | | | | | [...] | | ADULT | | PDT | hoonah coronary | results section. | | | | | artery of hoonah | | | | | | heart [...] Performed At | + + + | [facility] | [facility] DEPT OF | | [facility] Adult Echocardiography Laboratory [address] CARDIOLOGY | | [place], [place] [address] Ph: | | | Pt Name: CELESTE Yeboah SEEN | | | Study Date/Time 01/22/2019 / 4:07:13 PMMRN: [id number] | | | Most recent prior: -[facility] #: [id number] | | | No. previous echos: 0DOB: 1955 63 years Heart Rate: | | | 86 bpmHeight: 58.0 in Blood Pressure: | | | 128/74 mm/HgWeight: 165.0 lb Gender: | | | FBSA: 1.68 m | | | Order ID: [id number] Study | | | Location: OPSonographer: Stephany YAÑEZ, RDCSSonographer 2: Dylan | | | [facility]Cob[facility] Medical Centerllow:Referring Provider: Anita Velasquez | | [...] Report electronically signed by: | | | [id number] Rk Martinez MD (01/22/2019, 5:26:52 PM) Final [...] | | | |Report electronically signed by: [id number] Rk Martinez MD (01/22/2019, 5:26:52 | | |PM) | | | | | | | | | | | | Final | | + + + + + | Procedure Note | + + | Interface, Cardiology Results - 01/22/2019 5:[address] [facility] | | [facility] Echocardiography Laboratory [facility] | | [place], [place] [address] Pt Name: CELESTE Yeboah | | SEEN Study Date/Time 01/22/2019 / 4:07:13 PMMRN: [id number] Most | | recent prior: -Acc #: [id number] No. previous echos: 0DOB: 1955 63 | | years Heart Rate: 86 bpmHeight: 58.0 in Blood Pressure: 128/74 | | mm/HgWeight: 165.0 lb Gender: FBSA: 1.68 m | | Order ID: [id number] Study Location: OPSonographer: Stephany Constantino | | [...] and indexed values Report electronically signed by: [id number] Rk | | Michelle JAMA (01/22/2019, 5:26:52 [...] | | | |Report electronically signed by: [id number] Rk Martinez MD (01/22/2019, 5:26:52 | |PM) | | | | | | | | Final | + + + + + + + | Performing | Address | City/State/Zipcode | Phone Number | | Organization | | | | + + + + + | [facility] DEPT OF | [address] | [place], [place] | | | CARDIOLOGY | [address] | [address] | | + + + + + [...] DEPT OF | [address] | [place], [place] | | | CARDIOLOGY | [address] | [address] | | + + + + + [...] | MEDICA | xxxxxxxxxxx | 10/03/18 | [phone] | [address] | Medica | | | RE A & | | [address] | [address] | re | | | B | | sent | | [place] | | | | | | | | [address] | | + +--------+ +--------+ + +--------+ | REPRESENTATIVE PERSONAL SERVICE MEDICAID | REPRESENTATIVE PERSONAL SERVICE | xxxxxxxx | | | | Medica [...] | | | [address] (Home) | [place] [address] | + +--------+ +--------+ + +
--- OUTSIDE RECORDS SUMMARY | 2019-03-27 18:06 | XMS ---
PreManage Notification: SHAMEKA POSEY Security Counter Intelligence Agent Events No recent Security Events currently on file CRITERIA MET - Group Notification - [facility] Guidelines - PDMP CARE PROVIDERS DIEGO HERNÁNDEZ Dentist: Automotive Design Drafter 02/17/2019-Current PHONE: [phone] MELISSA SIMENTAL Internal Medicine 01/20/2018-Current PHONE: Unknown Omar Vasquez Mental Health Provider Current PHONE: [phone] DR JOSE LO Primary Care Current PHONE: [phone] JANKI SANCHES DO Primary Care Current PHONE: [phone] Tawanda Craft Primary Care Svetlana JAMA PHONE: Unknown DR MELISSA SIMENTAL Primary Care 01/22/2017-01/22/2017 PHONE: [phone] YOAN Garcia or Evaporator Operator 12/27/2016-Current PHONE: [phone] Lin Pantoja Current Orthopedic Surgery \T\ [facility] PHONE: Unknown Other Current PHONE: Unknown Guidelines Source: [facility] [place] Guidelines Date: 11/18/2018 Care Recommendation: Currently Enrolled in Assertive Community Treatment (ACT) with [employer], contact [phone] for mental health concerns. \T\nbsp;History of reporting injuries based off delusions.\T\nbsp; Asking for details, reality based questions to see if this is a current concern.\T\nbsp;Prescription medications go through [facility] [phone]. Care History Medical/Surgical 01/20/2018 [facility] - Patient is currently established with [facility]. If patient is seen in the ED during business hours. Please contact CHWs at [facility]. Care Recommendation: This patient has had 5 or more Emergency Department visits in the last 12 months.\T\nbsp; Patient requires education on the scope and purpose of the ED as an acute care provider not a Primary Care Provider and should not be utilized for chronic conditions.\T\nbsp; These are guidelines and the provider should exercise clinical judgment when providing care. 09/08/2017 [facility] - Patient is currently receiving services through [facility] and is apart of the ACT team now. Which means patient is more involved with [employer] services and frequent visits from [facility]. 08/04/2017 [facility] Care Recommendation: This patient has had 5 or more Emergency Department visits in the last 12 months. Patient requires education on the scope and purpose of the ED as an acute care provider not a Primary Care Provider and should not be utilized for chronic conditions. If patient returns to ED please contact Community Health WorkerChar at [phone]. These are guidelines and the provider should exercise clinical judgment when providing care. [facility] VISIT COUNT (12 MO.) 9 ZARINA Garzon TOTAL 9 NOTE: Visits indicate total known visits. 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 - Bipolar disorder, unspecified - Sprain of unspecified site of right knee, initial encounter - Allergy status to other antibiotic agents status - Allergy status to penicillin - Allergy status to narcotic agent status - Striking against or struck by other objects, init encntr - Pain in right knee - Unspecified cataract 11/17/2018 18:21 [facility] [place] TYPE: Emergency [...] 2 diabetes mellitus with diabetic cataract - assisted (current) use of aspirin - Allergy status to penicillin - Allergy status to narcotic agent status - Other senior care (current) drug therapy 09/05/2018 07:23 [facility] [place] TYPE: Emergency COMPLAINT: - VOMITING DIAGNOSES: - Epilepsy, unsp, not intractable, without status epilepticus - Other long winder tender (current) drug therapy - Allergy status to other antibiotic agents status - Allergy status to analgesic agent status - 1 Type 2 diabetes mellitus without complications - Attention-deficit hyperactivity disorder, unspecified type - Unspecified abdominal pain - assisted (current) use of aspirin - assisted (current) use of oral hypoglycemic [...] struck by other objects, init encntr - termite control representative (current) use of oral hypoglycemic drugs - Attention-deficit hyperactivity disorder, unspecified type - Allergy status to narcotic agent status - Allergy status to other antibiotic agents status - Other senior care (current) drug therapy - assisted (current) use of aspirin - Allergy status to oth drug/meds/biol subst status 06/29/2018 18:53 [facility] [place] TYPE: Emergency COMPLAINT: - L WRIST PAIN/INJURY DIAGNOSES: - Pain in left wrist - Unspecified sprain of left wrist, initial encounter - Hypothyroidism, unspecified - Gastro-esophageal reflux disease without esophagitis - termite control representative (current) use of aspirin - Other senior care (current) drug therapy - Bipolar disorder, unspecified - 1 Type 2 diabetes mellitus without complications - Contusion of right knee, initial encounter - termite control representative (current) use of oral hypoglycemic drugs - [...] - Irritable bowel syndrome with constipation - assisted (current) use of aspirin - Constipation, unspecified - Allergy status to oth drug/meds/biol subst status - Attention-deficit hyperactivity disorder, unspecified type - Epilepsy, unsp, not intractable, without status epilepticus - Gastro-esophageal reflux disease without esophagitis - Allergy status to other antibiotic agents status - Allergy status to analgesic agent status - Bipolar disorder, unspecified - Other senior care (current) drug therapy 04/18/2018 18:25 [facility] [place] TYPE: Emergency COMPLAINT: - VOMITING DIAGNOSES: - Dizziness and giddiness - assisted (current) use of oral hypoglycemic drugs - Noninfective gastroenteritis and colitis, unspecified - Allergy status to narcotic agent status - Hypothyroidism, unspecified - 1 Type 2 diabetes mellitus without complications - Other senior care (current) drug therapy - Allergy status to penicillin - termite control representative (current) use of aspirin - Epilepsy, unsp, [...] Bipolar disorder, unspecified - Hypothyroidism, unspecified - termite control representative (current) use of aspirin - Other senior care (current) drug therapy - Allergy status to penicillin - termite control representative (current) use of oral hypoglycemic drugs - Allergy status to narcotic agent status - Dizziness and giddiness - 1 Type 2 diabetes mellitus without complications - Gastro-esophageal reflux disease without esophagitis - Allergy status to oth drug/meds/biol subst status INPATIENT VISIT TRACKING (12 MO.) No inpatient visits to display in this time frame [email or web address]
[2019-03-27] MEDS ORDERED: ATORVASTATIN CA10 MG PO (18:30)
[2019-03-27] MEDS ORDERED: ZOFRAN4 MG PO (20:44)
[2019-03-27] MEDS ORDERED: POTASSIUM CHLO10 MEQ PO (20:44)
== END 2019-03-27 20:56 | disposition home or self-care (01) ==
LOC: ED 18:04
DX: K52.9 Noninfective gastroenteritis and colitis, unspecified (principal); E87.6 Hypokalemia; E11.9 Type 2 diabetes mellitus without complications; F31.9 Bipolar disorder, unspecified; E03.9 Hypothyroidism, unspecified; K21.9 Gastro-esophageal reflux disease without esophagitis; G40.909 Epilepsy, unspecified, not intractable, without status epilepticus; F90.9 Attention-deficit hyperactivity disorder, unspecified type; Z88.1 Allergy status to other antibiotic agents; Z88.5 Allergy status to narcotic agent; Z88.8 Allergy status to other drugs, medicaments and biological substances; Z79.899 Other long term (current) drug therapy; Z79.84 Long term (current) use of oral hypoglycemic drugs; Z79.82 Long term (current) use of aspirin
CPT/HCPCS: 80053; 81001; 83690; 83735; 85025; 96361; 96374; 99284-25; J2405; J7030

== ENCOUNTER 2019-06-29 23:22 | Emergency (ER) | payer MEDICARE, OTHER ==
[~2019-06-29] VITALS: Ht 147.3 cm; Wt 73.3 kg
[~2019-06-29 23:22] MED LIST changes: +ATORVASTATIN CA10 MG PO; +POTASSIUM CHLO10 MEQ PO
--- OUTSIDE RECORDS SUMMARY | 2019-06-29 23:26 | XMS ---
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 No recent Security Events currently on file CRITERIA MET - Group Notification - [facility] Guidelines - PDMP CARE PROVIDERS DIEGO HERNÁNDEZ Dentist: Weight Loss Physician 02/17/2019-Current PHONE: [phone] MELISSA SIMENTAL Internal Medicine 01/20/2018-Current PHONE: Unknown Omar Vasquez Mental Health Provider Current PHONE: [phone] DR JOSE LO Primary Care Current PHONE: [phone] JANKI SANCHES DO Primary Care Current PHONE: [phone] Tawanda Craft Primary Care Svetlana JAMA PHONE: Unknown DR MELISSA SIMENTAL Primary Care 01/22/2017-01/22/2017 PHONE: [phone] YOAN Garcia or Nuclear Chemistry Technician 12/27/2016-Current PHONE: [phone] Lin Pantoja Current Orthopedic Surgery \T\ [facility] PHONE: Unknown Other Current PHONE: Unknown Guidelines Source: [facility] Guidelines Date: 11/18/2018 Care Recommendation: Currently Enrolled in Assertive Community Treatment (ACT) with [employer] [facility], contact [phone] for mental health concerns. \T\nbsp;History of reporting injuries based off delusions.\T\nbsp; Asking for details, reality based questions to see if this is a current concern.\T\nbsp;Prescription medications go through [facility] [phone]. Care History Medical/Surgical 01/20/2018 [facility] - Patient is currently established with [facility]. If patient is seen in the ED during business hours. Please contact CHWs at [facility]. Care Recommendation: This patient has had 5 or more Emergency Department visits in the last 12 months.\T\nbsp; Patient requires education on the scope and purpose of the ED as an acute care provider not a Primary Care Provider and should not be utilized for chronic conditions.\T\nbsp; These are guidelines and the provider should exercise clinical judgment when providing care. 09/08/2017 [facility] - Patient is currently receiving services through [facility] and is apart of the ACT team now. Which means patient is more involved with [facility] services and frequent visits from [facility]. 08/04/2017 [facility] Care Recommendation: This patient has had 5 or more Emergency Department visits in the last 12 months. Patient requires education on the scope and purpose of the ED as an acute care provider not a Primary Care Provider and should not be utilized for chronic conditions. If patient returns to ED please contact [facility] at [phone]. These are guidelines and the provider should exercise clinical judgment when providing care. [facility] VISIT COUNT (12 MO.) 6 [facility] TOTAL 6 NOTE: Visits indicate total known visits. ED/UCC VISIT TRACKING (12 MO.) 06/29/2019 23:23 [facility] TYPE: Emergency COMPLAINT: - FLU SYMPTOMS 03/27/2019 18:05 [facility] TYPE: Emergency COMPLAINT: - VOMITING/COUGH DIAGNOSES: - Gastro-esophageal reflux disease without esophagitis - Attention-deficit hyperactivity disorder, unspecified type - Hypothyroidism, unspecified - 1 Type 2 diabetes mellitus without complications - Epilepsy, unsp, not intractable, without status epilepticus - Allergy status to narcotic agent status - care home (current) use of aspirin - Noninfective gastroenteritis and colitis, unspecified - termite treater (current) use of oral hypoglycemic drugs - Other lobsterman (current) drug therapy - Bipolar disorder, unspecified - Unspecified abdominal pain - Allergy status to oth drug/meds/biol subst status - Allergy status to other antibiotic agents status - Hypokalemia 02/16/2019 16:49 [facility] TYPE: Emergency COMPLAINT: - KNEE PAIN, INJ DIAGNOSES: - Allergy status to oth drug/meds/biol subst status - Other lobsterman (current) drug therapy - termite treater (current) use of aspirin - Other nonmedicinal [...] 2 diabetes mellitus with diabetic cataract - care home (current) use of aspirin - Allergy status to penicillin - Allergy status to narcotic agent status - Other lobsterman (current) drug therapy 09/05/2018 07:23 [facility] TYPE: Emergency COMPLAINT: - VOMITING DIAGNOSES: - Epilepsy, unsp, not intractable, without status epilepticus - Other lobsterman (current) drug therapy - Allergy status to other antibiotic agents status - Allergy status to analgesic agent status - 1 Type 2 diabetes mellitus without complications - Attention-deficit hyperactivity disorder, unspecified type - Unspecified abdominal pain - termite treater (current) use of aspirin - termite treater (current) use of oral hypoglycemic drugs - Acquired absence of both cervix and uterus - Allergy status to narcotic agent status - Bipolar disorder, unspecified - Gastro-esophageal reflux disease without esophagitis - Nausea with vomiting, unspecified - Other nonmedicinal substance allergy status - Hypothyroidism, unspecified - Allergy status to penicillin 08/18/2018 23:57 [facility] [place] TYPE: Emergency COMPLAINT: - R WRIST PAIN/INJURY DIAGNOSES: - Gastro-esophageal reflux disease without esophagitis - 1 Type 2 diabetes mellitus without complications - Epilepsy, unsp, not intractable, without status epilepticus - Hypothyroidism, unspecified - Bipolar disorder, unspecified - Contusion of right wrist, initial encounter - Striking against or struck by other objects, init encntr - termite treater (current) use of oral hypoglycemic drugs - Attention-deficit hyperactivity disorder, unspecified type - Allergy status to narcotic agent status - Allergy status to other antibiotic agents status - Other lobsterman (current) drug therapy - termite treater (current) use of aspirin - Allergy status to oth drug/meds/biol subst status INPATIENT VISIT TRACKING (12 MO.) No inpatient visits to display in this time frame [email or web address]
== END 2019-06-30 01:36 | disposition home or self-care (01) ==
LOC: ED 23:22
DX: B34.9 Viral infection, unspecified (principal); E11.9 Type 2 diabetes mellitus without complications; E03.9 Hypothyroidism, unspecified; F90.9 Attention-deficit hyperactivity disorder, unspecified type; F31.9 Bipolar disorder, unspecified; Z79.899 Other long term (current) drug therapy
CPT/HCPCS: 73610; 99283-25

== ENCOUNTER 2019-11-18 07:39 | Day surgery (SDC) | payer MEDICARE, OTHER ==
[~2019-11-18] VITALS: Ht 147.3 cm; Wt 74.4 kg
--- NOTE | 2019-11-18 09:50 | NUR ---
11/18/19 0950 Karan Alvarado REORIENTED TO TIME AND SITUATION ON ENTRY TO PACU. DENIES NAUSEA OR PAIN. FALLS ASLEEP EASILY.
--- NOTE | 2019-11-18 11:48 | OR ---
[facility] [address] [place], [place] [address] Signed DATE OF OPERATION: 11/18/2019 SURGEON: Nasima Nielson MD PREOPERATIVE DIAGNOSES: 1. Rectal bleeding. 2. Constipation. 3. Sphincterotomy. 4. Internal anal skin tags. 5. Personal history of multiple hyperplastic colorectal polyps. POSTOPERATIVE DIAGNOSES: 1. Small internal anal skin tags x2. 2. Minimal to moderate left and sigmoid diverticulosis. 3. 5 mm polypoid lesion proximal right colon. 4. 3 mm polyps x2, mid rectum. PROCEDURE: Colonoscopy with hot biopsy. ESTIMATED BLOOD LOSS: None. INDICATIONS: Celeste is a 64-year-old female, we have known for quite some time. She reminded me that sometime before 2003, Dr. Wagner did a negative colonoscopy. In 2003, Dr. Lemons removed a few small hyperplastic polyps in her sigmoid colon. I had removed some hyperplastic polyps for Celeste in 2008 in the transverse and proximal right colon. She ended in that same year. 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 She said that is much better. More recently though she feels like her constipation has come back and she has had intermittent rectal bleeding. She is now with [facility] in [facility]. I suspect she is probably more compliant with her medications. There is no family history of colon cancer or polyps. She came back for a followup colonoscopy. I had explained to Celeste even with hyperplastic polyps, we would generally do a colonoscopy every 10 years mainly for screening purposes. In the office, I gave her a pamphlet on colonoscopy and we reviewed the nature of the test. She recalls that quite nicely. She understands there is risk including, but not limited to gas bloating, crampy abdominal pain, bleeding, perforation requiring surgery, and missed diagnosis. She also understands the need for IV conscious sedation. She had expressed understanding and wished to proceed. Electronically Signed By: NASIMA NIELSON MD 11/18/19 1148 PATIENT NAME: SEENCELESTE OPERATIVE REPORT DATE OF : 55 REPORT #: [id number] PHYSICIAN: NASIMA NIELSON MD PCP: DIEGO HERNÁNDEZ MD REPORT IS CONFIDENTIAL AND NOT TO BE RELEASED WITHOUT AUTHORIZATION [facility] [address] [place] [id number] Signed DESCRIPTION OF PROCEDURE: Celeste was taken into our endoscopy suite and placed in the left lateral decubitus position. She was given a total of 6 mg of Versed and 150 mcg of fentanyl to cover the case. A digital rectal exam was performed and she has moderate sphincter tone. It was actually hypertensive when I first met her at least now we can pass our index finger through her anal canal. After this, the adult colonoscope was introduced and advanced all around into the cecum under direct visualization of camera without difficulty. It took some extra sedation and abdominal compression in order to advance the scope. Her prep was quite good as always. We could easily see the appendiceal orifice and ileocecal valve. The scope was slowly withdrawn. She had just a tiny 5 mm polypoid lesion in the proximal right colon. We removed that completely with hot biopsy forceps. She does have diverticula in the left and sigmoid colon. They were minimal to moderate in size, minimal to moderate in number, and scattered about. She had a couple tiny hyperplastic polyps in the rectum, which we removed for pathologic review. Upon retroflexion of scope, I can see the two small internal anal skin tags. Really not much in the way of internal hemorrhoids. After this, the gas was suctioned out and the colonoscope removed. Celeste tolerated the procedure quite well. RECOMMENDATIONS: I will see Celeste back in my office in 7 to 14 days to review her results. She will hold her aspirin for one week. Her other medications she can resume today. Nasima Nielson MD ALB/MODL /[id number] cc: MD Diego Ivory MD Copies: NASIMA NIELSON MD Electronically Signed By: NASIMA NIELSON MD 11/18/19 1148 PATIENT NAME: CELESTE POSEY OPERATIVE REPORT DATE OF : 55 REPORT #: [id number] PHYSICIAN: NASIMA NIELSON MD PCP: DIEOG HERNÁNDEZ MD REPORT IS CONFIDENTIAL AND NOT TO BE RELEASED WITHOUT AUTHORIZATION [facility] [address] [facility] [place] [address] Signed DIEGO HERNÁNDEZ DMD ~ Electronically Signed By: NASIMA NIELSON MD 11/18/19 1148 PATIENT NAME: CELESTE POSEY OPERATIVE REPORT DATE OF : 55 REPORT #: [id number] PHYSICIAN: NASIMA NIELSON MD PCP: DIEGO HERNÁNDEZ MD REPORT IS CONFIDENTIAL AND NOT TO BE RELEASED WITHOUT AUTHORIZATION
--- NOTE | 2019-11-19 17:16 | PATH ---
[facility] [address] [place], [place] [address] Signed SPECIMEN(S): A COLON POLYP AT 20 CM SPECIMEN(S): B PROXIMAL ASCENDING POLYP SPECIMEN SOURCE: A. COLON POLYP AT 20 CM B. PROXIMAL ASCENDING POLYP CLINICAL HISTORY: History of polyps. Postop: Rectal polyp, diverticulosis, colon polyp. MICROSCOPIC DESCRIPTION: Histologic sections of all submitted blocks are examined by light microscopy. These findings, together with the gross examination, support the pathologic diagnosis. FINAL PATHOLOGIC DIAGNOSIS: A. Colon, polyp at 20 cm, biopsy: - Hyperplastic polyps (2). - There is no evidence of dysplasia or malignancy. B. Colon, proximal ascending, polypectomy: - Benign colonic mucosa with prominent intramucosal lymphoid aggregate. - No evidence of neoplasia. COMMENT: Regarding part B, sections of colonic tissue demonstrate a benign intramucosal lymphoid aggregate. Intramucosal lymphoid aggregates can sometimes appear as polyps endoscopically. They have no clinical significance. There is no evidence of dysplasia or malignancy. GILMAK:slh:[id number] GROSS DESCRIPTION: Two specimens are received in two containers, labeled "BS." A. The specimen, labeled "BS, colon polyp at 20 cm," is received in formalin and consists of two johnson soft tissue fragments that measure 0.3 cm in greatest dimension. The specimen is entirely submitted in cassette (A1). B. The specimen, labeled "BS, proximal ascending colon polyp," is received in formalin and consists of one johnson soft tissue fragment that measures 0.2 cm in greatest dimension. The specimen is entirely submitted in cassette (B1). JS (under the direct supervision of a pathologist) The Gross Description was prepared using a voice recognition system. The PATIENT NAME: SHAMEKA POSEY PATHOLOGY DATE OF : 55 REPORT #: [id number] PHYSICIAN: BRAYAN VELA PCP: DIEGO HERNÁNDEZ MD REPORT IS CONFIDENTIAL AND NOT TO BE RELEASED WITHOUT AUTHORIZATION [facility] [address] [place], [place] [address] Signed report was reviewed for accuracy; however, sound-alike word errors, addition and/or deletions may occur. If there is any question about this report, please contact Client Services. PERFORMING LABORATORY: The technical component was performed by [facility], [address] [place] [address] (Retention Representative: Stephany Guerrero MD; CLIA# [id number]). The professional interpretation was performed by [facility], [facility], [address] [place] [address]. Diagnostician: Michael Chavez MD Pathologist Electronically Signed 11/19/2019 Copies: ~ PATIENT NAME: SHAMEKA POSEY PATHOLOGY DATE OF : 55 REPORT #: [id number] PHYSICIAN: BRAYAN VELA PCP: DIEGO HERNÁNDEZ MD REPORT IS CONFIDENTIAL AND NOT TO BE RELEASED WITHOUT AUTHORIZATION
== END 2019-11-18 10:40 | disposition home or self-care (01) ==
LOC: DS 07:39 → OPS 07:39 → DS 09:00 → OPS 09:00
PROVIDERS: Colon & Rectal Surgery
PROC: 0DBE8ZZ Excision of Large Intestine, Via Natural or Artificial Opening Endoscopic (ICD-10-PCS; 2019-11-18)
PROC: 0DBK8ZZ Excision of Ascending Colon, Via Natural or Artificial Opening Endoscopic (ICD-10-PCS; principal; 2019-11-18 09:00)
DX: K63.5 Polyp of colon (principal); K64.8 Other hemorrhoids; K57.30 Diverticulosis of large intestine without perforation or abscess without bleeding; K21.9 Gastro-esophageal reflux disease without esophagitis; E03.9 Hypothyroidism, unspecified; F31.9 Bipolar disorder, unspecified; Z79.899 Other long term (current) drug therapy; Z79.82 Long term (current) use of aspirin; Z79.84 Long term (current) use of oral hypoglycemic drugs
CPT/HCPCS: 99153; G0500; J2250; J3010; J7121

== ENCOUNTER 2020-12-29 18:01 | Emergency (ER) | payer MEDICARE, OTHER ==
[~2020-12-29] VITALS: Ht 147.3 cm; Wt 76.0 kg
[2020-12-29] MEDS ORDERED: LATUDA60 MG PO (18:41)
[2020-12-29] MEDS ORDERED: DOCUSATE SODIU100 MG PO (18:42)
[2020-12-29] MEDS ORDERED: VITAMIN D21250 MCG PO (18:42)
[2020-12-29] MEDS ORDERED: AMITRIPTYLINE H25 MG PO (18:42)
[2020-12-29] MEDS ORDERED: ATORVASTATIN CA10 MG PO (18:43)
[2020-12-29] MEDS ORDERED: LOSARTAN POTASS25 MG PO (18:44)
[2020-12-29] MEDS ORDERED: LEVOTHYROXINE100 MCG PO (18:44)
--- NOTE | 2020-12-31 12:43 | EKG ---
[facility] [address] [facility] [place], [place] [address] Signed Normal sinus rhythm Normal ECG When compared with ECG of 18-APR-2018 03:42, Vent. rate has increased BY 34 BPM Confirmed by CR BAILEY DO ([id number]) on 12/31/2020 12:43:30 PM Electronically Signed By: CR BAILEY DO 12/31/20 1243 PATIENT NAME: SHAMEKA POSEY Electrocardiogram DATE OF : 55 PHYSICIAN: CR BAILEY DO REPORT #: [id number] REPORT IS CONFIDENTIAL AND NOT TO BE RELEASED WITHOUT AUTHORIZATION
== END 2020-12-30 17:45 | disposition home or self-care (01) ==
LOC: ED 18:01
DX: R45.851 Suicidal ideations (principal); E05.80 Other thyrotoxicosis without thyrotoxic crisis or storm; E11.9 Type 2 diabetes mellitus without complications; K21.9 Gastro-esophageal reflux disease without esophagitis; M10.9 Gout, unspecified; G40.909 Epilepsy, unspecified, not intractable, without status epilepticus; E03.9 Hypothyroidism, unspecified; Z20.822 Contact with and (suspected) exposure to COVID-19; Z88.1 Allergy status to other antibiotic agents; Z88.5 Allergy status to narcotic agent; Z88.0 Allergy status to penicillin; Z88.8 Allergy status to other drugs, medicaments and biological substances; Z91.041 Radiographic dye allergy status; Z91.048 Other nonmedicinal substance allergy status; Z79.899 Other long term (current) drug therapy; Z79.84 Long term (current) use of oral hypoglycemic drugs; Z79.82 Long term (current) use of aspirin
CPT/HCPCS: 71045; 80053; 81001; 84443; 85025; 93005; 93010; 99285-25; C9803; G0480; U0003

== ENCOUNTER 2021-03-01 22:28 | Emergency (ER) | payer MEDICARE, OTHER ==
[~2021-03-01] VITALS: Ht 147.3 cm; Wt 76.0 kg
[~2021-03-01 22:28] MED LIST changes: +AMITRIPTYLINE H25 MG PO; +DOCUSATE SODIU100 MG PO; +LATUDA60 MG PO; +LEVOTHYROXINE100 MCG PO; +LOSARTAN POTASS25 MG PO; +VITAMIN D21250 MCG PO
[2021-03-02] MEDS ORDERED: POTASSIUM CHLO20 ME1 PO (06:49)
[2021-03-02] MEDS ORDERED: HYDROCODON-ACE1 EA10 PO (06:49)
[2021-03-02] MEDS ORDERED: HYDROXYZINE HCL25 MG PO (12:10)
[2021-03-02] MEDS ORDERED: ONDANSETRON ODT8 MG PO (12:10)
[2021-03-02] MEDS ORDERED: GABAPENTIN300 MG PO (12:13)
[2021-03-02] MEDS ORDERED: OMEPRAZOLE20 MG PO (12:13)
[2021-03-02] MEDS ORDERED: TORSEMIDE20 MG PO (12:14)
[2021-03-02] MEDS ORDERED: METFORMIN HCL500 MG PO (12:16)
== END 2021-03-02 13:10 | disposition home or self-care (01) ==
LOC: ED 22:28
DX: S43.015A Anterior dislocation of left humerus, initial encounter (principal); W18.30XA Fall on same level, unspecified, initial encounter; E11.9 Type 2 diabetes mellitus without complications; F31.9 Bipolar disorder, unspecified; E03.9 Hypothyroidism, unspecified; G40.909 Epilepsy, unspecified, not intractable, without status epilepticus; M10.9 Gout, unspecified; Z88.1 Allergy status to other antibiotic agents; Z88.5 Allergy status to narcotic agent; Z88.0 Allergy status to penicillin; Z79.899 Other long term (current) drug therapy; Z79.84 Long term (current) use of oral hypoglycemic drugs; Z79.82 Long term (current) use of aspirin
CPT/HCPCS: 23650; 73030; 80048; 80053; 83735; 85025; 99152; 99284-25; A9270; J2704; J3480

== ENCOUNTER 2021-05-29 17:33 | Emergency (ER) | payer MEDICARE, OTHER ==
[~2021-05-29] VITALS: Ht 147.3 cm; Wt 76.7 kg
[~2021-05-29 17:33] MED LIST changes: +GABAPENTIN300 MG PO; +HYDROCODON-ACE1 EA10 PO; +HYDROXYZINE HCL25 MG PO; +OMEPRAZOLE20 MG PO; +ONDANSETRON ODT8 MG PO; +POTASSIUM CHLO20 ME1 PO
== END 2021-05-30 01:14 | disposition home or self-care (01) ==
LOC: ED 17:33
DX: S50.11XA Contusion of right forearm, initial encounter (principal); M54.50 Low back pain, unspecified; G89.29 Other chronic pain; E11.9 Type 2 diabetes mellitus without complications; E03.9 Hypothyroidism, unspecified; I10 Essential (primary) hypertension; I25.10 Atherosclerotic heart disease of native coronary artery without angina pectoris; K21.9 Gastro-esophageal reflux disease without esophagitis; G40.909 Epilepsy, unspecified, not intractable, without status epilepticus; M10.9 Gout, unspecified; Z88.1 Allergy status to other antibiotic agents; Z88.0 Allergy status to penicillin; Z88.8 Allergy status to other drugs, medicaments and biological substances; Z79.51 Long term (current) use of inhaled steroids; Z79.899 Other long term (current) drug therapy; Z79.82 Long term (current) use of aspirin; Z79.890 Hormone replacement therapy; Z79.84 Long term (current) use of oral hypoglycemic drugs; W19.XXXA Unspecified fall, initial encounter
CPT/HCPCS: 72100; 73090; 99283-25

== ENCOUNTER 2021-07-01 23:47 | Emergency (ER) | payer OTHER, MEDICARE ==
[~2021-07-01] VITALS: Ht 147.3 cm; Wt 77.6 kg
== END 2021-07-02 01:53 | disposition home or self-care (01) ==
LOC: ED 23:47
DX: S63.501A Unspecified sprain of right wrist, initial encounter (principal); E11.9 Type 2 diabetes mellitus without complications; E03.9 Hypothyroidism, unspecified; I10 Essential (primary) hypertension; I25.10 Atherosclerotic heart disease of native coronary artery without angina pectoris; K21.9 Gastro-esophageal reflux disease without esophagitis; G40.909 Epilepsy, unspecified, not intractable, without status epilepticus; M10.9 Gout, unspecified; Z88.0 Allergy status to penicillin; Z88.1 Allergy status to other antibiotic agents; Z88.8 Allergy status to other drugs, medicaments and biological substances; Z88.5 Allergy status to narcotic agent; Z79.899 Other long term (current) drug therapy; Z79.51 Long term (current) use of inhaled steroids; Z79.84 Long term (current) use of oral hypoglycemic drugs; W01.0XXA Fall on same level from slipping, tripping and stumbling without subsequent striking against object, initial encounter
CPT/HCPCS: 73110; 99283-25; A9270

== ENCOUNTER 2021-07-02 19:03 | Emergency (ER) | payer MEDICARE, OTHER ==
[~2021-07-02] VITALS: Ht 147.3 cm; Wt 75.0 kg
== END 2021-07-02 21:32 | disposition home or self-care (01) ==
LOC: ED 19:03
DX: S09.90XA Unspecified injury of head, initial encounter (principal); E11.9 Type 2 diabetes mellitus without complications; E03.9 Hypothyroidism, unspecified; I10 Essential (primary) hypertension; K21.9 Gastro-esophageal reflux disease without esophagitis; M10.9 Gout, unspecified; Z88.0 Allergy status to penicillin; Z88.1 Allergy status to other antibiotic agents; Z88.8 Allergy status to other drugs, medicaments and biological substances; Z79.899 Other long term (current) drug therapy; Z79.82 Long term (current) use of aspirin; W18.30XA Fall on same level, unspecified, initial encounter; W22.8XXA Striking against or struck by other objects, initial encounter; Y92.481 Parking lot as the place of occurrence of the external cause
CPT/HCPCS: 70450; 99284-25; A9270

== ENCOUNTER 2021-07-19 23:59 | Emergency (ER) | payer MEDICARE, OTHER ==
[~2021-07-19] VITALS: Ht 147.3 cm; Wt 81.6 kg
[2021-07-20] MEDS ORDERED: ULTRAM50 MG PO (01:45)
== END 2021-07-20 02:28 | disposition home or self-care (01) ==
LOC: ED 23:59
DX: S52.125A Nondisplaced fracture of head of left radius, initial encounter for closed fracture (principal); E11.9 Type 2 diabetes mellitus without complications; E03.9 Hypothyroidism, unspecified; I10 Essential (primary) hypertension; I25.2 Old myocardial infarction; K21.9 Gastro-esophageal reflux disease without esophagitis; G40.909 Epilepsy, unspecified, not intractable, without status epilepticus; M10.9 Gout, unspecified; G20 Parkinson's disease; Z88.1 Allergy status to other antibiotic agents; Z88.0 Allergy status to penicillin; Z88.5 Allergy status to narcotic agent; Z88.8 Allergy status to other drugs, medicaments and biological substances; Z79.899 Other long term (current) drug therapy; Z79.82 Long term (current) use of aspirin; Z79.84 Long term (current) use of oral hypoglycemic drugs; W18.30XA Fall on same level, unspecified, initial encounter; Y92.512 Supermarket, store or market as the place of occurrence of the external cause
CPT/HCPCS: 29105; 73080; 99283-25; J1885

== ENCOUNTER 2021-07-21 02:37 | Emergency (ER) | payer MEDICARE, OTHER ==
[~2021-07-21] VITALS: Ht 147.3 cm; Wt 81.6 kg
[~2021-07-21 02:37] MED LIST changes: +ULTRAM50 MG PO
== END 2021-07-21 03:01 | disposition home or self-care (01) ==
LOC: ED 02:37
DX: F41.9 Anxiety disorder, unspecified (principal); E11.9 Type 2 diabetes mellitus without complications; E03.9 Hypothyroidism, unspecified; I10 Essential (primary) hypertension; I25.2 Old myocardial infarction; K21.9 Gastro-esophageal reflux disease without esophagitis; M10.9 Gout, unspecified; G20 Parkinson's disease; Z88.8 Allergy status to other drugs, medicaments and biological substances; Z88.0 Allergy status to penicillin; Z88.5 Allergy status to narcotic agent; Z79.899 Other long term (current) drug therapy; Z79.82 Long term (current) use of aspirin; Z79.84 Long term (current) use of oral hypoglycemic drugs
CPT/HCPCS: 99283

== ENCOUNTER 2021-07-28 21:28 | Emergency (ER) | payer MEDICARE, OTHER ==
[~2021-07-28] VITALS: Ht 147.3 cm; Wt 81.8 kg
[2021-07-28] MEDS ORDERED: CARAFATE1 GM PO (23:19)
== END 2021-07-28 23:32 | disposition home or self-care (01) ==
LOC: ED 21:28
DX: K29.70 Gastritis, unspecified, without bleeding (principal); I10 Essential (primary) hypertension; I25.10 Atherosclerotic heart disease of native coronary artery without angina pectoris; E03.9 Hypothyroidism, unspecified; E11.9 Type 2 diabetes mellitus without complications; K21.9 Gastro-esophageal reflux disease without esophagitis; G40.909 Epilepsy, unspecified, not intractable, without status epilepticus; G20 Parkinson's disease; Z88.8 Allergy status to other drugs, medicaments and biological substances; Z88.1 Allergy status to other antibiotic agents; Z88.0 Allergy status to penicillin; Z79.899 Other long term (current) drug therapy; Z79.82 Long term (current) use of aspirin; Z79.84 Long term (current) use of oral hypoglycemic drugs
CPT/HCPCS: 36415; 74022; 80053; 83690; 85025; 99284-25

== ENCOUNTER 2021-07-31 18:53 | Emergency (ER) | payer MEDICARE, OTHER ==
[~2021-07-31] VITALS: Ht 147.3 cm; Wt 81.8 kg
[~2021-07-31 18:53] MED LIST changes: +CARAFATE1 GM PO
== END 2021-07-31 23:09 | disposition home or self-care (01) ==
LOC: ED 18:53
DX: S63.501A Unspecified sprain of right wrist, initial encounter (principal); S00.03XA Contusion of scalp, initial encounter; E03.9 Hypothyroidism, unspecified; I25.10 Atherosclerotic heart disease of native coronary artery without angina pectoris; K21.9 Gastro-esophageal reflux disease without esophagitis; G40.909 Epilepsy, unspecified, not intractable, without status epilepticus; M10.9 Gout, unspecified; G20 Parkinson's disease; E11.9 Type 2 diabetes mellitus without complications; I10 Essential (primary) hypertension; Z88.1 Allergy status to other antibiotic agents; Z88.0 Allergy status to penicillin; Z88.5 Allergy status to narcotic agent; Z79.899 Other long term (current) drug therapy; Z79.51 Long term (current) use of inhaled steroids; Z79.82 Long term (current) use of aspirin; Z79.84 Long term (current) use of oral hypoglycemic drugs; W19.XXXA Unspecified fall, initial encounter; W22.09XA Striking against other stationary object, initial encounter
CPT/HCPCS: 70450; 72125; 73110; 99284-25

== ENCOUNTER 2021-10-29 12:48 | Emergency (ER) | payer MEDICARE, OTHER ==
[~2021-10-29] VITALS: Ht 147.3 cm; Wt 81.8 kg
[2021-10-29] MEDS ORDERED: HYDROCODON-ACE1 EA10 PO (17:50)
== END 2021-10-29 18:03 | disposition home or self-care (01) ==
LOC: ED 12:48
DX: S80.02XA Contusion of left knee, initial encounter (principal); S80.01XA Contusion of right knee, initial encounter; S50.11XA Contusion of right forearm, initial encounter; S46.912A Strain of unspecified muscle, fascia and tendon at shoulder and upper arm level, left arm, initial encounter; E11.9 Type 2 diabetes mellitus without complications; I10 Essential (primary) hypertension; I25.119 Atherosclerotic heart disease of native coronary artery with unspecified angina pectoris; Z88.1 Allergy status to other antibiotic agents; Z88.0 Allergy status to penicillin; Z88.5 Allergy status to narcotic agent; Z91.048 Other nonmedicinal substance allergy status; Z79.899 Other long term (current) drug therapy
CPT/HCPCS: 71045; 73080; 73090; 73560

== ENCOUNTER 2021-11-06 05:54 | Emergency (ER) | payer MEDICARE, OTHER ==
[~2021-11-06] VITALS: Ht 147.3 cm; Wt 81.8 kg
== END 2021-11-06 06:58 | disposition home or self-care (01) ==
LOC: ED 05:54
DX: S01.01XA Laceration without foreign body of scalp, initial encounter (principal); W18.30XA Fall on same level, unspecified, initial encounter; Y93.01 Activity, walking, marching and hiking; Z23 Encounter for immunization; E11.9 Type 2 diabetes mellitus without complications; I10 Essential (primary) hypertension; I25.119 Atherosclerotic heart disease of native coronary artery with unspecified angina pectoris; K21.9 Gastro-esophageal reflux disease without esophagitis; Z88.1 Allergy status to other antibiotic agents; Z88.0 Allergy status to penicillin; Z88.8 Allergy status to other drugs, medicaments and biological substances; Z79.84 Long term (current) use of oral hypoglycemic drugs; Z79.899 Other long term (current) drug therapy
CPT/HCPCS: 70450; 90714

== ENCOUNTER 2021-11-12 17:51 | Emergency (ER) | payer MEDICARE, OTHER ==
[~2021-11-12] VITALS: Ht 147.3 cm; Wt 81.8 kg
[2021-11-12] MEDS ORDERED: NAPROSYN500 MG PO (22:18)
== END 2021-11-12 22:28 | disposition home or self-care (01) ==
LOC: ED 17:51
DX: M17.11 Unilateral primary osteoarthritis, right knee (principal); E11.9 Type 2 diabetes mellitus without complications; I10 Essential (primary) hypertension; I25.10 Atherosclerotic heart disease of native coronary artery without angina pectoris; W19.XXXA Unspecified fall, initial encounter; Z88.5 Allergy status to narcotic agent; Z88.8 Allergy status to other drugs, medicaments and biological substances; Z88.0 Allergy status to penicillin; Z91.048 Other nonmedicinal substance allergy status
CPT/HCPCS: 73560; 99283-25

== ENCOUNTER 2022-01-14 10:40 | Emergency (ER) | payer MEDICARE, OTHER ==
[~2022-01-14] VITALS: Ht 147.3 cm; Wt 61.2 kg
[2022-01-14] MEDS ORDERED: BLEPHAMIDE EYE3.5 GM OPTH (17:44)
[2022-01-14] MEDS ORDERED: ONDANSETRON ODT4 MG PO (17:44)
== END 2022-01-14 18:00 | disposition home or self-care (01) ==
LOC: ED 10:40
DX: H10.9 Unspecified conjunctivitis (principal); R11.10 Vomiting, unspecified; R10.13 Epigastric pain; R21 Rash and other nonspecific skin eruption; E11.9 Type 2 diabetes mellitus without complications; E03.9 Hypothyroidism, unspecified; I10 Essential (primary) hypertension; I25.10 Atherosclerotic heart disease of native coronary artery without angina pectoris; K21.9 Gastro-esophageal reflux disease without esophagitis; G40.909 Epilepsy, unspecified, not intractable, without status epilepticus; M10.9 Gout, unspecified; G20 Parkinson's disease; Z88.1 Allergy status to other antibiotic agents; Z88.8 Allergy status to other drugs, medicaments and biological substances; Z88.5 Allergy status to narcotic agent; Z79.899 Other long term (current) drug therapy; Z79.84 Long term (current) use of oral hypoglycemic drugs; Z79.82 Long term (current) use of aspirin
CPT/HCPCS: 36415; 80053; 81001; 82150; 85025; 96361; 96374; 99284-25; A9270; J2405; J7030